=== PATIENT | female | born 1985 | race Caucasian/White ===

== ENCOUNTER 2019-01-08 21:17 | Emergency (ER) | payer MEDICAID, SELFPAY ==
[2019-01-08 21:19] VITALS: BP 143/101; PULSE 86; RESP 20; TEMP 35.8; O2SAT 100; BMI 39.3
--- NOTE | 2019-01-08 21:24 | EKG12_ITS ---
Test Reason : CP Blood Pressure : / mmHG Vent. Rate : 074 BPM Atrial Rate : 074 BPM P-R Int : 148 ms QRS Dur : 086 ms QT Int : 384 ms P-R-T Axes : 029 045 038 degrees QTc Int : 426 ms Normal sinus rhythm Normal ECG Confirmed by DEAN BAUMANN, SELVIN ([id number]), editor magazine DOMINGA CRAIG ([id number]) on 01/11/2019 10:49:44 AM Referred By: Confirmed By:SELVIN MORAN MD
--- NOTE | 2019-01-08 21:41 | RAD_ITS ---
STUDY: X-RAY CHEST REASON FOR EXAM: Female, 33 years old. Chest pain, shortness of breath TECHNIQUE: Single PA view of the chest. COMPARISON: Previous study of 08/20/2016 FINDINGS: The lungs are clear and expanded. There is no demonstrated pleural abnormality. Normal size heart. Normal mediastinum and pedro. Normal visualized pulmonary arteries. Normal visualized aortic arch and descending thoracic aorta. Normal visualized thoracic spine. Normal visualized ribs, clavicles, and shoulders. There is no demonstrated abnormality of the visualized soft tissue structures of the upper abdomen. RAD/Chest 1 View (Portable) IMPRESSION: Normal x-ray examination of the chest. Electronically Signed: Dariel Barrios MD at 22:22 EDT , Service support ,
[2019-01-08 21:50] LABS: Hematocrit 42.1 % (37-47); Hemoglobin 13.9 g/dl (12.0-15.0); Red Blood Count 4.72 M/mm3 (4.2-5.4); White Blood Count 7.1 K/mm3 (4.4-11.0)
[2019-01-08 21:51] LABS: Absolute Lymphocyte Count 2.97 X10^3/ul (0.83-4.51); Absolute Neutrophil Count 3.7 X10^3/uL (2.0-7.7); Basophil# 0.02 X10^3/uL; Basophil% 0.3 % (0-1); Eosinophil# 0.06 X10^3/uL; Eosinophils% 0.8 % (0-5); Lymphocyte # 2.97 X10^3/ul (4.0); Lymphocyte % 41.9 % (19-41); Mean Corpuscular Hgb 29.4 pg (27.0-32.0); Mean Corpuscular Volume 89.2 fL (81-99); Mean Platelet Vol. 9.4 fl (6.2-12.0); Monocyte# 0.36 X10^3/uL; Monocyte% 5.1 % (0-10); Neutrophil # 3.67 X10^3/uL (2.7-7.7); Neutrophil % 51.8 % (47-70); Platelet Count 251 K/mm3 (150-450); RBC Distribution Width CV 12.6 % (11.6-14.6); RBC Distribution Width SD 40.7 fl (35.1-43.9)
[2019-01-08 21:52] LABS: POSITIVE COUNT NO; POSITIVE DIFFERENTIAL NO; POSITIVE MORPHOLOGY NO
[2019-01-08 22:09] LABS: Anion Gap 9 (5-15); BUN 15 mg/dL (7-18); BUN/Creat Ratio 18.8 RATIO (10-20); Calcium,Total 8.7 mg/dL (8.5-10.1); Chloride 109 mmol/L (98-107); EST Glomerular Filtration Rate 88 mL/min (>60); Est Glom Filt Rate - Afr Amer 107 mL/min (>60); Estimated Creatinine Clearance 79.11 ml/min; Glucose 105 mg/dL (74-106); Potassium 3.7 mmol/L (3.5-5.1); Sodium Level 143 mmol/L (136-145)
[2019-01-08 22:33] VITALS: BP 124/71; PULSE 68; RESP 14; O2SAT 100
--- NOTE | 2019-01-08 22:59 | CT_ITS ---
STUDY: CTA CHEST REASON FOR EXAM: Female, 33 years old. Sudden onset chest pain. Left arm pain. Nausea and vomiting. History of factor V thrombophilia. Takes Xarelto.. RADIATION DOSAGE (If Supplied By Facility): CTDIvol = ( 12.28 ) mGy, DLP = ( 473.17 ) mGycm TECHNIQUE: The examination was performed with the intravenous administration of Isovue 370 100ml IV. Post-processing of the angiographic images was performed, with multiplanar reformation, but without 3D reconstruction. Individualized dose optimization techniques were used for this CT. COMPARISON: CTA chest 08/20/2016. Chest x-ray 01/08/2019. FINDINGS: Normal enhancement of the main pulmonary artery and right and left pulmonary arteries. Normal enhancement of the bilateral peripheral pulmonary arteries. There is no demonstrated pulmonary embolism. Normal thoracic aorta and visualized great vessels. There is no demonstrated aortic dissection. Normal heart and pericardium. Normal mediastinum. Normal hilar regions. Normal visualized trachea and bronchi. The lungs are well expanded. Normal pulmonary parenchyma. Normal pleura. Normal chest wall structures. There are mild degenerative changes of thoracic spine. Normal visualized upper abdomen. CT/CTA Chest W/WO Contrast IMPRESSION: Normal CTA chest examination, without a demonstrated pulmonary embolism or arterial dissection. No evidence for acute cardiopulmonary pathology. Electronically Signed: Norm Quevedo MD at 1:01 EDT , Service support ,
--- NOTE | 2019-01-08 22:59 | CT_ITS ---
STUDY: CT BRAIN WITHOUT CONTRAST REASON FOR EXAM: Female, 33 years old. Sudden onset of chest pain. Shortness of breath. Left arm pain, nausea and vomiting. Factor V thrombophilia. Patient takes his Xarelto. RADIATION DOSAGE (If Supplied By Facility): CTDIvol = ( 44.99 ) mGy, DLP = ( 745.49 ) mGycm TECHNIQUE: Transaxial CT imaging of the brain was performed without administration of intravenous contrast material. Individualized dose optimization techniques were used for this CT. COMPARISON: 09/12/2016. FINDINGS: Normal soft tissue structures. Normal calvarium. Normal size ventricles and extra-axial spaces for the patient's age. Normal white matter tracts of the cerebral hemispheres. Normal basal ganglia and thalami. Normal brainstem. There is cerebellar tonsillar ectopia with downward extension of the cerebellar tonsils through the foramen magnum, however, CSF spaces around the brainstem are not completely effaced and this is probably not a clinically significant Chiari 1 malformation. There is no intracranial hemorrhage. There are no findings of an acute ischemic infarction. Normal visualized paranasal sinuses. CT/Brain/Head without Contrast IMPRESSION: Normal unenhanced CT scan of the brain. Electronically Signed: Norm Quevedo MD at 0:44 EDT , Service support ,
[2019-01-08 23:00] VITALS: BP 96/70; PULSE 71; RESP 18; O2SAT 99
[2019-01-09] VITALS: BP 119/76; PULSE 75; RESP 19; O2SAT 100
--- NOTE | 2019-01-09 01:12 | ED.DCSUM_ITS ---
- ER Visit Summary Date of Service: 01/09/19 Chief Complaint: Chest pain History of Present Illness: The patient is a 33 F with anterior chest pain that started this evening around 8:30 PM. She also reports numbness in her left arm and left leg. She reports a headache that started yesterday and has persisted today. She has a history of factor V Leiden and takes Xarelto. She is a smoker. Prior hysterectomy. Physical Examination: Afebrile and vital signs unremarkable. 100% on room air. Patient in no acute distress. Heart regular. Extremities nontender with no edema. Skin appears normal. Moves all extremities. Cranial nerves grossly intact. Test Results: EKG showed sinus rhythm rate of 74. CBC, BMP, troponin normal. Chest x-ray normal. CT brain normal. CT chest normal. Emergency Department Course and Treatment: Patient was seen for headache, chest pain, and history of anticoagulation. Nursing had ordered her workup prior to my evaluation per protocol. Her workup was unremarkable. I did add on a CT brain and chest which were also unremarkable. Patient will be discharged to follow-up as an outpatient. There is no indication for further diagnostic testing, hospitalization. Treatment Plan: As above Disposition: Discharge Impression: 1. Chest pain 2. Headache This note was generated with [employer] dictation software. It may contain incorrect words, spelling, and punctuation that were not noted in review of the chart prior to signing ED Disposition - Plan for ED Patient: Referrals: Niranjan Gaytan MD [Primary Care Provider] -
--- NOTE | 2019-01-09 01:12 | ED.DEP ---
ED Disposition - Plan for ED Patient: Instructions: ED Chest Pain Atypical Unkn Cause Referrals: Niranjan Gaytan MD [Primary Care Provider] -
[2019-01-09 01:31] VITALS: BP 110/68; PULSE 72; RESP 18; O2SAT 100
== END 2019-01-09 01:32 | disposition home or self-care (01) ==
PROVIDERS: Emergency Provider Emergency Medicine; Family Provider Family Medicine; PCP Family Medicine
DX: R07.9 Chest pain, unspecified (principal); R51 Headache; D68.51 Activated protein C resistance; R20.0 Anesthesia of skin; F17.200 Nicotine dependence, unspecified, uncomplicated; Z79.01 Long term (current) use of anticoagulants; Z90.710 Acquired absence of both cervix and uterus
CPT/HCPCS: 70450; 71045; 71275; 80048; 84484; 85025; 93005; 99285; Q9967; A4216

== ENCOUNTER 2019-05-24 11:22 | Emergency (ER) | payer MEDICAID, SELFPAY ==
[2019-05-24 11:23] VITALS: BP 138/89; PULSE 78; RESP 16; TEMP 36.6; O2SAT 97; BMI 41.1
--- NOTE | 2019-05-24 11:49 | RAD_ITS ---
STUDY: X-RAY CHEST REASON FOR EXAM: Female, 33 years old. Chest pain and cough TECHNIQUE: PA and lateral views of the chest. COMPARISON: 01/08/2019 FINDINGS: EKG leads overlie the chest The lungs are clear and expanded. There is no demonstrated pleural abnormality. Normal size heart. Normal mediastinum and pedro. Normal visualized pulmonary arteries. Normal visualized aortic arch and descending thoracic aorta. Normal visualized thoracic spine. Normal visualized ribs, clavicles, and shoulders. There is no demonstrated abnormality of the visualized soft tissue structures of the upper abdomen. RAD/Chest PA and Lateral IMPRESSION: Normal x-ray examination of the chest. Electronically Signed: Chris Lozano MD at 12:51 EDT , Service support ,
[2019-05-24 12:01] VITALS: O2SAT 97
[2019-05-24 12:16] LABS: Bacteria 0 SEEN /hpf (None Seen); Mucous, Urine 0 SEEN /hpf (<or=2+); Red Blood Cells-Urine 0 SEEN /hpf (0-5); Squamous Epithelial Cells - UA 0 SEEN /hpf (5-10); White Blood Cells 0 SEEN /hpf (0-5)
[2019-05-24 12:21] LABS: Color, Urine Yellow (Yellow); Glucose, Dipstick Normal (Normal); Ketone-Dipstick Negative (Negative); Leukocyte Esterase-Dipstick Negative /ul (Negative); Nitrite-Dipstick Negative (Negative); Occult Blood-Urine 10 /ul (Negative); Protein-Dipstick Negative (Negative); Urine Bilirubin Dipstick Negative (Negative); Urine Clarity Clear (Clear); Urine Urobilinogen Normal (Normal)
[2019-05-24 12:32] LABS: Anion Gap 7 (5-15); BUN 11 mg/dL (7-18); BUN/Creat Ratio 14.9 RATIO (10-20); Calcium,Total 8.8 mg/dL (8.5-10.1); Chloride 109 mmol/L (98-107); Creatinine, Serum 0.74 mg/dL (0.55-1.02); EST Glomerular Filtration Rate 96 mL/min (>60); Est Glom Filt Rate - Afr Amer 116 mL/min (>60); Estimated Creatinine Clearance 85.52 ml/min; Glucose 95 mg/dL (74-106); Potassium 3.8 mmol/L (3.5-5.1); Sodium Level 142 mmol/L (136-145)
[2019-05-24 12:38] VITALS: O2SAT 98
--- NOTE | 2019-05-24 12:38 | ED.RN ---
pt with slight feelings of SOB but in no respiratory distress with ambulation
--- NOTE | 2019-05-24 12:43 | ED.VIS.GEN ---
History of Present Illness Chief Complaint: Shortness of Breath Detail of Chief Complaint: Complains of dysuria, urinating gravel and hematuria Informant: Patient Onset: Weeks - Shortness of breath for weeks Context: Gradual Onset Timing: Continuous Quality: Pain Location: Central chest Current Severity: Mild Maximum Severity: Moderate Worsened by: Shortness of breath worsened by exertion Relieved by: Nothing Associated Symptoms: No associated symptoms and no radiation Narrative: Patient is a 33-year-old woman with history of multiple pulmonary embolus and factor V Leiden deficiency who presents with shortness of breath for 1 month. She denies of dyspnea on exertion. Denies orthopnea PND. She denies hemoptysis. Denies pleuritic chest pain. Denies URI symptoms. She also claims of dysuria, hematuria and urinating gravel for the past 2 weeks. She has no history of renal ureterolithiasis. She is presently on no anticoagulant. She has not been on anticoagulant for 4 months. She states she was on Xarelto. Prior similar symptoms: Yes Recent Illness/Hospitalization: No - Past Medical History (1) Factor V Leiden Status: Acute (2) Hx pulmonary embolism Status: Acute Past Medical History - Allergies and Home Meds Allergies/Adverse Reactions: Allergies horseradish Allergy (Verified 05/24/19 11:26) Food Allergy Iodinated Contrast- Oral and IV Dye [CONTRASTS] Allergy (Verified 05/24/19 11:26) Rash sulfamethoxazole [From Bactrim] Allergy (Verified 05/24/19 11:26) Angioedema, RASH trimethoprim [From Bactrim] Allergy (Verified 05/24/19 11:26) Angioedema, RASH Primary Care Physician: Niranjan Gaytan MD [Primary Care Provider] - Surgical History: appendectomy, cholecystectomy, hysterectomy, - - Right oophorectomy, arthroscopic knee surgery in her right knee for meniscus tear, foot surgery Lives: Alone Smoking Status: Current every day smoker Alcohol: Rare Drugs: None - Family History Maternal Family History: Reports: No pertinent history Paternal Family History: Reports: No pertinent history Review of Systems General: Denies: Chills, Fever, Sweats Eyes: Denies: Visual changes - bilaterally, Diplopia ENT: Denies: Rhinorrhea, Sore throat Cardiovascular: Denies: Chest pain, Palpitations Respiratory: Reports: Dyspnea, Dyspnea on exertion. Denies: Cough, Orthopnea, Paroxysmal nocturnal dyspnea Gastrointestinal: Denies: Abdominal pain, Nausea, Vomiting, Diarrhea, Melena, Hematochezia Genitourinary: Reports: Dysuria, Hematuria, Frequency Musculoskeletal: Denies: Myalgias, Arthralgias, Neck pain, Back pain, Swelling, Extremity Pain Skin: Denies: Rash, Wounds Neurological: Denies: Headache, Weakness, Numbness Hematologic: Denies: Easy bruising, Easy bleeding Allergy: Denies: Uticaria, Swelling of the mouth Physical Exam Vital Signs/Narrative: Vital Signs Temp Pulse Resp BP Pulse Ox 05/24/19 11:23 97.9 F 78 16 138/89 H 97 Inital Vital Signs reviewed: Yes General: Well nourished, Well developed, No Acute Distress Head: Normocephalic, Atraumatic Eyes: Perrl, EOMI ENT: Moist mucous membranes, No rhinorrhea Neck: Supple, Nontender Cardiovascular: Regular rate, Regular rhythm, No murmurs, Normal S1, Normal S2 Respiratory: No distress, CTA bilaterally, Chest nontender Abdomen: Soft, Nontender, Nondistended, Normal bowel sounds Back: Nontender, Normal Inspection. Negative for: CVA tenderness Extremities: Nontender, No edema, - - There is no asymmetry, swelling, discoloration, leg vein distention, palpable cords or tenderness along the distribution of the deep venous system. Skin: Normal color, No rash Neurological: Alert, Oriented x3, Cranial nerves II-XII grossly intact, Normal Strength, Normal Sensation Psychological: Normal affect, Normal Mood Diagnostic/Tx/Re-eval Chest X-Ray - ED: 2 View, Read by ED Physician, Normal, Heart, Lungs, Mediastinum, Bony Structures, No Acute Disease, - - X-ray interpreted at 1240 Impressions Chest X-Ray 05/24/19 11:49 IMPRESSION: Normal x-ray examination of the chest. Electronically Signed: Chris Lozano MD at 12:51 EDT , Service support , 05/24/19 11:49 Chest PA and Lateral [RAD] Stat Laboratory Results 05/24/19 05/24/19 05/24/19 12:05 12:05 12:10 WBC 7.6 RBC 4.85 Hgb 14.1 Hct 42.4 MCV 87.4 MCH 29.1 MCHC 33.3 RDW Std Deviation 39.7 RDW Coeff of Joelle 12.4 Plt Count 240 MPV 10.0 Immature Gran % (Auto) 0.400 Neut % (Auto) 64.6 Lymph % (Auto) 27.9 [place] % (Auto) 5.7 Eos % (Auto) 0.9 Baso % (Auto) 0.5 Absolute Neuts (auto) 4.9 Absolute Lymphs (auto) 2.11 Absolute Nucleated RBC 0.00 Nucleated RBC % 0 Sodium 142 Potassium 3.8 Chloride 109 H Carbon Dioxide 26.0 Anion Gap 7 BUN 11 Creatinine 0.74 Estim Creat Clear Calc 85.52 Est GFR (MDRD) Af Amer 116 Est GFR (MDRD) Non-Af 96 BUN/Creatinine Ratio 14.9 Glucose 95 Calcium 8.8 Urine Color Yellow Urine Clarity Clear Urine pH 6.0 Ur Specific [place] 1.010 Urine Protein Negative Urine Glucose (UA) Normal Urine Ketones Negative Urine Occult Blood 10 H Urine Nitrite Negative Urine Bilirubin Negative Urine Urobilinogen Normal Ur Leukocyte Esterase Negative Urine RBC 0 SEEN Urine WBC 0 SEEN Ur Squamous Epith Cells 0 SEEN Urine Bacteria 0 SEEN Urine Mucus 0 SEEN - Rhythm Strip Rhythm Strip: Sinus Rhythm Rate: 77 Ectopy: None - Medical Decision Making Since patient has respiratory symptoms will obtain chest x-ray. Also will obtain amatory pulse ox. Patient may have a small pulmonary embolus. If she is hypoxic plan is CTA of the chest to evaluate for pulmonary embolus. If she has normal vital signs and is not hypoxic with ambulation will resume/restart anticoagulant. To assess her urinary symptoms probably blood work was ordered as well as UA.. Since patient was not tachycardic, tachypneic or hypoxic with ambulation will resume Xarelto. ED Disposition - Plan for ED Patient: Disposition: Home or Assisted Living Diagnosis: Dyspnea on exertion, Factor V Leiden, Hx pulmonary embolism Instructions: ED Dyspnea Prescriptions: Rivaroxaban [Xarelto] 15 mg PO BID #42 tab Transmission Status: Pending to [facility] [facility] Referrals: Niranjan Gaytan MD [Primary Care Provider] - 3-5 Days if not improving
[2019-05-24 12:53] LABS: Absolute Lymphocyte Count 2.11 X10^3/uL (0.83-4.51); Absolute Neutrophil Count 4.9 X10^3/uL (2.0-7.7); Basophil# 0.04 X10^3/uL; Basophil% 0.5 % (0-1); Eosinophil# 0.07 X10^3/uL; Eosinophils% 0.9 % (0-5); Hematocrit 42.4 % (37-47); Hemoglobin 14.1 g/dL (12.0-15.0); Lymphocyte # 2.11 X10^3/ul (4.0); Lymphocyte % 27.9 % (19-41); Mean Corp Hgb Conc 33.3 g/dL (32-36); Mean Corpuscular Hgb 29.1 pg (27.0-32.0); Mean Corpuscular Volume 87.4 fL (81-99); Monocyte# 0.43 X10^3/uL; Monocyte% 5.7 % (0-10); NRBC Flagged by Analyzer 0 % (0-5); Neutrophil # 4.87 X10^3/uL (2.7-7.7); Neutrophil % 64.6 % (47-70); Platelet Count 240 K/mm3 (150-450); RBC Distribution Width CV 12.4 % (11.6-14.6); RBC Distribution Width SD 39.7 fl (35.1-43.9); Red Blood Count 4.85 M/mm3 (4.2-5.4); White Blood Count 7.6 K/mm3 (4.4-11.0)
== END 2019-05-24 13:17 | disposition home or self-care (01) ==
PROVIDERS: Emergency Provider Emergency Medicine; Family Provider Family Medicine; PCP Family Medicine
DX: R06.09 Other forms of dyspnea (principal); D68.51 Activated protein C resistance; R31.9 Hematuria, unspecified; R30.0 Dysuria; F17.200 Nicotine dependence, unspecified, uncomplicated; Z79.01 Long term (current) use of anticoagulants; Z88.8 Allergy status to other drugs, medicaments and biological substances; Z88.2 Allergy status to sulfonamides; Z86.711 Personal history of pulmonary embolism; Z90.49 Acquired absence of other specified parts of digestive tract; Z90.710 Acquired absence of both cervix and uterus
CPT/HCPCS: 71046; 80048; 81001; 85025; 99284; A4216

== ENCOUNTER 2020-06-27 11:09 | Emergency (ER) | payer MEDICAID, SELFPAY ==
[2020-06-27] VITALS (8 sets, daily range): BP systolic 112–133; BP diastolic 69–86; PULSE 65–88; RESP 15–20; TEMP 36.3–37.2; O2SAT 94–99; BMI 39.5
--- NOTE | 2020-06-27 11:31 | EKG12_ITS ---
Test Reason : CP Blood Pressure : / mmHG Vent. Rate : 072 BPM Atrial Rate : 072 BPM P-R Int : 144 ms QRS Dur : 080 ms QT Int : 346 ms P-R-T Axes : 032 032 034 degrees QTc Int : 378 ms Normal sinus rhythm with sinus arrhythmia Normal ECG Confirmed by JOSE BAUMANN, BRINA ([id number]), news copy editor DOMINGA CRAIG ([id number]) on 07/01/2020 7:51:54 AM Referred By: KIMBERLEY Confirmed By:BRINA GARCIA MD
--- NOTE | 2020-06-27 11:33 | ED.DCSUM_ITS ---
History of Present Illness Informant: Patient Onset: Days - 3 days Activity at onset: Exertion, Light Activity, Rest Timing: Continuous Quality: Dyspnea on exertion Current Severity: Severe Maximum Severity: Severe Worsened by: Coughing, Exertion Relieved by: Nothing Associated Symptoms: Green sputum, Post-nasal drainage, Rhinorrhea Chest Pain: None Narrative: 34-year-old female history of pulmonary embolism currently on anticoagulation presents with 3 days of worsening dyspnea with productive cough with sputum. No chest pain or fevers. No hemoptysis. No sore throat or myalgias. She is not lightheaded or dizzy. She denies any symptoms of bleeding. No nausea vomiting or diarrhea or back pain. She has not lost taste or smell. No contacts with coronavirus patients. She feels congested in her chest she took a hot bath and she states that from the steam she felt really lightheaded like she was going to pass out and may have passed out but she is not sure and denies injuries. She states that she currently has no lightheadedness or dizziness. PE Risk Factors: Negative for: Cancer, OCP + Smoking + > 35, Prior DVT or PE, Recent immobilization, Recent surgery, Recent travel Prior similar symptoms: No Recent Illness/Hospitalization: No <Jeovanny Nava - Last Filed: 06/27/20 15:31> <Mary Campbell - Last Filed: 06/27/20 15:59> Chief Complaint: Cough Past Medical History Prior records reviewed: Yes Past Medical History: - - Cervical cancer, depression, GERD, factor V d eficiency, migraines, asthma Surgical History: appendectomy, cholecystectomy, hysterectomy, - - Right oophorectomy, arthroscopic knee surgery in her right knee for meniscus tear, foot surgery Lives: With Family Smoking Status: Current every day smoker Alcohol: None Drugs: None - Family History Maternal Family History: Reports: No pertinent history Paternal Family History: Reports: No pertinent history <Jeovanny Nava - Last Filed: 06/27/20 15:31> <Mary Campbell - Last Filed: 06/27/20 15:59> - Allergies and Home Meds Allergies/Adverse Reactions: Allergies horseradish Allergy (Verified 06/27/20 11:15) Food Allergy Iodinated Contrast Media [CONTRASTS] Allergy (Verified 06/27/20 11:15) Rash sulfamethoxazole [From Bactrim] Allergy (Verified 06/27/20 11:15) Angioedema, RASH trimethoprim [From Bactrim] Allergy (Verified 06/27/20 11:15) Angioedema, RASH Primary Care Physician: Niranjan Gaytan MD [Primary Care Provider] - 3-5 Days Review of Systems All systems negative except as indicated General: Denies: Chills, Fever, Sweats Eyes: Denies: Visual changes - bilaterally, Diplopia ENT: Denies: Rhinorrhea, Sore throat Cardiovascular: Denies: Chest pain, Palpitations Respiratory: Reports: Dyspnea, Cough, Sputum, Dyspnea on exertion. Denies: Orthopnea, Paroxysmal nocturnal dyspnea Gastrointestinal: Denies: Abdominal pain, Nausea, Vomiting, Diarrhea, Melena, Hematochezia Genitourinary: Denies: Dysuria, Hematuria, Frequency Musculoskeletal: Denies: Back pain, Extremity Pain Skin: Denies: Rash, Wounds Neurological: Denies: Headache, Weakness, Numbness <Jeovanny Nava - Last Filed: 06/27/20 15:31> Physical Exam Vital Signs/Narrative: Vital Signs Temp Pulse Resp BP Pulse Ox 06/27/20 11:10 97.4 F L 88 18 133/86 H 97 Inital Vital Signs reviewed: Yes General: Well nourished, Well developed, No Acute Distress Head: Normocephalic, Atraumatic Eyes: Perrl, EOMI ENT: Moist mucous membranes, No rhinorrhea Neck: Supple, Nontender Cardiovascular: Regular rate, Regular rhythm, No murmurs Respiratory: No distress, Chest nontender, Wheezing Abdomen: Soft, Nontender, Nondistended, Normal bowel sounds Back: Nontender, Normal Inspection Extremities: Nontender, No edema. Negative for: Tenderness, Edema, Calf Tenderness Skin: Normal color, No rash Neurological: Alert, Oriented x3, Cranial nerves II-XII grossly intact, Normal Strength, Normal Sensation Psychological: Normal affect, Normal Mood <Jeovanny Nava Last Filed: 06/27/20 15:31> Vital Signs/Narrative: Vital Signs Temp Pulse Resp BP Pulse Ox 06/27/20 15:44 67 16 06/27/20 14:01 71 20 H 06/27/20 13:52 65 15 112/69 97 06/27/20 12:34 98 08/28/20 12:15 98.9 F 72 18 125/78 H 98 <Mary Campbell - Last Filed: 06/27/20 15:59> Diagnostic/Tx/Re-eval Chest X-Ray - ED: 2 View, Read by ED Physician, No Acute Disease CTA PE Study: No Evidence of PE, No Evidence of Dissection Impressions Chest X-Ray 06/27/20 12:54 IMPRESSION: Normal x-ray examination of the chest. Electronically Signed: Mal Domi, at 13:16 EDT , Service support , Chest CTA 06/27/20 13:22 IMPRESSION: Patchy infiltrate in the posterior aspect of the left upper lobe abutting the left minor fissure. Electronically Signed: Mal Domi, at 15:19 EDT , Service support , 06/27/20 12:54 Chest 1 View [RAD] Stat 06/27/20 13:22 CTA Chest W/WO Contrast [CT] Stat Laboratory Results 06/27/20 06/27/20 12:27 12:27 WBC 7.4 RBC 4.99 Hgb 14.3 Hct 43.9 MCV 88.0 MCH 28.7 MCHC 32.6 RDW Std Deviation 41.0 RDW Coeff of Joelle 12.7 Plt Count 254 MPV 9.6 Immature Gran % (Auto) 0.300 Neut % (Auto) 71.9 H Lymph % (Auto) 19.0 [place] % (Auto) 7.5 Eos % (Auto) 0.9 Baso % (Auto) 0.4 Absolute Neuts (auto) 5.3 Absolute Lymphs (auto) 1.41 Nucleated RBC % 0 Sodium 139 Potassium 3.9 Chloride 106 Carbon Dioxide 27.0 Anion Gap 6 BUN 7 Creatinine 0.74 Estim Creat Clear Calc 84.72 Est GFR (MDRD) Af Amer 115 Est GFR (MDRD) Non-Af 95 BUN/Creatinine Ratio 9.5 L Glucose 91 Calcium 9.2 Troponin I < 0.015 - Rhythm Strip Rhythm Strip: Sinus Rhythm Rate: 72 Ectopy: None - EKG Initial EKG Interpretation: Sinus Rhythm, No Acute Injury Pattern Prior: Unchanged Treatment - Dyspnea: Oxygen, Albuterol, Atrovent, Steroid Repeat Evaluation: Improved With Ambulation: Asymptomatic - Medical Decision Making Patient presents with normal stable vital signs and a normal pulse ox.. EKG was sinus rhythm rate of 72 bpm no ischemic changes are noted and it is unchanged from previous EKG. Laboratory work-up including CBC BMP and troponin are unremarkable. Chest x-ray unremarkable. She was given Solu-Medrol and aerosols. Patient does have a history of pulmonary embolism even though she has been taking her Xarelto she has become more short of breath we are also concerned for pneumonia that was not seen on the chest x-ray therefore we will do a CTA of the chest. Patient was pretreated with Benadryl CTA chest demonstrates a left upper lobe pneumonia but no pulmonary embolism or dissection. Patient has a normal pulse ox she does feel better after steroids and aerosols and we will discharge her home with prescriptions for both Augmentin and Zithromax prednisone and albuterol inhaler. Return precautions given. She will be discharged <Jeovanny Nava - Last Filed: 06/27/20 15:31> - Medical Decision Making Patient seen and evaluated with physicians undertaker assistant. Patient presents secondary to shortness of breath and cough. This is been ongoing for the past couple of days. She is a smoker. She denies fever or chills. She denies possibility of Covid infection. Patient sitting upright in bed no acute distress. Head neck examination unremarkable. Heart is regular rate and rhythm. Lung sounds are with expiratory wheezes throughout. Abdomen is soft and nontender. Chest x-ray is unremarkable. Blood work is unremarkable. In light of her history of pulmonary emboli a CTA of the chest is obtained and reveals small infiltrate. Patient was given DuoNeb treatment here along with steroids. She will be treated with antibiotics and albuterol inhaler at home. Disposition: Discharge <Mary Campbell - Last Filed: 06/27/20 15:59> ED Disposition <Jeovanny Nava - Last Filed: 06/27/20 15:31> <Mary Campbell - Last Filed: 06/27/20 15:59> - Plan for ED Patient: Disposition: Home or Assisted Living Diagnosis: Community acquired pneumonia, Hx pulmonary embolism, Factor V Leiden, Smoker Instructions: Treating Pneumonia, ED PNEUMONITIS Adult Prescriptions: Amox/Clavulanate Tablet [Augmentin Tablet] 875 mg PO Q12H #20 tab Transmission Status: [facility] by [facility]. Prednisone [Deltasone] 40 mg PO DAILY #10 tab Transmission Status: Received by [place] [id number] [address] [facility]. Albuterol Inhaler [Ventolin Hfa] 2 puff INHALATION Q4H PRN PRN #1 inhaler PRN Reason: Wheezing Transmission Status: Received by [place] [id number] [address] [facility]. Azithromycin [Zithromax Z-Brandin] 250 mg PO UD #1 box Transmission Status: Received by [facility] Referrals: Niranjan Gaytan MD [Primary Care Provider] - 3-5 Days
[2020-06-27] MEDS: 0.9% Normal Saline 1,000 ML 1000 ML IV (12:28)
[2020-06-27 12:50] LABS: Absolute Lymphocyte Count 1.41 X10^3/uL (0.83-4.51); Absolute Neutrophil Count 5.3 X10^3/uL (2.0-7.7); Basophil# 0.03 X10^3/uL; Basophil% 0.4 % (0-1); Eosinophil# 0.07 X10^3/uL; Eosinophils% 0.9 % (0-5); Hematocrit 43.9 % (37-47); Hemoglobin 14.3 g/dL (12.0-15.0); Lymphocyte # 1.41 X10^3/ul (4.0); Mean Corp Hgb Conc 32.6 g/dL (32-36); Mean Corpuscular Hgb 28.7 pg (27.0-32.0); Mean Platelet Vol. 9.6 fl (6.2-12.0); Monocyte# 0.56 X10^3/uL; Monocyte% 7.5 % (0-10); NRBC Flagged by Analyzer 0 % (0-5); Neutrophil # 5.33 X10^3/uL (2.7-7.7); Neutrophil % 71.9 % (47-70); Platelet Count 254 K/mm3 (150-450); RBC Distribution Width CV 12.7 % (11.6-14.6); Red Blood Count 4.99 M/mm3 (4.2-5.4); White Blood Count 7.4 K/mm3 (4.4-11.0)
--- NOTE | 2020-06-27 12:54 | RAD_ITS ---
STUDY: X-RAY CHEST REASON FOR EXAM: Female, 34 years old. SOB x3 DAYS, COUGH -- HX OF PE''S TECHNIQUE: Single AP portable view of the chest. COMPARISON: Comparison is made with prior study dated 05/24/2019. FINDINGS: EKG electrodes are seen. The lungs are clear and expanded. There is no demonstrated pleural abnormality. Normal size heart. Normal mediastinum and pedro. Normal visualized pulmonary arteries. Normal visualized aortic arch and descending thoracic aorta. Normal visualized thoracic spine. Normal visualized ribs, clavicles, and shoulders. There is no demonstrated abnormality of the visualized soft tissue structures of the upper abdomen. RAD/Chest 1 View IMPRESSION: Normal x-ray examination of the chest. Electronically Signed: Mal Duron, at 13:16 EDT , Service support ,
[2020-06-27 13:06] LABS: Anion Gap 6 (5-15); BUN 7 mg/dL (7-18); BUN/Creat Ratio 9.5 RATIO (10-20); Calcium,Total 9.2 mg/dL (8.5-10.1); Chloride 106 mmol/L (98-107); Creatinine, Serum 0.74 mg/dL (0.55-1.02); EST Glomerular Filtration Rate 95 mL/min (>60); Est Glom Filt Rate - Afr Amer 115 mL/min (>60); Estimated Creatinine Clearance 84.72 ml/min; Glucose 91 mg/dL (74-106); Potassium 3.9 mmol/L (3.5-5.1); Sodium Level 139 mmol/L (136-145)
--- NOTE | 2020-06-27 13:22 | CT_ITS ---
STUDY: CTA CHEST REASON FOR EXAM: Female, 34 years old. SOB,SYNCOPE, HX PE RADIATION DOSAGE (If Supplied By Facility): CTDIvol = ( 13.41 ) mGy, DLP = ( 421.56 ) mGycm TECHNIQUE: The examination was performed with the intravenous administration of IV 100mL Isovue-370. Post-processing of the angiographic images was performed, with multiplanar reformation and 3D reconstruction. Individualized dose optimization techniques were used for this CT. COMPARISON: Comparison is made with prior study dated 01/08/2019. FINDINGS: Normal enhancement of the main pulmonary artery and right and left pulmonary arteries. Normal enhancement of the bilateral peripheral pulmonary arteries. There is no demonstrated pulmonary embolism. Normal thoracic aorta and visualized great vessels. There is no demonstrated aortic dissection. Normal heart and pericardium. Increased markings are seen within the anterior mediastinal fat. This similar in appearance to prior study. Normal hilar regions. Normal visualized trachea and bronchi. The lungs are well expanded. Focal infiltrate in the posterior aspect of the left upper lobe abutting the left major fissure. Mild increased markings at the lung bases. Normal pleura. Normal chest wall structures. Normal osseous structures. Normal visualized upper abdomen. CT/CTA Chest W/WO Contrast IMPRESSION: Patchy infiltrate in the posterior aspect of the left upper lobe abutting the left minor fissure. Electronically Signed: Mal Duron, at 15:19 EDT , Service support ,
[2020-06-27] MEDS: HYDROcodone Bitartrate/Apap 5/325 Tablet PO (13:47)
[2020-06-27] MEDS: DiphenhydrAMINE 50 MG/ML Syringe 25 MG IV (13:48)
[2020-06-27] MEDS: MethylPREDNISolone 125 MG/2 ML Vial IV (13:50)
[2020-06-27] MEDS: Ipratropium/Albuterol Sulfate 3 ML AMPUL.NEB INHALATION ×2 (14:00→15:43)
[2020-06-27] MEDS: Azithromycin 250 MG Tablet 500 MG PO (16:23)
[2020-06-27] MEDS: Amox/Clavulanate 875 MG Tablet PO (16:24)
--- NOTE | 2020-06-27 19:46 | ED.RN ---
patient called in asking questions about prescriptions attempted to help patient at this time
== END 2020-06-27 16:40 | disposition home or self-care (01) ==
PROVIDERS: Emergency Provider Physician Assistant Medical; PCP Family Medicine
DX: J18.9 Pneumonia, unspecified organism (principal); D68.51 Activated protein C resistance; D68.2 Hereditary deficiency of other clotting factors; J45.909 Unspecified asthma, uncomplicated; K21.9 Gastro-esophageal reflux disease without esophagitis; F17.200 Nicotine dependence, unspecified, uncomplicated; Z79.01 Long term (current) use of anticoagulants; Z85.41 Personal history of malignant neoplasm of cervix uteri; Z86.711 Personal history of pulmonary embolism
CPT/HCPCS: 71045; 71275; 80048; 84484; 85025; 93005; 94640; 94799; 96361; 96374; 96375; 99285; J7030; Q9967; A4216

== ENCOUNTER 2021-04-14 13:41 | Emergency (ER) | payer MEDICAID, SELFPAY ==
[2020-06-27 11:10] VITALS: BMI 39.5
[2021-04-14 13:42] VITALS: BP 120/74; PULSE 98; RESP 16; TEMP 36.7; O2SAT 99; BMI 42.4
--- NOTE | 2021-04-14 13:46 | RAD_ITS ---
STUDY: X-RAY - LEFT RADIUS AND ULNA REASON FOR EXAM: Left elbow pain, left forearm injury from a fall. TECHNIQUE: 2 view(s) of the forearm. COMPARISON: None. FINDINGS: There is an elbow joint effusion. There is a possible subtle nondisplaced fracture of the head/neck junction of the radius on the lateral view. Normal visualized ulna. RAD/Forearm 2 Views IMPRESSION: Possible subtle fracture of the head/neck junction of the radius. Elbow joint effusion. Electronically Signed: Montrell Frazier MD at 14:19 EDT Tel , Service support ,
--- NOTE | 2021-04-14 13:46 | RAD_ITS ---
STUDY: X-RAY - LEFT HUMERUS REASON FOR EXAM: Left elbow/distal humeral pain, left upper arm injury from a fall. TECHNIQUE: 2 view(s) of the humerus. COMPARISON: None. FINDINGS: Normal visualized humerus. There is no demonstrated fracture or osseous destructive process. There is no demonstrated soft tissue abnormality. RAD/Humerus min 2 Views IMPRESSION: Unremarkable x-ray examination of the left humerus. Electronically Signed: Montrell Frazier MD at 14:23 EDT Tel , Service support ,
[2021-04-14] MEDS: oxyCODONE 5 MG Tablet PO (15:07)
--- NOTE | 2021-04-14 15:47 | EX.ED.UPPERE ---
HPI History of Present Illness Chief Complaint: Upper Extremity Injury Informant: patient Occured/Mechanism Mechanism/Context: Yes fall and Yes same level fall Onset/Context/Timing Onset: Today Context: Sudden Onset Timing: Continuous Quality of Pain: Sharp Location: Left elbow Worsened by: Movement Relieved by: Rest Narrative Narrative: Patient presents with injury to her left upper arm and elbow area. Patient states she tripped and fell today. Patient states she landed on her left arm. Patient states her pain is sharp. Patient states pain is worse with any movement. Patient denies any radiation of the pain. Patient denies any paresthesias or weakness. Patient denies any head injury or loss of consciousness. Patient also admits to some mild bruising and a small abrasion over the palmar aspect of her right hand. Patient denies any pain in that hand. [facility] Medical History Anxiety DVT (deep venous thrombosis) Home Medications rivaroxaban 15 mg PO BID #42 tab 05/24/19 [Rx Last Taken Unknown] albuterol sulfate 2 puff INHALATION Q4H PRN PRN #1 inhaler 06/27/20 [Rx Last Taken Unknown] amoxicillin-pot clavulanate 875 mg PO Q12H #20 tab 06/27/20 [Rx Last Taken Unknown] azithromycin 250 mg PO UD #1 box 06/27/20 [Rx Last Taken Unknown] lorazepam 0.5 mg PO DAILY PRN PRN 06/27/20 [History Last Taken Unknown] prednisone 40 mg PO DAILY #10 tab 06/27/20 [Rx Last Taken Unknown] oxycodone-acetaminophen 1 tab PO Q6H PRN PRN 3 Days #12 tablet 04/14/21 [Rx Last Taken Unknown] Allergy/AdvReac Type Severity Reaction Status Date / Time horseradish Allergy Food Verified 04/14/21 13:42 Allergy Iodinated Contrast Media Allergy Rash Verified 04/14/21 13:42 [CONTRASTS] sulfamethoxazole Allergy Angioedema, Verified 04/14/21 13:42 [From Bactrim] RASH trimethoprim [From Bactrim] Allergy Angioedema, Verified 04/14/21 13:42 RASH Surgical History (Updated 04/14/21 @ 18:[address] Gunner Adler DO) History of cholecystectomy History of hysterectomy with unilateral oophorectomy History of tonsillectomy and adenoidectomy Hx of tympanostomy tubes Social History Smoking Status: Current every day smoker tobacco type: cigarettes ROS ROS ED Constitutional Constitutional ED: Denies chills or fever(s) Eyes Eyes: Denies blurry vision or change in vision ENT ENT ED: Denies rhinorrhea or sore throat Cardiovascular Cardiovascular: Denies chest pain or palpitations Respiratory/Chest Respiratory/Chest: Denies cough or dyspnea Gastrointestinal Gastrointestinal: Reports nausea; Denies vomiting Genitourinary Genitourinary ED: Denies dysuria or hematuria Musculoskeletal Musculoskeletal: Denies back pain or neck pain Integumentary Denies abscess or rash Neurologic Neurologic: Denies headache(s) or weakness Allergic/Immunologic Allergic/Immunologic ED: Denies mouth swelling or urticaria EXAM Physical Exam Const Vital Signs: 04/14/21 13:42 Temperature 98.0 F Temperature Source Temporal Pulse Rate 98 Respiratory Rate 16 Blood Pressure 120/74 Blood Pressure Mean 89 Pulse Ox 99 Oxygen Delivery Method Room Air Positive well nourished, well developed and obese General Appearance ED: well developed Nutritional Appearance: obese HEENT Reports moist mucous membranes Neck full ROM and supple Extremity Extremity Narrative: There is tenderness over the antecubital area of the left elbow. There is some mild edema. There is no obvious deformity. Range of motion was limited in all motions of the left elbow secondary to pain. There is mild tenderness over the left shoulder. There is no tenderness over the left wrist. Sensation was intact to light touch in the radial, median, and ulnar areas. Capillary refill is less than 2 seconds in all digits. Radial pulses are equal bilaterally. Neuro oriented x3, CN's II-XII intact bilaterally, moves all extremities, no focal motor deficits and no sensory deficits noted Sensorium / Orientation: alert Psych mental status grossly normal MDM MDM MDM Narrative Medical decision making narrative: X-rays of the left humerus were obtained. There are 2 views. On my interpretation, there is no acute fracture or dislocation. There is no soft tissue swelling. Radiologist also interpreted the x-rays and agrees. X-rays of the left forearm were obtained. There are 2 views. On my interpretation, there is a nondisplaced radial head fracture. There is a joint effusion with a positive anterior and posterior fat pad signs. Radiologist also interpreted the x-rays and agrees. Patient was given a dose of oxycodone here. Patient was placed in a well-padded custom made posterior splint using 4 inch Ortho-Glass. Patient was given a sling for comfort as well. Patient was given a prescription for Percocet. Patient was given a referral to Dr. Rashid Rucker from orthopedics who is on-call. Patient was instructed use ice to the left elbow. Patient was instructed to follow-up in 3 to 5 days. Patient understood and was agreeable with the plan. All questions were answered. Radiography Diagnostic Testing: Radiology Impression Forearm X-Ray 04/14/21 13:46 IMPRESSION: Possible subtle fracture of the head/neck junction of the radius. Elbow joint effusion. Electronically Signed: Montrell Frazier MD at 14:19 EDT Tel , Service support , Humerus X-Ray 04/14/21 13:46 IMPRESSION: Unremarkable x-ray examination of the left humerus. Electronically Signed: Montrell Frazier MD at 14:23 EDT Tel , Service support , Discharge Plan Triage Chief Complaint: Upper Extremity Injury ED Provider: Gunner Adler Dx/Rx/DC Orders Clinical Impression: Fracture of head of left radius Instructions: ED Elbow Fracture Prescriptions: New oxycodone-acetaminophen [oxycodone-acetaminophen] 1 TABLET tablet 1 tab PO Q6H PRN PRN (Reason: Pain) 3 Days Qty: 12 RF: 0 No Action rivaroxaban 15 MG tablet 15 mg PO BID Qty: 42 RF: 0 lorazepam 0.5 MG tablet 0.5 mg PO DAILY PRN PRN (Reason: Anxiety) RF: 0 albuterol sulfate 1 INHALER inhaler 2 puff inhalation Q4H PRN PRN (Reason: Wheezing) Qty: 1 RF: 0 azithromycin 250 MG tablet 250 mg PO UD Qty: 1 RF: 0 prednisone 20 MG tablet 40 mg PO DAILY Qty: 10 RF: 0 amoxicillin-pot clavulanate 875 MG tablet 875 mg PO Q12H Qty: 20 RF: 0 Primary Care Provider: Niranjan Gaytan Referrals: Niranjan Gaytan MD [Primary Care Provider] - 1-2 Weeks Rashid Rucker MD [STAFF PHYSICIAN] - 3-5 Days Disposition Disposition: Home, self care Discharge Date/Time: 04/14/21 16:21
[2021-04-14 16:20] VITALS: PULSE 88; RESP 15; O2SAT 97
== END 2021-04-14 16:21 | disposition home or self-care (01) ==
PROVIDERS: Emergency Provider Emergency Medicine; PCP Family Medicine
DX: S52.125A Nondisplaced fracture of head of left radius, initial encounter for closed fracture (principal); Z04.3 Encounter for examination and observation following other accident; W01.0XXA Fall on same level from slipping, tripping and stumbling without subsequent striking against object, initial encounter; Y93.9 Activity, unspecified; Y92.9 Unspecified place or not applicable; Y99.9 Unspecified external cause status; F41.9 Anxiety disorder, unspecified; E66.9 Obesity, unspecified; F17.210 Nicotine dependence, cigarettes, uncomplicated; Z79.01 Long term (current) use of anticoagulants; Z79.52 Long term (current) use of systemic steroids; Z79.899 Other long term (current) drug therapy; Z86.718 Personal history of other venous thrombosis and embolism
CPT/HCPCS: 29405; 73060; 73090; 99283

== ENCOUNTER 2021-07-01 21:22 | Emergency (ER) | payer MEDICAID, SELFPAY ==
[2021-07-01 21:22] VITALS: BP 138/85; PULSE 89; RESP 16; TEMP 36.2; O2SAT 99; BMI 40.2
[2021-07-01 21:24] VITALS: BP 138/85; PULSE 89; RESP 16; TEMP 36.2; O2SAT 99
--- NOTE | 2021-07-01 22:19 | EDS_ITS ---
HPI History of Present Illness Chief Complaint: Wound Detail of Chief Complaint: Lower abdomen. Informant: patient Onset/Context/Timing Onset: Weeks Context: Gradual Onset Timing: Continuous Current Severity: Mild Maximum Severity: Mild Narrative Narrative: 35-year-old female past medical history of DVTs on Xarelto and anxiety. Denies diabetes. States she developed a small wound on her abdomen just from rubbing against her pants and clothing. And now there is redness around it. Denies any fever or chills. Says it is mildly uncomfortable. No discharge. Started approximately 1 week ago. Prior similar symptoms: No Recent Illness/Hospitalization: No PFSH PFSH Medical History Anxiety DVT (deep venous thrombosis) Home Medications lorazepam 0.5 mg PO DAILY PRN PRN 06/27/20 [History Last Taken Unknown] cephalexin 500 mg PO Q6H 7 Days #28 cap 07/01/21 [Rx Last Taken Unknown] rivaroxaban 20 mg PO DAILY 07/01/21 [History Last Taken Unknown] Allergy/AdvReac Type Severity Reaction Status Date / Time horseradish Allergy Food Verified 07/01/21 21:24 Allergy Iodinated Contrast Media Allergy Rash Verified 07/01/21 21:24 [CONTRASTS] sulfamethoxazole Allergy Angioedema, Verified 07/01/21 21:24 [From Bactrim] RASH trimethoprim [From Bactrim] Allergy Angioedema, Verified 07/01/21 21:24 RASH Surgical History History of cholecystectomy History of hysterectomy with unilateral oophorectomy History of tonsillectomy and adenoidectomy Hx of tympanostomy tubes Social History Smoking Status: Current every day smoker tobacco type: cigarettes ROS ROS ED ROS Narrative Denies recent illness. Review of Systems ROS Unobtainable: Denies due to encephalopathy Constitutional Constitutional ED: Denies chills or fever(s) Eyes Eyes: Denies change in vision ENT ENT ED: Denies ear pain or sore throat Cardiovascular Cardiovascular: Denies chest pain Respiratory/Chest Respiratory/Chest: Denies cough or dyspnea Gastrointestinal Gastrointestinal: Denies abdominal pain, diarrhea, nausea or vomiting Genitourinary Genitourinary ED: Denies dysuria Musculoskeletal Musculoskeletal: Denies myalgias Integumentary Denies rash Neurologic Neurologic: Denies headache(s) Psychiatric Psychiatric: Denies depression Endocrine Endocrinology: Denies polyuria Allergic/Immunologic Allergic/Immunologic ED: Denies urticaria EXAM Physical Exam Narrative Exam Narrative: Well-appearing 35-year-old female. Vital signs stable afebrile. Exam unremarkable except lower abdomen periumbilical there is a small abrasion with mild redness around it. This could be early cellulitis. It is minimally tender. There is no discharge. Rest the abdomen is benign. Otherwise exam unremarkable. Const Vital Signs: 07/01/21 21:22 07/01/21 21:24 Temperature 97.1 F L 97.1 F L Temperature Source Temporal Temporal Pulse Rate 89 89 Respiratory Rate 16 16 Blood Pressure 138/85 H 138/85 H Blood Pressure Mean 102 102 Pulse Ox 99 99 Oxygen Delivery Method Room Air Room Air Positive well nourished, well developed and obese; Negative for cachectic, contractures or unkempt General Appearance ED: well developed and NAD; Negative for unkempt, cachectic or contractures Nutritional Appearance: obese; Negative for cachectic HEENT Reports moist mucous membranes Negative for trauma or tenderness Eyes PERRL and EOMs intact bilaterally Neck no lymphadenopathy, supple and no JVD General: Negative for tenderness Chest Wall inspection of chest normal and palpation of chest normal Resp normal respiratory effort and clear to auscultation bilaterally Cardio regular rate, regular rhythm, S1 normal heart sound, S2 normal heart sound and no murmurs GI normal to inspection, nondistended, normoactive bowel sounds, non-tender, non- distended and no masses GI Narrative: Small abrasion periumbilical with mild redness. Could be early cellulitis. Otherwise the abdomen is nontender. Auscultation: normoactive bowel sounds Palpation: soft and tender Back/Spine no CVA tenderness General Back: Negative for CVA tenderness Extremity normal to inspection General Extremety ED: Negative for edema or tenderness General Extremity: Negative for edema Neuro oriented x3 Sensorium / Orientation: alert; Negative for orientation impaired, lethargic or stuporous Motor Exam: strength 5/5 throughout Psych mental status grossly normal Appearance: Negative for unkempt Skin no rashes or lesions noted Rashes: rashes noted MDM MDM MDM Narrative Medical decision making narrative: 35-year-old female abrasion on her abdomen with early cellulitis. We started on Keflex for a week. Follow-up. We will check a BG T prior to discharge. She has no known history of diabetes. Lab Data Attestation: I reviewed the patient's lab results. Discharge Plan Triage Chief Complaint: Wound ED Provider: Ronald Braga Dx/Rx/DC Orders Clinical Impression: Cellulitis Instructions: ED Cellulitis Prescriptions: New cephalexin 500 mg capsule 500 mg PO Q6H 7 Days Qty: 28 RF: 0 No Action lorazepam 0.5 MG tablet 0.5 mg PO DAILY PRN PRN (Reason: Anxiety) RF: 0 rivaroxaban 15 MG tablet 20 mg PO DAILY RF: 0 Primary Care Provider: Niranjan Gaytan Referrals: Niranjan Gaytan MD [Primary Care Provider] - 1 Week if not improving Activity Restrictions/Additional Instructions: Keep wound clean. Clean daily with soap and water and peroxide and water. Apply antibiotic ointment. Keflex 4 times a day for 1 week this should improve. If not follow-up. If significantly worse return. Disposition Disposition: Home, Self Care
[2021-07-01] MEDS: Cephalexin 250 MG Capsule 500 MG PO (22:39)
[2021-07-01 22:41] VITALS: BP 119/75; PULSE 72; RESP 16; TEMP 36.9; O2SAT 72
[2021-07-02 07:36] LABS: Bedside Glucose 113 mg/dL (70-110)
== END 2021-07-01 22:47 | disposition home or self-care (01) ==
LOC: ED 22:41
PROVIDERS: Emergency Provider Emergency Medicine; PCP Family Medicine
DX: L03.311 Cellulitis of abdominal wall (principal); E66.9 Obesity, unspecified; F17.210 Nicotine dependence, cigarettes, uncomplicated; Z86.718 Personal history of other venous thrombosis and embolism; Z79.01 Long term (current) use of anticoagulants; Z79.899 Other long term (current) drug therapy
CPT/HCPCS: 82962; 99283

== ENCOUNTER 2022-07-14 17:06 | Emergency (ER) | payer MEDICAID, SELFPAY ==
[2022-07-14 17:09] VITALS: BMI 38.8
[2022-07-14 17:11] VITALS: BP 136/76; PULSE 84; RESP 16; TEMP 36.4; O2SAT 97; BMI 38.8
--- NOTE | 2022-07-14 17:13 | ED.RN ---
pt states she is suppose to take xarelto daily but has not taken it in months
--- NOTE | 2022-07-14 17:15 | EDS_ITS ---
HPI History of Present Illness Chief Complaint: Neuro S/Sx Informant: patient Onset/Context/Timing Onset: Today Context: Sudden Onset Timing: Continuous Quality: Paresthesias Location: Left arm and left face Worsened by: Nothing Relieved by: Nothing Narrative Narrative: Patient presents with chest pain and left arm paresthesias that began approximately 30 minutes prior to arrival. Patient states this began rather suddenly. Patient denies any weakness of her arms or legs. Patient states she also has some paresthesias and mild weakness in her face. Patient denies any headaches. Patient denies any nausea or vomiting. Patient admits to some heaviness over her left upper chest. Patient denies any shortness of breath. Patient denies any visual changes. [facility] Medical History Anxiety DVT (deep venous thrombosis) Home Medications NK 07/14/22 [History Last Taken Unknown] Allergy/AdvReac Type Severity Reaction Status Date / Time horseradish Allergy Food Verified 07/14/22 17:10 Allergy Iodinated Contrast Media Allergy Rash Verified 07/14/22 17:10 [CONTRASTS] sulfamethoxazole Allergy Angioedema, Verified 07/14/22 17:10 [From Bactrim] RASH trimethoprim [From Bactrim] Allergy Angioedema, Verified 07/14/22 17:10 RASH Surgical History History of cholecystectomy History of hysterectomy with unilateral oophorectomy History of tonsillectomy and adenoidectomy Hx of tympanostomy tubes Social History Smoking Status: Current every day smoker tobacco type: cigarettes ROS ROS ED Constitutional Constitutional ED: Denies chills or fever(s) Eyes Eyes: Denies blurry vision or change in vision ENT ENT ED: Denies rhinorrhea or sore throat Cardiovascular Cardiovascular: Reports chest pain; Denies palpitations Respiratory/Chest Respiratory/Chest: Denies cough or dyspnea Gastrointestinal Gastrointestinal: Denies nausea or vomiting Genitourinary Genitourinary ED: Denies dysuria or hematuria Musculoskeletal Musculoskeletal: Denies back pain or neck pain Integumentary Denies abscess or rash Neurologic Neurologic: Reports paresthesias; Denies headache(s) or weakness Allergic/Immunologic Allergic/Immunologic ED: Denies mouth swelling or urticaria EXAM Physical Exam Const Vital Signs: 07/14/22 17:11 07/14/22 18:11 07/14/22 19:07 Temperature 97.5 F L Temperature Source Temporal Pulse Rate 84 69 83 Respiratory Rate 16 14 19 H Blood Pressure 136/76 H 136/84 H 122/78 H Blood Pressure Mean 96 101 92 Pulse Ox 97 96 97 Oxygen Delivery Method Room Air Room Air Room Air Positive well nourished, well developed and obese General Appearance ED: well developed and NAD Nutritional Appearance: obese HEENT Reports moist mucous membranes Neck supple and no JVD Resp normal respiratory effort and clear to auscultation bilaterally Cardio regular rate, regular rhythm and no murmurs GI normal to inspection, nondistended, normoactive bowel sounds and non-tender Palpation: soft Extremity normal to inspection General Extremety ED: Negative for edema or tenderness General Extremity: Negative for edema Neuro oriented x3 and CN's II-XII intact bilaterally Neuro Narrative: There is some mild decrease sensation to light touch over the left upper arm. Otherwise, there are no focal neurodeficits noted. Sensorium / Orientation: alert Motor Exam: strength 5/5 throughout Psych mental status grossly normal Skin no rashes or lesions noted MDM MDM MDM Narrative Medical decision making narrative: EKG was obtained. On my interpretation, it showed a normal sinus rhythm with a rate of 73. [place] interval, QRS interval, and QTc intervals were all normal. [place] was normal. There are no acute ST or T wave changes. CT scan of the brain was obtained. There is no acute intracranial abnormality. This was interpreted by the radiologist and reviewed by myself. CBC was obtained and was within normal limits. PT with INR and PTT were within normal limits. BGT was 116. Comprehensive metabolic profile was within normal limits. Urinalysis does not show any evidence of urinary tract infection or hematuria. Serum hCG was negative. Initial high-sensitivity troponin was normal. 2-hour repeat high-sensitivity troponin was normal. Patient was advised of her findings. I do not feel this is an acute stroke. I do not feel the patient needs to be admitted to the hospital. Patient is agreeable with following up with her primary care physician in 5 to 7 days. Patient understood and was agreeable with the plan. All questions were answered. Lab Data Attestation: I reviewed the patient's lab results. Labs: Laboratory Results - last 24 hr 07/14/22 07/14/22 07/14/22 17:11 17:15 17:15 WBC 8.7 RBC 4.72 Hgb 14.2 Hct 41.5 MCV 87.9 MCH 30.1 MCHC 34.2 RDW Std Deviation 40.1 RDW Coeff of Joelle 12.5 Plt Count 250 MPV 10.0 Immature Gran % (Auto) 0.300 Neut % (Auto) 70.9 H Lymph % (Auto) 24.3 [place] % (Auto) 4.0 Eos % (Auto) 0.2 Baso % (Auto) 0.3 Absolute Neuts (auto) 6.2 Absolute Lymphs (auto) 2.12 Nucleated RBC % 0 PT 13.0 INR 1.0 APTT 28.0 Sodium Potassium Chloride Carbon Dioxide Anion Gap BUN Creatinine Estim Creat Clear Calc Est GFR (MDRD) Af Amer Est GFR (MDRD) Non-Af BUN/Creatinine Ratio Glucose Calcium Total Bilirubin AST ALT Alkaline Phosphatase Troponin I High Sens Total Protein Albumin Globulin Albumin/Globulin Ratio Serum , Qual Urine Color Urine Clarity Urine pH Ur Specific [place] Urine Protein Urine Glucose (UA) Urine Ketones Urine Occult Blood Urine Nitrite Urine Bilirubin Urine Urobilinogen Ur Leukocyte Esterase Urine RBC Urine WBC Ur Squamous Epith Cells Urine Bacteria Urine Mucus POC Glucose 116 H 07/14/22 07/14/22 07/14/22 17:15 17:15 18:53 WBC RBC Hgb Hct MCV MCH MCHC RDW Std Deviation RDW Coeff of Joelle Plt Count MPV Immature Gran % (Auto) Neut % (Auto) Lymph % (Auto) [place] % (Auto) Eos % (Auto) Baso % (Auto) Absolute Neuts (auto) Absolute Lymphs (auto) Nucleated RBC % PT INR APTT Sodium 140 Potassium 3.6 Chloride 108 H Carbon Dioxide 23.0 Anion Gap 9 BUN 12 Creatinine 0.76 Estim Creat Clear Calc 80.94 Est GFR (MDRD) Af Amer 109 Est GFR (MDRD) Non-Af 90 BUN/Creatinine Ratio 15.7 Glucose 120 H Calcium 9.2 Total Bilirubin 0.60 AST 15 ALT 19 Alkaline Phosphatase 100 Troponin I High Sens 4 Total Protein 8.0 Albumin 4.0 Globulin 4.0 Albumin/Globulin Ratio 1.0 Serum , Qual NEGATIVE Urine Color Straw Urine Clarity Clear Urine pH 6.0 Ur Specific [place] 1.010 Urine Protein Negative Urine Glucose (UA) Normal Urine Ketones 5 H Urine Occult Blood 10 H Urine Nitrite Negative Urine Bilirubin Negative Urine Urobilinogen Normal Ur Leukocyte Esterase Negative Urine RBC 0 SEEN Urine WBC 0 SEEN Ur Squamous Epith Cells 0-5 SEEN Urine Bacteria RARE Urine Mucus 0 SEEN POC Glucose 07/14/22 19:31 WBC RBC Hgb Hct MCV MCH MCHC RDW Std Deviation RDW Coeff of Joelle Plt Count MPV Immature Gran % (Auto) Neut % (Auto) Lymph % (Auto) [place] % (Auto) Eos % (Auto) Baso % (Auto) Absolute Neuts (auto) Absolute Lymphs (auto) Nucleated RBC % PT INR APTT Sodium Potassium Chloride Carbon Dioxide Anion Gap BUN Creatinine Estim Creat Clear Calc Est GFR (MDRD) Af Amer Est GFR (MDRD) Non-Af BUN/Creatinine Ratio Glucose Calcium Total Bilirubin AST ALT Alkaline Phosphatase Troponin I High Sens 4 Total Protein Albumin Globulin Albumin/Globulin Ratio Serum , Qual Urine Color Urine Clarity Urine pH Ur Specific [place] Urine Protein Urine Glucose (UA) Urine Ketones Urine Occult Blood Urine Nitrite Urine Bilirubin Urine Urobilinogen Ur Leukocyte Esterase Urine RBC Urine WBC Ur Squamous Epith Cells Urine Bacteria Urine Mucus POC Glucose Radiography Diagnostic Testing: Clinical Impression(s) from Imaging Studies Brain CT 07/14/22 17:19 IMPRESSION: There are no acute intracranial findings. Electronically Signed: Malcolm Lux MD at 19:23 EDT , Chest CTA 07/14/22 17:21 IMPRESSION: Negative CTA chest. Electronically Signed: Malcolm Lux MD at 19:24 EDT , Discharge Plan Triage Chief Complaint: Neuro S/Sx ED Provider: Gunner Adler Dx/Rx/DC Orders Clinical Impression: Paresthesias, Chest pain of uncertain etiology Instructions: ED Chest Pain, Uncertain Cause, ED Paraesthesias Prescriptions: No Action NK Primary Care Provider: Niranjan Gaytan Referrals: Niranjan Gaytan MD [Primary Care Provider] - 3-5 Days Disposition Disposition: Home, Self Care
--- NOTE | 2022-07-14 17:19 | CT_ITS ---
STUDY: CT BRAIN WITHOUT CONTRAST REASON FOR EXAM: Female, 36 years old. Paresthesias TECHNIQUE: Transaxial CT imaging of the brain was performed without administration of intravenous contrast material. Individualized dose optimization techniques were used for this CT. COMPARISON: None FINDINGS: Normal calvarium. Normal soft tissues. Normal size ventricles and extra-axial spaces for the patient''s age. Normal white matter tracts of the cerebral hemispheres. Normal basal ganglia and thalami. Normal brainstem. Normal cerebellum. There is no intracranial hemorrhage. There are no findings of an acute ischemic infarction. Normal visualized paranasal sinuses. ASPECTS 10 CT/Brain/Head without Contrast IMPRESSION: There are no acute intracranial findings. Electronically Signed: Malcolm Lux MD at 19:23 EDT ,
--- NOTE | 2022-07-14 17:19 | EKG12_ITS ---
Test Reason : NEURO S/SX Blood Pressure : / mmHG Vent. Rate : 073 BPM Atrial Rate : 073 BPM P-R Int : 154 ms QRS Dur : 088 ms QT Int : 374 ms P-R-T Axes : 050 033 028 degrees QTc Int : 412 ms Normal sinus rhythm Normal ECG Confirmed by DEAN BAUMANN, SELVIN ([id number]), online editor DOMINGA CRAIG ([id number]) on 07/16/2022 10:04:20 AM Referred By: Confirmed By:SELVIN MORAN MD
--- NOTE | 2022-07-14 17:21 | CT_ITS ---
EXAM: CT ANGIOGRAPHY CHEST WITHOUT AND WITH INTRAVENOUS CONTRAST CLINICAL INDICATION: Chest pain TECHNIQUE: Helically acquired angiography images were obtained of the chest without and with intravenous contrast. This CT exam was performed using one or more of the following dose reduction techniques: automated exposure control, adjustment of the mA and/or kV according to patient size, and/or use of iterative reconstruction technique. This report was created using [employer] report generation technology. MIP reconstructed images were created and reviewed. CONTRAST: IV 100mL Isovue-370 RADIATION DOSE: CTDIvol = 11.01 mGy, DLP = 1211.77 mGy-cm COMPARISON: None. FINDINGS: PULMONARY ARTERIES: Unremarkable. Normal in caliber. No evidence of pulmonary embolism. AORTA: Unremarkable. Normal in caliber. No evidence of dissection. GREAT VESSELS OF AORTIC ARCH: Unremarkable. Normal in caliber. No evidence of dissection. LUNGS AND PLEURAL SPACES: Unremarkable. No mass. No consolidation or edema. No pleural effusion or thickening. No pneumothorax. HEART: Unremarkable. Heart size is normal. No pericardial effusion. No signs of right heart strain, ratio of right ventricle to left ventricle measures less than 1. MEDIASTINUM: Unremarkable. No mediastinal or hilar adenopathy. Esophagus is unremarkable. No hiatal hernia. THYROID: Unremarkable. No thyroid lesions. BONES/JOINTS: Unremarkable. No suspicious lytic or blastic abnormality. CT/CTA Chest W/WO Contrast IMPRESSION: Negative CTA chest. Electronically Signed: Malcolm Lux MD at 19:24 EDT Reading Location ID and State: [facility] / [place] , Service support ,
[2022-07-14 17:30] LABS: Absolute Lymphocyte Count 2.12 X10^3/uL (0.83-4.51); Absolute Neutrophil Count 6.2 X10^3/uL (2.0-7.7); Basophil# 0.03 X10^3/uL; Basophil% 0.3 % (0-1); Eosinophil# 0.02 X10^3/uL; Eosinophils% 0.2 % (0-5); Hematocrit 41.5 % (37-47); Hemoglobin 14.2 g/dL (12.0-15.0); Lymphocyte # 2.12 X10^3/ul (0.83-4.51); Lymphocyte % 24.3 % (19-41); Mean Corp Hgb Conc 34.2 g/dL (32-36); Mean Corpuscular Hgb 30.1 pg (27.0-32.0); Mean Corpuscular Volume 87.9 fL (81-99); Monocyte# 0.35 X10^3/uL; NRBC Flagged by Analyzer 0 % (0-5); Neutrophil # 6.18 X10^3/uL (2.7-7.7); Neutrophil % 70.9 % (47-70); Platelet Count 250 K/mm3 (150-450); RBC Distribution Width CV 12.5 % (11.6-14.6); RBC Distribution Width SD 40.1 fl (35.1-43.9); Red Blood Count 4.72 M/mm3 (4.2-5.4); White Blood Count 8.7 K/mm3 (4.4-11.0)
[2022-07-14 17:31] LABS: Bedside Glucose 116 mg/dL (74-106)
[2022-07-14] MEDS: predniSONE 20 MG Tablet 40 MG PO (17:33)
[2022-07-14] MEDS: DiphenhydrAMINE 50 MG/ML Syringe 25 MG IV (17:35)
[2022-07-14 17:49] LABS: AST(SGOT) 15 U/L (15-37); Alanine Aminotransfer ALT/SGPT 19 U/L (13-56); Alkaline Phosphatase 100 U/L (45-117); Anion Gap 9 (5-15); BUN 12 mg/dL (7-18); BUN/Creat Ratio 15.7 RATIO (10-20); Calcium,Total 9.2 mg/dL (8.5-10.1); Chloride 108 mmol/L (98-107); Creatinine, Serum 0.76 mg/dL (0.55-1.02); EST Glomerular Filtration Rate 90 mL/min (>60); Est Glom Filt Rate - Afr Amer 109 mL/min (>60); Estimated Creatinine Clearance 80.94 ml/min; Glucose 120 mg/dL (74-106); Potassium 3.6 mmol/L (3.5-5.1); Sodium Level 140 mmol/L (136-145); Troponin-I HS (w/2H Reflex) 4 pg/mL (3.0-54.0)
[2022-07-14 18:08] LABS: Internal QC Validated? YES +Cl - CLEAR BKGD; Pregnancy, Serum, hCG Quali. NEGATIVE Negative
[2022-07-14 18:11] VITALS: BP 136/84; PULSE 69; RESP 14; O2SAT 96
[2022-07-14 19:06] LABS: Mucous, Urine 0 SEEN /hpf (<or=2+); Red Blood Cells-Urine 0 SEEN /hpf (0-5); White Blood Cells 0 SEEN /hpf (0-5)
[2022-07-14 19:07] VITALS: BP 122/78; PULSE 83; RESP 19; O2SAT 97
[2022-07-14 19:18] LABS: Color, Urine Straw (Yellow); Glucose, Dipstick Normal (Normal); Ketone-Dipstick 5 mg/dl (Negative); Leukocyte Esterase-Dipstick Negative /ul (Negative); Nitrite-Dipstick Negative (Negative); Occult Blood-Urine 10 /ul (Negative); Protein-Dipstick Negative (Negative); Urine Bilirubin Dipstick Negative (Negative); Urine Clarity Clear (Clear); Urine Urobilinogen Normal (Normal)
[2022-07-14 19:26] LABS: Reflex Troponin-HS? (from REC) Y
[2022-07-14 19:30] LABS: Bacteria RARE /hpf (None Seen); Squamous Epithelial Cells - UA 0-5 SEEN /hpf (5-10)
[2022-07-14 20:01] LABS: Troponin-I HS 4 pg/mL (3.0-54.0)
[2022-07-14 20:37] VITALS: BP 113/80; PULSE 88; RESP 16; O2SAT 98
== END 2022-07-14 20:42 | disposition home or self-care (01) ==
PROVIDERS: Emergency Provider Emergency Medicine; PCP Family Medicine; Visit Provider Emergency Medicine
DX: R20.2 Paresthesia of skin (principal); R07.9 Chest pain, unspecified; F41.9 Anxiety disorder, unspecified; E66.9 Obesity, unspecified; F17.210 Nicotine dependence, cigarettes, uncomplicated; Z86.718 Personal history of other venous thrombosis and embolism
CPT/HCPCS: 70450; 71275; 80053; 81001; 82962; 84484; 84703; 85025; 85610; 85730; 87428; 93005; 96374; 99285; Q9967; A4216

== ENCOUNTER 2022-08-16 18:09 | Emergency (ER) | payer MEDICAID, SELFPAY ==
[2022-08-16 18:12] VITALS: BP 112/56; PULSE 80; RESP 16; TEMP 36.8; O2SAT 100; BMI 37.3
[2022-08-16 18:32] VITALS: BP 103/62; PULSE 75; RESP 16; O2SAT 96
--- NOTE | 2022-08-16 18:48 | US_ITS ---
STUDY: VENOUS DOPPLER ULTRASOUND - LEFT LOWER EXTREMITY REASON FOR EXAM: Female, 36 years old. -- PAIN, ELEVATED D-DIMER TECHNIQUE: Ultrasound evaluation of the deep vein system to include weir-scale imaging and compression was performed. Weir-scale imaging and Doppler sonographic evaluation, including duplex spectral analysis and qualitative color flow sonography, was performed. COMPARISON: None. FINDINGS: Common Femoral Vein: Normal compression, spontaneity and augmentation. Normal color Doppler. There is linear echogenic structure in the lumen with possible chronic thrombus. Common Femoral Vein/Greater Saphenous Junction: Normal compression, spontaneity and augmentation. Normal color Doppler. Deep Femoral Vein: Normal compression, spontaneity and augmentation. Normal color Doppler. Femoral Proximal: Normal compression, spontaneity and augmentation. Normal color Doppler. There is linear echogenic structure in the lumen with possible chronic thrombus. Femoral Middle: Normal compression, spontaneity and augmentation. Normal color Doppler. There is linear echogenic structure in the lumen with possible chronic thrombus. Femoral Distal: Normal compression, spontaneity and augmentation. Normal color Doppler. There is linear echogenic structure in the lumen with possible chronic thrombus. Popliteal Vein: Normal compression, spontaneity and augmentation. Normal color Doppler. There is linear echogenic structure in the lumen with possible chronic thrombus. Posterior Tibial Vein: Normal compression, spontaneity and augmentation. Normal color Doppler. Peroneal Vein: Normal compression, spontaneity and augmentation. Normal color Doppler. The above findings are consistent with a chronic thrombosis. US/Venous Duplex Imag/Limited/Uni IMPRESSION: No acute thrombus seen. Possible chronic thrombus with linear echogenic structure in the femoral veins. Electronically Signed: Suhail Carlson MD at 20:40 EDT ,
--- NOTE | 2022-08-16 20:42 | EX.ED.DYSGE1 ---
HPI History of Present Illness Chief Complaint: Abn Labs Informant: patient Narrative Narrative: Patient has had the comfort in her left popliteal leg area for the past several weeks. She has had dyspnea at times for the past month or more. She was seen here in the ER several weeks ago for chest discomfort and dyspnea and had a negative CT angiography ruling out pulmonary embolus; she has a history of clotting disorder, she had a DVT in her left leg in the past, she has been taken off of anticoagulants because she had hematuria and they have not been restarted. She followed up yesterday with her doctor and had some blood test, they showed an elevated D-dimer so she was advised to come here today for further evaluation. She states she feels fine right now at rest except she has the pain behind her knee. She states her legs swell when she is on her feet for extended period of time, but agrees that they are not swollen right now. [facility] Medical History Anxiety DVT (deep venous thrombosis) Home Medications NK 07/14/22 [History Last Taken Unknown] Allergy/AdvReac Type Severity Reaction Status Date / Time horseradish Allergy Angioedema Verified 08/16/22 18:35 Iodinated Contrast Media Allergy Rash Verified 08/16/22 18:35 [CONTRASTS] sulfamethoxazole Allergy Angioedema, Verified 08/16/22 18:35 [From Bactrim] RASH trimethoprim [From Bactrim] Allergy Angioedema, Verified 08/16/22 18:35 RASH Surgical History History of cholecystectomy History of hysterectomy with unilateral oophorectomy History of tonsillectomy and adenoidectomy Hx of tympanostomy tubes Social History Smoking Status: Current every day smoker tobacco type: cigarettes ROS ROS ED Constitutional Constitutional ED: Denies chills or fever(s) Eyes Eyes: Denies change in vision or diplopia ENT ENT ED: Denies rhinorrhea or sore throat Cardiovascular Cardiovascular: Reports leg edema; Denies chest pain or palpitations Respiratory/Chest Respiratory/Chest: Reports dyspnea on exertion; Denies cough Gastrointestinal Gastrointestinal: Denies abdominal pain, diarrhea, nausea or vomiting Genitourinary Genitourinary ED: Denies dysuria or hematuria Musculoskeletal Musculoskeletal: Reports as per HPI and extremity pain; Denies back pain or neck pain Integumentary Denies abscess or rash Neurologic Neurologic: Denies headache(s), paresthesias or weakness Psychiatric Psychiatric: Denies anxiety or suicidal thoughts EXAM Physical Exam Const Vital Signs: 08/16/22 18:12 08/16/22 18:32 08/16/22 18:33 Temperature 98.2 F Temperature Source Temporal Pulse Rate 80 75 Respiratory Rate 16 16 Respiratory Effort Normal Non-Labored Respiratory Pattern Normal Blood Pressure 112/56 L 103/62 Blood Pressure Mean 74 75 Pulse Ox 100 96 Oxygen Delivery Method Room Air Room Air Positive well nourished and well developed General Appearance ED: well developed and NAD HEENT Reports moist mucous membranes normocephalic and atraumatic Eyes PERRL and EOMs intact bilaterally Neck full ROM and supple Resp normal respiratory effort and clear to auscultation bilaterally Cardio regular rate, regular rhythm and no murmurs Rate: Negative for tachycardic Back/Spine General Back: other FROM Extremity normal to inspection Extremity Narrative: Mildly tender left popliteal fossa and into the proximal left calf. No palpable cords. No edema. Thigh nontender no inguinal lymphadenopathy. No calf tenderness on the right. Full range of motion throughout all joints of all 4 extremities. General Extremety ED: Yes tenderness; Negative for edema or pulses abnormal General Extremity: Negative for edema or pulses abnormal Neuro oriented x3, CN's II-XII intact bilaterally and no sensory deficits noted Sensorium / Orientation: awake and alert Motor Exam: strength 5/5 throughout Psych mental status grossly normal Skin no rashes or lesions noted and no wounds MDM MDM MDM Narrative Medical decision making narrative: Doppler study of the left lower extremity was obtained, it shows no evidence of an acute thrombus/DVT. There is possibly some chronic thrombus, none of this is an indication for anticoagulating right now. Since the patient was symptomatic when she was last here and had a CT angiography the chest that was normal, I see no reason to repeat that since her vital signs are normal with 100% on room air pulse oximetry. Patient agrees with that. She is discharged to follow-up as an outpatient. Radiography Diagnostic Testing: Clinical Impression(s) from Imaging Studies Venous Duplex 08/16/22 18:48 IMPRESSION: No acute thrombus seen. Possible chronic thrombus with linear echogenic structure in the femoral veins. Electronically Signed: Suhail Carlson MD at 20:40 EDT , Discharge Plan Triage Chief Complaint: Abn Labs ED Provider: Suhail Tamez Dx/Rx/DC Orders Clinical Impression: Acute pain of left lower extremity, Factor V Leiden, D-dimer, elevated Instructions: ED Peripheral Edema, Bilateral Prescriptions: No Action NK Primary Care Provider: Niranjan Gaytan Referrals: Niranjan Gaytan MD [Primary Care Provider] - As soon as possible (regarding your other bloodwork results) Disposition Disposition: Home, Self Care
[2022-08-16 20:54] VITALS: BP 110/64; PULSE 76; RESP 16; O2SAT 98
== END 2022-08-16 20:58 | disposition home or self-care (01) ==
PROVIDERS: Emergency Provider Emergency Medicine; PCP Family Medicine; Visit Provider Emergency Medicine
DX: M79.605 Pain in left leg (principal); D68.2 Hereditary deficiency of other clotting factors; R79.89 Other specified abnormal findings of blood chemistry; F17.210 Nicotine dependence, cigarettes, uncomplicated; F41.9 Anxiety disorder, unspecified; Z86.718 Personal history of other venous thrombosis and embolism
CPT/HCPCS: 93971; 99282

== ENCOUNTER 2022-08-17 12:54 | Emergency (ER) | payer MEDICAID, SELFPAY ==
[2022-08-17 12:57] VITALS: BP 122/83; PULSE 96; RESP 17; TEMP 36.7; O2SAT 100; BMI 38.3
[2022-08-17 14:12] VITALS: BP 115/75; PULSE 81; O2SAT 96
--- NOTE | 2022-08-17 14:14 | RAD_ITS ---
STUDY: X-RAY CHEST REASON FOR EXAM: Female, 36 years old. Chest pain TECHNIQUE: Single AP portable view of the chest. COMPARISON: Comparison is made with prior study dated 06/27/2020. FINDINGS: EKG electrodes are seen. The lungs are clear and expanded. There is no demonstrated pleural abnormality. Normal size heart. Normal mediastinum and pedro. Normal visualized pulmonary arteries. Normal visualized aortic arch and descending thoracic aorta. Normal visualized thoracic spine. Normal visualized ribs, clavicles, and shoulders. There is no demonstrated abnormality of the visualized soft tissue structures of the upper abdomen. RAD/Chest 1 View (Portable) IMPRESSION: Normal x-ray examination of the chest. Electronically Signed: Mal Duron MD at 15:15 EDT ,
--- NOTE | 2022-08-17 14:14 | EKG12_ITS ---
Test Reason : Blood Pressure : / mmHG Vent. Rate : 105 BPM Atrial Rate : 105 BPM P-R Int : 134 ms QRS Dur : 084 ms QT Int : 310 ms P-R-T Axes : 054 043 018 degrees QTc Int : 409 ms Sinus tachycardia Nonspecific T wave abnormality Abnormal ECG Confirmed by JOSE BAUMANN, BRINA ([id number]), offline editor DOMINGA CRAIG ([id number]) on 08/19/2022 12:33:46 PM Referred By: GAVIN/DREW Confirmed By:BRINA GARCIA MD
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
[2022-08-17 14:34] LABS: Absolute Lymphocyte Count 1.83 X10^3/uL (0.83-4.51); Absolute Neutrophil Count 7.4 X10^3/uL (2.0-7.7); Basophil# 0.03 X10^3/uL; Basophil% 0.3 % (0-1); Eosinophil# 0.04 X10^3/uL; Eosinophils% 0.4 % (0-5); Hematocrit 42.1 % (37-47); Hemoglobin 13.7 g/dL (12.0-15.0); Lymphocyte # 1.83 X10^3/ul (0.83-4.51); Lymphocyte % 18.5 % (19-41); Mean Corp Hgb Conc 32.5 g/dL (32-36); Mean Corpuscular Hgb 29.7 pg (27.0-32.0); Mean Corpuscular Volume 91.3 fL (81-99); Mean Platelet Vol. 9.7 fl (6.2-12.0); Monocyte# 0.51 X10^3/uL; Monocyte% 5.2 % (0-10); NRBC Flagged by Analyzer 0 % (0-5); Neutrophil # 7.43 X10^3/uL (2.7-7.7); Neutrophil % 75.3 % (47-70); Platelet Count 260 K/mm3 (150-450); RBC Distribution Width CV 12.9 % (11.6-14.6); Red Blood Count 4.61 M/mm3 (4.2-5.4); White Blood Count 9.9 K/mm3 (4.4-11.0)
[2022-08-17] MEDS: 0.9% Normal Saline 1,000 ML 150 ML IV (14:46)
[2022-08-17] MEDS: LORazepam 2 MG/ML Syringe 1 MG IV (14:46)
[2022-08-17] MEDS: Aspirin 81 MG TAB.CHEW 324 MG PO (14:46)
[2022-08-17 14:51] LABS: Anion Gap 5 (5-15); BUN 13 mg/dL (7-18); BUN/Creat Ratio 20.2 RATIO (10-20); Calcium,Total 9.6 mg/dL (8.5-10.1); Chloride 111 mmol/L (98-107); Creatinine, Serum 0.64 mg/dL (0.55-1.02); EST Glomerular Filtration Rate 110 mL/min (>60); Est Glom Filt Rate - Afr Amer 133 mL/min (>60); Estimated Creatinine Clearance 96.11 ml/min; Glucose 101 mg/dL (74-106); Sodium Level 142 mmol/L (136-145); Troponin-I HS (w/2H Reflex) 8 pg/mL (3.0-54.0)
[2022-08-17 15:56] VITALS: BP 98/69; PULSE 93; RESP 18; TEMP 36.7; O2SAT 99
[2022-08-17 16:32] LABS: Reflex Troponin-HS? (from REC) Y
== END 2022-08-17 16:14 | disposition home or self-care (01) ==
PROVIDERS: Emergency Provider Emergency Medicine; PCP Family Medicine; Visit Provider Emergency Medicine
DX: R07.9 Chest pain, unspecified (principal); D68.2 Hereditary deficiency of other clotting factors; F41.9 Anxiety disorder, unspecified; F17.210 Nicotine dependence, cigarettes, uncomplicated; Z79.01 Long term (current) use of anticoagulants; Z79.899 Other long term (current) drug therapy
CPT/HCPCS: 71045; 80048; 84484; 85025; 93005; 96361; 96374; 99285; J7030; A4216

== ENCOUNTER 2022-08-22 18:15 | Emergency (ER) | payer MEDICAID, SELFPAY ==
[2022-08-22 18:15] VITALS: BP 131/76; PULSE 106; RESP 15; TEMP 36.7; O2SAT 98; BMI 37.5
--- NOTE | 2022-08-22 18:30 | EKG12_ITS ---
Test Reason : [facility] [place] Blood Pressure : / mmHG Vent. Rate : 087 BPM Atrial Rate : 087 BPM P-R Int : 150 ms QRS Dur : 088 ms QT Int : 328 ms P-R-T Axes : 034 021 011 degrees QTc Int : 394 ms Normal sinus rhythm Nonspecific T wave abnormality Abnormal ECG Confirmed by DEAN BAUMANN, SELVIN ([id number]), web editor DOMINGA CRAIG ([id number]) on 08/23/2022 9:53:35 AM Referred By: SHALINI Confirmed By:SELVIN MORAN MD
[2022-08-22 19:04] VITALS: PULSE 86; RESP 18; O2SAT 98
[2022-08-22 19:06] LABS: Absolute Lymphocyte Count 2.05 X10^3/uL (0.83-4.51); Absolute Neutrophil Count 5.9 X10^3/uL (2.0-7.7); Basophil# 0.04 X10^3/uL; Basophil% 0.5 % (0-1); Eosinophil# 0.09 X10^3/uL; Eosinophils% 1.1 % (0-5); Hematocrit 42.6 % (37-47); Hemoglobin 14.1 g/dL (12.0-15.0); Lymphocyte # 2.05 X10^3/ul (0.83-4.51); Mean Corp Hgb Conc 33.1 g/dL (32-36); Mean Corpuscular Hgb 29.7 pg (27.0-32.0); Mean Corpuscular Volume 89.9 fL (81-99); Mean Platelet Vol. 10.1 fl (6.2-12.0); Monocyte% 4.7 % (0-10); NRBC Flagged by Analyzer 0 % (0-5); Neutrophil # 5.94 X10^3/uL (2.7-7.7); Neutrophil % 69.5 % (47-70); POSITIVE COUNT NO; POSITIVE DIFFERENTIAL NO; POSITIVE MORPHOLOGY NO; Platelet Count 267 K/mm3 (150-450); RBC Distribution Width CV 12.8 % (11.6-14.6); RBC Distribution Width SD 42.5 fl (35.1-43.9); Red Blood Count 4.74 M/mm3 (4.2-5.4); White Blood Count 8.5 K/mm3 (4.4-11.0)
[2022-08-22 19:17] LABS: Internal QC Validated? YES +Cl - CLEAR BKGD; Pregnancy, Serum, hCG Quali. NEGATIVE Negative
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
[2022-08-22 19:23] LABS: Anion Gap 8 (5-15); BUN 10 mg/dL (7-18); BUN/Creat Ratio 15.3 RATIO (10-20); Calcium,Total 8.9 mg/dL (8.5-10.1); Chloride 106 mmol/L (98-107); Creatinine, Serum 0.65 mg/dL (0.55-1.02); EST Glomerular Filtration Rate 109 mL/min (>60); Est Glom Filt Rate - Afr Amer 131 mL/min (>60); Estimated Creatinine Clearance 93.72 ml/min; Glucose 106 mg/dL (74-106); Potassium 3.3 mmol/L (3.5-5.1); Sodium Level 140 mmol/L (136-145)
[2022-08-22 19:46] LABS: Alcohol, Blood (Medical)-Serum < 3.0 mg/dL; Salicylate 4.4 mg/dL (2.8-20.0)
[2022-08-22] MEDS: Potassium Chloride Oral Tablet 20 MEQ PO (19:47)
[2022-08-22 19:49] LABS: Amphetamine Urine VISTA NEGATIVE (<1000 ng/mL); Barbiturate Urine VISTA NEGATIVE (< 200 ng/mL); Benzodiazepine Urine VISTA NEGATIVE (< 200 ng/mL); Cocaine Urine VISTA NEGATIVE (< 300 ng/mL); Ecstacy Urine VISTA NEGATIVE (< 500 ng/mL); Methadone Urine VISTA NEGATIVE (< 300 ng/mL); PCP Urine VISTA NEGATIVE (< 25 ng/mL); THC Urine VISTA NEGATIVE (< 50 ng/mL); Vista UDS pH Range 6
[2022-08-22 19:53] LABS: Troponin-I HS 5 pg/mL (3.0-54.0)
[2022-08-22 20:00] VITALS: BP 99/68; PULSE 85; RESP 19; O2SAT 98
--- NOTE | 2022-08-22 20:06 | RAD_ITS ---
STUDY: X-RAY CHEST REASON FOR EXAM: Female, 37 years old. anxiety TECHNIQUE: AP portable. 8:03 PM. COMPARISON: 08/17/2022. FINDINGS: LUNGS: No consolidation. No pneumothorax. MEDIASTINUM: Unremarkable. CARDIAC SILHOUETTE: Not enlarged. BONES AND SOFT TISSUES: No acute abnormalities. RAD/Chest 1 View (Portable) IMPRESSION: No evidence of active intrathoracic disease. Electronically Signed: Belkys Vargas MD at 20:25 EDT ,
[2022-08-22 20:09] LABS: Acetaminophen (Tylenol) Level < 2.0 ug/mL (10.0-30.0)
[2022-08-22 21:00] VITALS: PULSE 68; RESP 18; O2SAT 100
[2022-08-22 22:00] VITALS: PULSE 74; RESP 14; O2SAT 97
[2022-08-22 22:56] VITALS: BP 106/65; PULSE 78; RESP 25; O2SAT 94
--- NOTE | 2022-08-22 23:48 | ED.RN ---
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 Also explaining purpose of pink slip and MD orders. Original Note: Pt attempting to leave room. Instructed by this RN that she cannot leave due to a pink slip. Pt angry and agitated, continues to walk down hallway through department. PD also with Pt, instructing her to stay in her room. Pt states, I will rip this IV out and show you crazy. Pt escorted back to room by PD. Pt in room with family, stating she is going to leave. [id number]-- pt trying to leave room again. PD with pt, instructing her to go back to her room. Pt yelling that she is going to leave. Pt fighting with PD and is instructing to leave. 786-- Pt demanding that she can leave at any point and rights are being violated. Pt instructed that she is pink slipped and has to leave. Pt goes back into room after much persuasion from PD,
[2022-08-23] MEDS: Ziprasidone IM 20 MG/ML VIAL IM (00:02)
--- NOTE | 2022-08-23 00:04 | ED.RN ---
Addendum entered by Zelda Bazzi 08/23/22 00:17: IV taken out by this RN as well at this time. Original Note: Pt yelling and disrupting ER. Pt continued to be instructed the purpose of a pink slip. Pt continuing to try and leave. HRO and additional police at bedside, mother at bedside a this time. Pt forcefully placed back in room and given 20 Geodon IM.
--- NOTE | 2022-08-23 00:24 | ED.RN ---
while trying to escort patient back to room with police and multiple staff members, the took aggressive stance and out his face an inch away from officer xena's face when it was explained to the patient if she continued to resist and act out toward staff, we would need to medicate and restrain her to protect staff safety. continued to yell at police and said if we strapped the down or threatened his , we were threatening him and he would take action. walked to [facility] where he continued to argue with police to return to the room. This nurse explained to the that he was aggressive with an officer and showed he was a threat to staff safety. Explained I understand his stress level but he cannot act like that toward police or the staff. Made patient aware he has shown he will act aggressively if he is provoked and we are at a spot where if we need the patient to be medicated or tied down against her will, he may be provoked again. Reassured him the patient has walked back to her bed on her own and is being medicated at this time. started to argue that he was more aggressive earlier in the evening and nothing happened and that people are more threatening toward police in the clubs. It was then explained to the patient that people who act up like that in clubs are arrested and at this point, he is being asked to leave the property and his choice is to leave OR be arrested. Police walked with to edge of hospital property.
[2022-08-23 01:00] VITALS: BP 96/63; PULSE 80; RESP 14; O2SAT 94
[2022-08-23 02:00] VITALS: BP 105/60; PULSE 75; RESP 15; O2SAT 94
[2022-08-23 03:00] VITALS: BP 92/57; PULSE 72; RESP 16; O2SAT 94
--- NOTE | 2022-08-23 03:39 | ED.RN ---
CRISIS CALLED AT 2030
--- NOTE | 2022-08-23 03:46 | ED.RN ---
ACCEPTED AT [facility], ACCEPTING DR CADENA, REPORT PHONE # [phone]
[2022-08-23 04:00] VITALS: BP 91/53; PULSE 75; RESP 15; O2SAT 95
--- NOTE | 2022-08-23 04:09 | ED.RN ---
Report given to Fani Pan.
[2022-08-23 05:00] VITALS: BP 92/59; PULSE 63; RESP 13; O2SAT 94
[2022-08-23 06:00] VITALS: BP 89/52; PULSE 65; RESP 16; O2SAT 95
== END 2022-08-23 07:39 ==
PROVIDERS: Emergency Provider Student in an Organized Health Care Education/Training Program; PCP Family Medicine; Visit Provider Student in an Organized Health Care Education/Training Program
DX: F32.A Depression, unspecified (principal); R45.851 Suicidal ideations; F41.9 Anxiety disorder, unspecified; R45.1 Restlessness and agitation; R07.89 Other chest pain; F17.210 Nicotine dependence, cigarettes, uncomplicated; Z79.01 Long term (current) use of anticoagulants; Z79.899 Other long term (current) drug therapy
CPT/HCPCS: 71045; 80048; 80307; 80329; 82077; 84484; 84703; 85025; 87811; 93005; 96372; 99285; A4216; G0480; J3486

== ENCOUNTER 2023-08-04 11:25 | Emergency (ER) | payer MEDICAID, SELFPAY ==
[2023-08-04 11:26] VITALS: BP 120/74; PULSE 79; RESP 18; TEMP 36.7; O2SAT 94; BMI 41.2
--- NOTE | 2023-08-04 11:45 | ED.VIS.FALL ---
HPI HPI - Fall History of Present Illness Chief Complaint: Fall PFSH PFS Medical History (Updated 08/25/22 @ 00:01 by Norma Rice) Anxiety DVT (deep venous thrombosis) Home Medications NK 08/04/23 [History Last Taken Unknown] Allergy/AdvReac Type Severity Reaction Status Date / Time horseradish Allergy Angioedema Verified 08/04/23 11:31 Iodinated Contrast Media Allergy Rash Verified 08/04/23 11:31 [CONTRASTS] sulfamethoxazole Allergy Angioedema, Verified 08/04/23 11:31 [From Bactrim] RASH trimethoprim [From Bactrim] Allergy Angioedema, Verified 08/04/23 11:31 RASH Surgical History (Updated 08/04/23 @ 11:33 by Maria Elena Ruiz) History of cholecystectomy History of hysterectomy with unilateral oophorectomy History of surgery on wrist History of tonsillectomy and adenoidectomy Hx of tympanostomy tubes Social History Smoking Status: Current every day smoker tobacco type: cigarettes EXAM Physical Exam Const Vital Signs: 08/04/23 11:26 08/04/23 11:33 Temperature 98.1 F Temperature Source Oral Pulse Rate 79 Respiratory Rate 18 Respiratory Effort Normal Blood Pressure 120/74 Blood Pressure Mean 89 Pulse Ox 94 Oxygen Delivery Method Room Air MDM MDM MDM Narrative Medical decision making narrative: HISTORY OF PRESENT ILLNESS: 37-year-old female here with fall. She complains of wrist and ankle injury. She further states she fell down 5 steps. Denies hitting her head or losing consciousness or have any neck or back pain. States she is got right ankle and wrist pain. She is concerned because she had reconstructive surgery in her right wrist. REVIEW OF SYSTEMS: Pertinent positives: Ankle/wrist pain Pertinent negatives: Head trauma, loss of conscious, vomiting PHYSICAL EXAM: Nursing triage notes reviewed, Vital signs reviewed Constitutional: please see mdm HENT: MMM, atraumatic, normocephalic, no hemotympanum, no nasal septal hematoma Eyes: Pupils equal round and reactive to light, Extraocular muscles intact, no entrapment Neck: No stridor, no JVD, full neck ROM, no step-offs deformities of cervical spine Lungs: Clear to auscultation, No wheezing or rales. No increased work of breathing, no conversational dyspnea, no accessory muscle use, no nasal flaring. No respiratory distress noted Heart: Regular rate and rhythm, No murmurs, No rubs and No gallops, 2+ distal pulses (radial, femoral, posterior tibial) in all extremities Abdomen: Soft, there is no tenderness, rigidity, rebound or guarding, no obvious peritoneal signs, no palpable pulsatile abdominal masses, no auscultated abdominal bruit : No CVAT Extremities: No edema, no obvious deformities, TTP over right wrist and right ankle. Neuro: Intact 5/5 strength with ok sign (median), intact finger abduction (ulnar) intact wrist extension (radial n). Intact sensation in the radial, ulnar, and median nerve distributions. Intact sensation L1-S1 dermatomal distributions. Intact 5/5 strength in hip flexion (T12-L3). Knee extension (L2-L4). Ankle dorsiflexion (L4-L5). Ankle plantar flexion (S1). Great toe extension (L5). 2+ patellar and Achilles DTRs. Skin: No rash or lesions noted MEDICAL DECISION MAKING: Chief Complaint: Ankle/wrist pain MDM Narrative: Patient was hemodynamically stable, afebrile, nontoxic-appearing. Exam with TTP of right wrist, right ankle. I considered the following differential diagnosis: Ankle fracture, dislocation ALL IMAGES (IF OBTAINED) HAVE BEEN PERSONALLY REVIEWED AND INTERPRETED BY MYSELF. X-ray of the right ankle was read and reviewed by myself shows No obvious acute fracture dislocation or bony abnormality. X-ray of the right wrist was read and reviewed by myself shows no bony abnormality. The radiologist agrees with my interpretation. Patient will be provided with a wrist splint, ankle brace and discharged stable condition with rice instructions and follow-up precautions with her primary care physician The patient and/or family, caregivers express understanding. The patient and/or family, caregivers agrees with the plan. Shared decision making: I will have a discussion with the patient and or visitors regarding risk/benefits of further testing or admission. They will be made aware of of the risk/benefits inherent in this decision they will be given the opportunity to voice understanding. Total critical care time today provided was at least 0 minutes. This excludes separately billable procedures. Critical care time (if documented) is secondary to the patient having high probability of clinically significant/life threatening deterioration in the patient's condition which required my urgent intervention. Impression: 1. Right wrist contusion 2. Right ankle contusion Dispo: Discharge Radiography Diagnostic Testing: Clinical Impression(s) from Imaging Studies Ankle X-Ray 08/04/23 12:37 IMPRESSION: Normal x-ray examination of the ankle. Electronically Signed: Mal Duron MD at 13:03 EDT , Wrist X-Ray 08/04/23 12:37 IMPRESSION: Normal x-ray examination of the wrist. Electronically Signed: Mal Duron MD at 12:59 EDT , Discharge Plan Triage Chief Complaint: Fall ED Provider: Romain Griffith Dx/Rx/DC Orders Instructions: Bone Contusion Prescriptions: No Action NK Stand Alone Forms: ED Work / School Excuse Primary Care Provider: Niranjan Gaytan Referrals: Niranjan Gaytan MD [Primary Care Provider] - Activity Restrictions/Additional Instructions: Thank you for trusting us with your care today! Please take Tylenol (2 pills, 650 mg), ibuprofen (2 pills, 400 mg) every 6 hours as needed for pain and fever control. Please practice rest, ice, compression, elevation. This is called RICE therapy. Please return to the emergency department if your symptoms change or worsen. Please follow with your primary care physician for further outpatient evaluation and management. Disposition Disposition: Home, Self Care
--- NOTE | 2023-08-04 12:37 | RAD_ITS ---
STUDY: X-RAY - RIGHT WRIST REASON FOR EXAM: Female, 37 years old. Pain following a fall. TECHNIQUE: 3 view(s) of the wrist were obtained. COMPARISON: None. FINDINGS: Normal visualized distal radius and ulna. Normal radiocarpal articulation. Normal distal radioulnar articulation. Normal carpal bones. Normal carpal articulations. Normal carpometacarpal articulation of the thumb. Normal second through fifth carpometacarpal articulations. Normal visualized metacarpal bones. The soft tissue structures are unremarkable. RAD/Wrist min 3 Views IMPRESSION: Normal x-ray examination of the wrist. Electronically Signed: Mal Duron MD at 12:59 EDT ,
--- NOTE | 2023-08-04 12:37 | RAD_ITS ---
STUDY: X-RAY - RIGHT ANKLE REASON FOR EXAM: Female, 37 years old. Pain after fall TECHNIQUE: 3 view(s) of the ankle. COMPARISON: None. FINDINGS: Normal visualized distal tibia and fibula. Normal medial and lateral malleoli. Normal tibiotalar articulation and ankle mortise. Normal visualized talus and calcaneus. The visualized subtalar, talonavicular, calcaneocuboid and tarsal articulations are normal. The soft tissue structures are unremarkable. RAD/Ankle min 3 Views IMPRESSION: Normal x-ray examination of the ankle. Electronically Signed: Mal Duron MD at 13:03 EDT ,
[2023-08-04] MEDS: Ibuprofen 200 MG Tablet 400 MG PO (12:41)
[2023-08-04] MEDS: Oxycodone/Apap 5/325 Tablet PO (12:42)
[2023-08-04 13:52] VITALS: BP 105/72
== END 2023-08-04 13:56 | disposition home or self-care (01) ==
PROVIDERS: Emergency Provider Emergency Medicine; PCP Family Medicine; Visit Provider Emergency Medicine
DX: S60.211A Contusion of right wrist, initial encounter (principal); S90.01XA Contusion of right ankle, initial encounter; W10.9XXA Fall (on) (from) unspecified stairs and steps, initial encounter; F17.210 Nicotine dependence, cigarettes, uncomplicated
CPT/HCPCS: 73110; 73610; 99284

== ENCOUNTER 2024-01-04 20:06 | Emergency (ER) | payer MEDICAID, SELFPAY ==
[2024-01-04 20:07] VITALS: BP 142/88; PULSE 83; RESP 16; TEMP 36.6; O2SAT 95; BMI 38.2
--- NOTE | 2024-01-04 20:18 | EKG12_ITS ---
Test Reason : DYSRHYTHMIA Blood Pressure : / mmHG Vent. Rate : 080 BPM Atrial Rate : 080 BPM P-R Int : 146 ms QRS Dur : 084 ms QT Int : 336 ms P-R-T Axes : 039 050 032 degrees QTc Int : 387 ms Normal sinus rhythm Normal ECG Confirmed by Edgar Mcgrath ([id number]), senior editor WILMAR LAU ([id number]) on 01/05/2024 2:52:43 PM Referred By: CATRACHO Confirmed By:Edgar Mcgrath
--- NOTE | 2024-01-04 20:22 | ED.VIS.DYS ---
HPI History of Present Illness Chief Complaint: Shortness of Breath Narrative Narrative: 38-year-old female past medical history of factor V Leiden, supposed to be taking Xarelto but has not for a month because she gets bruising under her skin and skin sensitivity presents with pleuritic chest pain that she has had off and on all day . She denies any fevers or chills but has an occasional cough. She states she feels short of breath and has if she is going to pass out. She denies any leg swelling. No true exacerbating or alleviating factors. She states she been crying all day because her chest hurts. She presents via EMS. Her and daughter at the bedside. [facility] Medical History Anxiety DVT (deep venous thrombosis) Home Medications NK 08/04/23 [History Last Taken Unknown] Allergy/AdvReac Type Severity Reaction Status Date / Time horseradish Allergy Angioedema Verified 08/04/23 11:31 Iodinated Contrast Media Allergy Rash Verified 08/04/23 11:31 [CONTRASTS] sulfamethoxazole Allergy Angioedema, Verified 08/04/23 11:31 [From Bactrim] RASH trimethoprim [From Bactrim] Allergy Angioedema, Verified 08/04/23 11:31 RASH Surgical History History of cholecystectomy History of hysterectomy with unilateral oophorectomy History of surgery on wrist History of tonsillectomy and adenoidectomy Hx of tympanostomy tubes Social History Smoking Status: Current every day smoker tobacco type: cigarettes ROS ROS ED ROS Narrative Constitutional: No fever, no chills. HEENT: No sore throat. No neck pain. No loss of vision. No rhinorrhea. Cardiovascular: Positive pleuritic chest pain. No palpitations. No pedal edema. Respiratory: Occasional cough, positive shortness of breath. Abdominal: No abdominal pain. No nausea. No vomiting. Genitourinary: No dysuria. No hematuria. Musculoskeletal: No myalgias. No arthralgias. Neurologic: No headaches. No dizziness. Positive near syncope and lightheadedness. Skin: No rash. No change in color. Psychiatric: No depression. No anxiety. EXAM Physical Exam Narrative Exam Narrative: Afebrile. Vital signs noted. HEENT: Normocephalic. Atraumatic. PERRL, EOMI. Neck soft and supple. No point tenderness or step off. Cardiovascular: Regular rate and rhythm. No murmurs, rubs, or gallops appreciated. Respiratory: No tachypnea. Lungs clear to auscultation bilaterally. Gastrointestinal: Abdomen soft, nontender, with normoactive bowel sounds. No rebound or guarding. Neurological: Awake. Alert. Nonfocal, nonlateralizing. Skin: No rash. Normal color. No pallor. Musculoskeletal: No pedal edema. Full range of motion extremities. Const Vital Signs: 01/04/24 20:07 01/04/24 20:39 01/04/24 20:39 Temperature 97.9 F Temperature Source Oral Pulse Rate 83 Respiratory Rate 16 Respiratory Effort Short of Breath Respiratory Depth Shallow Respiratory Pattern Tachypnea Blood Pressure 142/88 H Blood Pressure Mean 106 Pulse Ox 95 Oxygen Delivery Method Room Air Room Air Room Air Oxygen Flow Rate (L/min) 98 01/04/24 22:07 01/04/24 23:08 Temperature Temperature Source Pulse Rate 68 80 Respiratory Rate 16 23 H Respiratory Effort Respiratory Depth Respiratory Pattern Blood Pressure 95/58 L 112/76 Blood Pressure Mean 70 88 Pulse Ox 95 94 Oxygen Delivery Method Room Air Room Air Oxygen Flow Rate (L/min) MDM MDM MDM Narrative Medical decision making narrative: In the differential diagnosis is acute coronary syndrome versus pulmonary embolism versus pneumonia versus viral syndrome versus anemia. Initially, I reviewed her problem list and she has history of pulmonary embolism. With her factor V Leiden and the fact that she has not taken it in 1 month, concern would be for recurrence of pulmonary embolism. I was going to go directly to the CTA, however she lists iodine as a allergy. I will get a D-dimer instead. I will also get basic laboratories and COVID swab with a single chest view. Patient did refuse her COVID swab as I was informed by the nurse. I reviewed her laboratory work from today and she has a normal white count of 7.4, hemoglobin normal at 13.7, hematocrit 40.5, platelet count normal at 239. Her initial D-dimer was canceled, but repeat is slightly elevated at 0.54. Initial high-sensitivity troponin 4. BMP remarkable for chloride of 112 which I think is nonspecific and glucose 118 with a normal anion gap of 6. Serum is negative. Her repeat troponin is 10 so I feel she has been ruled out by biomarkers. EKG obtained and interpreted by myself independently demonstrates normal sinus rhythm at 80 bpm without ectopy or acute ST changes. No STEMI. As she has an elevated D-dimer, I do feel CTA is indicated because she also states that she has not been taking her Xarelto for a month. However, upon repeat examination before the CTA, she states that her chest pain has improved. Additionally, she has iodine/intravenous dye listed as an allergy. She states they do not pretreat her with steroids but she receives Benadryl because she only had a small reddish rash around the injection site. She complained of a migraine headache as well so she was given Compazine and 50 mg of Benadryl intravenously. As long as her CTA does not show evidence of a pulmonary embolism, I feel that she can be discharged safely home with follow-up. Even if it does show pulmonary embolism, she can be started on her Xarelto again. I did stress the importance of taking her anticoagulant given her history of factor V Leiden. I reviewed the CTA report and there is no evidence of pulmonary emboli. At this point in time, upon repeat examination at around 12 AM, she states her headache is markedly improved. I feel she can be discharged to follow-up with her primary care provider. Return instructions to the emergency department were reviewed. Disposition is discharged home in stable condition. History & Record Review Discussion w/independent historian: Patient Additional record(s) reviewed:: Prior ED visit Lab Data Attestation: I reviewed the patient's lab results. Labs: Laboratory Results - last 24 hr 01/04/24 01/04/24 01/04/24 20:30 20:50 21:03 WBC 7.4 RBC 4.64 Hgb 13.7 Hct 40.5 MCV 87.3 MCH 29.5 MCHC 33.8 RDW Std Deviation 40.4 RDW Coeff of Joelle 12.8 Plt Count 239 MPV 9.5 Immature Gran % (Auto) 0.100 Neut % (Auto) 48.4 Lymph % (Auto) 39.2 Treasure % (Auto) 7.1 Eos % (Auto) 4.4 Baso % (Auto) 0.8 Absolute Neuts (auto) 3.6 Absolute Lymphs (auto) 2.88 Nucleated RBC % 0 D-Dimer Quant (PE/DVT) Cancelled Sodium 141 Potassium 3.5 Chloride 112 H Carbon Dioxide 23.0 Anion Gap 6 BUN 15 Creatinine 0.78 Estim Creat Clear Calc 117.08 Est GFR (MDRD) Af Amer 105 Est GFR (MDRD) Non-Af 87 BUN/Creatinine Ratio 19.1 Glucose 118 H Calcium 9.2 Troponin I High Sens 4 Serum , Qual NEGATIVE 01/04/24 01/04/24 21:23 23:02 WBC RBC Hgb Hct MCV MCH MCHC RDW Std Deviation RDW Coeff of Joelle Plt Count MPV Immature Gran % (Auto) Neut % (Auto) Lymph % (Auto) Treasure % (Auto) Eos % (Auto) Baso % (Auto) Absolute Neuts (auto) Absolute Lymphs (auto) Nucleated RBC % D-Dimer Quant (PE/DVT) 0.54 H* Sodium Potassium Chloride Carbon Dioxide Anion Gap BUN Creatinine Estim Creat Clear Calc Est GFR (MDRD) Af Amer Est GFR (MDRD) Non-Af BUN/Creatinine Ratio Glucose Calcium Troponin I High Sens 10 Serum , Qual Radiography Diagnostic Testing: Clinical Impression(s) from Imaging Studies Chest X-Ray 01/04/24 21:14 IMPRESSION: No acute radiographic abnormalities. Electronically Signed: Jose Alberto Leyva MD at 21:37 EST , Chest CTA 01/04/24 22:06 IMPRESSION: No acute abnormalities in the chest. Specifically, no acute pulmonary emboli to the segmental level. Electronically Signed: Jose Alberto Leyva MD at 0:03 EST , Discharge Plan Triage Chief Complaint: Shortness of Breath ED Provider: Thuan Guy Dx/Rx/DC Orders Clinical Impression: Chest pain, Factor V Leiden, Non compliance w medication regimen, Headache, migraine, Elevated d-dimer Instructions: ED Chest Pain, Uncertain Cause, ED, Migraine (Classical) Prescriptions: No Action NK Primary Care Provider: Niranjan Gaytan Referrals: Niranjan Gaytan MD [Primary Care Provider] - 3-5 Days if not improving Activity Restrictions/Additional Instructions: Take your Xarelto as previously directed. Disposition Disposition: Home, Self Care
[2024-01-04 20:41] LABS: Absolute Lymphocyte Count 2.88 X10^3/uL (0.83-4.51); Absolute Neutrophil Count 3.6 X10^3/uL (2.0-7.7); Basophil# 0.06 X10^3/uL; Basophil% 0.8 % (0-1); Eosinophil# 0.32 X10^3/uL; Eosinophils% 4.4 % (0-5); Hematocrit 40.5 % (37-47); Hemoglobin 13.7 g/dL (12.0-15.0); Lymphocyte # 2.88 X10^3/ul (0.83-4.51); Lymphocyte % 39.2 % (19-41); Mean Corp Hgb Conc 33.8 g/dL (32-36); Mean Corpuscular Hgb 29.5 pg (27.0-32.0); Mean Corpuscular Volume 87.3 fL (81-99); Mean Platelet Vol. 9.5 fl (6.2-12.0); Monocyte# 0.52 X10^3/uL; Monocyte% 7.1 % (0-10); NRBC Flagged by Analyzer 0 % (0-5); Neutrophil # 3.56 X10^3/uL (2.7-7.7); Neutrophil % 48.4 % (47-70); Platelet Count 239 K/mm3 (150-450); RBC Distribution Width CV 12.8 % (11.6-14.6); RBC Distribution Width SD 40.4 fl (35.1-43.9); Red Blood Count 4.64 M/mm3 (4.2-5.4); White Blood Count 7.4 K/mm3 (4.4-11.0)
[2024-01-04 20:59] LABS: Anion Gap 6 (5-15); BUN 15 mg/dL (7-18); BUN/Creat Ratio 19.1 RATIO (10-20); Calcium,Total 9.2 mg/dL (8.5-10.1); Chloride 112 mmol/L (98-107); Creatinine, Serum 0.78 mg/dL (0.55-1.02); EST Glomerular Filtration Rate 87 mL/min (>60); Est Glom Filt Rate - Afr Amer 105 mL/min (>60); Estimated Creatinine Clearance 117.08 ml/min; Glucose 118 mg/dL (74-106); Potassium 3.5 mmol/L (3.5-5.1); Sodium Level 141 mmol/L (136-145); Troponin-I HS (w/2H Reflex) 4 pg/mL (3.0-54.0)
[2024-01-04] MEDS: 0.9% Normal Saline (1000mL) 1,000 ML 1000 ML IV (21:08)
[2024-01-04 21:13] LABS: Internal QC Validated? YES +Cl - CLEAR BKGD; Pregnancy, Serum, hCG Quali. NEGATIVE Negative
--- NOTE | 2024-01-04 21:14 | RAD_ITS ---
INDICATION: chest pain EXAMINATION/TECHNIQUE: X-RAY - XR Chest 1 View COMPARISON: 08/22/2022. FINDINGS: The lungs are clear. The heart is borderline enlarged. No pleural effusion or pneumothorax. No acute osseous abnormalities. RAD/Chest 1 View (Portable) IMPRESSION: No acute radiographic abnormalities. Electronically Signed: Jose Alberto Leyva MD at 21:37 EST ,
[2024-01-04 21:51] LABS: D-Dimer Quantitative (DVT/PE) 0.54 FEU/ug/m (0.27-0.49)
--- NOTE | 2024-01-04 22:06 | CT_ITS ---
INDICATION: Elevated D Dimer EXAMINATION: CTA Chest WO/W Contrast Injection TECHNIQUE: Helically acquired images were obtained of the chest following administration of IV contrast. A radiation dose optimization technique was used for this scan. 3D postprocessing images including MIPS were reviewed. IV Contrast dosage and agent: IV 100mL [id number] COMPARISON: 07/14/2022. FINDINGS: Lungs: Bibasilar atelectasis. Mediastinum: The cardiomediastinal silhouette is not enlarged. No mediastinal, hilar or axillary adenopathy. The thoracic aorta is unremarkable. No obvious filling defect seen within the visualized pulmonary arteries. Pleura: Unremarkable Bones/Soft tissues: No suspicious osseous or soft tissue lesions Upper abdomen: No visualized abnormalities in the upper abdomen. CT/CTA Chest W/WO Contrast IMPRESSION: No acute abnormalities in the chest. Specifically, no acute pulmonary emboli to the segmental level. Electronically Signed: Jose Alberto Leyva MD at 0:03 [facility] ,
[2024-01-04 22:07] VITALS: BP 95/58; PULSE 68; RESP 16; O2SAT 95
[2024-01-04] MEDS: DiphenhydrAMINE 50 MG/ML Syringe IV (22:25)
[2024-01-04] MEDS: proCHLORPERazine 10 MG/2 ML Vial IV (22:25)
[2024-01-04 22:36] LABS: Reflex Troponin-HS? (from REC) Y
[2024-01-04 23:08] VITALS: BP 112/76; PULSE 80; RESP 23; O2SAT 94
[2024-01-04 23:26] LABS: Troponin-I HS 10 pg/mL (3.0-54.0)
[2024-01-05 00:22] VITALS: BP 104/60; PULSE 82; RESP 16; TEMP 36.3; O2SAT 99
== END 2024-01-05 00:23 | disposition home or self-care (01) ==
PROVIDERS: Emergency Provider Emergency Medicine; PCP Family Medicine; Visit Provider Emergency Medicine
DX: R07.9 Chest pain, unspecified (principal); D68.51 Activated protein C resistance; Z91.148 Patient's other noncompliance with medication regimen for other reason; T45.516A Underdosing of anticoagulants, initial encounter; G43.909 Migraine, unspecified, not intractable, without status migrainosus; R06.02 Shortness of breath; R55 Syncope and collapse; R79.89 Other specified abnormal findings of blood chemistry; F17.210 Nicotine dependence, cigarettes, uncomplicated; Z91.041 Radiographic dye allergy status
CPT/HCPCS: 71045; 71275; 80048; 84484; 84703; 85025; 85379; 93005; 96361; 96374; 96375; 99284; J7030; Q9967; A4216

== ENCOUNTER 2024-02-28 21:46 | Emergency (ER) | payer MEDICAID, SELFPAY ==
[2024-02-28 21:47] VITALS: BP 125/62; PULSE 80; RESP 16; TEMP 36.1; O2SAT 99; BMI 41.3
--- NOTE | 2024-02-28 22:00 | RAD_ITS ---
INDICATION: PAIN IN 5TH DIGIT EXAMINATION/TECHNIQUE: X-RAY - LEFT XR Foot Min 3 Views COMPARISON: None. FINDINGS: No acute fracture or malalignment. No blastic or lytic lesions. No degenerative changes are seen. Plantar and dorsal calcaneal enthesophytes. The soft tissues are unremarkable. RAD/Foot min 3 Views IMPRESSION: No acute radiographic abnormalities. Electronically Signed: Jose Alberto Leyva MD at 22:41 EDT ,
--- NOTE | 2024-02-28 22:06 | ED.VIS.LOWEX ---
HPI History of Present Illness Chief Complaint: Lower Extremity Injury Detail of Chief Complaint: Injury left foot yesterday Informant: patient Occured/Mechanism Mechanism/Context: Yes injury and Yes blunt trauma Comment: Patient went to sit on the seat of a swing. Missed and her foot became entangled in a toy for her son. Onset/Context/Timing Onset: Yesterday Context: Sudden Onset Timing: Continuous Quality of Pain: Throbbing Location: Lateral left foot Current Severity: Mild Maximum Severity: Moderate Worsened by: Weightbearing Relieved by: Nothing Associated Symptoms Associated Symptoms: Negative for Parasthesia, Weakness or Loss of Funtion Narrative Narrative: Patient is a 38-year-old female. She has history of factor V Leiden and pulmonary embolus. She is noncompliant with her medication. She denies paresthesia, anesthesia or motor weakness. She is on anticoagulant, Xarelto. Prior similar symptoms: No Recent Illness/Hospitalization: No PFSH PFSH Medical History Anxiety Asthma Cellulitis Cervical cancer Chest pain Depression DVT (deep venous thrombosis) Esophageal reflux Factor V Leiden Family history of skin cancer Fracture of head of left radius Headache, migraine Hidradenitis Memory changes Non compliance w medication regimen Non-healing right groin open wound Obesity Right-sided chest pain Smoker SOB (shortness of breath) Home Medications rivaroxaban 20 mg tablet (Xarelto) 20 mg PO DAILY 02/24/24 [History Last Taken Unknown] Allergy/AdvReac Type Severity Reaction Status Date / Time shellfish derived Allergy Intermediate Rash Verified 02/28/24 21:47 horseradish Allergy Angioedema Verified 02/28/24 21:47 Iodinated Contrast Media Allergy Rash Verified 02/28/24 21:47 [CONTRASTS] sulfamethoxazole Allergy Angioedema, Verified 02/28/24 21:47 [From Bactrim] RASH trimethoprim [From Bactrim] Allergy Angioedema, Verified 02/28/24 21:47 RASH cephalexin [From Keflex] AdvReac Intermediate Other Verified 02/28/24 21:47 duloxetine [From Cymbalta] AdvReac Intermediate Other Verified 02/28/24 21:47 trazodone AdvReac Intermediate Other Verified 02/28/24 21:47 Family History Mother Thyroid disorder Arthritis Depression Substance abuse Fibromyalgia Father , 34 Heart disease CAD (coronary artery disease) Myocardial infarction, Onset Age: 34 Drug overdose Sister Depression Thyroid disorder Grandmother Arthritis Hypertension Cancer melanoma Colon cancer Diabetes Grandfather Myocardial infarction CAD (coronary artery disease) Aunt Diabetes Uncle Cancer skin Diabetes Aunt Cancer leukemia Surgical History History of cholecystectomy History of hysterectomy with unilateral oophorectomy History of surgery on wrist History of tonsillectomy and adenoidectomy Hx of Achilles tendon repair Hx of appendectomy Hx of arthroscopy of right knee Hx of tympanostomy tubes Social History Smoking Status: Current every day smoker tobacco type: cigarettes alcohol intake: never substance use type: does not use ROS ROS ED Musculoskeletal Musculoskeletal: Denies arthralgias, back pain or myalgias Neurologic Neurologic: Denies paresthesias or weakness Hematologic/Lymphatic Hematologic/Lymphatic: Denies easy bleeding or easy bruising EXAM Physical Exam Const Vital Signs: 02/28/24 21:47 Temperature 97 F L Temperature Source Temporal Pulse Rate 80 Respiratory Rate 16 Blood Pressure 125/62 H Blood Pressure Mean 83 Pulse Ox 99 Positive well nourished and well developed General Appearance ED: well developed and NAD HEENT normocephalic and atraumatic Resp normal respiratory effort Cardio regular rate and regular rhythm Back/Spine no CVA tenderness Thoracic Spine / Upper Back: Negative for thoracic spinal tenderness Lumbar Spine / Lower Back: Negative for lumbar spinal tenderness Extremity full ROM; Negative for normal to inspection Extremity Narrative: There is swelling with pain the patient the base of the fourth and fifth metatarsal. There is pain outpatient over the little toe. There is no pain to palpation over the lateral or medial malleolus. DP pulses palpable. Neuro oriented x3, CN's II-XII intact bilaterally, moves all extremities and no sensory deficits noted Sensorium / Orientation: alert Psych mental status grossly normal Skin Skin Narrative: Bruising left little toe MDM MDM MDM Narrative Medical decision making narrative: X-ray of the foot was obtained to evaluate for strain/sprain versus fracture. History & Record Review Additional record(s) reviewed:: Prior outpatient record (History of PE. Patient is on Xarelto.), Prior ED visit and Prior labs Radiography Chest X-Ray - ED: Read by ED Physician (Three-view x-ray of the left foot is negative for fracture, dislocation etc.) Discharge Plan Triage Chief Complaint: Lower Extremity Injury ED Provider: Lewis Schaeffer Dx/Rx/DC Orders Clinical Impression: Factor V Leiden, Hx pulmonary embolism, Strain of left foot Instructions: ED Foot Sprain Prescriptions: No Action Xarelto 20 mg tablet 20 mg PO DAILY Patient Comments: Take 1 tablet by mouth daily with dinner. Primary Care Provider: Niranjan Gaytan Referrals: Niranjan Gaytan MD [Primary Care Provider] - 1 Week if not improving Activity Restrictions/Additional Instructions: 1. Apply ice 6-10 times a day for the next 3 to 5 days 2. Based on your past medical history recommend Tylenol for pain. Disposition Disposition: Home, Self Care
[2024-02-28 22:25] VITALS: BP 120/70; PULSE 65; RESP 16; TEMP 36.7; O2SAT 100
== END 2024-02-28 22:27 | disposition home or self-care (01) ==
PROVIDERS: Emergency Provider Emergency Medicine; PCP Family Medicine; Visit Provider Emergency Medicine
DX: S96.912A Strain of unspecified muscle and tendon at ankle and foot level, left foot, initial encounter (principal); W23.0XXA Caught, crushed, jammed, or pinched between moving objects, initial encounter; D68.51 Activated protein C resistance; J45.909 Unspecified asthma, uncomplicated; F17.210 Nicotine dependence, cigarettes, uncomplicated; Z79.01 Long term (current) use of anticoagulants; Z86.711 Personal history of pulmonary embolism; Z79.899 Other long term (current) drug therapy
CPT/HCPCS: 73630; 99282

== ENCOUNTER → 2024-03-29 | Outpatient (CLI) | payer MEDICAID, SELFPAY ==
--- NOTE | 2024-03-29 09:01 | ECHOD_ITS ---
Reason For Study: CHEST PAIN Procedure This was a 2D Doppler, Color Flow transthoracic echocardiogram. The study was technically difficult. Contrast deferred due to no IV access. Exam performed in department. Left Ventricle Normal size and thickness. The left ventricular ejection fraction is 65 %. Normal diastololic function. Right Ventricle Normal right ventricle. Atria The left and right atria are normal. Mitral Valve Trivial mitral valve insufficiency. Tricuspid Valve Trivial tricuspid valve insufficiency. Unable to estimate RV systolic pressure due to insufficient tricuspid regurgitant envelope. Aortic Valve Trisinus/trileaflet aortic valve. Pulmonic Valve The pulmonic valve is not well visualized. Great Vessels Normal sized aortic root. Pericardium/Pleural No pericardial effusion. MMode/2D Measurements & Calculations LVIDd: 4.2 cm IVSd: 0.89 cm Ao root diam: 2.7 cm LVIDs: 3.1 cm LVPWd: 1.0 cm FS: 25.6 % LAV(MOD-bp): 39.5 ml LA A4 area: 15.1 cm2 LA dimension(2D): 3.6 cm LAV(MOD-bp) Indexed: 20.1 ml/m2 LAV(MOD-sp2): 35.1 ml LAV(MOD-sp4): 34.2 ml Time Measurements MV dec time: 0.24 sec Doppler Measurements & Calculations MV E max higinio: 76.8 cm/sec Lat Peak E' Higinio: 15.6 cm/sec Med Peak E' Higinio: 12.9 cm/sec MV A max higinio: 40.7 cm/sec E/E' lat: 4.9 E/E' med: 6.0 MV E/A: 1.9 MV V2 max: 83.5 cm/sec MV dec slope: 326.5 cm/sec2 Ao V2 max: 125.0 cm/sec MV max P.8 mmHg Ao max P.2 mmHg MV V2 mean: 43.8 cm/sec Ao V2 mean: 83.7 cm/sec MV mean P.94 mmHg Ao mean P.3 mmHg MV V2 VTI: 28.4 cm Ao V2 VTI: 28.6 cm AV (velocity ratio): 0.89 LV V1 max: 116.2 cm/sec PA V2 max: 123.8 cm/sec LV V1 max P.4 mmHg PA V2 mean: 82.6 cm/sec LV V1 mean P.9 mmHg LV V1 mean: 79.7 cm/sec LV V1 VTI: 25.6 cm ECHO/Echo Complete Interpretation Summary The left ventricular ejection fraction is 65 %. The study was technically difficult. Ordering Physician: Wai Hernandez Referring Physician: Wai Hernandez Performed By: Yeni Zamudio RCS
--- NOTE | 2024-03-29 09:01 | CDU_ITS ---
Version 2 Reason For Study: Syncope Rt. Velocities/BP Lt. Velocities/BP Prox CCA 93.8/30.0 cm/sec. Dist CCA 111.0/38.2 cm/sec. Mid CCA 96.0/23.4 cm/sec. Mid CCA 98.4/34.5 cm/sec. Dist CCA 96.0/33.3 cm/sec. Prox CCA 111.2/34.5 cm/sec. Prox ICA 72.1/29.2 cm/sec. Dist ICA 76.0/39.2 cm/sec. Mid ICA 76.5/38.0 cm/sec. Mid ICA 106.0/43.8 cm/sec. Dist ICA 65.5/28.1 cm/sec. Prox ICA 80.2/34.5 cm/sec. Rt. ICA/CCA = 0.8. Lt. ICA/CCA = 1.1. Prox ECA 84.2/16.0 cm/sec. Prox ECA 64.5/10.4 cm/sec. Rt. Vert. 47.0/12.1 cm/sec. Lt. Vert. 50.0/22.6 cm/sec. Right Extracranial There is intimal thickening but no significant atherosclerotic plaque noted in the right common carotid artery. There is intimal thickening but no significant atherosclerotic plaque noted in the right internal carotid artery. There is intimal thickening but no significant atherosclerotic plaque noted in the right external carotid artery. Antegrade flow is noted in the right vertebral artery. Left Extracranial There is intimal thickening but no significant atherosclerotic plaque noted in the left common carotid artery. There is intimal thickening but no significant atherosclerotic plaque noted in the left internal carotid artery. There is intimal thickening but no significant atherosclerotic plaque noted in the left external carotid artery. Antegrade flow is noted in the left vertebral artery. VL/Carotid Duplex Ultrasound Interpretation Summary Normal right extracranial internal carotid. Normal left extracranial internal carotid. Patent and antegrade vertebrals bilaterally. Ordering Physician: Wai Hernandez Referring Physician: Niranjan Gaytan Performed By: Mao Dao RVT and Student
== END | disposition home or self-care (01) ==
LOC: CVS 08:57
PROVIDERS: PCP Family Medicine; Referring Provider Internal Medicine Cardiovascular Disease; Visit Provider Internal Medicine Cardiovascular Disease
DX: R55 Syncope and collapse (principal); F17.200 Nicotine dependence, unspecified, uncomplicated; R41.3 Other amnesia; R07.9 Chest pain, unspecified; R00.2 Palpitations; D68.51 Activated protein C resistance; R06.02 Shortness of breath
CPT/HCPCS: 93225; 93226; 93306; 93880

== ENCOUNTER → 2024-06-12 | Outpatient (CLI) | payer MEDICAID, SELFPAY ==
[2024-06-12 10:24] LABS: Absolute Lymphocyte Count 2.09 X10^3/uL (0.83-4.51); Absolute Neutrophil Count 4.7 X10^3/uL (2.0-7.7); Basophil# 0.05 X10^3/uL; Basophil% 0.7 % (0-1); Eosinophil# 0.16 X10^3/uL; Eosinophils% 2.2 % (0-5); Hematocrit 41.6 % (37-47); Hemoglobin 13.7 g/dL (12.0-15.0); Lymphocyte # 2.09 X10^3/ul (0.83-4.51); Lymphocyte % 28.1 % (19-41); Mean Corp Hgb Conc 32.9 g/dL (32-36); Mean Corpuscular Hgb 29.3 pg (27.0-32.0); Mean Corpuscular Volume 88.9 fL (81-99); Mean Platelet Vol. 9.2 fl (6.2-12.0); Monocyte# 0.45 X10^3/uL; Monocyte% 6.1 % (0-10); NRBC Flagged by Analyzer 0 % (0-5); Neutrophil # 4.66 X10^3/uL (2.7-7.7); Neutrophil % 62.6 % (47-70); Platelet Count 266 K/mm3 (150-450); RBC Distribution Width CV 12.8 % (11.6-14.6); RBC Distribution Width SD 42.4 fl (35.1-43.9); Red Blood Count 4.68 M/mm3 (4.2-5.4); White Blood Count 7.4 K/mm3 (4.4-11.0)
[2024-06-12 12:09] LABS: Anion Gap 5 (5-15); BUN 12 mg/dL (7-18); BUN/Creat Ratio 18.7 RATIO (10-20); Calcium,Total 9.3 mg/dL (8.5-10.1); Chloride 107 mmol/L (98-107); Creatinine, Serum 0.64 mg/dL (0.55-1.02); EST Glomerular Filtration Rate 109 mL/min (>60); Est Glom Filt Rate - Afr Amer 132 mL/min (>60); Glucose 107 mg/dL (74-106); Potassium 4.5 mmol/L (3.5-5.1); Sodium Level 139 mmol/L (136-145)
--- NOTE | 2024-06-12 19:06 | PCM.TILTTABL ---
Staff Staff: Gloria Estrada and Izabel Ragland Summary Pre Test Resting HR: 71 Pre Test Resting BP: 108/74 Minimum Test HR: 72 Maximum Test HR: 103 Minimum Test BP: 100/74 Maximum Test BP: 131/80 Reason for Test Termination: Reached Maximum Test Time Physician Tilt Table Report Patient's Physicians Primary Care Physician: Niranjan Gaytan Indications/Diagnosis: Presyncope Procedure Comments: Patient was brought to the noninvasive lab in the postabsorptive nonsedated state. Informed consent was obtained. Initial EKG was obtained demonstrating sinus rhythm with a rate of 71 bpm. Initial blood pressure is 109/79 mmHg. The patient was then placed in the 70 degree head upright tilt position for total duration of 20 minutes. Continuous EKG monitoring was performed. Blood pressures were also sequentially obtained. The patient maintained adequate heart rate and blood pressure throughout the test with no significant symptomatology noted. The patient was then placed in the recumbent position and given sublingual nitroglycerin 0.4 mg as per protocol. The patient was then put back in the 70 degree head upright tilt position. Patient complained of mild lightheadedness and nausea with adequate heart rate and blood pressure control. There was also nonspecific symptoms of feeling panicky, arms tingling, chest pain, and lightheadedness without any significant hemodynamic changes. The test was then ended after the appropriate time interval. Please see the records for the hemodynamics. Summary: Negative head upright tilt table with no significant symptomatology suggestive of presyncope noted
[2024-06-12 19:10] VITALS: BP 100/74; BP 108/74; BP 131/80
== END | disposition home or self-care (01) ==
PROVIDERS: PCP Family Medicine; Referring Provider Internal Medicine Cardiovascular Disease; Visit Provider Internal Medicine Cardiovascular Disease
DX: R55 Syncope and collapse (principal); R41.3 Other amnesia; R07.9 Chest pain, unspecified; R06.02 Shortness of breath
CPT/HCPCS: A4216; 36415; 80048; 85025; 93660; J7040

== ENCOUNTER → 2024-06-14 | Outpatient (CLI) | payer MEDICAID, SELFPAY ==
--- NOTE | 2024-06-14 10:21 | STEWCON_ITS ---
Reason For Study: Dyspnea/Syncope Stress Results Protocol: Stress Echocardiogram Gilberto Protocol Maximum Predicted HR: 182 bpm Target HR: 155 bpm % Maximum Predicted HR: 82 % Heart Stage Duration Rate BP Comment (mm:ss) (bpm) Baseline 69 112/80Patient denies chest pain or shortness of breath. Stage 1 3:00 114 122/80Patient denies chest pain or shortness of breath Stage 2 3:00 127 128/82Patient denies chest pain or shortness of breath. Patient states that she cannot walk any further. She complains of Stage 3 0:40 150 / mild chest tightness, shortness of breath, and fatigue. Recovery 72 108/70Patient denies chest pain or shortness of breath. Stress Duration: 6:40 mm:ss Maximum Stress HR: 150 bpm Baseline Echocardiogram Findings Stress Echo Wall motion Data Resting WM Intermediate WM Stress WM Resting Wall Motion Wall Motion Stress No regional wall motion All segments Hyperkinetic. abnormalities noted. EKG Data The baseline ECG displays normal sinus rhythm. No ischemic changes on stress ECG. No arrhythmias noted. Doppler Measurements & Calculations TR max comfort: 261.3 cm/sec TR max P.3 mmHg ECHO/Stress Test Echo W/Contrast Interpretation Summary No ischemic changes on stress ECG at 82% maximum predicted heart rate. Mild chest pain reported at peak exercise Normal augmentation of all LV wall segments post exercise. No echo evidence of ischemia. Ordering Physician: Annette Fagan Referring Physician: Annette Fagan Performed By:
== END | disposition home or self-care (01) ==
LOC: CVS 10:19
PROVIDERS: PCP Family Medicine; Referring Provider Nurse Practitioner Gerontology; Visit Provider Nurse Practitioner Gerontology
DX: R06.02 Shortness of breath (principal); R06.00 Dyspnea, unspecified; F17.200 Nicotine dependence, unspecified, uncomplicated; E78.5 Hyperlipidemia, unspecified; R55 Syncope and collapse; R41.3 Other amnesia; R07.9 Chest pain, unspecified
CPT/HCPCS: 93350; Q9957; 93017; A4216; C8928

== ENCOUNTER 2024-07-02 18:57 | Emergency (ER) | payer MEDICAID, SELFPAY ==
[2024-07-02 18:58] VITALS: BP 105/90; PULSE 88; RESP 20; TEMP 36.1; O2SAT 96; BMI 41.0
== END 2024-07-02 22:22 | disposition left against medical advice (07) ==
LOC: ED 22:25
PROVIDERS: PCP Family Medicine
DX: J00 Acute nasopharyngitis [common cold] (principal); M79.661 Pain in right lower leg; Z53.21 Procedure and treatment not carried out due to patient leaving prior to being seen by health care provider

== ENCOUNTER 2024-11-11 14:37 | Emergency (ER) | payer MEDICAID, SELFPAY ==
[2024-11-11 14:40] VITALS: BP 117/78; PULSE 79; RESP 20; TEMP 36.7; O2SAT 98; BMI 41.4
[2024-11-11 14:41] VITALS: BP 117/78; PULSE 79; RESP 20; TEMP 36.7; O2SAT 98
--- NOTE | 2024-11-11 14:51 | EX.ED.DYSGE1 ---
HPI <CLAU Regan - Last Filed: 11/11/24 16:30> History of Present Illness Chief Complaint: Nausea/Vomiting/Diarrhea Narrative Narrative: 39-year-old female with PMH of DVT, factor V Leiden on Xarelto presents with productive cough and nausea vomiting and diarrhea that started last night around 6 PM. She states she cannot keep down any fluids or her blood thinners. She has no abdominal pain. No blood in her vomit or stool. PFSH <CLAU Regan - Last Filed: 11/11/24 16:30> PFSH Medical History Anxiety Asthma Cellulitis Cervical cancer Chest pain Depression DVT (deep venous thrombosis) Dyslipidemia Esophageal reflux Factor V Leiden Family history of skin cancer Fracture of head of left radius Headache, migraine Hidradenitis Hx pulmonary embolism Memory changes Nicotine dependence Non compliance w medication regimen Non-healing right groin open wound Obesity Right-sided chest pain Smoker SOB (shortness of breath) Syncope Home Medications ?Medication ?Instructions ?Recorded ?Last Taken ?Type rivaroxaban 20 mg tablet (Xarelto) 20 mg PO DAILY 02/24/24 04/18/24 09:07 History ondansetron 4 mg disintegrating 4 mg PO Q8H PRN PRN Nausea #12 tabs 11/11/24 Unknown Rx tablet Allergy/AdvReac Type Severity Reaction Status Date / Time shellfish derived Allergy Intermediate Rash Verified 11/11/24 14:39 horseradish Allergy Angioedema Verified 11/11/24 14:39 Iodinated Contrast Media Allergy Rash Verified 11/11/24 14:39 (CONTRASTS) sulfamethoxazole (From Allergy Angioedema, Verified 11/11/24 14:39 Bactrim) RASH trimethoprim (From Bactrim) Allergy Angioedema, Verified 11/11/24 14:39 RASH cephalexin (From Keflex) AdvReac Intermediate Other Verified 11/11/24 14:39 duloxetine (From Cymbalta) AdvReac Intermediate Other Verified 11/11/24 14:39 trazodone AdvReac Intermediate Other Verified 11/11/24 14:39 Family History Mother Thyroid disorder Arthritis Depression Substance abuse Fibromyalgia Father , 34 Heart disease CAD (coronary artery disease) Myocardial infarction, Onset Age: 34 Drug overdose Sister Depression Thyroid disorder Grandmother Arthritis Hypertension Cancer melanoma Colon cancer Diabetes Grandfather Myocardial infarction CAD (coronary artery disease) Aunt Diabetes Uncle Cancer skin Diabetes Aunt Cancer leukemia Surgical History History of cholecystectomy History of hysterectomy with unilateral oophorectomy History of surgery on wrist History of tonsillectomy and adenoidectomy Hx of Achilles tendon repair Hx of appendectomy Hx of arthroscopy of right knee Hx of tympanostomy tubes Social History Smoking Status: Current every day smoker tobacco type: cigarettes alcohol intake: never substance use type: does not use caffeine: Yes Type: carbonated beverages Number of servings: 5 ROS <CLAU Regan - Last Filed: 11/11/24 16:30> ROS ED ROS Narrative Constitutional: Positive for malaise. No fever. CVS: Negative for chest pain. Respiratory: Positive for cough. Negative for shortness of breath. GI: Negative for abdominal pain. Positive for nausea, vomiting, diarrhea. : Negative for dysuria. EXAM <CLAU Regan - Last Filed: 11/11/24 16:30> Physical Exam Narrative Exam Narrative: CONST: Patient sitting in no acute distress. EYES: Normal inspection. ENT: Normal inspection, moist mucous membranes. NECK: Normal inspection. RESP: No respiratory distress, CTAB. CVS: Regular rate and rhythm, no murmur, no gallop. ABD: Soft and nontender, no guarding or rebound, nondistended, normal bowel sounds x 4. SKIN: Color normal, no rash, warm, dry, intact. EXTREMITIES: Normal appearance, no pedal edema. NEURO: Alert and answering questions appropriately. PSYCH: Normal affect. Const Vital Signs: 11/11/24 14:40 11/11/24 14:41 11/11/24 15:17 Temperature 98.1 F 98.1 F Temperature Source Oral Oral Pulse Rate 79 79 Respiratory Rate 20 H 20 H Respiratory Effort Normal Respiratory Depth Normal Respiratory Pattern Tachypnea Blood Pressure 117/78 117/78 Blood Pressure Mean 91 91 Pulse Ox 98 98 Oxygen Delivery Method Room Air Room Air Room Air <Dr. Bryan Christine DO - Last Filed: 11/11/24 14:55> Physical Exam Const Vital Signs: 11/11/24 14:40 11/11/24 14:41 11/11/24 15:17 Temperature 98.1 F 98.1 F Temperature Source Oral Oral Pulse Rate 79 79 Respiratory Rate 20 H 20 H Respiratory Effort Normal Respiratory Depth Normal Respiratory Pattern Tachypnea Blood Pressure 117/78 117/78 Blood Pressure Mean 91 91 Pulse Ox 98 98 Oxygen Delivery Method Room Air Room Air Room Air [facility] <CLAU Regan - Last Filed: 11/11/24 16:30> [facility] Narrative Medical decision making narrative: Differential includes but not limited to viral syndrome, electrolyte abnormality, JOANN. I do not suspect intra-abdominal process as she does not have abdominal pain or tenderness. Patient has acute cough and N/V/D since last evening. She appears well and nontoxic. She is afebrile and hemodynamically stable. She has no clinical signs of dehydration and a benign exam with a soft, nontender abdomen. She was given IV fluids and Zofran. CBC and BMP are overall unremarkable. She was able to keep down fluids but states she would like another dose of Zofran before she leaves. I also provided prescription. I suspect a viral syndrome but she declined testing for COVID/flu/RSV which is fine as it would not manager of change. Patient counseled on return precautions and discharged in stable condition. I have personally performed a face to face assessment of the patient and have reviewed the ELIAZAR Note. I performed a substantive portion of the visit including all aspects of the following. My murillo findings include: History is [patient presents to the emergency department with complaint of cough as well as vomiting and diarrhea that started last evening. Patient states initially she started with a cough that is relatively nonproductive. She did start having frequent vomiting and diarrhea. She denies any abdominal pain. She tells me she has not urinated since 3 AM. Patient has had prior appendectomy as well as cholecystectomy and hysterectomy. She denies any sick contacts. She denies urinary symptoms.] Exam is [HEENT-PERRLA, EOMI. Cranial nerves II through XII grossly intact. TMs clear. Mucous membranes slightly dry.. No adenopathy. Cardiovascular-regular rate and rhythm without murmur or ectopy Lungs-clear to auscultation, chest wall stable without crepitus or subcu emphysema Abdomen-normoactive bowel sounds, soft, nontender, no rebound or rigidity, no peritoneal signs. Extremities-intact ?4, normal range of motion, normal pulses, atraumatic] Medical Decison Making [ ] Other additions or changes: [None] Lab Data Labs: Laboratory Results - last 24 hr 11/11/24 15:00 WBC 6.0 RBC 4.96 Hgb 14.5 Hct 42.9 MCV 86.5 MCH 29.2 MCHC 33.8 RDW Std Deviation 39.8 RDW Coeff of Joelle 12.5 Plt Count 225 MPV 9.6 Immature Gran % (Auto) 0.300 Neut % (Auto) 69.0 Lymph % (Auto) 19.7 [place] % (Auto) 8.1 Eos % (Auto) 2.2 Baso % (Auto) 0.7 Absolute Neuts (auto) 4.2 Absolute Lymphs (auto) 1.19 Nucleated RBC % 0 Sodium 138 Potassium 3.7 Chloride 109 H Carbon Dioxide 23.0 Anion Gap 6 BUN 14 Creatinine 0.74 Estim Creat Clear Calc 114.65 Est GFR (MDRD) Af Amer 112 Est GFR (MDRD) Non-Af 93 BUN/Creatinine Ratio 18.9 Glucose 103 Calcium 9.0 <Dr. Bryan Christine, DO - Last Filed: 11/11/24 14:55> [facility] MDM Narrative Medical decision making narrative: I have personally performed a face to face assessment of the patient and have reviewed the ELIAZAR Note. I performed a substantive portion of the visit including all aspects of the following. My murillo findings include: History is [patient presents to the emergency department with complaint of cough as well as vomiting and diarrhea that started last evening. Patient states initially she started with a cough that is relatively nonproductive. She did start having frequent vomiting and diarrhea. She denies any abdominal pain. She tells me she has not urinated since 3 AM. Patient has had prior appendectomy as well as cholecystectomy and hysterectomy. She denies any sick contacts. She denies urinary symptoms.] Exam is [HEENT-PERRLA, EOMI. Cranial nerves II through XII grossly intact. TMs clear. Mucous membranes slightly dry.. No adenopathy. Cardiovascular-regular rate and rhythm without murmur or ectopy Lungs-clear to auscultation, chest wall stable without crepitus or subcu emphysema Abdomen-normoactive bowel sounds, soft, nontender, no rebound or rigidity, no peritoneal signs. Extremities-intact ?4, normal range of motion, normal pulses, atraumatic] Medical Decison Making [ ] Other additions or changes: [None] Lab Data Labs: Laboratory Results - last 24 hr 11/11/24 15:00 WBC 6.0 RBC 4.96 Hgb 14.5 Hct 42.9 MCV 86.5 MCH 29.2 MCHC 33.8 RDW Std Deviation 39.8 RDW Coeff of Joelle 12.5 Plt Count 225 MPV 9.6 Immature Gran % (Auto) 0.300 Neut % (Auto) 69.0 Lymph % (Auto) 19.7 [place] % (Auto) 8.1 Eos % (Auto) 2.2 Baso % (Auto) 0.7 Absolute Neuts (auto) 4.2 Absolute Lymphs (auto) 1.19 Nucleated RBC % 0 Sodium 138 Potassium 3.7 Chloride 109 H Carbon Dioxide 23.0 Anion Gap 6 BUN 14 Creatinine 0.74 Estim Creat Clear Calc 114.65 Est GFR (MDRD) Af Amer 112 Est GFR (MDRD) Non-Af 93 BUN/Creatinine Ratio 18.9 Glucose 103 Calcium 9.0 Discharge Plan Triage Chief Complaint: Nausea/Vomiting/Diarrhea Other Complaint: Shortness of Breath ED Midlevel Provider: Lissett Goodwin ED Provider: Bryan Christine Dx/Rx/DC Orders Clinical Impression: Acute viral syndrome, Nausea and vomiting Instructions: ED Diet Vomiting Diarrhea Prescriptions: New ondansetron 4 mg tablet,disintegrating 4 mg PO Q8H PRN PRN (Reason: Nausea) Qty: 12 0RF No Action Xarelto 20 mg tablet 20 mg PO DAILY Patient Comments: Take 1 tablet by mouth daily with dinner. Primary Care Provider: Niranjan Gaytan Referrals: Niranjan Gaytan MD [Primary Care Provider] - Activity Restrictions/Additional Instructions: Take Zofran as needed for nausea and vomiting. Sip clear fluids throughout the day. Slowly reintroduce a bland diet as you feel better. Return if symptoms worsen. Print Language: Urdu Disposition Disposition: Home, Self Care
[2024-11-11] MEDS: 0.9% Normal Saline (1000mL) 1,000 ML 999 ML IV (15:06)
[2024-11-11] MEDS: Ondansetron 4 MG/2 ML Vial IV ×2 (15:06→16:33)
[2024-11-11 15:11] LABS: Absolute Lymphocyte Count 1.19 X10^3/uL (0.83-4.51); Absolute Neutrophil Count 4.2 X10^3/uL (2.0-7.7); Basophil# 0.04 X10^3/uL; Basophil% 0.7 % (0-1); Eosinophil# 0.13 X10^3/uL; Eosinophils% 2.2 % (0-5); Hematocrit 42.9 % (37-47); Hemoglobin 14.5 g/dL (12.0-15.0); Lymphocyte # 1.19 X10^3/ul (0.83-4.51); Lymphocyte % 19.7 % (19-41); Mean Corp Hgb Conc 33.8 g/dL (32-36); Mean Corpuscular Hgb 29.2 pg (27.0-32.0); Mean Corpuscular Volume 86.5 fL (81-99); Mean Platelet Vol. 9.6 fl (6.2-12.0); Monocyte# 0.49 X10^3/uL; Monocyte% 8.1 % (0-10); NRBC Flagged by Analyzer 0 % (0-5); Neutrophil # 4.16 X10^3/uL (2.7-7.7); Platelet Count 225 K/mm3 (150-450); RBC Distribution Width CV 12.5 % (11.6-14.6); RBC Distribution Width SD 39.8 fl (35.1-43.9); Red Blood Count 4.96 M/mm3 (4.2-5.4)
[2024-11-11 15:17] VITALS: O2SAT 97
[2024-11-11 15:25] LABS: Anion Gap 6 (5-15); BUN 14 mg/dL (7-18); BUN/Creat Ratio 18.9 RATIO (10-20); Chloride 109 mmol/L (98-107); Creatinine, Serum 0.74 mg/dL (0.55-1.02); EST Glomerular Filtration Rate 93 mL/min (>60); Est Glom Filt Rate - Afr Amer 112 mL/min (>60); Estimated Creatinine Clearance 114.65 ml/min; Glucose 103 mg/dL (74-106); Potassium 3.7 mmol/L (3.5-5.1); Sodium Level 138 mmol/L (136-145)
[2024-11-11 16:40] VITALS: BP 115/70; PULSE 83; RESP 18; TEMP 36.1; O2SAT 99
== END 2024-11-11 16:41 | disposition home or self-care (01) ==
PROVIDERS: Physician Assistant; Emergency Provider Emergency Medicine; PCP Family Medicine; Visit Provider Emergency Medicine
DX: B34.9 Viral infection, unspecified (principal); D68.51 Activated protein C resistance; F17.210 Nicotine dependence, cigarettes, uncomplicated; Z79.01 Long term (current) use of anticoagulants
CPT/HCPCS: 80048; 85025; 96361; 96374; 96376; 99284; A4216; J2405

== ENCOUNTER 2025-08-15 20:32 | Emergency (ER) | payer MEDICAID, SELFPAY ==
[2025-08-15 20:33] VITALS: BP 147/83; PULSE 94; RESP 16; TEMP 37; O2SAT 100; BMI 41.5
--- NOTE | 2025-08-15 20:59 | ED.VIS.FALL ---
HPI HPI - Fall History of Present Illness Chief Complaint: Fall Informant: patient Occured/Mechanism Occurred: Days (7 days ago last .) Mechanism/Context: Yes same level fall and Yes slip Usually ambulates: Without assistance Pain/Injury Pain Location: chest (Left lateral lower rib cage and left flank.) and abdomen Quality of Pain: Sharp Current Severity: Moderate Maximum Severity: Moderate Associated Symptoms Associated Symptoms: Negative for Parasthesias, Weakness, Loss of function, Inability to ambulate, Loss of consciousness or Amnesia Narrative Narrative: 39-year-old female history of PE and DVT secondary to factor V Leiden on Xarelto. Was moving an aboveground pool about a week ago last she was ported she slipped and went down hit her left rib cage and left flank and since that time is developed increasing pain. Denies hitting her head at all. No headache. No neck pain. Prior similar symptoms: No Recent Illness/Hospitalization: No PFSH PFSH Medical History Hx pulmonary embolism Syncope Dyslipidemia Nicotine dependence Memory changes Cervical cancer Depression Esophageal reflux Obesity Asthma SOB (shortness of breath) Headache, migraine Non compliance w medication regimen Chest pain Cellulitis Fracture of head of left radius DVT (deep venous thrombosis) Anxiety Factor V Leiden Right-sided chest pain Non-healing right groin open wound Smoker Family history of skin cancer Hidradenitis Home Medications ?Medication ?Instructions ?Recorded ?Last Taken ?Type rivaroxaban 20 mg tablet (Xarelto) 20 mg PO DAILY 02/24/24 04/18/24 09:07 History Allergy/AdvReac Type Severity Reaction Status Date / Time shellfish derived Allergy Intermediate Rash Verified 08/15/25 20:32 horseradish Allergy Angioedema Verified 08/15/25 20:32 Iodinated Contrast Media Allergy Rash Verified 08/15/25 20:32 (CONTRASTS) sulfamethoxazole (From Allergy Angioedema, Verified 08/15/25 20:32 Bactrim) RASH trimethoprim (From Bactrim) Allergy Angioedema, Verified 08/15/25 20:32 RASH cephalexin (From Keflex) AdvReac Intermediate Other Verified 08/15/25 20:32 duloxetine (From Cymbalta) AdvReac Intermediate Other Verified 08/15/25 20:32 trazodone AdvReac Intermediate Other Verified 08/15/25 20:32 Family History Mother Thyroid disorder Arthritis Depression Substance abuse Fibromyalgia Father , 34 Heart disease CAD (coronary artery disease) Myocardial infarction, Onset Age: 34 Drug overdose Sister Depression Thyroid disorder Grandmother Arthritis Hypertension Cancer melanoma Colon cancer Diabetes Grandfather Myocardial infarction CAD (coronary artery disease) Aunt Diabetes Uncle Cancer skin Diabetes Aunt Cancer leukemia Surgical History Hx of Achilles tendon repair Hx of appendectomy Hx of arthroscopy of right knee History of surgery on wrist Hx of tympanostomy tubes History of tonsillectomy and adenoidectomy History of hysterectomy with unilateral oophorectomy History of cholecystectomy Social History Smoking Status: Current every day smoker tobacco type: cigarettes alcohol intake: never substance use type: does not use caffeine: Yes Type: carbonated beverages Number of servings: 5 ROS ROS ED ROS Narrative Denies recent illness post fall left lower rib cage and left flank pain. No dysuria. No hematuria. No vomiting diarrhea or fever. No head injury or headache. Constitutional Constitutional ED: Denies chills or fever(s) Eyes Eyes: Denies blurry vision ENT ENT ED: Denies ear pain Cardiovascular Cardiovascular: Denies chest pain Respiratory/Chest Respiratory/Chest: Denies cough Gastrointestinal Gastrointestinal: Reports abdominal pain and other Details: Left flank pain post fall ; Denies constipation, diarrhea, melena, nausea or vomiting Genitourinary Genitourinary ED: Denies hematuria Musculoskeletal Musculoskeletal: Denies arthralgias or back pain Integumentary Denies abscess Neurologic Neurologic: Denies headache(s) Psychiatric Psychiatric: Denies anxiety Endocrine Endocrinology: Denies polydipsia Hematologic/Lymphatic Hematologic/Lymphatic: Denies easy bleeding, easy bruising or lymphadenopathy Allergic/Immunologic Allergic/Immunologic ED: Denies mouth swelling, tongue swelling or urticaria EXAM Physical Exam Narrative Exam Narrative: 39-year-old female sitting upright in bed. Lying on her side. Vital signs are stable and afebrile. H EENT exam pupils round react light. No signs of trauma to her face or scalp. Nontender no hematoma or bruising. C-spine and neck nontender. Back nontender. No spine tenderness. Left lateral rib cage tenderness. Lungs clear to auscultation bilaterally. Heart regular rhythm rate about 95 no murmur. Chest wall tenderness left lower lateral ribs. No ecchymosis or bruising. No crepitus. Abdomen is soft nondistended normal bowel sounds without peritoneal signs. Left lateral flank tenderness. There is no ecchymosis or bruising. No crepitance. The lower ribs to her hip. Moving all 4 extremities. Normal strength. Normal range of motion there is no shortening or rotation of the left hip. It is tender laterally but there is no deformity. Dorsi plantarflexion intact. Net Technical Architect strength intact. Neurologically she is awake alert. Answering questions following commands. GCS of 15. Const Vital Signs: 08/15/25 20:33 08/15/25 21:07 Temperature 98.6 F Temperature Source Oral Pulse Rate 94 Respiratory Rate 16 Respiratory Effort Normal Non-Labored Respiratory Depth Normal Respiratory Pattern Normal Blood Pressure 147/83 H Blood Pressure Mean 104 Pulse Ox 100 Oxygen Delivery Method Room Air Room Air MDM MDM MDM Narrative Medical decision making narrative: 39-year-old female fell 1 week ago last hitting her left lower lateral rib cage and left flank. Denies any head injury. She has had pain is not gotten better and worsened. She is on a blood thinner Xarelto. Will obtain a CAT scan of her chest looking for rib fractures or other injuries. CAT scan her abdomen pelvis with screening labs. She will be given morphine for pain and Zofran. Repeat exam at 11:34 PM. Patient is doing well. We have already discussed all lab work. The CAT scan of the chest is unremarkable. No rib fractures nor pneumothorax. Awaiting the CT of the abdomen and pelvis. History & Record Review Discussion w/independent historian: Patient Additional record(s) reviewed:: Prior inpatient record, Prior outpatient record, Prior ED visit and Prior labs Lab Data Attestation: I reviewed the patient's lab results. Lab results narrative: CBC unremarkable. White count 8.3. H&H 13 and 39. Platelets 263. Chemistry shows sodium 141. Gap 10. BUN and creatinine 16 and 0.6. Glucose 106. Liver enzymes unremarkable. Lipase normal at 27. CT chest no abnormality per the radiologist. CT abdomen no acute abnormalities read by the radiologist. Labs: Laboratory Results - last 24 hr 08/15/25 21:05 WBC 8.3 RBC 4.49 Hgb 13.2 Hct 39.6 MCV 88.2 MCH 29.4 MCHC 33.3 RDW Std Deviation 41.4 RDW Coeff of Joelle 12.7 Plt Count 263 MPV 9.9 Immature Gran % (Auto) 0.100 Neut % (Auto) 60.6 Lymph % (Auto) 30.5 [place] % (Auto) 6.8 Eos % (Auto) 1.4 Baso % (Auto) 0.6 Absolute Neuts (auto) 5.0 Absolute Lymphs (auto) 2.54 Nucleated RBC % 0 Sodium 141 Potassium 3.7 Chloride 107 Carbon Dioxide 24.8 Anion Gap 10 BUN 16 Creatinine 0.67 L Estim Creat Clear Calc 126.73 Est GFR (MDRD) Non-Af 114 BUN/Creatinine Ratio 23.4 H Glucose 106 H Calcium 9.0 Total Bilirubin 0.29 AST 17 ALT 12 Alkaline Phosphatase 100 Total Protein 6.7 Albumin 3.9 Globulin 2.8 Albumin/Globulin Ratio 1.4 Lipase 27 Radiography Diagnostic Testing: Clinical Impression(s) from Imaging Studies Chest CT 08/15/25 22:18 IMPRESSION: No acute intrathoracic abnormality. Reading Location: [facility] Discharge Plan Triage Chief Complaint: Fall ED Provider: Ronald Braga Dx/Rx/DC Orders Clinical Impression: Fall, Chest wall contusion, Contusion of flank, History of blood clots Instructions: ED Chest Wall Contusion Prescriptions: No Action Xarelto 20 mg tablet 20 mg PO DAILY Patient Comments: REPORTS NOT TAKING FOR THE PAST TWO WEEKS ON 08/15/2025 D/T EASY BRUISING. Primary Care Provider: Niranjan Gaytan Referrals: Niranjan Gaytan MD [Primary Care Provider, Family Practice] - 1 Week if not improving Activity Restrictions/Additional Instructions: Ice all sore areas specifically the left lower rib cage and left flank. Use a pillow to support your rib cage. Tylenol for pain. Remember to restart your blood thinner if not you have the risk of developing blood clots again. You will probably be sore for several more days up to a week. Or even longer. Follow-up with your doctor if you are not improving. Print Language: Bangladeshi Disposition Disposition: Home, Self Care
--- OUTSIDE RECORDS SUMMARY | 2025-08-15 21:09 | XMS RPT_ITS | CCD ---
Author Organization [facility] Inform ion Partnership [facility] Care Team Providers Care Outside Repairer Special Name Role Phone Randall Henson MD Unavailable JOANA SAMPSON Unavailable Ty Jimenez Unavailable Unavailable Ty Gaytan Unavailable Ty Jimenez MD Primary Care Provider Ty Gaytan MD Primary Care Provider Ty Gaytan MD Primary Care Provider Ty Gaytan MD Primary Care Provider TY GAYTAN Primary Care Unavailable TY GAYTAN Primary Care Unavailable ATHY, FARHAT R Referring Unavailable TY GAYTAN Primary Care Unavailable TY GAYTAN Primary Care Unavailable TY GAYTAN Primary Care Unavailable TY GAYTAN Attending Unavailable TY GAYTAN Primary Care Unavailable MI DIETZ Attending Unavailable TY GAYTAN Primary Care Unavailable HENNY COOK Attending Unavailable HENNY COOK Referring Unavailable TY GAYTAN Primary Care Unavailable DR TY GAYTAN MD Primary Care Unavailab MERCY Regan MD Attending Unavail DR TY Kirby MD Primary Care Physician DR TY GAYTAN MD Primary Care Unavailab MERCY Regan MD Attending Unavail able Henny Cook APRN.CNP Unavailable AdolfoLobo antony APRN.CNPsse Unavailable David, Wai Referring Unavailable David Wai Attending Unavailable Ty Gaytan Primary Care Unavailable David, Wai Referring Unavailable David, Wai Attending Unavailable Elderbrock, Ty Primary Care Unavailable Elderbrock, Ty Primary Care Unavailable Ungur, Remus Attending Unavailable Schaeffer, Lewis Attending Unavailable Elderbrock, Ty Primary Care Unavailable David, Wai Attending Unavailable Elderbrock, Ty Primary Care Unavailable PulaskiGunner ibanez Attending Unavailable Elderbrock, Ty Primary Care Unavailable David, Wai Referring Unavailable Robyn, Hamlet Attending Unavailable David, Wai Referring Unavailable David, Wai Consulting Unavailable Elderbrock, Ty Primary Care Unavailable Rylan TOOL CRIB CLERK, Annette Attending Unavailable Elderbrock, Ty Primary Care Unavailable David, Awi Attending Unavailable Elderbrock, Ty Primary Care Unavailable Elderbrock, Ty Primary Care Unavailable David, Wai Referring Unavailable David, Wai Attending Unavailable Elderbrock, Ty Primary Care Unavailable David, Wai Attending Unavailable Elderbrock, Ty Referring Unavailable David, Wai Attending Unavailable Elderbrock, Ty Primary Care Unavailable Elderbrock, Ty Referring Unavailable David, Wai Attending Unavailable Elderbrock, Ty Referring Unavailable Elderbrock, Ty Primary Care Unavailable Rylan TOOL CRIB CLERK, Annette Referring Unavailable Rylan TOOL CRIB CLERK, Annette Attending Unavailable Elderbrock, Ty Primary Care Unavailable David, Wai Attending Unavailable David, Wai Referring Unavailable Elderbrock, Ty Primary Care Unavailable Provider, Ed Physician Attending Unavailab le Elderbrock, Ty Primary Care Unavailable David, Wai Attending Unavailable Elderbrock, Ty Primary Care Unavailable David, Wai Referring Unavailable David, Wai Attending Unavailable David, Wai Referring Unavailable Elderbrock, Ty Primary Care Unavailable David, Wai Referring Unavailable David, Wai Attending Unavailable Elderbrock, Ty Primary Care Unavailable Elderbrock, Ty Primary Care Unavailable ReThuan jansen Attending Unavailable Allergies Allergy Classification Reported Allergen(s) Allergy Type Date of Onset Reaction(s) Facility (3 sources) sulfamethoxazole / trimethoprim; Translations: [Sulfamethoxazole / Trimethoprim] drug allergy 11-26-19 16 Congestion of throat (finding) [facility] Work Phone: (20 sources) DULoxetine; Translations: [DULOXETINE] Drug Allergy 01-21-20 15 Rash, Shortness of Breath [facility] Rep[facility] (20 sources) horseradish allergenic extract; Translations: [HORSERADISH] Drug Allergy 07-07-20 05 Swelling [facility] (20 sources) Shellfish; Translations: [SHELLFISH] Propensity to adverse reactions (disorder) 06-17-20 14 Other: See Comments [facility] (20 sources) sulfamethoxazole / trimethoprim; Translations: [SULFAMETHOXAZOLE-T RIMETHOPRIM] Drug Allergy 07-07-20 05 Swelling [facility] (20 sources) traZODone; Translations: [TRAZODONE HCL] Drug Allergy 03-29-20 17 Intolerance [facility] (20 sources) Cephalexin; Translations: [CEPHALEXIN] Drug Allergy 07-17-20 21 [facility] (6 sources) Sulfamethoxazole Drug Allergy 07-14-20 22 Angioedema, [facility] (6 sources) Triiodobenzoic Acids Allergy to substance 07-14-20 22 [facility] (6 sources) Trimethoprim Drug Allergy 07-14-20 Angioedema, [facility] (2 sources) Shellfish; Translations: [shellfish derived] Allergy to substance 02-28-20 24 [facility] (1 source) traZODone Drug Allergy 02-28-20 24 Other [facility] (1 source) Cephalexin Drug Allergy 11-11-19 25 [facility] (1 source) Sulfamethoxazole Drug Allergy 11-11-19 25 [facility] (1 source) traZODone Drug Allergy 11-11-19 25 [facility] (1 source) Trimethoprim Drug Allergy 11-11-19 25 [facility] (1 source) Iodinated Contrast Media Drug allergy (disorder) 11-11-19 25 [facility] Rep[facility] Medications Current Medications Medication Drug Class(es) Dates Sig (Normalized) Sig (Original) azithromycin 250 mg oral tablet (1 source) Macrolide Antimicrobial Start: 07-02-2024 End: 07-06-2024 azithromycin 250 mg oral tablet Dose : 250 mg = 1 tab(s), Oral, qDay, X 4 day(s), # 4 tab(s), 0 Refill(s), 07/06/24 8:49:00 PM EDT, 100 Start Date: 07/02/24 Stop Date: 07/06/24 Status: Ordered cholecalciferol 1.25 mg oral capsule (10 sources) Vitamin D Start: 01-18-2024 End: 08-17-2025 take 1 capsule by mouth every week cholecalciferol, Vitamin D3, (VITAMIN D3) 1,250 mcg (50,000 unit) cap capsule Indications: Vitamin D deficiency Take 1 capsule by mouth one time a week. 4 capsule 3 08/17/2024 08/17/2025 Active Comment on above: Take 1 capsule by mo [facility] one time a week. doxycycline hyclate 100 mg oral tablet (3 sources) Tetracycline-class Drug Start: 03-24-2024 End: 03-31-2024 take 1 tablet by mouth twice daily doxycycline (VIBRA-TABS) 100 mg tablet Take 1 tablet by mouth two times a day for 7 days. Patient should start on March 24, 2024. 14 tablet 0 03/24/2024 03/31/2024 Active Start: 02-14-2017 take 1 tablet by [facility] twice daily DOXYCYCLINE HYCLATE 100 MG TABS One tablet by mouth twice daily DOXYCYCLINE HYCLATE [id number] Randall Henson MD hydrocortisone 25 mg/ml topical cream (6 sources) Corticosteroid Start: 03-22-2024 hydrocortisone 2.5 % cream Apply 1 application to affected area three times a day. Location: right hand 28 g 03/22/2024 Active loratadine 10 mg oral tablet (6 sources) Start: 03-22-2024 take 1 tablet by mouth once daily loratadine (CLARITIN) 10 mg tablet Take 1 tablet by mouth once daily. 30 tablet 03/22/2024 Active [place] (Nk) (4 sources) Start: 08-04-2023 [place] (Nk) A ctive August 03, 2023 11:00pm Start: 07-14-2022 [place] (Nk) A ctive July 14, 2022 12:00am predniSONE 10 mg oral tablet [id number] Normal [facility] XR Foot - left AP and Latera l and obliqueon 07-05-2023 * * *Final Report* * * DATE OF EXAM: Jul 05 2023 7:01PM WOX [id number] - XR FOOT 3V AP/LAT/OBL LT / PROCEDURE REASON: Foot injury, left, initial encounter * * * * Physician Interpretation * * * * LEFT ANKLE, 3 VIEWS, 07/05/2023 LEFT FOOT, 07/05/2023 HISTORY: Injury. Left lateral ankle and lateral to dorsal midfoot pain. COMPARISON: None TECHNIQUE: Left ankle: AP, lateral, and internal oblique views. Left foot: AP, lateral, and oblique views. RESULTS: LEFT ANKLE: The bones appear intact and normally aligned. There is no widening of the ankle mortise. There are no underlying bone lesions. The joint spaces appear normal. There are no soft tissue calcifications. LEFT FOOT: The bones are intact and normally aligned. There are no underlying bone or joint abnormalities. There are posterior and plantar calcaneal enthesophytes. There are no soft tissue calcifications or radiopaque foreign bodies. DIVISION OF RADIOLOGY Provider, [facility] - 07/05/2023 * * *Final Report* * * DATE OF EXAM: Jul 05 2023 7:01PM WOX [id number] - XR FOOT 3V AP/LAT/OBL LT / PROCEDURE REASON: Foot injury, left, initial encounter * * * * Physician Interpretation * * * * LEFT ANKLE, 3 VIEWS, 07/05/2023 LEFT FOOT, 07/05/2023 HISTORY: Injury. Left lateral ankle and lateral to dorsal midfoot pain. COMPARISON: None TECHNIQUE: Left ankle: AP, lateral, and internal oblique views. Left foot: AP, lateral, and oblique views. RESULTS: LEFT ANKLE: The bones appear intact and normally aligned. There is no widening of the ankle mortise. There are no underlying bone lesions. The joint spaces appear normal. There are no soft tissue calcifications. LEFT FOOT: The bones are intact and normally aligned. There are no underlying bone or joint abnormalities. There are posterior and plantar calcaneal enthesophytes. There are no soft tissue calcifications or radiopaque foreign bodies. IMPRESSION IMPRESSION: LEFT ANKLE: Within normal limits. No fracture or other bone or joint abnormalities. LEFT FOOT: 1. No fracture or other acute changes. 2. Posterior and plantar calcaneal enthesophytes. Kiln Transfer Operator: ALEX Transcribe Date/Time: Jul 05 2023 7:04P Dictated by : HERBER AHUJA MD This examination was interpreted and the report reviewed and electronically signed by: HERBER AHUJA MD on Jul 05 2023 7:08PM [facility] Absolute lymphocyte counton 08-22-2022 Lymphocytes Auto (Unsp spec) [#/Vol] 2.05 10*3/uL 0.83-4.51 [facility] Work Phone: Acetaminophen level (mass/vo lume)on 08-22-2022 Acetaminophen (Unsp spec) [Mass/Vol] < 2.0 ug/mL 10.0-30.0 [facility] Work Phone: Basophil percentageon 2021 Chloride [Moles/Vol] 106 mmol/L 98-107 [facility] Work Phone: Glucose [Mass/Vol] 106 mg/dL 74-106 [facility] Work Phone: Comment on above: Fasting Glucose resu lt from 100 to 125 mg/dL suggests IMPAIRED HOMEOSTASIS per A.D.A. criteria. Potassium [Moles/Vol] 3.3 mmol/L 3.5-5.1 [facility] Work Phone: Sodium [Moles/Vol] 140 mmol/L 136-145 [facility] Work Phone: Basophils/100 WBC (Bld) 0.5 % 0-1 [facility] Work Phone: Eosinophils/100 WBC (Bld) 1.1 % 0-5 [facility] Work Phone: Neutrophils (Bld) [#/Vol] 5.9 10*3/uL 2.0-7.7 [facility] Work Phone: Neutrophils/100 WBC (Bld) 69.5 % 47-70 [facility] Work Phone: WBC (Bld) [#/Vol] 8.5 10*3/uL 4.4-11.0 [facility] Work Phone: Beta hCG serum qualon 2021 Beta HCG ( test) Ql Negative [facility] Work Phone: Blood erythrocytes count (nu mber/volume)on 08-22-2022 RBC (Bld) [#/Vol] 4.74 10*6/uL 4.2-5.4 [facility] Work Phone: Blood hemoglobin measurement (mass/volume)on 08-22-2022 Hemoglobin (Bld) [Mass/Vol] 14.1 g/dL 12.0-15.0 [facility] Work Phone: Blood lymphocytes/100 leukoc yteson 08-22-2022 Lymphocytes/100 WBC (Bld) 24.0 % 19-41 [facility] Work Phone: Blood monocytes/100 leukocyt eson 08-22-2022 Monocytes/100 WBC (Bld) 4.7 % 0-10 [facility] Work Phone: Blood platelet mean volumeon 08-22-2022 Platelet mean volume (Bld) [Entitic vol] 10.1 fL 6.2-12.0 [facility] Work Phone: Determination of erythrocyte mean corpuscular volume (MCV)on 08-22-2022 MCV (RBC) [Entitic vol] 89.9 fL 81-99 [facility] Work Phone: Hematocrit Auto (Bld) [Volum e fraction]on 08-22-2022 Hematocrit (Bld) [Volume fraction] 42.6 % 37-47 [facility] Work Phone: Laboratory - Chemistry and C hemistry - challengeon 08-22-2022 CO2 [Moles/Vol] 26.0 mmol/L 21.0-32.0 [facility] Work Phone: Urea nitrogen/Creatinine [Mass ratio] 15.3 mg/mg 10-20 [facility] Work Phone: Laboratory - Drug toxicology on 08-22-2022 Amphetamines Ql (U) Negative <1000 ng/mL [facility] Work Phone: Benzodiazepines Ql (U) Negative < 200 ng/mL [facility] Work Phone: Cannabinoids Screen Ql (U) Negative < 50 ng/mL [facility] Work Phone: Cocaine Ql (U) Negative < 300 ng/mL [facility] Work Phone: Opiates Ql (U) Negative < 300 ng/mL [facility] Work Phone: Laboratory - Hematology and Cell countson 08-22-2022 Erythrocyte distribution width (RBC) [Entitic vol] 42.5 fL 35.1-43.9 [facility] Work Phone: Erythrocyte distribution width (RBC) [Ratio] 12.8 % 11.6-14.6 [facility] Work Phone: Immature granulocytes/100 WBC (Bld) 0.200 % 0.0-0.9 [facility] Work Phone: Comment on above: IG% - Immature Granu locytes (promyelocytes, myelocytes and metamyelocytes) > 1% indicates that a LEFT SHIFT is Present. MCH (RBC) [Entitic mass] 29.7 pg 27.0-32.0 [facility] Work Phone: Nucleated RBC/100 WBC (Bld) [Ratio] 0 % 0-5 [facility] Work Phone: MCHC Auto (RBC) [Mass/Vol]on 08-22-2022 MCHC (RBC) [Mass/Vol] 33.1 g/dL 32-36 [facility] Work Phone: No Panel Informationon 08-22 MDMA (Ecstasy) Screen Negative < 500 ng/mL [facility] Work Phone: Urine Barbiturates Screen Negative < 200 ng/mL [facility] Work Phone: Urine Drug Screen Comment [facility] Work Phone: Comment on above: CONFIRMATORY TESTING FOR ALL POSITIVE URINE DRUG SCREENRESULTS WILL ONLY BE SENT OUT UPON PHYSICIAN ORDER. VISTA Urine Drug Screen methods provide only preliminaryanalytical test results. A more specific alternate chemicalmethod must be used in order to obtain a confirmedanalytical result. Gas chromatography/mass spectrometery(GC/MS) is the preferred confirmatory method. Clinicalconsideration and professional judgement should be appliedto any drug of abuse test result, particularly whenpreliminary positive results are used. URINE TCA TESTING MUST BE ORDERED SEPARATELY. USE TESTMNEMONIC: [facility] Urine Methadone Screen Negative < 300 ng/mL [facility] Work Phone: Estimated Creatinine Clearance Calc 93.72 ml/min [facility] Work Phone: Estimated GFR (MDRD) Amer 131 mL/min >60 [facility] Work Phone: Comment on above: GFR Calc Estimated GFR (MDRD) Non-Af Amer 109 mL/min >60 [facility] Work Phone: Comment on above: Non- GFR Calc Ethyl Alcohol Level < 3.0 mg/dL [facility] Work Phone: Comment on above: The serum:whole bloo d ethanol ratio is approximately 1.14and varies slightly with hematocrit. Medical Alcohol reference interval and critical value innon-tolerant individuals; 50 - 100 Impairment 100 Intoxication 100 - 250 Severe Poisoning 250 - 400 Deep/possible fatal coma Troponin I High Sensitivity 5 pg/mL 3.0-54.0 [facility] Work Phone: Comment on above: Please Note: New Naye t Units and Gender Specific Reference Ranges. For more information see Policy Stat Procedure [place] High Sensitivity Troponin (TNIH) and attachments. Platelets bldon 08-22-2022 Platelets (Bld) [#/Vol] 267 10*3/uL 150-450 [facility] Work Phone: Serum or plasma calcium carmen urement (mass/volume)on 08-22-2022 Calcium [Mass/Vol] 8.9 mg/dL 8.5-10.1 [facility] Work Phone: Serum or plasma creatinine m easurement (mass/volume)on 08-22-2022 Creatinine [Mass/Vol] 0.65 mg/dL 0.55-1.02 [facility] Work Phone: Comment on above: The validity of the calculated GFR & GFRAA in patients over 70 years has not been determined. Clinical correlation is essential. Serum or plasma salicylates measurement (mass/volume)on 08-22-2022 Salicylates [Mass/Vol] 4.4 mg/dL 2.8-20.0 [facility] Work Phone: [phone] Serum or plasma urea nitroge n measurement (mass/volume)on 08-22-2022 Urea nitrogen [Mass/Vol] 10 mg/dL 7-18 [facility] Work Phone: Thin prep Papanicolaou smear with manual screeningon 08-22-2022 Thin prep Papanicolaou smear with manual screening 8 5-15 [facility] Work Phone: Urine phencyclidine (PCP) de tectionon 08-22-2022 Phencyclidine Ql (U) Negative < 25 ng/mL [facility] Work Phone: [phone] Absolute lymphocyte counton 08-17-2022 Lymphocytes Auto (Unsp spec) [#/Vol] 1.83 10*3/uL 0.83-4.51 [facility] Work Phone: Basophil percentageon 2021 Basophils/100 WBC (Bld) 0.3 % 0-1 [facility] Work Phone: Chloride [Moles/Vol] 111 mmol/L 98-107 [facility] Work Phone: Eosinophils/100 WBC (Bld) 0.4 % 0-5 [facility] Work Phone: [phone] Glucose [Mass/Vol] 101 mg/dL 74-106 [facility] Work Phone: Comment on above: Fasting Glucose resu lt from 100 to 125 mg/dL suggests IMPAIRED HOMEOSTASIS per A.D.A. criteria. Neutrophils (Bld) [#/Vol] 7.4 10*3/uL 2.0-7.7 [facility] Work Phone: Neutrophils/100 WBC (Bld) 75.3 % 47-70 [facility] Work Phone: [phone] Potassium [Moles/Vol] 4.0 mmol/L 3.5-5.1 [facility] Work Phone: Sodium [Moles/Vol] 142 mmol/L 136-145 [facility] Work Phone: WBC (Bld) [#/Vol] 9.9 10*3/uL 4.4-11.0 [facility] Work Phone: Blood erythrocytes count (nu mber/volume)on 08-17-2022 RBC (Bld) [#/Vol] 4.61 10*6/uL 4.2-5.4 [facility] Work Phone: [phone] Blood hemoglobin measurement (mass/volume)on 08-17-2022 Hemoglobin (Bld) [Mass/Vol] 13.7 g/dL 12.0-15.0 [facility] Work Phone: Blood lymphocytes/100 leukoc yteson 08-17-2022 Lymphocytes/100 WBC (Bld) 18.5 % 19-41 [facility] Work Phone: Blood monocytes/100 leukocyt eson 08-17-2022 Monocytes/100 WBC (Bld) 5.2 % 0-10 [facility] Work Phone: Blood platelet mean volumeon 08-17-2022 Platelet mean volume (Bld) [Entitic vol] 9.7 fL 6.2-12.0 [facility] Work Phone: [phone] Determination of erythrocyte mean corpuscular volume (MCV)on 08-17-2022 MCV (RBC) [Entitic vol] 91.3 fL 81-99 [facility] Work Phone: [phone] Hematocrit Auto (Bld) [Volum e fraction]on 08-17-2022 Hematocrit (Bld) [Volume fraction] 42.1 % 37-47 [facility] Work Phone: [phone] Laboratory - Chemistry and C hemistry - challengeon 08-17-2022 CO2 [Moles/Vol] 26.0 mmol/L 21.0-32.0 [facility] Work Phone: [phone] Urea nitrogen/Creatinine [Mass ratio] 20.2 mg/mg 10-20 [facility] Work Phone: Laboratory - Hematology and Cell countson 08-17-2022 Erythrocyte distribution width (RBC) [Entitic vol] 43.0 fL 35.1-43.9 [facility] Work Phone: Erythrocyte distribution width (RBC) [Ratio] 12.9 % 11.6-14.6 [facility] Work Phone: Immature granulocytes/100 WBC (Bld) 0.300 % 0.0-0.9 [facility] Work Phone: Comment on above: IG% - Immature Granu locytes (promyelocytes, myelocytes and metamyelocytes) > 1% indicates that a LEFT SHIFT is Present. MCH (RBC) [Entitic mass] 29.7 pg 27.0-32.0 [facility] Work Phone: Nucleated RBC/100 WBC (Bld) [Ratio] 0 % 0-5 [facility] Work Phone: MCHC Auto (RBC) [Mass/Vol]on 08-17-2022 MCHC (RBC) [Mass/Vol] 32.5 g/dL 32-36 [facility] Work Phone: No Panel Informationon 08-17 Estimated Creatinine Clearance Calc 96.11 ml/min [facility] Work Phone: Estimated GFR (MDRD) Amer 133 mL/min >60 [facility] Work Phone: Comment on above: GFR Calc Estimated GFR (MDRD) Non-Af Amer 110 mL/min >60 [facility] Work Phone: Comment on above: Non- GFR Calc Troponin I High Sensitivity 8 pg/mL 3.0-54.0 [facility] Work Phone: Comment on above: Please Note: New Naye t Units and Gender Specific Reference Ranges. For more information see Policy Stat Procedure [place] High Sensitivity Troponin (TNIH) and attachments. Platelets bldon 08-17-2022 Platelets (Bld) [#/Vol] 260 10*3/uL 150-450 [facility] Work Phone: Serum or plasma calcium carmen urement (mass/volume)on 08-17-2022 Calcium [Mass/Vol] 9.6 mg/dL 8.5-10.1 [facility] Work Phone: Serum or plasma creatinine m easurement (mass/volume)on 08-17-2022 Creatinine [Mass/Vol] 0.64 mg/dL 0.55-1.02 [facility] Work Phone: Comment on above: The validity of the calculated GFR & GFRAA in patients over 70 years has not been determined. Clinical correlation is essential. Serum or plasma urea nitroge n measurement (mass/volume)on 08-17-2022 Urea nitrogen [Mass/Vol] 13 mg/dL 05-17 [facility] Work Phone: Thin prep Papanicolaou smear with manual screeningon 08-17-2022 Thin prep Papanicolaou smear with manual screening 5 5-15 [facility] Work Phone: Absolute lymphocyte counton 07-14-2022 Lymphocytes Auto (Unsp spec) [#/Vol] 2.12 10*3/uL 0.83-4.51 [facility] Work Phone: Basophil percentageon 2021 Basophil percentage 0 SEEN /hpf 0-5 [facility] Work Phone: Basophils/100 WBC (Bld) 0.3 % 0-1 [facility] Work Phone: Bilirubin [Mass/Vol] 0.60 mg/dL 0.20-1.00 [facility] Work Phone: Comment on above: For patients on eltr ombopag therapy, use of Dimension [place] TBIL is not recommended. Chloride [Moles/Vol] 108 mmol/L 98-107 [facility] Work Phone: Eosinophils/100 WBC (Bld) 0.2 % 0-5 [facility] Work Phone: Glucose [Mass/Vol] 120 mg/dL 74-106 [facility] Work Phone: Comment on above: Fasting Glucose resu lt from 100 to 125 mg/dL suggests IMPAIRED HOMEOSTASIS per A.D.A. criteria. Neutrophils (Bld) [#/Vol] 6.2 10*3/uL 2.0-7.7 [facility] Work Phone: Neutrophils/100 WBC (Bld) 70.9 % 47-70 [facility] Work Phone: Potassium [Moles/Vol] 3.6 mmol/L 3.5-5.1 [facility] Work Phone: Protein [Mass/Vol] 8.0 g/dL 6.4-8.2 [facility] Work Phone: Sodium [Moles/Vol] 140 mmol/L 136-145 [facility] Work Phone: WBC (Bld) [#/Vol] 8.7 10*3/uL 4.4-11.0 [facility] Work Phone: Beta hCG serum qualon 2021 Beta HCG ( test) Ql Negative [facility] Work Phone: Bilirubin Test strip Ql (U)o n 07-14-2022 Bilirubin Ql (U) Negative Negative [facility] Work Phone: Blood erythrocytes count (nu mber/volume)on 07-14-2022 RBC (Bld) [#/Vol] 4.72 10*6/uL 4.2-5.4 [facility] Work Phone: Blood hemoglobin measurement (mass/volume)on 07-14-2022 Hemoglobin (Bld) [Mass/Vol] 14.2 g/dL 12.0-15.0 [facility] Work Phone: Blood lymphocytes/100 leukoc yteson 07-14-2022 Lymphocytes/100 WBC (Bld) 24.3 % 19-41 [facility] Work Phone: Blood monocytes/100 leukocyt eson 07-14-2022 Monocytes/100 WBC (Bld) 4.0 % 0-10 [facility] Work Phone: Blood platelet mean volumeon 07-14-2022 Platelet mean volume (Bld) [Entitic vol] 10.0 fL 6.2-12.0 [facility] Work Phone: Determination of erythrocyte mean corpuscular volume (MCV)on 07-14-2022 MCV (RBC) [Entitic vol] 87.9 fL 81-99 [facility] Work Phone: Glucose Glucometer (BldC) [M ass/Vol]on 07-14-2022 Glucose [Mass/Vol] 116 mg/dL 74-106 [facility] Work Phone: Comment on above: MANAGEMENT OF PATIEN T CARE PER NURSING PROTOCOL Hematocrit Auto (Bld) [Volum e fraction]on 07-14-2022 Hematocrit (Bld) [Volume fraction] 41.5 % 37-47 [facility] Work Phone: [phone] INR in Blood by Coagulation assayon 07-14-2022 INR Coag (Bld) [Relative time] 1.0 {INR} [facility] Work Phone: Ketones Test strip Ql (U)on 07-14-2022 Ketones Ql (U) 5 mg/dl Negative [facility] Work Phone: [phone] Laboratory - Chemistry and C hemistry - challengeon 07-14-2022 ALP [Catalytic activity/Vol] 100 U/L 45-117 [facility] Work Phone: [phone] ALT [Catalytic activity/Vol] 19 U/L 13-56 [facility] Work Phone: [phone] CO2 [Moles/Vol] 23.0 mmol/L 21.0-32.0 [facility] Work Phone: [phone] Globulin (S) [Mass/Vol] 4.0 g/dL 2.2-4.2 [facility] Work Phone: [phone] Urea nitrogen/Creatinine [Mass ratio] 15.7 mg/mg 10-20 [facility] Work Phone: [phone] Laboratory - Coagulationon 0 9-14-2022 aPTT Coag (Bld) [Time] 28.0 s 24.1-36.2 [facility] Work Phone: PT Coag (PPP) [Time] 13.0 s 11.7-14.9 [facility] Work Phone: Laboratory - Hematology and Cell countson 07-14-2022 Erythrocyte distribution width (RBC) [Entitic vol] 40.1 fL 35.1-43.9 [facility] Work Phone: Erythrocyte distribution width (RBC) [Ratio] 12.5 % 11.6-14.6 [facility] Work Phone: Immature granulocytes/100 WBC (Bld) 0.300 % 0.0-0.9 [facility] Work Phone: Comment on above: IG% - Immature Granu locytes (promyelocytes, myelocytes and metamyelocytes) > 1% indicates that a LEFT SHIFT is Present. MCH (RBC) [Entitic mass] 30.1 pg 27.0-32.0 [facility] Work Phone: Nucleated RBC/100 WBC (Bld) [Ratio] 0 % 0-5 [facility] Work Phone: MCHC Auto (RBC) [Mass/Vol]on 07-14-2022 MCHC (RBC) [Mass/Vol] 34.2 g/dL 32-36 [facility] Work Phone: Mucus LM Ql (Urine sed)on Mucus Ql (Urine sed) 0 SEEN /hpf [facility] Work Phone: Nitrite Test strip Ql (U)on 07-14-2022 Nitrite Ql (U) Negative Negative [facility] Work Phone: No Panel Informationon 07-14 Troponin I High Sensitivity 4 pg/mL 3.0-54.0 [facility] Work Phone: Comment on above: Please Note: New Naye t Units and Gender Specific Reference Ranges. For more information see Policy Stat Procedure [place] High Sensitivity Troponin (TNIH) and attachments. Estimated Creatinine Clearance Calc 80.94 ml/min [facility] Work Phone: Estimated GFR (MDRD) Amer 109 mL/min >60 [facility] Work Phone: Comment on above: GFR Calc Estimated GFR (MDRD) Non-Af Amer 90 mL/min >60 [facility] Work Phone: Comment on above: Non- GFR Calc Platelets bldon 07-14-2022 Platelets (Bld) [#/Vol] 250 10*3/uL 150-450 [facility] Work Phone: Protein Test strip Ql (U)on 07-14-2022 Protein Ql (U) Negative Negative [facility] Work Phone: Serum or plasma albumin carmen urement (mass/volume)on 07-14-2022 Albumin [Mass/Vol] 4.0 g/dL 3.2-5.0 [facility] Work Phone: Serum or plasma albumin/glob ulin mass ratioon 07-14-2022 Albumin/Globulin [Mass ratio] 1.0 {ratio} 0.9-2.4 [facility] Work Phone: Serum or plasma calcium carmen urement (mass/volume)on 07-14-2022 Calcium [Mass/Vol] 9.2 mg/dL 8.5-10.1 [facility] Work Phone: Serum or plasma creatinine m easurement (mass/volume)on 07-14-2022 Creatinine [Mass/Vol] 0.76 mg/dL 0.55-1.02 [facility] Work Phone: Comment on above: The validity of the calculated GFR & GFRAA in patients over 70 years has not been determined. Clinical correlation is essential. Serum or plasma urea nitroge n measurement (mass/volume)on 07-14-2022 Urea nitrogen [Mass/Vol] 12 mg/dL 7-18 [facility] Work Phone: Squamous epithelial cells de tection in urine sediment by light microscopyon 07-14-2022 Epithelial cells.squamous LM Ql (Urine sed) 0-5 SEEN /hpf 5-10 [facility] Work Phone: [phone] Thin prep Papanicolaou smear with manual screeningon 07-14-2022 Thin prep Papanicolaou smear with manual screening 15 U/L 15-37 [facility] Work Phone: [phone] Thin prep Papanicolaou smear with manual screening 9 5-15 [facility] Work Phone: [phone] Urine blood detectionon 07-01 RBC Ql (U) 10 /ul Negative [facility] Work Phone: [phone] RBC Ql (U) 0 SEEN /hpf 0-5 [facility] Work Phone: [phone] Urine clarityon 07-14-2022 Clarity (U) Clear Clear [facility] Work Phone: Urine color determinationon 07-14-2022 Color (U) Straw Yellow [facility] Work Phone: Urine glucose detectionon Glucose Ql (U) Normal mg/dl Normal [facility] Work Phone: [phone] Urine leukocyte esterase det ection by dipstickon 07-14-2022 Leukocyte esterase Test strip Ql (U) Negative Negative [facility] Work Phone: [phone] Urine pHon 07-14-2022 pH (U) 6.0 [pH] 5.0 - 8.0 [facility] Work Phone: Urine sediment bacteria coun t by microscopy (number/high power field)on 07-14-2022 Bacteria LM.HPF (Urine sed) [#/Area] RARE /hpf None Seen [facility] Work Phone: [phone] Urine specific gravity measu rementon 07-14-2022 Specific gravity (U) [Rel density] 1.010 1.002-1.03 0 [facility] Work Phone: [phone] Urobilinogen Auto test strip Ql (U)on 07-14-2022 Urobilinogen Ql (U) Normal mg/dl Normal [facility] Work Phone: [phone] CNOVon 01-21-2022 CNOV Office Visit (AKURFL ) JUSTIN LEO ([id number]) 1985 F Date Time Provider Department 01/21/22 12:30 PM LEIDY RYAN JR During your visit today, we recorded the following information about you: Respiration Weight Height 14/minute 97.5 kg 1.588 m Leidy Ryan Jr, MD 01/21/2022 12:26 PM Signed CYSTOSCOPY PROCEDURE NOTE: Justin Leo is a 36 year old female who presents with hematuria gross for a cystoscopy. Pt ID verified with patient: Yes Fire risk assessment done Procedure verified with patient: Yes Procedure confirmed with physician and operations support manager: Yes Sign In: History and Physical Exam reviewed and is unchanged. Primary Diagnosis: Hematuria Informed Consent Discussed: Yes. Risks, benefits, alternatives and personnel discussed with patient who consents to proceed. Sign in Communication: Completed Time Out: Team Confirms the Correct Patient, Correct Procedure; Cystoscopy, Correct Site and Site Marking, Correct Position (if applicable). Fire Safety Check List Reviewed: Yes Affirmation of Time Out: Yes Sign Out: Sign Out Discussion: Completed Physician: Leidy Ryan Jr, MD Pre procedure dx: gross hematuria Post procedure dx: same A urinalysis was performed revealing no evidence of infection. The benefits, risks, alternatives of the cystoscopy procedure and personnel were discussed with the patient. The verbal consent was obtained and the patient agrees to proceed. Female staff present for entire exam/procedure. Procedure: The patient was placed on the procedure table in the supine position and prepped and draped in the usual sterile fashion. 2% Lidocaine Jelly was placed per urethra as an anesthetic in the standard fashion. Once adequate local anesthesia was achieved, the tip of the flexible cystoscope was carefully placed into the urethra under direct visual guidance. The scope was negotiated per urethra with no evidence of stricture into the bladder. Careful kennedy endoscopy was carried out. The posterior, superior and lateral perez and dome of the bladder were all well visualized and the scope was retroflexed upon itself. The findings were consistent with no mucosal pathology. At the conclusion of the procedure, the flexible cystoscope was removed atraumatically. The patient tolerated the procedure without complications. Patient was given standard post-procedure instructions, and was directed to complete the course of oral antibiotics and increase oral fluid intake as directed. ASSESSMENT/PLAN: MD Robin Hall Jr, Ma 01/21/2022 12:26 PM Signed UNIVERSAL PROTOCOL / SAFETY CHECKLIST Procedure to be Performed: Cystoscopy Sign In: A Moment of CARE was completed. Personnel directly involved with the procedure wore the appropriate PPE (Personal Protective Equipment). Special equipment: Cogentix scope Patient/Surrogate Stated/Verified: PATIENT VERIFIED(optional for EMERGENT procedures): Patient name, Date of , Relevant allergies and The intended procedure Time Out Communication: Intended patient and procedure match the source documents. Consent documented and matches the intended procedure. No relevant labs, photos, and/or imaging studies were applicable for review. No correct side/site applicable for marking and visibility. Medications required for procedure verified. Fire risk assessed and interventions discussed. No implant(s) inserted. Sign Out: SIGN OUT (optional for EMERGENT procedures): No specimen collected. All instruments, equipment, possible retained foreign bodies accounted for. Post-procedure follow-up management communicated and Plan of Care Visit completed when applicable. Robin Krueger Ma Referring Provider: TY GAYTAN [[id number]] Allergies As of Date: 01/21/2022 Noted Allergy Reaction BACTRIM (SULFAMETHOXAZOLE-TRIMETH*07/07 7 - Swelling Comments: CHILDHOOD REACTION CYMBALTA (DULOXETINE) 01/20/2015 2 - Rash 12 - Shortness of Breath DESYREL (TRAZODONE HCL) 03/29/2017 5 - Intolerance Comments: Headache HORSERADISH 07/07/2005 7 - Swelling KEFLEX (CEPHALEXIN) 07/17/2021 4 - Hives Comments: Was ok as long as she took Benadryl SHELLFISH 06/17/2014 14 - Other: See Comments Comments: Lightheadedness after test and warmth at injection site Has had CT dye since with no problem Date Reviewed: 01/21/2022 Reviewed by: Leidy Ryan Jr., MD - Fully Assessed Reason for Visit: Cystoscopy-1 [303] Primary Visit Diagnosis:Gross hematuria [R31.0] Other Visit Diagnosis:Urinary urgency [R39.15] Order(s):[] ciprofloxacin HCl 500 mg tab(s) (CIPRO)Disp: Rfl: UA DIP, URINE (POC) [[id number]] Order #: [id number] #:[id number] Prescriptions as of 01/21/2022 - oxybutynin (DITROPAN) 5 mg tablet Take 1 tablet by mouth three times daily. (more content not included)... Normal [facility] CNPNon 01-08-2022 CNPN Telephone ([employer]) JUSTIN LEO ([id number]) 1985 F Date Time Provider Department 01/08/22 JACQUELIN RAPHAEL During your visit today, we recorded the following information about you: Emilia Goldstein 01/08/2022 11:49 AM Signed Pt confirmed cysto in [facility] with Dr. Ryan 01/21/22 @ 2:30. Tammi Allergies As of Date: 01/08/2022 Noted Allergy Reaction BACTRIM (SULFAMETHOXAZOLE-TRIMETH*07/07 7 - Swelling Comments: CHILDHOOD REACTION CYMBALTA (DULOXETINE) 01/20/2015 2 - Rash 12 - Shortness of Breath DESYREL (TRAZODONE HCL) 03/29/2017 5 - Intolerance Comments: Headache HORSERADISH 07/07/2005 7 - Swelling KEFLEX (CEPHALEXIN) 07/17/2021 4 - Hives Comments: Was ok as long as she took Benadryl SHELLFISH 06/17/2014 14 - Other: See Comments Comments: Lightheadedness after test and warmth at injection site Has had CT dye since with no problem Date Reviewed: 01/08/2022 Reviewed by: Mary Hussein LPN - Fully Assessed Reason for Visit: Appointment [186] Prescriptions as of 01/08/2022 - oxybutynin (DITROPAN) 5 mg tablet Take 1 tablet by mouth three times daily. - estradiol (ESTRACE) 0.01 % (0.1 mg/gram) vaginal cream Use 1 g vaginally once daily. - LORazepam (ATIVAN) 0.5 mg Take 0.5 mg by mouth as needed. - rivaroxaban (XARELTO) 20 mg tablet Take 1 tablet by mouth daily with dinner. - albuterol HFA (VENTOLIN HFA) 90 mcg/actuation inhaler Inhale 2 Puffs as instructed every 4 hours as needed for Wheezing/Shortness of Breath. Problem List As Of Date 01/08/2022 Noted Resolved SUPERVIS NORMAL 1ST PREG [Z34.00] 12/31/2005 01/20/2006 Unspecified high-risk [O09.90] 01/20/2006 04/08/2015 Suspected damage to fetus from viral disease in*01/20/2006 04/08/2015 Accident due to exposure (to weather conditions*01/20/2006 04/08/2015 Sprain of wrist, unspecified site [S63.509A] 10/25/2007 04/08/2015 Abdominal pain, right lower quadrant [R10.31] 08/27/2010 04/08/2015 Unspecified disorder of skin and subcutaneous t*08/27/2010 04/08/2015 Abdominal pain, right upper quadrant [R10.11] 11/04/2010 04/08/2015 Sebaceous cyst [L72.3] 03/29/2013 04/08/2015 Post concussion syndrome [F07.81] 01/28/2014 Tobacco dependence [F17.200] 02/26/2014 Plantar fasciitis of left foot [M72.2] 04/08/2015 Low back pain radiating to both legs [M54.50, M*04/08/2015 Panic attacks [F41.0] 04/08/2015 Vitamin D deficiency [E55.9] 04/08/2015 Hematuria [R31.9] 07/03/2015 Right lower quadrant pain [R10.31] 07/03/2015 Fibromyalgia [M79.7] 12/04/2015 Migraines [G43.909] 03/08/2016 Mild intermittent asthma without complication [*03/08/2016 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] 03/08/2016 Cervical cancer (HCC) [C53.9] 03/08/2016 Acute pain of right knee [M25.561] 06/15/2016 07/08/2016 Chronic pain of right knee [M25.561, G89.29] 07/08/2016 Effusion of right knee joint [M25.461] 07/08/2016 Obesity, Class III, BMI 40-49.9 (morbid obesity*02/20/2018 Heterozygous factor V Leiden mutation (HCC) [D6* Renal calculus [N20.0] 05/25/2019 Chronic deep vein thrombosis (DVT) of iliac vei*05/25/2019 Cutaneous abscess of groin [L02.214] 05/25/2019 Ganglion cyst [M67.40] 08/13/2021 Encounter Status:Closed by EMILIA PRASAD on 01/08/22 [facility] ANES POSTPROC EVALon -15-2 021 ANES POSTPROC EVAL HNO ID: [id number] Author: Marie Ravi MD Service: Anesthesiology Author Type: Anesthesiologist Type: Anesthesia Postprocedure Evaluation Filed: 08/14/2021 5:48 PM Note Text: POST ANESTHESIA EVALUATION NOTE : 1985 Procedure Summary Date: 08/14/21 Room / Location: [place] [address] / [place] Anesthesia Start: 1414 Anesthesia Stop: 1506 Procedure: EXCISION GANGLION WRIST (Right Wrist) Diagnosis: Ganglion and cyst of synovium, tendon, and bursa Surgeons: Suhail Clemente MD Responsible Provider: Marie Ravi MD Anesthesia Type: MAC ASA Status: 2 Anesthesia Type: MAC Last vitals Vitals Value Taken Time BP 93/62 08/14/21 1535 Temp 36.1 ?C (97 ?F) 08/14/21 1502 Pulse 50 08/14/21 1535 Resp 20 08/14/21 1535 SpO2 97 % 08/14/21 1535 Post Anesthesia Patient Status Patient Evaluation: PACU. PACU/ICU Patient Condition: stable. Anticipated Disposition: phase 2 then home. Neurological Status: aware and responsive. Pulmonary Status: breathing comfortably on room air Airway Control: returned to baseline unsupported. Cardiovascular Status: stable. Pain Management: clinically adequate - multimodal analgesia pain management approach Postoperative Hydration: acceptable. Intraoperative Events: no significant anesthesia events Post Operative Nausea/Vomiting Status: no significant post operative nausea or vomiting Anesthetic Observations: Recommendation: continue current plan of care. Anesthesia Observations No Documentation SIGNATURE: Marie Ravi MD PATIENT NAME: Justin Leo DATE: August 14, 2021 TIME: 5:48 PM CSN: [id number] [facility] ANES PRE-OPon 08-14-2021 ANES PRE-OP HNO ID: [id number] Author: Marie Ravi MD Service: Anesthesiology Author Type: Anesthesiologist Type: Anesthesia Preprocedure Evaluation Filed: 08/14/2021 12:30 PM Note Text: ANESTHESIOLOGY DAY OF SURGERY NOTE : 1985 Procedure(s) (LRB): EXCISION GANGLION WRIST (Right) Surgeon(s): Suhail Clemente MD Estimated body mass index is 39.69 kg/m? as calculated from the following: Height as of this encounter: 157.5 cm (5' 2). Weight as of this encounter: 98.4 kg (217 lb). Most recent hematocrit and potassium results: Hematocrit 40.8 12/27/2017 Potassium 4.2 09/24/2014 Relevant Problems CARDIO (+) Chronic deep vein thrombosis (DVT) of iliac vein of left lower extremity (HCC) (+) Migraines -RENAL (+) Renal calculus NEURO-PSYCH (+) Migraines PULMONARY (+) Mild intermittent asthma without complication I - PHYSICAL EVALUATION AIRWAY Patient intubated: No. Tracheostomy tube not present Mallampati: II. TM distance: >3 FB. Neck ROM: full ROM without neurological symptoms. Mouth opening: adequate. Short neck: yes. Thick neck: no DENTAL Dental findings: teeth intact. Additional exam findings: yes. CARDIOVASCULAR Normal cardiovascular observations. Rhythm: regular Rate: normal PULMONARY Normal pulmonary observations. Breath sounds clear to auscultation. II - ANESTHESIA PLAN ASA Score: 2 The patient is a current smoker. NPO Status: adequate Monitoring plan: standard ASA. Postoperative analgesic plan: parenteral or oral opioids. Anesthetic Risks, Benefits, Alternatives, Personnel Discussed. Consent obtained from: patient.Patient / Surrogate agrees to blood products: blood products not planned Significant changes in the patient condition since the History and Physical, not otherwise documented in primary service progress note: no. Potential Anesthesia issues that may suggest increased risk of complications or contraindication to planned procedure: none. Vitals Value Taken Time BP 126/60 08/14/21 1115 Pulse Resp 16 08/14/21 1115 Temp 36.1 ?C (97 ?F) 08/14/21 1115 SpO2 98 % 08/14/21 1115 Facility-Administered Medications as of 08/14/2021 Medication Dose Route Frequency - lidocaine 10 mg/mL (1 %) 1-2 mg injection (XYLOCAINE) 0.1-0.2 mL INTRADERMAL PRN - lactated ringers iv infusion 5-30 mL/hr INTRAVENOUS CONTINUOUS - clindamycin iv piggyback 600 mg in D5W 50 mL (CLEOCIN) 600 mg INTRAVENOUS Pre-Op Once Outpatient Medications as of 08/14/2021 Medication Sig - LORazepam (ATIVAN) 0.5 mg Take 0.5 mg by mouth as needed. - albuterol HFA (VENTOLIN HFA) 90 mcg/actuation inhaler Inhale 2 Puffs as instructed every 4 hours as needed for Wheezing/Shortness of Breath. - rivaroxaban (XARELTO) 20 mg tablet Take 1 tablet by mouth daily with dinner. I have interviewed and examined the patient. I have reviewed the medical record and/or the pre-anesthesia evaluation, pertinent labs, and test results. This contains updated information obtained within 48 hours of Surgery/Procedure. SIGNATURE: Marie Ravi MD PATIENT NAME: Justin Leo DATE: August 14, 2021 TIME: 12:29 PM CSN: [id number] [facility] OPERATIVE NOon 08-14-2021 OPERATIVE NO HNO ID: [id number] Author: Suhail Clemente MD Service: Orthopaedic Surgery Author Type: Physician Type: Operative Report Filed: 08/14/2021 3:11 PM Note Text: OPERATIVE/PROCEDURE REPORT LOG ID: [id number] SURGERY/PROCEDURE DATE: 08/14/2021 INCISION/PROCEDURE START TIME: 2:30 PM INCISION CLOSE/PROCEDURE END TIME: 2:50 PM SURGEON(S)/PROCEDURALIST(S) AND WAFER BATTER MIXER(S): Surgeon(s) and Role: * Suhail Clemente MD - Primary Physician Datapower Developer: Ava Smith PA-C SURGERY/PROCEDURE(S): Right wrist, volar ganglion cyst excision. ANESTHESIA: Monitored Anesthesia Care SURGERY/PROCEDURE DETAILS: This is a pleasant, 35-year-old female who had a volar ganglion cyst on the right wrist causing her pain and intermittent swelling. We discussed the risks, benefits, alternatives and potential complications involving both operative and nonoperative treatment for this. She wished to pursue surgery. On 08/14/2021, the patient was clearly identified in the preoperative area and marked accordingly on the right wrist by myself. She was taken the operative suite placed in a supine position with an armboard on the right. Anesthesia assumed care of the head and neck for the remainder of the case. Well-padded upper brachium tourniquet was applied with stockinette padding and set at 250 mmHg but not yet inflated. She received 600mg of clindamycin in the IV within 1 hour of incision or tourniquet. All bony landmarks were properly padded in standard fashion. The right upper extremity was sterilely prepped and draped in standard fashion. An appropriate timeout was conducted and all in the room were in agreement, signed consent form was on the chart. The tourniquet was initially not used due to the close proximity of the radial artery. A longitudinal incision was made after 1% lidocaine with 1 100,000 epinephrine was provided for total of 4 cc at the local site. 15 blade was used to make a longitudinal incision through the dermis. Blunt dissection was made through the fatty layer with Littler scissors down to what appeared to be the ganglion cyst with the radial artery radial to it and it was quite large, considering. A good 2cm long, by 1cm wide. I used a Littler scissors to bluntly dissect out the ganglion from the artery overlying and safely arrived at the base which was distal. A portion of the cyst was intimately associated with a few venae comitantes over the top and surrounding. These were cauterized with bipolar electrocautery. Once I was able to get the stalk and decompress the cyst, it was much easier to identify the separation between the cyst and the artery. The base of the cyst was cauterized and it was removed en bloc. There was no need to send specimen. The wound was copiously irrigated. The skin edges were closely approximated with 3-0 Monocryl suture. Final skin closure was completed with a 3-0 nylon in a running, horizontal mattress fashion with an escape stitch. Xeroform gauze, sterile 4 x 4's and a bandage and well padded splint with cotton padding and an Benja bandage. There were no complications during the procedure. Patient was safely awoken and transferred to the postanesthetic care unit in stable condition. PRE-OP/PRE-PROCEDURE DIAGNOSIS: Right wrist, volar ganglion POST-OP/POST-PROCEDURE DIAGNOSIS: Same as Preop ESTIMATED BLOOD LOSS: 10 mls SPECIMENS: None sent IMPLANTABLE DEVICES: None DRAINS: None COMPLICATIONS: None PARTICIPATION IN SURGERY/PROCEDURE: I/primary surgeon/proceduralist performed the entire procedure. SIGNATURE: Suhail Clemente MD PATIENT NAME: Justin Leo DATE: August 14, 2021 TIME: 3:04 PM Normal [facility] SURGICAL PATHOLOGYon 10-15-2 021 SURGICAL PATHOLOGY Specimen originated from [facility] Specimen #: [id number] Submitting Physician: SUHAIL CLEMENTE MD FINAL DIAGNOSIS Soft tissue, right wrist mass, excision - Ganglion cyst. AMIE/LAUREN/celestine 08/18/2021 Nj Mejia M.D. (Electronic Signature) SPECIMEN SUBMITTED A: RIGHT WRIST GANGLION CYST CLINICAL DATA GANGLION AND CYST OF SYNOVIUM, TENDON, AND BURSA, LMP: HYST GROSS DESCRIPTION A. Received in formalin labeled right wrist ganglion cyst is a 1.4 x 0.9 x 0.6 cm santana intact cauterized cyst. Sectioning the cyst reveals it to be filled with clear gelatinous material. The specimen is sectioned and entirely submitted in one cassette. Gross examination performed at [facility], [address] [place] [address] 9:43 AM 08/17/2021 Date of Report: 08/19/2021 Date of Procedure: 08/14/2021 Date of Receipt: 08/14/2021 Submitted by: SUHAIL CLEMENTE MD Location: [facility] Diagnostic interpretation performed at [facility], [address] [place] [address]. IA Number: [id number] [facility] Office Visit: postop surgery 11/23/16on 02-14-2017 Dietary management education, guidance, and counseling (procedure) yes Invalid Interpretation Code [facility] Work Phone: [phone] Documentation of current medications (procedure) Done Invalid Interpretation Code [facility] Work Phone: [phone] Fall risk assessment No Invalid Interpretation Code [facility] Work Phone: [phone] Smoking cessation education (procedure) yes Invalid Interpretation Code [facility] Work Phone: [phone] Tobacco smoking status NHIS Never Invalid Interpretation Code [facility] Work Phone: [phone] Tobacco use [facility] Current every day smoker Invali d Interpretation Code [facility] Work Phone: [phone] Microbiology: Culture, Fungu s w/ [id number] 12-23-2016 GE use only - for [employer] import when terms are not otherwise specified . Invalid Interpretation Code [facility] Work Phone: [phone] Microbiology: Fungus Stainon 09-14-2016 fungus stain . Invalid Interpretation Code [facility] Work Phone: [phone] Lab Report: CBC-Complete Blo od Cnt No Diffon 09-13-2016 Erythrocytes (RBC) 4.17 10*6/uL Low 4.2-5.4 [facility] Work Phone: [phone] Hematocrit (HCT) 36.8 % Low 37-47 [facility] Work Phone: [phone] Hemoglobin (HGB) 12.7 g/dL Invalid Interpretation Code 12.0-15.0 [facility] Work Phone: [phone] MCH 30.5 pg Invalid Interpretation Code 27.0-32.0 [facility] Work Phone: [phone] MCHC 34.5 G/GL Invalid Interpretation Code 32-36 [facility] Work Phone: [phone] MCV 88.2 fL Invalid Interpretation Code 81-99 [facility] Work Phone: [phone] Platelets 203 10*3/mm3 Invalid Interpretation Code 150-450 [facility] Plastic Surgery Work Phone: [phone] PMV by Emil 9.6 fL Invalid Interpretation Code 6.2-12.0 [facility] Work Phone: [phone] RDW-CA 12.4 % Invalid Interpretation Code 11.6-14.6 [facility] Work Phone: [phone] red blood cell distribution width, size density 39.4 fL Invalid Interpretation Code 35.1-43.9 [facility] Work Phone: [phone] WBC (Leukocytes) 7.3 10*3/uL Invalid Interpretation Code 4.4-11.0 [facility] Surgery Work Phone: [phone] Lab Report: Prealbuminon Prealbumin 21.6 mg/dL Invalid Interpretation Code 20.0-40.0 [facility] Work Phone: [phone] No Panel Information SARS-CoV-2 & FLU Antigen (Rapid) [facility] Work Phone: Vital Signs Date Time Vital Sign Value Performing Clinician Facility 07-02-2024 20:43-0400 Body temperature 98.06 [degF] MERCY ARIAS MD [facility] 07-02-2024 20:43-0400 Diastolic Blood Pressure Non-Invasive 83 mm[Hg] MERCY ARIAS MD [facility] 07-02-2024 20:43-0400 Heart rate 87 /min MERCY ARIAS MD [facility] 07-02-2024 20:43-0400 Respiratory rate 16 /min MERCY ARIAS MD [facility] 07-02-2024 20:43-0400 Systolic Blood Pressure Non-Invasive 130 mm[Hg] MERCY ARIAS MD [facility] 03-22-2024 11:19-0400 Body mass index (BMI) [Ratio] 41.13 kg/m2 Pat Cifuentes [employer] Work Phone: [facility] 03-22-2024 11:19-0400 Body temperature 98.01 [degF] Pat Cifuentes [employer] Work Phone: [facility] 03-22-2024 11:19-0400 Body weight 102 kg Pat Cifuentes [employer]ER Work Phone: [facility] 03-22-2024 11:19-0400 Diastolic blood pressure 70 mm[Hg] Pat Cifuentes [employer] T[employer]ER Work Phone: [facility] 03-22-2024 11:19-0400 Heart rate 89 /min Pat Cifuentes [employer]ER Work Phone: [facility] 03-22-2024 11:19-0400 Respiratory rate 20 /min Pat Cifuentes [employer] T[employer]ER Work Phone: [facility] 03-22-2024 11:19-0400 SaO2% (BldA) [Mass fraction] 96 % Pat Cifuentes [employer] T[employer]ER Work Phone: [facility] 03-22-2024 11:19-0400 Systolic blood pressure 100 mm[Hg] Pat Cifuentes [employer] T[employer]ER Work Phone: [facility] 02-28-2024 22:25-0400 Body temperature 98 [degF] [facility] 02-28-2024 22:25-0400 Diastolic blood pressure 70 mm[Hg] [facility] 02-28-2024 22:25-0400 Heart rate 65 /min [facility] 02-28-2024 22:25-0400 Respiratory rate 16 /min [facility] 02-28-2024 22:25-0400 SaO2% (BldA) [Mass fraction] 100 % [facility] 02-28-2024 22:25-0400 Systolic blood pressure 120 mm[Hg] [facility] 02-28-2024 21:47-0400 Body height 157.48 cm [facility] 02-28-2024 21:47-0400 Body mass index (BMI) [Ratio] 41.3 kg/m2 [facility] 02-28-2024 21:47-0400 Body weight 102.42 kg [facility] 01-16-2024 10:40-0400 Body weight 102.97 kg Henny Dela Cruzhof [employer] Work Phone: [facility] 01-16-2024 10:40-0400 Diastolic blood pressure 60 mm[Hg] Henny Dela Cruzhof [employer]ER Work Phone: [facility] 01-16-2024 10:40-0400 Heart rate 74 /min Henny Dela Cruzhof [employer]ER Work Phone: [facility] 01-16-2024 10:40-0400 Respiratory rate 16 /min Henny Dela Cruzhof [employer] T[employer]ER Work Phone: [facility] 01-16-2024 10:40-0400 SaO2% (BldA) [Mass fraction] 100 % Henny Mendietaf [employer]ER.[employer] TENDER Work Phone: [facility] 01-16-2024 10:40-0400 Systolic blood pressure 126 mm[Hg] Henny Dela Cruzhof [employer] T[employer]ER Work Phone: [facility] 01-05-2024 00:22-0500 Body temperature 97.4 [degF] [facility] 01-05-2024 00:22-0500 Diastolic blood pressure 60 mm[Hg] [facility] 01-05-2024 00:22-0500 Heart rate 82 /min [facility] 01-05-2024 00:22-0500 Respiratory rate 16 /min [facility] 01-05-2024 00:22-0500 SaO2% (BldA) [Mass fraction] 99 % [facility] 01-05-2024 00:22-0500 Systolic blood pressure 104 mm[Hg] [facility] 01-04-2024 20:39-0500 Inhaled oxygen flow rate 98 L/min [facility] 01-04-2024 20:07-0500 Body height 165.1 cm [facility] 01-04-2024 20:07-0500 Body mass index (BMI) [Ratio] 38.2 kg/m2 [facility] 01-04-2024 20:07-0500 Body weight 104.1 kg [facility] 12-13-2023 15:41-0500 Body height 157.5 cm Mi Dietz MD Work Phone: [facility] 12-13-2023 15:41-0500 Body temperature 97.5 [degF] Mi Dietz MD Work Phone: [facility] 12-13-2023 15:41-0500 Body weight 101.61 kg Mi Dietz MD Work Phone: [facility] 12-13-2023 15:41-0500 Diastolic blood pressure 64 mm[Hg] Mi Dietz MD Work Phone: [facility] 12-13-2023 15:41-0500 Heart rate 93 /min Mi Dietz MD Work Phone: [facility] 12-13-2023 15:41-0500 SaO2% (BldA) [Mass fraction] 97 % Mi Dietz MD Work Phone: [facility] 12-13-2023 15:41-0500 Systolic blood pressure 92 mm[Hg] Mi Dietz MD Work Phone: [facility] 09-15-2023 16:04-0500 Body weight 99.02 kg Ty Gaytan MD Work Phone: [facility] 09-15-2023 16:04-0500 Diastolic blood pressure 74 mm[Hg] Ty Gaytan MD Work Phone: [facility] 09-15-2023 16:04-0500 Heart rate 80 /min Ty Gaytan MD Work Phone: [facility] 09-15-2023 16:04-0500 Respiratory rate 16 /min Ty Gaytan MD Work Phone: [facility] 09-15-2023 16:04-0500 Systolic blood pressure 120 mm[Hg] Ty Gaytan MD Work Phone: [facility] 07-05-2023 18:15-0400 Body temperature 99.3 [degF] Farhat Athy PA-C Work Phone: [facility] 07-05-2023 18:15-0400 Body weight 99.25 kg Farhat Athy PA-C Work Phone: [facility] 07-05-2023 18:15-0400 Diastolic blood pressure 64 mm[Hg] Farhat Athy PA-C Work Phone: [facility] 07-05-2023 18:15-0400 Heart rate 86 /min Farhat Athy PA-C Work Phone: [facility] 07-05-2023 18:15-0400 Respiratory rate 16 /min Farhat Athy PA-C Work Phone: [facility] 07-05-2023 18:15-0400 SaO2% (BldA) [Mass fraction] 98 % Farhat Athy PA-C Work Phone: [facility] 07-05-2023 18:15-0400 Systolic blood pressure 104 mm[Hg] Farhat Athy PA-C Work Phone: [facility] 04-27-2023 10:52-0400 Body height 158.8 cm Rachelle Sánchez MD Work Phone: [facility] 04-27-2023 10:52-0400 Body weight 94.53 kg Rachelle Sánchez MD Work Phone: [facility] 04-27-2023 10:52-0400 Diastolic blood pressure 60 mm[Hg] Rachelle Sánchez MD Work Phone: [facility] 04-27-2023 10:52-0400 Systolic blood pressure 100 mm[Hg] Rachelle Sánchez MD Work Phone: [facility] 03-15-2023 17:38-0400 Body temperature 98.91 [degF] Minal Praisler-Wood [employer]ER Work Phone: [facility] 03-15-2023 17:38-0400 Body weight 94.8 kg Minal Praisler-Wood [employer]ER Work Phone: [facility] 03-15-2023 17:38-0400 Diastolic blood pressure 72 mm[Hg] Minal Praisler-Wood [employer]ER Work Phone: [facility] 03-15-2023 17:38-0400 Heart rate 72 /min Minal Praisler-Wood [employer]ER Work Phone: [facility] 03-15-2023 17:38-0400 Respiratory rate 16 /min Minal Praisler-Wood [employer] T[employer]ER Work Phone: [facility] 03-15-2023 17:38-0400 SaO2% (BldA) [Mass fraction] 99 % Minal Praisler-Wood [employer] T[employer]ER Work Phone: [facility] 03-15-2023 17:38-0400 Systolic blood pressure 122 mm[Hg] Minal Praisler-Wood [employer] T[employer]ER Work Phone: [facility] 01-13-2023 10:53-0400 Body weight 92.67 kg Ty Gaytan MD Work Phone: [facility] 01-13-2023 10:53-0400 Diastolic blood pressure 68 mm[Hg] Ty Gaytan MD Work Phone: [facility] 01-13-2023 10:53-0400 Heart rate 60 /min Ty Gaytan MD Work Phone: [facility] 01-13-2023 10:53-0400 Respiratory rate 16 /min Ty Gaytan MD Work Phone: [facility] 01-13-2023 10:53-0400 Systolic blood pressure 100 mm[Hg] Ty Gaytan MD Work Phone: [facility] 12-16-2022 11:14-0500 Body weight 91.63 kg Ty Gaytan MD Work Phone: [facility] 12-16-2022 11:14-0500 Diastolic blood pressure 78 mm[Hg] Ty Gaytan MD Work Phone: [facility] 12-16-2022 11:14-0500 Heart rate 74 /min Ty Gaytan MD Work Phone: [facility] 12-16-2022 11:14-0500 Respiratory rate 16 /min Ty Gaytan MD Work Phone: [facility] 12-16-2022 11:14-0500 Systolic blood pressure 112 mm[Hg] Ty Gaytan MD Work Phone: [facility] 11-12-2022 13:16-0500 Body weight 89.54 kg Ty Gaytan MD Work Phone: [facility] 11-12-2022 13:16-0500 Diastolic blood pressure 78 mm[Hg] Ty Gaytan MD Work Phone: [facility] 11-12-2022 13:16-0500 Heart rate 60 /min Ty Gaytan MD Work Phone: [facility] 11-12-2022 13:16-0500 Respiratory rate 16 /min Ty Gaytan MD Work Phone: [facility] 11-12-2022 13:16-0500 Systolic blood pressure 116 mm[Hg] Ty Gaytan MD Work Phone: [facility] 10-13-2022 13:53-0500 Body weight 89.54 kg Ty Gaytan MD Work Phone: [facility] 10-13-2022 13:53-0500 Diastolic blood pressure 76 mm[Hg] Ty Gaytan MD Work Phone: [facility] 10-13-2022 13:53-0500 Heart rate 72 /min Ty Gaytan MD Work Phone: [facility] 10-13-2022 13:53-0500 Respiratory rate 16 /min Ty Gaytan MD Work Phone: [facility] 10-13-2022 13:53-0500 Systolic blood pressure 118 mm[Hg] Ty Gaytan MD Work Phone: [facility] 09-29-2022 13:39-0500 Body weight 88.91 kg Henny Tannhof [employer] T[employer]ER Work Phone: [facility] 09-29-2022 13:39-0500 Diastolic blood pressure 58 mm[Hg] Henny Tannhof [employer] T[employer]ER Work Phone: [facility] 09-29-2022 13:39-0500 Heart rate 64 /min Henny Tannhof [employer] T[employer]ER Work Phone: [facility] 09-29-2022 13:39-0500 Respiratory rate 16 /min Henny Tannhof [employer] TENDER Work Phone: [facility] 09-29-2022 13:39-0500 SaO2% (BldA) [Mass fraction] 98 % Henny Tannhof [employer] T[employer]ER Work Phone: [facility] 09-29-2022 13:39-0500 Systolic blood pressure 104 mm[Hg] Henny Tannhof [employer] T[employer]ER Work Phone: [facility] 09-08-2022 11:20-0500 Body weight 91.17 kg Henny Tannhof [employer] T[employer]ER Work Phone: [facility] 09-08-2022 11:20-0500 Diastolic blood pressure 70 mm[Hg] Henny Tannhof [employer] T[employer]ER Work Phone: [facility] 09-08-2022 11:20-0500 Heart rate 66 /min Henny Tannhof [employer] T[employer]ER Work Phone: [facility] 09-08-2022 11:20-0500 Respiratory rate 16 /min Henny Tannhof [employer] T[employer]ER Work Phone: [facility] 09-08-2022 11:20-0500 SaO2% (BldA) [Mass fraction] 96 % Henny Cook [employer] T[employer]ER Work Phone: [facility] 09-08-2022 11:20-0500 Systolic blood pressure 104 mm[Hg] Henny Cook [employer] T[employer]ER Work Phone: [facility] 08-23-2022 06:00-0400 Diastolic blood pressure 52 mm[Hg] [facility] Work Phone: 08-23-2022 06:00-0400 Heart rate 65 /min [facility] Work Phone: 08-23-2022 06:00-0400 Respiratory rate 16 /min [facility] Work Phone: 08-23-2022 06:00-0400 SaO2% (BldA) [Mass fraction] 95 % [facility] Work Phone: 08-23-2022 06:00-0400 Systolic blood pressure 89 mm[Hg] [facility] Work Phone: 08-22-2022 18:15-0400 Body height 157.48 cm [facility] Work Phone: 08-22-2022 18:15-0400 Body mass index (BMI) [Ratio] 37.5 kg/m2 [facility] Work Phone: 08-22-2022 18:15-0400 Body temperature 98.1 [degF] [facility] Work Phone: 08-22-2022 18:15-0400 Body weight 92.98 kg [facility] Work Phone: 08-17-2022 16:14-0400 Body weight 91.63 kg Ty Gaytan MD Work Phone: [facility] 08-17-2022 16:14-0400 Diastolic blood pressure 70 mm[Hg] yT Gaytan MD Work Phone: [facility] 08-17-2022 16:14-0400 Heart rate 78 /min Ty Gaytan MD Work Phone: [facility] 08-17-2022 16:14-0400 Respiratory rate 16 /min Ty Gaytan MD Work Phone: [facility] 08-17-2022 16:14-0400 Systolic blood pressure 112 mm[Hg] Ty Gaytan MD Work Phone: [facility] 08-17-2022 15:56-0400 Body temperature 98 [degF] [facility] Work Phone: 08-17-2022 15:56-0400 Diastolic blood pressure 69 mm[Hg] [facility] Work Phone: 08-17-2022 15:56-0400 Heart rate 93 /min [facility] Work Phone: 08-17-2022 15:56-0400 Respiratory rate 18 /min [facility] Work Phone: 08-17-2022 15:56-0400 SaO2% (BldA) [Mass fraction] 99 % [facility] Work Phone: 08-17-2022 15:56-0400 Systolic blood pressure 98 mm[Hg] [facility] Work Phone: 08-17-2022 12:57-0400 Body height 157.48 cm [facility] Work Phone: 08-17-2022 12:57-0400 Body mass index (BMI) [Ratio] 38.3 kg/m2 [facility] Work Phone: 08-17-2022 12:57-0400 Body weight 95.1 kg [facility] Work Phone: 08-16-2022 20:54-0400 Diastolic blood pressure 64 mm[Hg] [facility] Work Phone: 08-16-2022 20:54-0400 Heart rate 76 /min [facility] Work Phone: 08-16-2022 20:54-0400 Respiratory rate 16 /min [facility] Work Phone: 08-16-2022 20:54-0400 SaO2% (BldA) [Mass fraction] 98 % [facility] Work Phone: 08-16-2022 20:54-0400 Systolic blood pressure 110 mm[Hg] [facility] Work Phone: 08-16-2022 18:12-0400 Body height 157.48 cm [facility] Work Phone: 08-16-2022 18:12-0400 Body mass index (BMI) [Ratio] 37.3 kg/m2 [facility] Work Phone: 08-16-2022 18:12-0400 Body temperature 98.2 [degF] [facility] Work Phone: 08-16-2022 18:12-0400 Body weight 92.5 kg [facility] Work Phone: 08-09-2022 11:47-0400 Body temperature 97.7 [degF] Elysia Noah [employer] T[employer]ER Work Phone: [facility] 08-09-2022 11:47-0400 Body weight 92.17 kg Elysia Noah [employer] T[employer]ER Work Phone: [facility] 08-09-2022 11:47-0400 Diastolic blood pressure 64 mm[Hg] Elysia Noah [employer] T[employer]ER Work Phone: [facility] 08-09-2022 11:47-0400 Heart rate 76 /min Elysia Noah [employer] T[employer]ER Work Phone: [facility] 08-09-2022 11:47-0400 Respiratory rate 16 /min Elysia Noah [employer] TENDER Work Phone: [facility] 08-09-2022 11:47-0400 SaO2% (BldA) [Mass fraction] 97 % Elysia Zamora [employer] TENDER Work Phone: [facility] 08-09-2022 11:47-0400 Systolic blood pressure 104 mm[Hg] Elysia Zamora [employer] T[employer]ER Work Phone: [facility] 07-14-2022 20:37-0400 Diastolic blood pressure 80 mm[Hg] [facility] Work Phone: 07-14-2022 20:37-0400 Heart rate 88 /min [facility] Work Phone: 07-14-2022 20:37-0400 Respiratory rate 16 /min [facility] Work Phone: 07-14-2022 20:37-0400 SaO2% (BldA) [Mass fraction] 98 % [facility] Work Phone: 07-14-2022 20:37-0400 Systolic blood pressure 113 mm[Hg] [facility] Work Phone: 07-14-2022 17:11-0400 Body height 157.48 cm [facility] Work Phone: 07-14-2022 17:11-0400 Body mass index (BMI) [Ratio] 38.8 kg/m2 [facility] Work Phone: 07-14-2022 17:11-0400 Body temperature 97.5 [degF] [facility] Work Phone: 07-14-2022 17:11-0400 Body weight 96.3 kg [facility] Work Phone: 06-08-2022 15:52-0400 Body height 160 cm Mi Dietz MD Work Phone: [facility] 06-08-2022 15:52-0400 Body temperature 97.2 [degF] Mi Dietz MD Work Phone: [facility] 06-08-2022 15:52-0400 Body weight 96.34 kg Mi Dietz MD Work Phone: [facility] 06-08-2022 15:52-0400 Diastolic blood pressure 70 mm[Hg] Mi Dietz MD Work Phone: [facility] 06-08-2022 15:52-0400 Heart rate 86 /min Mi Dietz MD Work Phone: [facility] 06-08-2022 15:52-0400 SaO2% (BldA) [Mass fraction] 98 % Mi Dietz MD Work Phone: [facility] 06-08-2022 15:52-0400 Systolic blood pressure 114 mm[Hg] Mi Dietz MD Work Phone: [facility] 02-14-2017 13:56-0400 BMI (Body Mass Index) 37.83 kg/m2 Randall Henson MD [facility] Work Phone: 02-14-2017 13:56-0400 Body Temperature 98.4 [degF] Randall Henson MD [facility] Work Phone: 02-14-2017 13:56-0400 BP Diastolic 72 mm[Hg] Randall Henson MD [facility] Work Phone: 02-14-2017 13:56-0400 BP Systolic 109 mm[Hg] Randall Henson MD [facility] Work Phone: 02-14-2017 13:56-0400 BSA (Body Surface Area) 2.04 m2 Randall Henson MD [facility] Work Phone: 02-14-2017 13:56-0400 Height 162.56 cm Randall Henson MD [facility] Work Phone: 02-14-2017 13:56-0400 Pulse (Heart Rate) 66 /min Randall Henson MD [facility] Work Phone: 02-14-2017 13:56-0400 Pulse Oximetry 96 % Randall Henson MD [facility] Work Phone: 02-14-2017 13:56-0400 Respiratory Rate 16 /min Randall Henson MD [facility] Work Phone: 02-14-2017 [id number] Weight 99.97 kg Randall Henson MD [facility] Work Phone: Encounters Encounter Date Encounter Type Care Provider Facility Start: 05-10-2025 End: 06-15-2025 Refill Ty Gaytan MD Work Phone: [facility] Comment on above: Refill Request Start: 12-10-2024 End: 12-10-2024 Refill Tejas Mata FRONT TENDER Work Phone: [facility] Comment on above: Refill Request Start: 11-12-2024 End: 11-12-2024 Refill Ty Gaytan MD Work Phone: [facility] Comment on above: Refill Request Start: 11-11-2024 End: 11-11-2024 Emergency department patient visit [facility] Facility:[facility] Start: 08-17-2024 End: 08-17-2024 Refill Ty Gaytan MD Work Phone: [facility] Comment on above: Refill Request Start: 07-10-2024 End: 07-10-2024 ambulatory [facility] Facility:[facility] Start: 07-02-2024 End: 07-02-2024 Emergency department patient visit DR TY GAYTAN MD Facility:[facility] Start: 07-02-2024 End: 07-02-2024 Emergency department patient visit Ed Physician Provider Facility:[facility] Start: 06-21-2024 End: 06-21-2024 Telephone encounter Nurse Karyn [facility] Work Phone: General Surgery Comment on above: Patient Question Start: 06-14-2024 ambulatory Annette Fagan TOOL CRIB CLERK Facili ty:[facility] Start: 06-14-2024 ambulatory Wai David [facility] Start: 06-14-2024 End: 06-14-2024 ambulatory Annette Fagan NP Facility:[facility] Start: 06-12-2024 ambulatory Koko Carlson [facility] Start: 06-12-2024 End: 06-12-2024 ambulatory Wai David Facility:[facility] Start: 05-30-2024 ambulatory Wai David Facility:[facility] Start: 05-10-2024 ambulatory Wai David Facility:[facility] Start: 04-18-2024 End: 04-18-2024 ambulatory Wai David Facility:[facility] Start: 04-06-2024 ambulatory Wai David Facility:[facility] Start: 03-29-2024 ambulatory Wai David [facility] Start: 03-29-2024 End: 03-29-2024 ambulatory Wai David Facility:[facility] Start: 03-22-2024 End: 03-22-2024 ambulatory [facility] Facility:[facility] Start: 03-22-2024 End: 03-22-2024 Patient encounter procedure Pat Cifuentes APRN.CNP Work Phone: [facility] Comment on above: Bee sting, accidenta l or unintentional, initial encounter (Primary Dx) Start: 03-13-2024 Refill Henny Cook APRN.CNP Work Phone: [facility] Comment on above: Refill Request Start: 02-29-2024 End: 02-29-2024 ambulatory Wai David Facility:[facility] Start: 02-28-2024 End: 02-28-2024 Emergency department patient visit [facility] Work Phone: Start: 01-31-2024 Telephone encounter Nurse Card Admin [facility] Work Phone: Cardiology Comment on above: Stress Test Instruct ions for 02/06/24 Start: 01-18-2024 Telephone encounter Henny santillan APRN.CNP Work Phone: [facility] Comment on above: Results; Orders (Lab s ) Start: 01-16-2024 End: 01-16-2024 Patient encounter procedure Henny Cook APRN.CNP Work Phone: [facility] Comment on above: Hospital discharge f ollow-up (Primary Dx); Non compliance w medication regimen; Heterozygous factor V Leiden mutation (HCC); Other chest pain; Memory changes; Screening cholesterol level Start: 01-16-2024 End: 01-16-2024 ambulatory [facility] Facility:[facility] Start: 01-13-2024 Telephone encounter Ty mckenzie MD Work Phone: [facility] Comment on above: Patient Update; Mildred ent Request Start: 01-04-2024 End: 01-05-2024 Emergency department patient visit [facility] Work Phone: Start: 12-13-2023 End: 12-13-2023 ambulatory [facility] Facility:[facility] Start: 12-13-2023 End: 12-13-2023 Patient encounter procedure Mi Dietz MD Work Phone: General Surgery Comment on above: Lipoma of torso (Charlene josé miguel Dx) Start: 09-15-2023 End: 09-15-2023 ambulatory [facility] [facility] Start: 09-15-2023 End: 09-15-2023 Patient encounter procedure Ty Gaytan MD Work Phone: [facility] Comment on above: Left ear pain (Prima ry Dx); Pain in upper jaw; Sprain of ligament of right ankle, initial encounter Start: 07-28-2023 End: 07-28-2023 [facility] Facility:[facility] Start: 07-07-2023 Telephone encounter Minal Galindo APRN.CNP Work Phone: [facility] Comment on above: Results Start: 07-05-2023 End: 07-05-2023 Subsequent hospital visit by physician [facility] Work Phone: Radiology Comment on above: Foot injury, left, i nitial encounter [G10.270V] Start: 07-05-2023 End: 07-05-2023 ambulatory [facility] Facility:[facility] Start: 07-05-2023 End: 07-05-2023 Patient encounter procedure Farhat Bello PA-C Work Phone: [facility] Comment on above: Urinary frequency (P rimary Dx); Foot injury, left, initial encounter Start: 04-29-2023 Telephone encounter Key Herrera MD Work Phone: OB/Gynecology Comment on above: Question Start: 04-27-2023 End: 04-27-2023 Patient encounter procedure Rachelle Sánchez MD Work Phone: OB/Gynecology Comment on above: Encounter for gyneco logical examination (general) (routine) without abnormal findings (Primary Dx); Abnormal uterine bleeding (AUB); Screening for human papillomavirus (HPV); Screening for cervical cancer Start: 04-27-2023 End: 04-27-2023 Patient encounter status Rachelle Sánchez MD Work Phone: OB/Gynecology Start: 03-15-2023 End: 03-15-2023 Patient encounter procedure Minal Martin APRN.CNP Work Phone: [facility] Comment on above: Avulsion of toenail of left foot (Primary Dx) Start: 01-13-2023 End: 01-13-2023 Patient encounter procedure Ty Gaytan MD Work Phone: [facility] Comment on above: Anxiety with depress ion (Primary Dx); Fibromyalgia Start: 12-16-2022 End: 12-16-2022 Patient encounter procedure Ty aGytan MD Work Phone: [facility] Comment on above: Anxiety with depress ion (Primary Dx); Chronic deep vein thrombosis (DVT) of iliac vein of left lower extremity (HCC); Leg pain, bilateral; Varicose veins of both lower extremities, unspecified whether complicated Start: 11-12-2022 End: 11-12-2022 Patient encounter procedure Ty Gaytan MD Work Phone: [facility] Comment on above: Anxiety with depress ion (Primary Dx) Start: 10-13-2022 End: 10-13-2022 Patient encounter procedure Ty Gaytan MD Work Phone: [facility] Comment on above: Anxiety with depress ion (Primary Dx); Snoring; RLS (restless legs syndrome); Witnessed episode of apnea; Burn Start: 09-29-2022 End: 09-29-2022 Patient encounter procedure Henny Cook APRN.FRONT TENDER Work Phone: [facility] Comment on above: Other migraine with status migrainosus, intractable (Primary Dx); Vision changes Start: 09-08-2022 End: 09-08-2022 Patient encounter procedure Henny Cook APRN.FRONT TENDER Work Phone: [facility] Comment on above: Medication side effe ct (Primary Dx); Anxiety with depression Start: 08-25-2022 Telephone encounter Ty mckenzie MD Work Phone: [facility] Comment on above: Patient Update Start: 08-23-2022 Telephone encounter Elysia Barroso APRN.FRONT TENDER Work Phone: [facility] Comment on above: Opened In Error Start: 08-22-2022 End: 08-23-2022 [facility] Start: 08-17-2022 End: 08-17-2022 Patient encounter procedure Ty Gaytan MD Work Phone: [facility] Comment on above: Chronic deep vein th rombosis (DVT) of iliac vein of left lower extremity (HCC) (Primary Dx); Heterozygous factor V Leiden mutation (HCC); Fatigue, unspecified type; Anxiety with depression Start: 08-17-2022 End: 08-17-2022 [facility] Start: 08-16-2022 End: 08-16-2022 [facility] Start: 08-16-2022 Telephone encounter Ty mckenzie MD Work Phone: [facility] Comment on above: question regarding b lood clot Start: 08-13-2022 Telephone encounter Elysia Barroso APRN.FRONT TENDER Work Phone: [facility] Comment on above: Results Start: 08-11-2022 Telephone encounter Ty mckenzie MD Work Phone: [facility] Comment on above: Patient Question Start: 08-09-2022 Telephone encounter [facility] Comment on above: Future Appointment Start: 08-09-2022 End: 08-09-2022 Patient encounter procedure Elysia Zamora APRNAurbieFRONT TENDER Work Phone: [facility] Comment on above: Weight loss (Primary Dx); Bloody stool; Proteinuria, unspecified type; Vitamin D deficiency; Hair loss; Diarrhea, unspecified type; Bruising; Fatigue, unspecified type; Decreased energy; Heterozygous factor V Leiden mutation (HCC) Start: 07-14-2022 End: 07-14-2022 [facility] Start: 06-08-2022 End: 06-08-2022 Patient encounter procedure Mi Dietz MD Work Phone: General Surgery Comment on above: Hidradenitis suppura tiva (Primary Dx) Start: 05-17-2018 End: 05-17-2018 Patient encounter JOANA OLIVERISHNAN Facility:[facility] Procedures Date Procedure Procedure Detail Performing Clinician Start: 01-04-2024 CT angiography of ch est with contrast Start: 01-04-2024 Plain chest X-ray Start: 07-05-2023 Radex ankle complete minimum 3 views Farhat OLGUIN-C Work Phone: Start: 07-05-2023 Urnls dip stick/tabl et rgnt auto w/o microscopy Farhat Bello PA-C Work Phone: Start: 08-22-2022 Plain chest X-ray Start: 08-17-2022 Plain chest X-ray Start: 07-14-2022 CT angiography of ch est with contrast Start: 07-14-2022 CT of head without contrast Start: 09-22-2016 End: 10-01-2016 Follow up Appt 1 week Randall Henson MD Start: 11-26-2015 End: 03-25-2016 Follow Up Appt Other Randall Henson MD Appendectomy MERCY OVALLE MD Cholecystectomy MERCY HERNANDEZ MD Hysterectomy MERCY OVALLE MD SARS-CoV-2 & FLU Ant igen (Rapid) Structure of ligamen t of hand (body structure) MERCY ARIAS MD Comment on above: Right Tendinitis of foot (disorder) MERCY ARIAS MD Tonsillectomy MERCY GUIDRY MD Viral antigen assay Plan of Treatment Date Care Activity Detail Author Start: 04-27-2028 HPV TESTING HPV TESTING [facility] Start: 04-27-2028 PAP TESTING PAP TESTING [facility] Start: 04-27-2028 Screening for malign ant neoplasm of cervix [facility] Start: 07-01-2025 Influenza vaccination Influenza Vacc ine (#1) [facility] Start: 01-15-2025 Annual PCP Team Topstitcher Lockstitch parker Disease Visit Annual PCP Team Chronic Disease Visit [facility] Start: 09-15-2024 Annual PCP Team Topstitcher Lockstitch parker Disease Visit Annual PCP Team Chronic Disease Visit [facility] Start: 07-20-2024 End: 10-19-2024 Lipid 1996 panel - Serum or Plasma LIPID PANEL BASIC Lab Routine Hyperlipidemia, mixed Expected: 07/20/2024, Expires: 10/19/2024 [facility] Work Phone: Comment on above: Expected: 07/20/2024 , Expires: 10/19/2024 Start: 07-01-2024 Covid-19 Vaccine ( season) Covid-19 Vaccine ( season) [facility] Start: 07-01-2024 Covid-19 Vaccine ( season) Covid-19 Vaccine ( season) [facility] Start: 07-01-2024 Influenza vaccination [facility] Start: 05-10-2024 End: 05-10-2024 Patient encounter procedure 05/10/2024 1:40 PM EDT Office Visit OB/Gynecology [address] [place] [address] Rachelle Sánchez MD [address] [facility] [place] [address] ANNUAL OB/Gynecology Comment on above: ANNUAL Start: 04-29-2024 Influenza vaccination Influenza Vacc ine (#1) [facility] Comment on above: Postponed from 07/01 (Declined at this time) Start: 04-19-2024 End: 07-19-2024 25-hydroxyvitamin D3 [Mass/volume] in Serum or Plasma VITAMIN D 25 HYDROXY Lab Routine Vitamin D deficiency Expected: 04/19/2024, Expires: 07/19/2024 [facility] Work Phone: Comment on above: Expected: 04/19/2024 , Expires: 07/19/2024 Start: 04-19-2024 End: 07-19-2024 Comprehensive metabolic 2000 panel - Serum or Plasma COMP METABOLIC PANEL Lab Routine Hyperlipidemia, mixed Expected: 04/19/2024, Expires: 07/19/2024 [facility] Work Phone: Comment on above: Expected: 04/19/2024 , Expires: 07/19/2024 Start: 04-06-2024 End: 04-06-2024 Patient encounter procedure 04/06/2024 8:00 AM EDT Office Visit Neurology [address] [place] [address] Torres Heath Jr., MD [address] [address] Memory changes [R41.3] Neurology Comment on above: Memory changes [R41. 3] Start: 02-28-2024 [facility] Start: 02-28-2024 X-ray of both feet Foot min 3 Views [facility] Start: 01-16-2024 End: 04-16-2024 Cobalamin (Vitamin B12) [Mass/volume] in Serum or Plasma [facility] Work Phone: Comment on above: Expected: 01/16/2024 , Expires: 04/16/2024 Start: 01-16-2024 End: 04-16-2024 Comprehensive metabolic 2000 panel - Serum or Plasma [facility] Work Phone: Comment on above: Expected: 01/16/2024 , Expires: 04/16/2024 Start: 01-16-2024 End: 04-16-2024 Folate [Mass/volume] in Serum or Plasma [facility] Work Phone: Comment on above: Expected: 01/16/2024 , Expires: 04/16/2024 Start: 01-16-2024 End: 04-16-2024 LIPID PANEL, NONFASTING [facility] Work Phone: Comment on above: Expected: 01/16/2024 , Expires: 04/16/2024 Start: 01-16-2024 End: 04-16-2024 Magnesium [Mass/volume] in Serum or Plasma [facility] Work Phone: Comment on above: Expected: 01/16/2024 , Expires: 04/16/2024 Start: 01-16-2024 End: 04-16-2024 Thyrotropin [Units/volume] in Serum or Plasma [facility] Work Phone: Comment on above: Expected: 01/16/2024 , Expires: 04/16/2024 Start: 01-16-2024 End: 04-16-2024 Thyroxine (T4) free [Mass/volume] in Serum or Plasma [facility] Work Phone: Comment on above: Expected: 01/16/2024 , Expires: 04/16/2024 Start: 01-14-2024 ANNUAL PCP TEAM TRIMMING INSPECTOR PARKER DISEASE VISIT ANNUAL PCP TEAM CHRONIC DISEASE VISIT [facility] Start: 01-05-2024 [facility] Start: 01-04-2024 [facility] Start: 12-16-2023 ANNUAL PCP TEAM TRIMMING INSPECTOR PARKER DISEASE VISIT ANNUAL PCP TEAM CHRONIC DISEASE VISIT [facility] Start: 12-16-2023 COVID-19 VACCINE (#1) COVID-19 VACCI NE (#1) [facility] Comment on above: Postponed from 02/19 (Declined at this time) Start: 11-12-2023 ANNUAL PCP TEAM TRIMMING INSPECTOR PARKER DISEASE VISIT ANNUAL PCP TEAM CHRONIC DISEASE VISIT [facility] Start: 10-31-2023 Behavioral Health Screening Behavioral Health Screening [facility] Start: 10-31-2023 Depression Assessment Depression Ass [facility] Start: 10-13-2023 ANNUAL PCP TEAM TRIMMING INSPECTOR PARKER DISEASE VISIT ANNUAL PCP TEAM CHRONIC DISEASE VISIT [facility] Start: 09-29-2023 ANNUAL PCP TEAM TRIMMING INSPECTOR PARKER DISEASE VISIT ANNUAL PCP TEAM CHRONIC DISEASE VISIT [facility] Start: 09-08-2023 ANNUAL PCP TEAM TRIMMING INSPECTOR PARKER DISEASE VISIT ANNUAL PCP TEAM CHRONIC DISEASE VISIT [facility] Start: 08-17-2023 ANNUAL PCP TEAM TRIMMING INSPECTOR PARKER DISEASE VISIT ANNUAL PCP TEAM CHRONIC DISEASE VISIT [facility] Start: 08-09-2023 ANNUAL PCP TEAM TRIMMING INSPECTOR PARKER DISEASE VISIT ANNUAL PCP TEAM CHRONIC DISEASE VISIT [facility] Start: 07-01-2023 Covid-19 Vaccine () Covid-19 Vaccine () [facility] Start: 07-01-2023 Influenza vaccination C [facility] Start: 04-29-2023 Influenza vaccination INFLUENZA (#1) [facility] Comment on above: Postponed from 07/01 (Declined at this time) Start: 10-31-2022 DEPRESSION ASSESSMENT DEPRESSION ASS [facility] Start: 08-22-2022 Referral to service [facility] Work Phone: Start: 08-22-2022 End: 08-22-2022 Suicide precautions [facility] Work Phone: Start: 08-17-2022 Blood chemistry [facility] Work Phone: Start: 08-17-2022 End: 08-17-2022 [facility] Work Phone: Start: 08-09-2022 End: 10-09-2022 25-hydroxyvitamin D3 [Mass/volume] in Serum or Plasma VITAMIN D 25 HYDROXY Lab Routine Bloody stool Proteinuria, unspecified type Weight loss Vitamin D deficiency Hair loss Diarrhea, unspecified type Bruising Fatigue, unspecified type Decreased energy Expected: 08/09/2022, Expires: 10/09/2022 [facility] Work Phone: Comment on above: Expected: 08/09/2022 , Expires: 10/09/2022 Start: 08-09-2022 End: 10-09-2022 CBC panel - Blood by Automated count CBC Lab Routine Bloody stool Proteinuria, unspecified type Weight loss Vitamin D deficiency Diarrhea, unspecified type Bruising Fatigue, unspecified type Decreased energy Expected: 08/09/2022, Expires: 10/09/2022 [facility] Work Phone: Comment on above: Expected: 08/09/2022 , Expires: 10/09/2022 Start: 08-09-2022 End: 10-09-2022 Comprehensive metabolic 2000 panel - Serum or Plasma COMP METABOLIC PANEL Lab Routine Bloody stool Proteinuria, unspecified type Weight loss Vitamin D deficiency Diarrhea, unspecified type Bruising Fatigue, unspecified type Decreased energy Expected: 08/09/2022, Expires: 10/09/2022 [facility] Work Phone: Comment on above: Expected: 08/09/2022 , Expires: 10/09/2022 Start: 08-09-2022 End: 10-09-2022 ESTROGEN FRACTION BL ESTROGEN FRACTION BL Lab Routine Bloody stool Proteinuria, unspecified type Weight loss Diarrhea, unspecified type Bruising Fatigue, unspecified type Decreased energy Expected: 08/09/2022, Expires: 10/09/2022 [facility] Work Phone: Comment on above: Expected: 08/09/2022 , Expires: 10/09/2022 Start: 08-09-2022 End: 10-09-2022 Ferritin [Mass/volume] in Serum or Plasma FERRITIN BLD Lab Routine Bloody stool Proteinuria, unspecified type Weight loss Vitamin D deficiency Hair loss Diarrhea, unspecified type Bruising Fatigue, unspecified type Decreased energy Expected: 08/09/2022, Expires: 10/09/2022 [facility] Work Phone: Comment on above: Expected: 08/09/2022 , Expires: 10/09/2022 Start: 08-09-2022 End: 10-09-2022 Fibrin D-dimer FEU [Mass/volume] in Platelet poor plasma D-DIMER Lab Routine Bruising Heterozygous factor V Leiden mutation (HCC) Expected: 08/09/2022, Expires: 10/09/2022 [facility] Work Phone: Comment on above: Expected: 08/09/2022 , Expires: 10/09/2022 Start: 08-09-2022 End: 10-09-2022 Iron and Iron binding capacity panel - Serum or Plasma IRON + TIBC Lab Routine Bloody stool Proteinuria, unspecified type Weight loss Vitamin D deficiency Hair loss Diarrhea, unspecified type Bruising Fatigue, unspecified type Decreased energy Expected: 08/09/2022, Expires: 10/09/2022 [facility] Work Phone: Comment on above: Expected: 08/09/2022 , Expires: 10/09/2022 Start: 08-09-2022 End: 10-09-2022 Progesterone [Mass/volume] in Serum or Plasma PROGESTERONE BLD Lab Routine Bloody stool Proteinuria, unspecified type Weight loss Diarrhea, unspecified type Bruising Fatigue, unspecified type Decreased energy Expected: 08/09/2022, Expires: 10/09/2022 [facility] Work Phone: Comment on above: Expected: 08/09/2022 , Expires: 10/09/2022 Start: 08-09-2022 End: 10-09-2022 PT panel - Platelet poor plasma by Coagulation assay PROTHROMBIN TIME/PT Lab Routine Bloody stool Proteinuria, unspecified type Weight loss Diarrhea, unspecified type Bruising Fatigue, unspecified type Decreased energy Heterozygous factor V Leiden mutation (HCC) Expected: 08/09/2022, Expires: 10/09/2022 [facility] Work Phone: Comment on above: Expected: 08/09/2022 , Expires: 10/09/2022 Start: 08-09-2022 End: 10-09-2022 TESTOSTERONE, FREE AND TOTAL TESTOSTERONE, FREE AND TOTAL Lab Routine Bloody stool Proteinuria, unspecified type Weight loss Diarrhea, unspecified type Bruising Fatigue, unspecified type Decreased energy Expected: 08/09/2022, Expires: 10/09/2022 [facility] Work Phone: Comment on above: Expected: 08/09/2022 , Expires: 10/09/2022 Start: 08-09-2022 End: 10-09-2022 Thyrotropin [Units/volume] in Serum or Plasma TSH BLD Lab Routine Bloody stool Proteinuria, unspecified type Weight loss Diarrhea, unspecified type Bruising Fatigue, unspecified type Decreased energy Expected: 08/09/2022, Expires: 10/09/2022 [facility] Work Phone: Comment on above: Expected: 08/09/2022 , Expires: 10/09/2022 Start: 08-09-2022 End: 10-09-2022 Thyroxine (T4) free [Mass/volume] in Serum or Plasma T4 FREE/FREE THYROX Lab Routine Bloody stool Proteinuria, unspecified type Weight loss Diarrhea, unspecified type Bruising Fatigue, unspecified type Decreased energy Expected: 08/09/2022, Expires: 10/09/2022 [facility] Work Phone: Comment on above: Expected: 08/09/2022 , Expires: 10/09/2022 Start: 08-09-2022 End: 10-09-2022 Triiodothyronine (T3) [Mass/volume] in Serum or Plasma T3 BLD Lab Routine Bloody stool Proteinuria, unspecified type Weight loss Diarrhea, unspecified type Bruising Fatigue, unspecified type Decreased energy Expected: 08/09/2022, Expires: 10/09/2022 [facility] Work Phone: Comment on above: Expected: 08/09/2022 , Expires: 10/09/2022 Start: 08-09-2022 End: 10-09-2022 Urinalysis complete panel - Urine URINALYSIS WITH MICROSCOPIC, REFLEX CULTURE Lab Routine Bloody stool Proteinuria, unspecified type Weight loss Diarrhea, unspecified type Bruising Fatigue, unspecified type Decreased energy Expected: 08/09/2022, Expires: 10/09/2022 [facility] Work Phone: Comment on above: Expected: 08/09/2022 , Expires: 10/09/2022 Start: 07-01-2022 Influenza vaccination INFLUENZA (#1) [facility] Start: 03-31-2022 ANNUAL PCP TEAM TRIMMING INSPECTOR PARKER DISEASE VISIT ANNUAL PCP TEAM CHRONIC DISEASE VISIT [facility] Start: 10-31-2021 DEPRESSION ASSESSMENT DEPRESSION ASS ESSMENT [facility] Start: 04-12-2018 PAP TESTING PAP TESTING [facility] Start: 02-14-2017 End: 03-06-2017 Follow Up Appt Other Follow Up Appt Other [facility] Work Phone: Start: 09-22-2016 End: 10-01-2016 Follow up Appt 1 week Follow up Appt 1 week [facility] Work Phone: Start: 11-26-2015 End: 03-25-2016 Follow Up Appt Other Follow Up Appt Other [facility] Work Phone: Start: 2015 HPV TESTING HPV TESTING [facility] Start: 2012 HPV Vaccine (1 - 3-d ose SCDM series) HPV Vaccine (1 - 3-dose SCDM series) [facility] Start: 2009 Urine microalbumin profile [facility] Start: 2004 Hepatitis B Vaccine (1 of 3 - 19+ 3-dose series) Hepatitis B Vaccine (1 of 3 - 19+ 3-dose series) [facility] Start: 2004 Pneumococcal vaccination Pneum ococcal Vaccine (1 of 2 - PCV) [facility] Start: 2003 Depression Screening Depression Scre ening [facility] Start: 2003 HEPATITIS C SCREENING HEPATITIS C [facility] Start: 2003 Hepatitis C screening Hepatitis C [facility] Start: 1991 PNEUMOCOCCAL (1 - PCV) PNEUMOCOCCAL (1 - PCV) [facility] Start: 1991 Pneumococcal vaccination [facility] Start: 02-19-1986 COVID-19 VACCINE (#1) COVID-19 VACCI NE (#1) [facility] Start: 1985 HEPATITIS B (1 of 3 - 3-dose series) HEPATITIS B (1 of 3 - 3-dose series) [facility] Start: 1985 Hepatitis B Vaccine (1 of 3 - 3-dose series) Hepatitis B Vaccine (1 of 3 - 3-dose series) [facility] Bacteria identified in Urine by Culture URINE CULTURE Microbiology Routine Urinary frequency 07/05/2023 6:46 PM EDT [facility] Work Phone: End: 09-12-2023 Dup-scan xtr veins complete bilateral study US DVT LOWER BILAT Radiology Routine Elevated d-dimer 1 Occurrences starting 08/13/2022 until 09/12/2023 [facility] Work Phone: Comment on above: 1 Occurrences starti ng 08/13/2022 until 09/12/2023 End: 01-15-2025 Echocardiography ECHO Cardiology Routine Other chest pain 1 Occurrences starting 01/16/2024 until 01/15/2025 [facility] Work Phone: Comment on above: 1 Occurrences starti ng 01/16/2024 until 01/15/2025 ENTERIC BACTERIAL PA CATHIE BY PCR ENTERIC BACTERIAL PANEL BY PCR Lab Routine Bloody stool Proteinuria, unspecified type Weight loss Diarrhea, unspecified type Bruising Fatigue, unspecified type Decreased energy Ordered: 08/09/2022 [facility] Work Phone: Comment on above: Ordered: 08/09/2022 End: 01-15-2025 EXERCISE STRESS ECG (WITHOUT IMAGING) EXERCISE STRESS ECG (WITHOUT IMAGING) Cardiology Routine Other chest pain 1 Occurrences starting 01/16/2024 until 01/15/2025 [facility] Work Phone: Comment on above: 1 Occurrences starti ng 01/16/2024 until 01/15/2025 OCCULT BLD EXAM-DIAG OCCULT BLD EXAM-DIAG Microbiology Routine Bloody stool Proteinuria, unspecified type Weight loss Diarrhea, unspecified type Bruising Fatigue, unspecified type Decreased energy Ordered: 08/09/2022 [facility] Work Phone: Comment on above: Ordered: 08/09/2022 Ova and parasites identified in Unspecified specimen by Light microscopy OVA + PARA MICROSCOPIC Microbiology Routine Bloody stool Proteinuria, unspecified type Weight loss Diarrhea, unspecified type Bruising Fatigue, unspecified type Decreased energy Ordered: 08/09/2022 [facility] Work Phone: Comment on above: Ordered: 08/09/2022 PAP TEST PAP TEST Lab Nedra [facility]ute Encounter for gynecological examination (general) (routine) without abnormal findings Abnormal uterine bleeding (AUB) Screening for human papillomavirus (HPV) Screening for cervical cancer 04/27/2023 11:59 AM EDT [facility] Work Phone: Patient Education [facility] Work Phone: Patient referral [facility] Work Phone: End: 10-13-2023 Polysomnogram POLYSOMNOGRAM (PSG) Procedures Routine Snoring RLS (restless legs syndrome) Witnessed episode of apnea 1 Occurrences starting 10/13/2022 until 10/13/2023 [facility] Work Phone: Comment on above: 1 Occurrences starti ng 10/13/2022 until 10/13/2023 End: 08-13-2023 US LEG VEIN DVT [facility] US LEG VEIN DVT [facility] Vascular Lab Routine Elevated d-dimer 1 Occurrences starting 08/13/2022 until 08/13/2023 [facility] Work Phone: Comment on above: 1 Occurrences starti ng 08/13/2022 until 08/13/2023 [facility] Immunizations Immunization Date Immunization Notes Care Provider Fa [facility] 12-27-2017 influenza virus vaccine, unspecified formulation Ty Gaytan MD Work Phone: [facility] 08-20-2009 tetanus and diphther ia toxoids, adsorbed, preservative free, for adult use (2 Lf of tetanus toxoid and 2 Lf of diphtheria toxoid) Mi Dietz MD Work Phone: [facility] Work Phone: Payers Date Payer Category Payer Self-pay [id number] 2013 Medicaid [id number] 2013 Unknown [id number] 2007 Medicaid [id number] 1985 Unknown [id number] .16.8 40.1.654236.3.579.2.627 1985 Unknown [id number] 40.1.630593.3.579.2.627 Unknown [id number] .16.8 40.1.997832.3.579.2.462 Unknown [id number] 12.16.8 40.1.447530.3.579.2.462 Unknown [id number] 40.1.364668.3.579.2.462 Unknown [id number] 12.16.8 40.1.385932.3.579.2.462 Unknown [id number] 2..8 40.1.576620.3.579.2.462 Unknown [id number] 2.16.8 40.1.236861.3.579.2.462 Unknown [id number] 2.16.8 40.1.297313.3.579.2.462 Unknown [id number] 2.16.8 40.1.320232.3.579.2.462 Unknown [id number] 2.16.8 40.1.646969.3.579.2.462 Unknown [id number] 2.16.8 40.1.390952.3.579.2.462 Unknown [id number] 2.16.8 40.1.136056.3.579.2.462 Unknown [id number] 2.16.8 40.1.949461.3.579.2.462 Unknown [id number] 2.16.8 40.1.900466.3.579.2.462 Unknown [id number] 2.16.8 40.1.469954.3.579.2.462 Unknown [id number] 2.16.8 40.1.845460.3.579.2.462 Unknown [id number] 2.16.8 40.1.569951.3.579.2.462 Unknown [id number] 2.16.8 40.1.960084.3.579.2.462 Unknown [id number] 2.16.8 40.1.334909.3.579.2.462 Unknown [id number] 2.16.8 40.1.895692.3.579.2.462 Unknown [id number] 2.16.8 40.1.706677.3.579.2.462 Unknown [id number] 2.16.8 40.1.538800.3.579.2.462 Social History Date Type Detail Facility Start: 09-15-2021 End: 08-09-2022 Tobacco smoking status NHIS Smokes tobacco daily [facility] History of tobacco use Cigarette Smoker [facility] Start: 09-15-2021 End: 04-15-2023 Cigarettes smoked current (pack per day) - Reported 0.3 [facility] Work Phone: Start: 09-15-2021 End: 08-09-2022 Tobacco use and exposure Smokeless tobacco non-user [facility] Start: 06-10-2022 End: 03-22-2024 Alcohol intake Current non-drinker of alcohol (finding) [facility] Start: 1985 Sex Assigned At Not on file [facility] Start: 05-29-2022 End: 09-29-2022 Exposure to SARS-CoV-2 (event) Not sure [facility] Start: 07-14-2022 End: 02-28-2024 Tobacco smoking status NHIS Unknown if ever smoked [facility] Start: 06-27-[address] [facility] Start: 06-27-[address] [facility] Start: 09-12-[address] [facility] Start: 1985 Sex Assigned At Female [facility] Start: 04-15-2023 End: 07-05-2023 Tobacco use panel [facility] Work Phone: Start: 10-01-2012 Adult Depression Screening Assessment 2 [facility] Work Phone: Sex Assigned At Sex [facility] Functional Status Date Assessment Result Facility 07-02-2024 Functional Status ID band on, Call device within reach, Bed in low position [facility] 06-05-2015 Are you deaf, or do you have serious difficulty hearing No 06/05/2015 2:19 PM EDT Brittney Morales LPN No [facility] 06-05-2015 Are you blind, or do you have serious difficulty seeing, even when wearing glasses No 06/05/2015 2:19 PM EDT Brittney Morales LPN No [facility] 06-05-2015 Do you have serious difficulty walking or climbing stairs Yes 06/05/2015 2:19 PM EDT Brittney Morales LPN Yes [facility] 06-05-2015 Do you have difficul ty dressing or bathing No 06/05/2015 2:19 PM EDT Brittney Morales LPN No [facility] 06-05-2015 Because of a physica l, mental, or emotional condition, do you have difficulty doing errands alone such as visiting a physician's office or shopping No 06/05/2015 2:19 PM EDT Brittney Morales LPN No [facility] Mental Status Date Assessment Result Facility 07-02-2024 Mental Status Oriented x 4 [facility] 01-04-2024 Cognitive function Voice/Name [facility] Work Phone: 08-16-2022 Cognitive function Level Of Cons ciousness Awake;Alert;Appropriate;Fol lows Commands [facility] Work Phone: 07-14-2022 Cognitive function Voice/Name [facility] Work Phone: 06-05-2015 Because of a physica l, mental, or emotional condition, do you have serious difficulty concentrating, remembering, or making decisions No 06/05/2015 2:19 PM EDT Brittney Morales LPN No [facility] Clinical Notes 06-15-2016 to 05-10-2025 Telephone Encounter - Ty Gaytan MD - 05/10/2025 11:00 AM EDTTelephone Encounter - Ty Gaytan MD - 05/10/2025 11:00 AM Pat Oswald APRN.FRONT TENDER - 03/22/2024 11:25 AM EDT Note Date & Type Note Facility 05-10-2025 Telephone encounter Note OK to refill as ordered Ty aGytan MD [facility] 05-10-2025 Miscellaneous Notes OK to refill as ordered Ty Gaytan MD Prescription Refill Information The patient has been identified by name and date of : Yes Caregiver verified no other encounters exist for this prescription request: Yes Caregiver confirmed with patient/requestor that no other refills are due, in the near future, with this provider at this time: Yes The last office visit in the department: 01/16/24 Does the patient have a future office visit with this provider/department: No Requested Prescriptions Pending Prescriptions Disp Refills rivaroxaban (XARELTO) 20 mg tablet 90 tablet 3 Sig: Take 1 tablet by mouth daily with dinner. Per Pharmacy, patient does need soon. Suri Welch May 10, 2025 9:36 AM documented in this encounter [facility] 05-10-2025 Telephone encounter Note Prescription Refill Information The patient has been identified by name and date of : Yes Caregiver verified no other encounters exist for this prescription request: Yes Caregiver confirmed with patient/requestor that no other refills are due, in the near future, with this provider at this time: Yes The last office visit in the department: 01/16/24 Does the patient have a future office visit with this provider/department: No Requested Prescriptions Pending Prescriptions Disp Refills rivaroxaban (XARELTO) 20 mg tablet 90 tablet 3 Sig: Take 1 tablet by mouth daily with dinner. Per Pharmacy, patient does need soon. Suri Welch May 10, 2025 9:36 AM [facility] 12-10-2024 Telephone encounter Note Margie pharmacy operations manager from [facility] pharmacy calling in. She states that she just talked to someone about needing a refill on pt's Rosuvastatin 10 mg tablets and was told that the prescription had been sent to [facility] on 11/12/24. (pt has both pharmacies listed and most recent script for another med went to [facility] pharmacy). Sabre states [facility] told her they do not have the prescription. Since prescription entered into system already by Tejas Mata, verbal prescription refill give to Vanessa pharmacist. [facility] 12-10-2024 Miscellaneous Notes Margie pharmacy operations manager from [facility] pharmacy calling in. She states that she just talked to someone about needing a refill on pt's Rosuvastatin 10 mg tablets and was told that the prescription had been sent to [facility] on 11/12/24. (pt has both pharmacies listed and most recent script for another med went to [facility] pharmacy). Ericare states [facility] told her they do not have the prescription. Since prescription entered into system already by Tejas Mata, verbal prescription refill give to [facility]essa pharmacist. documented in this encounter [facility] 11-12-2024 Telephone encounter Note The following approved medication requests have been transmitted electronically. Requested Prescriptions Pending Prescriptions Disp Refills rosuvastatin (CRESTOR) 10 mg tablet 30 tablet 5 Sig: Take 1 tablet by mouth daily at bedtime. Tejas Mata APRN.CNP [facility] 11-12-2024 Miscellaneous Notes The following approved medication requests have been transmitted electronically. Requested Prescriptions Pending Prescriptions Disp Refills rosuvastatin (CRESTOR) 10 mg tablet 30 tablet 5 Sig: Take 1 tablet by mouth daily at bedtime. Tejas Mata APRN.CNP Pharmacy requesting med. The patient has been identified by name and date of : Yes Caregiver verified no other encounters exist for this prescription request: Yes Caregiver confirmed with patient/requestor that no other refills are due, in the near future, with this provider at this time: Yes The last office visit in the department: 01/16/2024 Does the patient have a future office visit with this provider/department: No Visit date not found Requested Prescriptions Pending Prescriptions Disp Refills rosuvastatin (CRESTOR) 10 mg tablet 30 tablet 5 Sig: Take 1 tablet by mouth daily at bedtime. Mikaela Wallace RN November 12, 2024 10:10 AM documented in this encounter [facility] 11-12-2024 Telephone encounter Note Pharmacy requesting med. The patient has been identified by name and date of : Yes Caregiver verified no other encounters exist for this prescription request: Yes Caregiver confirmed with patient/requestor that no other refills are due, in the near future, with this provider at this time: Yes The last office visit in the department: 01/16/2024 Does the patient have a future office visit with this provider/department: No Visit date not found Requested Prescriptions Pending Prescriptions Disp Refills rosuvastatin (CRESTOR) 10 mg tablet 30 tablet 5 Sig: Take 1 tablet by mouth daily at bedtime. Mikaela Wallace RN November 12, 2024 10:10 AM [facility] 08-17-2024 Telephone encounter Note The following approved medication requests have been transmitted electronically. Requested Prescriptions Pending Prescriptions Disp Refills cholecalciferol, Vitamin D3, (VITAMIN D3) 1,250 mcg (50,000 unit) cap capsule 4 capsule 3 Sig: Take 1 capsule by mouth one time a week. Tejas Mata APRN.ADY [facility] 08-17-2024 Miscellaneous Notes The following approved medication requests have been transmitted electronically. Requested Prescriptions Pending Prescriptions Disp Refills cholecalciferol, Vitamin D3, (VITAMIN D3) 1,250 mcg (50,000 unit) cap capsule 4 capsule 3 Sig: Take 1 capsule by mouth one time a week. Tejas Mata APRN.CNP Prescription Refill Information The patient has been identified by name and date of : Yes Caregiver verified no other encounters exist for this prescription request: Yes Caregiver confirmed with patient/requestor that no other refills are due, in the near future, with this provider at this time: Yes The last office visit in the department: 01/16/24 Does the patient have a future office visit with this provider/department: Yes Requested Prescriptions Pending Prescriptions Disp Refills cholecalciferol, Vitamin D3, (VITAMIN D3) 1,250 mcg (50,000 unit) cap capsule 4 capsule 3 Sig: Take 1 capsule by mouth one time a week. Ania Mustafa LPN August 17, 2024 10:56 AM documented in this encounter [facility] 08-17-2024 Telephone encounter Note Prescription Refill Information The patient has been identified by name and date of : Yes Caregiver verified no other encounters exist for this prescription request: Yes Caregiver confirmed with patient/requestor that no other refills are due, in the near future, with this provider at this time: Yes The last office visit in the department: 01/16/24 Does the patient have a future office visit with this provider/department: Yes Requested Prescriptions Pending Prescriptions Disp Refills cholecalciferol, Vitamin D3, (VITAMIN D3) 1,250 mcg (50,000 unit) cap capsule 4 capsule 3 Sig: Take 1 capsule by mouth one time a week. Ania Mustafa LPN August 17, 2024 10:56 AM [facility] 07-02-2024 Hospital Discharg e instructions Patient Education 07/02/2024 20:49:57 Bronchitis, Antibiotic Treatment (Adult) Bronchitis, Antibiotic Treatment (Adult) Bronchitis is an infection of the air passages (bronchial tubes) in your lungs. It often occurs when you have a cold. This illness is contagious during the first few days and is spread through the air by coughing and sneezing, or by direct contact (touching the sick person and then touching your own eyes, nose, or mouth). Symptoms of bronchitis include cough with mucus (phlegm) and low-grade fever. Bronchitis usually lasts 7 to 14 days. Mild cases can be treated with simple home remedies. More severe infection is treated with an antibiotic. Home care Follow these guidelines when caring for yourself at home: If your symptoms are severe, rest at home for the first 2 to 3 days. When you go back to your usual activities, don't let yourself get too tired. Don't smoke. Also stay away from secondhand smoke. You may use dzew-uwl-woqcgdd medicines to control fever or pain, unless another medicine was prescribed. If you have chronic liver or kidney disease or have ever had a stomach ulcer or gastrointestinal bleeding, talk with your healthcare provider before using these medicines. Also talk to your provider if you are taking medicine to prevent blood clots. Aspirin should never be given to anyone younger than 18 who is ill with a viral infection or fever. It may cause severe liver or brain damage. Your appetite may be low, so a light diet is fine. Stay well hydrated by drinking 6 to 8 glasses of fluids per day. This includes water, soft drinks, sports drinks, juices, tea, or soup. Extra fluids will help loosen mucus in your nose and lungs. Desh-pgw-aglgwae cough, cold, and sore-throat medicines will not shorten the length of the illness, but they may be helpful to reduce your symptoms. Don't use decongestants if you have high blood pressure. Finish all antibiotic medicine. Do this even if you are feeling better after only a few days. Follow-up care Follow up with your healthcare provider, or as advised. If you had an X-ray or ECG (electrocardiogram), a specialist will review it. You will be told of any new test results that may affect your care. If you are age 65 or older, if you smoke, or if you have a chronic lung disease or condition that affects your immune system, ask your healthcare provider about getting a pneumococcal vaccine and a yearly flu shot (influenza vaccine). When to seek medical advice Call your healthcare provider right away if any of these occur: Fever of 100.4 F (38 C) or higher, or as directed by your healthcare provider Coughing up more sputum Weakness, drowsiness, headache, facial pain, ear pain, or a stiff neck Call 911 Call 911 if any of these occur. Coughing up blood Weakness, drowsiness, headache, or stiff neck that get worse Trouble breathing, wheezing, or pain with breathing [phone] [employer] [place] [address]. All rights reserved. This information is not intended as a substitute for professional medical care. Always follow your healthcare professional's instructions. Follow Up Care 07/02/2024 20:37:57 With:TY GAYTAN MD Address: [address] [place] [address]- When:2-4 days [facility] 07-02-2024 Note Discharge Instructions Thank you for allowing [facility] to assist you with your healthcare needs. The following is important discharge information regarding your hospital visit. Diagnosis from Today's Visit Bronchitis Pain in right leg What to Do Next Instructions from Your Care Team Discharge ED Outpatient Vascular Lab - Ordered -- Test Requested: right lower extremity venous study, Lower extremity, Right, Test Reason: Swelling, Mon-Fri 8am-4:30pm: Call [phone] at 7:30am to schedule a same day appointment for testing. Please be aware there may be a short wait time., Weeken... Post Acute Orders No qualifying data available. You Need to Schedule the Following Appointments Follow Up with TY GAYTAN MD When:Within 2-4 days Where:[address] [facility] [place] [address]- Allergies Bactrim Swelling of throat Cymbalta Medications Please ask your primary doctor or pharmacist before taking any other medication not listed, including over the counter drugs, herbal medications, vitamins and or supplements as they may interact with your home medications. What How Much When Instructions Last Dose New azithromycin (azithromycin 250 mg oral tablet) 1 tab(s) by mouth Once a day Duration: 4 Days Printed Prescription Unchanged LORazepam (Ativan 0.5 mg oral tablet) 1 tab(s) by mouth Three (3) times a day as needed for for anxiety Unchanged LORazepam (Ativan) Unchanged rivaroxaban (Xarelto 15 mg oral tablet) 1 tab(s) by mouth Twice daily with meals Duration: 21 Days Unchanged traMADol by mouth Please take this list to your next doctor s visit. Bring all medications you take, including over the counter medications, herbals and other supplements with you to your doctor s visit. Patients and families are reminded to discard old lists and to update any records with all medication providers or retail pharmacies. Medication Leaflets azithromycin (oral/injection) (a TASHIA hatch MYE sin) Azithromycin 3 Day Dose Pack, Azithromycin 5 Day Dose Pack, Zithromax, Zithromax IV, Zithromax TRI-EMIGDIO, Zithromax Z-Emigdio What is the most important information I should know about azithromycin? You should not use azithromycin if you have ever had an allergic reaction, jaundice, or liver problems while taking this medicine. You should not use azithromycin if you have ever had a severe allergic reaction to similar drugs such as clarithromycin, erythromycin, or telithromycin. What is azithromycin? Azithromycin is used to treat many different types of infections caused by bacteria, including infections of the lungs, sinus, throat, tonsils, skin, urinary tract, cervix, or genitals. Azithromycin may also be used for purposes not listed in this medication guide. What should I discuss with my healthcare provider before using azithromycin? You should not use azithromycin if you are allergic to it, or if you have ever had: jaundice or liver problems caused by taking azithromycin; or a severe allergic reaction to similar drugs such as clarithromycin, erythromycin, or telithromycin. Azithromycin oral should not be used to treat pneumonia in people who have: cystic fibrosis; an infection after being in a hospital; an infection in the blood; a weak immune system (caused by diseases such as HIV/AIDS or cancer); or in older adults and those who are ill or debilitated. Tell your doctor if you have ever had: pneumonia; liver or kidney disease; myasthenia gravis; low levels of potassium in your blood; a heart rhythm disorder; or long QT syndrome (in you or a family member). It is not known whether this medicine is effective in treating genital ulcers in women. Tell your doctor if you are or . Taking azithromycin while may cause diarrhea, vomiting, or rash in the nursing baby. Azithromycin is not approved for use by anyone younger than 6 months old. Azithromycin should not be used to treat a throat or tonsil infection in a child younger than 2 years old. How should I take azithromycin? Follow all directions on your prescription label and read all medication guides or instruction sheets. Use the medicine exactly as directed. Azithromycin oral is taken by mouth. Azithromycin injection is given as an infusion into a vein, usually for 2 days before you switch to azithromycin oral. A healthcare provider will give you this injection. You may take azithromycin oral with or without food. Shake the oral suspension (liquid) before you measure a dose. Use the dosing syringe provided, or use a medicine dose-measuring device (not a kitchen spoon). Use this medicine for the full prescribed length of time, even if your symptoms quickly improve. Skipping doses can increase your risk of infection that is resistant to medication. Azithromycin will not treat a viral infection such as the flu or a common cold. Store at room temperature away from moisture and heat. Throw away any unused liquid medicine after 10 days. What happens if I miss a dose? Take the medicine as soon as you can, but skip the missed dose if it is almost time for your next dose. Do not take two doses at one time. What happens if I overdose? Seek emergency medical attention or call the Poison Help line at . What should I avoid while taking azithromycin? Antibiotic medicines can cause diarrhea, which may be a sign of a new infection. If you have diarrhea that is watery or bloody, call your doctor before using anti-diarrhea medicine. Azithromycin could make you sunburn more easily. Avoid sunlight or tanning beds. Wear protective clothing and use sunscreen (SPF 30 or higher) when you are outdoors. What are the possible side effects of azithromycin? Get emergency medical help if you have signs of an allergic reaction (hives, difficult breathing, swelling in your face or throat) or a severe skin reaction (fever, sore throat, burning in your eyes, skin pain, red or purple skin rash that spreads and causes blistering and peeling). Seek medical treatment if you have a serious drug reaction that can affect many parts of your body. Symptoms may include: skin rash, fever, swollen glands, muscle aches, severe weakness, unusual bruising, or yellowing of your skin or eyes. Call your doctor at once if you have: severe stomach pain, diarrhea that is watery or bloody; fast or pounding heartbeats, fluttering in your chest, shortness of breath, and sudden dizziness (like you might pass out); or liver problems--nausea, vomiting, loss of appetite, stomach pain (upper right side), tiredness, itching, dark urine, presley-colored stools, jaundice (yellowing of the skin or eyes); Call your doctor right away if a baby taking azithromycin becomes irritable or vomits while eating or nursing. Older adults may be more likely to have side effects on heart rhythm, including a life-threatening fast heart rate. Common side effects may include: nausea, vomiting; or stomach pain. This is not a complete list of side effects and others may occur. Call your doctor for medical advice about side effects. You may report side effects to FDA at 4-141-EBS-8139. What other drugs will affect azithromycin? Tell your doctor about all your other medicines, especially: colchicine; digoxin; nelfinavir; phenytoin; an antacid that contains aluminum or magnesium--Acid Gone, Gaviscon, Gelusil, Maalox, Milk of Magnesia, Mylanta, Pepcid Complete, Rolaids, Rulox, and others; or a blood thinner--warfarin, Coumadin, Jantoven. This list is not complete. Other drugs may affect azithromycin, including prescription and jhtw-xka-uxvbwln medicines, vitamins, and herbal products. Not all possible drug interactions are listed here. Where can I get more information? Your pharmacist can provide more information about azithromycin. Remember, keep this and all other medicines out of the reach of children, never share your medicines with others, and use this medication only for the indication prescribed. Every effort has been made to ensure that the information provided by [employer] is accurate, up-to-date, and complete, but no guarantee is made to that effect. Drug information contained herein may be time sensitive. [employer] information has been compiled for use by healthcare practitioners and consumers in the [place] and therefore [employer] does not warrant that uses outside of the [place] are appropriate, unless specifically indicated otherwise. [employer] information does not endorse drugs, diagnose patients or recommend therapy. [employer] drug information is an informational resource designed to assist licensed healthcare practitioners in caring for their patients and/or to serve consumers viewing this service as a supplement to, and not a substitute for, the expertise, skill, knowledge and judgment of healthcare practitioners. The absence of a warning for a given drug or drug combination in no way should be construed to indicate that the drug or drug combination is safe, effective or appropriate for any given patient. [employer] does not assume any responsibility for any aspect of healthcare administered with the aid of information [employer] provides. The information contained herein is not intended to cover all possible uses, directions, precautions, warnings, drug interactions, allergic reactions, or adverse effects. If you have questions about the drugs you are taking, check with your doctor, nurse or pharmacist. Copyright 1433-5326 [employer]. Version: 18.01. Revision Date: 03/01/2019. Education Materials Bronchitis, Antibiotic Treatment (Adult) Bronchitis is an infection of the air passages (bronchial tubes) in your lungs. It often occurs when you have a cold. This illness is contagious during the first few days and is spread through the air by coughing and sneezing, or by direct contact (touching the sick person and then touching your own eyes, nose, or mouth). Symptoms of bronchitis include cough with mucus (phlegm) and low-grade fever. Bronchitis usually lasts 7 to 14 days. Mild cases can be treated with simple home remedies. More severe infection is treated with an antibiotic. Home care Follow these guidelines when caring for yourself at home: If your symptoms are severe, rest at home for the first 2 to 3 days. When you go back to your usual activities, don't let yourself get too tired. Don't smoke. Also stay away from secondhand smoke. You may use cqyb-kjb-tlfzemn medicines to control fever or pain, unless another medicine was prescribed. If you have chronic liver or kidney disease or have ever had a stomach ulcer or gastrointestinal bleeding, talk with your healthcare provider before using these medicines. Also talk to your provider if you are taking medicine to prevent blood clots. Aspirin should never be given to anyone younger than 18 who is ill with a viral infection or fever. It may cause severe liver or brain damage. Your appetite may be low, so a light diet is fine. Stay well hydrated by drinking 6 to 8 glasses of fluids per day. This includes water, soft drinks, sports drinks, juices, tea, or soup. Extra fluids will help loosen mucus in your nose and lungs. Bpng-vox-mrfvmpc cough, cold, and sore-throat medicines will not shorten the length of the illness, but they may be helpful to reduce your symptoms. Don't use decongestants if you have high blood pressure. Finish all antibiotic medicine. Do this even if you are feeling better after only a few days. Follow-up care Follow up with your healthcare provider, or as advised. If you had an X-ray or ECG (electrocardiogram), a specialist will review it. You will be told of any new test results that may affect your care. If you are age 65 or older, if you smoke, or if you have a chronic lung disease or condition that affects your immune system, ask your healthcare provider about getting a pneumococcal vaccine and a yearly flu shot (influenza vaccine). When to seek medical advice Call your healthcare provider right away if any of these occur: Fever of 100.4 F (38 C) or higher, or as directed by your healthcare provider Coughing up more sputum Weakness, drowsiness, headache, facial pain, ear pain, or a stiff neck Call 911 Call 911 if any of these occur. Coughing up blood Weakness, drowsiness, headache, or stiff neck that get worse Trouble breathing, wheezing, or pain with breathing [id number] [employer]. [address] [place] [address], [place] [address]. All rights reserved. This information is not intended as a substitute for professional medical care. Always follow your healthcare professional's instructions. Additional Information VACCINATE! IT SAVES LIVES! Members of the community who have not yet received the COVID-19 vaccine and would like to receive it can visit one of [facility] vaccine clinics. There are many vaccine clinic locations within the [facility]. For locations and available times, please visit www.[email or web address].[place]. gov/. It is important to note that some COVID mobile vaccine clinics are held outdoors and may be canceled in rainy or stormy conditions. To learn more about pediatric vaccinations (ages 5-11), we invite you to visit the [facility] webpage. https://www.[employer].org/p ages/3452-Wpfnt-Sfovjpjucaq-Freq yoylns-Njuwu-Jqeqgmsdh.html To learn more about the COVID-19 vaccine, we invite you to visit the CDC website for a list of frequently asked questions. https://www.cdc.gov/coronavirus/ 2019-ncov/vaccines/faq.html [facility] Patient Portal Access Instructions: Stay connected with your healthcare team and access your personal medical information anytime with the [facility] Patient Portal. If you would like a full copy of your medical records please contact the [facility] Medical Records Department Tuesday through Tuesday between 8a.m. and 4:30p.m. Please follow the directions below to access the portal: 1.Access the email account you provided upon registration to the hospital.2.Look for an invitation email from [facility].3.Open the email and access the invitation link: Accept Invitation to [facility]4.Fill in the required pappas to create your account. Sign into [email or web address] with your username and password that you created in the above steps to stay up to date. You can then view a summary of results, a summary of your visits, and the ability to download your summaries to your computer or send the information securely to a physician. Remember that your healthcare information is confidential, so carefully consider who you will allow to register on the [facility] Patient Portal for access to your information. You can also access the [facility] Patient Portal on the [employer]. Simply click on Health Records under Health Data and then click on the [address] logo. HOW TO SAFELY DISPOSE OF PRESCRIPTION MEDICATIONS Please use one of the following methods to safely dispose of your unused medications. 1.Use a drug disposal kit: the drug disposal pouch allows you to safely discard your old and unused drugs. Ask your nurse to give you one when you are discharged.2.Visit a local take-back location: Many local pharmacies and police departments have programs that collect old and unwanted prescription drugs. Call your local pharmacy or go to http://[employer].TheTakes/4I2Jy8o to find one close to you.3.Make use of household items: Use cat litter or old coffee grounds to dispose medications if other options are not available. Mix your drugs with these household products, seal them in an airtight container and throw it into the garbage. Call [facility]: [phone] to be sure your drugs can be disposed of in this way. Some medicines may require a different approach.4.Never flush your medications down the toilet. IF YOU HAVE BEEN PRESCRIBED AN OPIOIDS FOR PAIN If you have been prescribed an opioid (such as hydrocodone, oxycodone or morphine), it is critical to understand the possible side effects and risks of opioid pain medications. Even when taken as directed, opioids can have several side effects including: Tolerance, meaning you might need to take more of a medication for the same pain relief. Nausea, vomiting and/or constipation. Sleepiness, dizziness, dry mouth, confusion, depression or itching. Physical dependence, meaning you have withdrawal symptoms when a medication is stopped ? this can develop within a few days. KNOW YOUR RESPONSIBILITIES It is important to know exactly how much and how often to take the opioid pain medications you are prescribed. Never take opioids in higher amounts or more often than prescribed. Do not combine opioids with alcohol or other drugs that cause drowsiness, such as benzodiazepines, also known as benzos, including diazepam and alprazolam, muscle relaxants or sleep aids. Never sell or share prescription opioids. This is illegal. Store opioids in a secure place and out of reach of others (including children, family, friends and visitors). The last page(s) of this document has been signed and retained as a CHART COPY Signatures Patient Education Materials Bronchitis, Antibiotic Treatment (Adult) Medication Leaflets azithromycin (oral/injection) My discharge plan and instructions have been reviewed and explained to me and IFELIPA JASSIE M understand my current condition and have read and understand these discharge instructions. I have received a written copy of the plan/instructions. If I have questions, I am aware that I should contact my doctor. 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 She had an area under her breast that is hard, painful and warm to the touch. She was requesting an appointment with Dr. Dietz, as he has previously removed lipomas for her, but she knows that this is different. I apologized and advised that Dr. Dietz is out of the office until the for the next 3 weeks and our ELIA[facility]AR is not performing procedures yet. Advised that she should either call her PCP for an appointment or be seen at urgent care. She voiced understanding. Michelle Sam RN June 21, 2024 9:15 AM [facility] 06-21-2024 Miscellaneous Notes Patient called. She had an area under her breast that is hard, painful and warm to the touch. She was requesting an appointment with Dr. Dietz, as he has previously removed lipomas for her, but she knows that this is different. I apologized and advised that Dr. Dietz is out of the office until the for the next 3 weeks and our ELIAZAR is not performing procedures yet. Advised that she should either call her PCP for an appointment or be seen at urgent care. She voiced understanding. Michelle Sam RN June 21, 2024 9:15 AM documented in this encounter [facility] 03-22-2024 Note HNO ID: [id number] Author: PAT CIFUENTES APRN.ADY Service: ? Author Type: Nurse Practitioner Type: Progress Notes Filed: 03/22/2024 12:14 Note Text: This note was created using NoteWriter. Subjective Justin Leo is a 38 year old female. 38 year old female with PMH fibromyalgia, migraines, asthma, DVT, Factor V presents for hand complaints. Acute onset 3 days ago In hand, below 3rd and 4th States she was sitting in grass, and she was ultimately stung by a wasp/hornet She removed the stinger at that time She presents today with continued itching +pain +swelling +clear drainage from hand Denies fever or chills Denies malaise or fatigue Has been using Benadryl The history is provided by the patient. No foreign language interpreter was used. Trauma This is a new problem. The current episode started in the past 7 days. The problem occurs constantly. The problem has been unchanged. Pertinent negatives include no abdominal pain, anorexia, arthralgias, change in bowel habit, chest pain, chills, congestion, coughing, diaphoresis, fatigue, fever, headaches, joint swelling, myalgias, nausea, neck pain, numbness, rash, sore throat, swollen glands, urinary symptoms, vertigo, visual change, vomiting or weakness. Exacerbated by: touching and using hand. Treatments tried: Benadryl. The treatment provided no relief. PAST MEDICAL HISTORY Diagnosis Date Abnormal glandular Papanicolaou smear of cervix 07/2004 Abn. Pap smear (cervix) Cervical cancer (HCC) Dysthymic disorder Depression (non-psychotic) Esophageal reflux Heterozygous factor V Leiden mutation (HCC) Migraines Obesity Unspecified asthma(493.90) PAST SURGICAL HISTORY Procedure Laterality Date ARTHRS KNE SURG W/MENISCECTOMY MED/LAT W/SHVG Right COLONOSCOPY EGD EXC LESION TDN SHTH/JT CAPSL HAND/FNGR Right 08/14/2021 Excision volar ganglion cyst right wrist HYSTERECTOMY HX 03/01/2013 for cervical ca. LAPAROSCOPIC APPENDECTOMY 09/02/2010 for RLQ pain LAPS SURG CHOLECYSTECTOMY W/CHOLANGIOGRAPHY 11/05/2010 Normal IOC OOPHORECTOMY, PART/TOTAL UNILAT/BILAT 2012 Right PAST SURGICAL HISTORY OF 2003, 2002 BACK skin PAST SURGICAL HISTORY OF 2009 arm and hand surgery on right side PAST SURGICAL HISTORY OF Left 2015 left achillies tendon repair. PAST SURGICAL HISTORY OF Right 09/09/2016 tumor cyst removed off right leg. Skin graft 11/29/16. Dr. Henson TONSILLECTOMY PRIMARY/SECONDARY Tonsillectomy ALLERGIES Bactrim [Sulfamethoxazole-Trimethoprim], Cymbalta [Duloxetine], Desyrel [Trazodone Hcl], Horseradish, Keflex [Cephalexin], and Shellfish MEDICATIONS cholecalciferol, Vitamin D3, (VITAMIN D3) 1,250 mcg (50,000 unit) cap capsule Take 1 capsule by mouth one time a week. rosuvastatin (CRESTOR) 10 mg tablet Take 1 tablet by mouth daily at bedtime. rivaroxaban (XARELTO) 20 mg tablet Take 1 tablet by mouth daily with dinner. predniSONE (DELTASONE) 10 mg tablet Take 4 tabs daily for 3 days, then 2 tabs daily for 3 days, then 1 tab daily for 3 days with food. [START ON 03/24/2024] doxycycline (VIBRA-TABS) 100 mg tablet Take 1 tablet by mouth two times a day for 7 days. Patient should start on March 24, 2024. hydrocortisone 2.5 % cream Apply 1 application to affected area three times a day. Location: right hand loratadine (CLARITIN) 10 mg tablet Take 1 tablet by mouth once daily. FAMILY HISTORY Problem Relation Age of Onset Thyroid Mother Arthritis Mother other (depression) Mother other (substance abuse) Mother other (fibromyalgia) Mother Heart Father Coronary Artery Disease Father Fatal [place] age 34 other (drug overdose) Father Depression Sister Thyroid Sister Diabetes Maternal Grandmother Colon Cancer Maternal Grandmother Cancer Maternal Grandmother melanoma Hypertension Maternal Grandmother Arthritis Maternal Grandmother Heart Maternal Grandfather [place] Coronary Artery Disease Maternal Grandfather Fatal [place] Diabetes Maternal Aunt Cancer Maternal Uncle SKIN CANCER Diabetes Maternal Uncle Cancer Maternal Uncle great uncle. Cancer Paternal Aunt LEUKEMIA, AGE 2 Social History Tobacco Use Smoking status: Every Day Packs/day: 0.25 Years: 17.00 Additional pack years: 0.00 Total pack years: 4.25 Types: Cigarettes Smokeless tobacco: Never Vaping Use Vaping Use: Never used Substance Use Topics Alcohol use: No Drug use: No Review of Systems Constitutional: Negative for chills, diaphoresis, fatigue and fever. HENT: Negative for congestion and sore throat. Respiratory: Negative for cough. Cardiovascular: Negative for chest pain. Gastrointestinal: Negative for abdominal pain, anorexia, change in bowel habit, nausea and vomiting. Musculoskeletal: Negative for arthralgias, joint swelling, myalgias and neck pain. Skin: Positive for wound. Negative for rash. Neurological: Negative for vertigo, weakness, numbness and headaches. Hematolog (more content not included)... [facility] 03-22-2024 History of Presen t illness Narrative This note was created using Anagnosticsriter. Subjective Justin Leo is a 38 year old female. 38 year old female with PMH fibromyalgia, migraines, asthma, DVT, Factor V presents for hand complaints. Acute onset 3 days ago In hand, below 3rd and 4th States she was sitting in grass, and she was ultimately stung by a wasp/hornet She removed the stinger at that time She presents today with continued itching +pain +swelling +clear drainage from hand Denies fever or chills Denies malaise or fatigue Has been using Benadryl The history is provided by the patient. No foreign language interpreter was used. Trauma This is a new problem. The current episode started in the past 7 days. The problem occurs constantly. The problem has been unchanged. Pertinent negatives include no abdominal pain, anorexia, arthralgias, change in bowel habit, chest pain, chills, congestion, coughing, diaphoresis, fatigue, fever, headaches, joint swelling, myalgias, nausea, neck pain, numbness, rash, sore throat, swollen glands, urinary symptoms, vertigo, visual change, vomiting or weakness. Exacerbated by: touching and using hand. Treatments tried: Benadryl. The treatment provided no relief. PAST MEDICAL HISTORY Diagnosis Date Abnormal glandular Papanicolaou smear of cervix 07/2004 Abn. Pap smear (cervix) Cervical cancer (HCC) Dysthymic disorder Depression (non-psychotic) Esophageal reflux Heterozygous factor V Leiden mutation (HCC) Migraines Obesity Unspecified asthma(493.90) PAST SURGICAL HISTORY Procedure Laterality Date ARTHRS KNE SURG W/MENISCECTOMY MED/LAT W/SHVG Right COLONOSCOPY EGD EXC LESION TDN SHTH/JT CAPSL HAND/FNGR Right 08/14/2021 Excision volar ganglion cyst right wrist HYSTERECTOMY HX 03/01/2013 for cervical ca. LAPAROSCOPIC APPENDECTOMY 09/02/2010 for RLQ pain LAPS SURG CHOLECYSTECTOMY W/CHOLANGIOGRAPHY 11/05/2010 Normal IOC OOPHORECTOMY, PART/TOTAL UNILAT/BILAT 2012 Right PAST SURGICAL HISTORY OF 2003, 2002 BACK skin PAST SURGICAL HISTORY OF 2009 arm and hand surgery on right side PAST SURGICAL HISTORY OF Left 2015 left achillies tendon repair. PAST SURGICAL HISTORY OF Right 09/09/2016 tumor cyst removed off right leg. Skin graft 11/29/16. Dr. Henson TONSILLECTOMY PRIMARY/SECONDARY <AGE 12 Tonsillectomy ALLERGIES Bactrim [Sulfamethoxazole-Trimethoprim], Cymbalta [Duloxetine], Desyrel [Trazodone Hcl], Horseradish, Keflex [Cephalexin], and Shellfish MEDICATIONS cholecalciferol, Vitamin D3, (VITAMIN D3) 1,250 mcg (50,000 unit) cap capsule Take 1 capsule by mouth one time a week. rosuvastatin (CRESTOR) 10 mg tablet Take 1 tablet by mouth daily at bedtime. rivaroxaban (XARELTO) 20 mg tablet Take 1 tablet by mouth daily with dinner. predniSONE (DELTASONE) 10 mg tablet Take 4 tabs daily for 3 days, then 2 tabs daily for 3 days, then 1 tab daily for 3 days with food. [START ON 03/24/2024] doxycycline (VIBRA-TABS) 100 mg tablet Take 1 tablet by mouth two times a day for 7 days. Patient should start on March 24, 2024. hydrocortisone 2.5 % cream Apply 1 application to affected area three times a day. Location: right hand loratadine (CLARITIN) 10 mg tablet Take 1 tablet by mouth once daily. FAMILY HISTORY Problem Relation Age of Onset Thyroid Mother Arthritis Mother other (depression) Mother other (substance abuse) Mother other (fibromyalgia) Mother Heart Father Coronary Artery Disease Father Fatal [place] age 34 other (drug overdose) Father Depression Sister Thyroid Sister Diabetes Maternal Grandmother Colon Cancer Maternal Grandmother Cancer Maternal Grandmother melanoma Hypertension Maternal Grandmother Arthritis Maternal Grandmother Heart Maternal Grandfather [place] Coronary Artery Disease Maternal Grandfather Fatal [place] Diabetes Maternal Aunt Cancer Maternal Uncle SKIN CANCER Diabetes Maternal Uncle Cancer Maternal Uncle great uncle. Cancer Paternal Aunt LEUKEMIA, AGE 2 Social History Tobacco Use Smoking status: Every Day Packs/day: 0.25 Years: 17.00 Additional pack years: 0.00 Total pack years: 4.25 Types: Cigarettes Smokeless tobacco: Never Vaping Use Vaping Use: Never used Substance Use Topics Alcohol use: No Drug use: No Review of Systems Constitutional: Negative for chills, diaphoresis, fatigue and fever. HENT: Negative for congestion and sore throat. Respiratory: Negative for cough. Cardiovascular: Negative for chest pain. Gastrointestinal: Negative for abdominal pain, anorexia, change in bowel habit, nausea and vomiting. Musculoskeletal: Negative for arthralgias, joint swelling, myalgias and neck pain. Skin: Positive for wound. Negative for rash. Neurological: Negative for vertigo, weakness, numbness and headaches. Hematological: Negative for adenopathy. Does not bruise/bleed easily. Psychiatric/Behavioral: Negative for agitation and behavioral problems. Objective BP 100/70 Pulse 89 Temp 36.7 C (98 F) Resp 20 Wt 102 kg (224 lb 13.9 oz) LMP 01/22/2013 SpO2 96% BMI 41.13 kg/m Physical Exam Vitals and nursing note reviewed. Constitutional: General: She is not in acute distress. Appearance: Normal appearance. She is normal weight. She is not ill-appearing, toxic-appearing or diaphoretic. HENT: Head: Normocephalic and atraumatic. Right Ear: Ear canal and external ear normal. Left Ear: Ear canal and external ear normal. Nose: Nose normal. No congestion or rhinorrhea. Mouth/Throat: Mouth: Mucous membranes are moist. Pharynx: No oropharyngeal exudate or posterior oropharyngeal erythema. Eyes: General: Right eye: No discharge. Left eye: No discharge. Extraocular Movements: Extraocular movements intact. Conjunctiva/sclera: Conjunctivae normal. Pupils: Pupils are equal, round, and reactive to light. Cardiovascular: Rate and Rhythm: Normal rate and regular rhythm. Pulses: Normal pulses. Heart sounds: Normal heart sounds. No murmur heard. No friction rub. Pulmonary: Effort: Pulmonary effort is normal. No respiratory distress. Breath sounds: Normal breath sounds. No stridor. No wheezing, rhonchi or rales. Chest: Chest wall: No tenderness. Abdominal: General: Abdomen is flat. There is no distension. Palpations: Abdomen is soft. There is no mass. Tenderness: There is no abdominal tenderness. There is no right CVA tenderness, left CVA tenderness, guarding or rebound. Hernia: No hernia is present. Musculoskeletal: General: No swelling, tenderness, deformity or signs of injury. Normal range of motion. Cervical back: Normal range of motion and neck supple. No rigidity. Right lower leg: No edema. Left lower leg: No edema. Lymphadenopathy: Cervical: No cervical adenopathy. Skin: General: Skin is warm and dry. Capillary Refill: Capillary refill takes less than 2 seconds. Coloration: Skin is not jaundiced or pale. Findings: No bruising, erythema, lesion or rash. Comments: Right hand with small raised erythematic nodular like with center inoculation. No red streaking. No drainage. No crepitus. Full active and passive ROM +neuro +sensation Neurological: General: No focal deficit present. Mental Status: She is alert and oriented to person, place, and time. Cranial Nerves: No cranial nerve deficit. Sensory: No sensory deficit. Motor: No weakness. Coordination: Coordination normal. Gait: Gait normal. Psychiatric: Mood and Affect: Mood normal. Behavior: Behavior normal. Thought Content: Thought content normal. Judgment: Judgment normal. Assessment and Plan ASSESSMENT/PLAN: 1. Bee sting, accidental or unintentional, initial encounter - ICD9: 989.5, E905.3, ICD10: T63.441A X 3 days ago Endorses she removed the stinger Inflammatory vs. Infection More inflammatory given less than 3 days of sx RX Prednisone taper RX Claritin RX Hydrocortisone cream Provided safety net ATB for patient concerns of infection. Discussed at 72 hours sx are likely irritant inflammatory in process. Pat Cifuentes APRN.FRONT TENDER documented in this encounter [facility] 02-28-2024 Discharge summary Note Date/Time February 28, 2024 10:10pm [facility] Medical Records Department [address] [place] [id number] Emergency Department Summary 02/28/24 MR#: [id number] Acct: [id number] Name: JUSTIN LEO Rep #:[id number] : 1985 38 From: Lewis Schaeffer MD PCP: Dr. Ty Gaytan MD Status:RE G ER Location: ED HPI History of Present Illness Chief Complaint: Lower Extremity Injury Detail of Chief Complaint: Injury left foot yesterday Informant: patient Occured/Mechanism Mechanism/Context: Yes injury and Yes blunt trauma Comment: Patient went to sit on the seat of a swing. Missed and her foot becameentangled in a toy for her son. Onset/Context/Timing Onset: Yesterday Context: Sudden Onset Timing: Continuous Quality of Pain: Throbbing Location: Lateral left foot Current Severity: Mild Maximum Severity: Moderate Worsened by: Weightbearing Relieved by: Nothing Associated Symptoms Associated Symptoms: Negative for Parasthesia, Weakness or Loss of Funtion Narrative Narrative: Patient is a 38-year-old female. She has history of factor V Leiden and pulmonary embolus. She is noncompliant with her medication. She denies paresthesia, anesthesia or motor weakness. She is on anticoagulant, Xarelto. Prior similar symptoms: No Recent Illness/Hospitalization: No PFSH PFSH Medical History Anxiety Asthma Cellulitis Cervical cancer Chest pain Depression DVT (deep venous thrombosis) Esophageal reflux Factor V Leiden Family history of skin cancer Fracture of head of left radius Headache, migraine Hidradenitis Memory changes Non compliance w medication regimen Non-healing right groin open wound Obesity Right-sided chest pain Smoker SOB (shortness of breath) Home Medications rivaroxaban 20 mg tablet (Xarelto) 20 mg PO DAILY 02/24/24 [History Last Taken Unknown] Allergy/AdvReac Type Severity Reaction Status Date / Time shellfish derived Allergy Intermediate Rash Verified 02/28/24 21:47 horseradish Allergy Angioedema Verified 02/28/24 21:47 Iodinated Contrast Media Allergy Rash Verified 02/28/24 21:47 [CONTRASTS] sulfamethoxazole Allergy Angioedema, Verified 02/28/24 21:47 [From Bactrim] RASH trimethoprim [From Bactrim] Allergy Angioedema, Verified 02/28/24 21:47 RASH cephalexin [From Keflex] AdvReac Intermediate Other Verified 02/28/24 21:47 duloxetine [From Cymbalta] AdvReac Intermediate Other Verified 02/28/24 21:47 trazodone AdvReac Intermediate Other Verified 02/28/24 21:47 Family History Mother Thyroid disorder Arthritis Depression Substance abuse Fibromyalgia Father , 34 Heart disease CAD (coronary artery disease) Myocardial infarction, Onset Age: 34 Drug overdose Sister Depression Thyroid disorder Grandmother Arthritis Hypertension Cancer melanoma Colon cancer Diabetes Grandfather Myocardial infarction CAD (coronary artery disease) Aunt Diabetes Uncle Cancer skin Diabetes Aunt Cancer leukemia Surgical History History of cholecystectomy History of hysterectomy with unilateral oophorectomy History of surgery on wrist History of tonsillectomy and adenoidectomy Hx of Achilles tendon repair Hx of appendectomy Hx of arthroscopy of right knee Hx of tympanostomy tubes Social History Smoking Status: Current every day smoker tobacco type: cigarettes alcohol intake: never substance use type: does not use ROS ROS ED Musculoskeletal Musculoskeletal: Denies arthralgias, back pain or myalgias Neurologic Neurologic: Denies paresthesias or weakness Hematologic/Lymphatic Hematologic/Lymphatic: Denies easy bleeding or easy bruising EXAM Physical Exam Const Vital Signs: 02/28/24 21:47 Temperature 97 F L Temperature Source Temporal Pulse Rate 80 Respiratory Rate 16 Blood Pressure 125/62 H Blood Pressure Mean 83 Pulse Ox 99 Positive well nourished and well developed General Appearance ED: well developed and NAD HEENT normocephalic and atraumatic Resp normal respiratory effort Cardio regular rate and regular rhythm Back/Spine no CVA tenderness Thoracic Spine / Upper Back: Negative for thoracic spinal tenderness Lumbar Spine / Lower Back: Negative for lumbar spinal tenderness Extremity full ROM; Negative for normal to inspection Extremity Narrative: There is swelling with pain the patient the base of the fourth and fifth metatarsal. There is pain outpatient over the little toe. There is no pain to palpation over the lateral or medial malleolus. DP pulses palpable. Neuro oriented x3, CN's II-XII intact bilaterally, moves all extremities and no sensory deficits noted Sensorium / Orientation: alert Psych mental status grossly normal Skin Skin Narrative: Bruising left little toe MDM MDM MDM Narrative Medical decision making narrative: X-ray of the foot was obtained to evaluate for strain/sprain versus fracture. History & Record Review Additional record(s) reviewed:: Prior outpatient record (History of PE. Patientis on Xarelto.), Prior ED visit and Prior labs Radiography Chest X-Ray - ED: Read by ED Physician (Three-view x-ray of the left foot is negative for fracture, dislocation etc.) Discharge Plan Triage Chief Complaint: Lower Extremity Injury ED Provider: Lewis Schaeffer Dx/Rx/DC Orders Clinical Impression: Factor V Leiden, Hx pulmonary embolism, Strain of left foot Instructions: ED Foot Sprain Prescriptions: No Action Xarelto 20 mg tablet 20 mg PO DAILY Patient Comments: Take 1 tablet by mouth daily with dinner. Primary Care Provider: Ty Gaytan Referrals: Ty Gaytan MD [Primary Care Provider] - 1 Week if not improving Activity Restrictions/Additional Instructions: 1. Apply ice 6-10 times a day for the next 3 to 5 days 2. Based on your past medical history recommend Tylenol for pain. Disposition Disposition: Home, Self Care What to do if you have Problems For any increased pain, shortness of breath, bleeding, nausea or vomiting, chestpain, or any unexpected problems, contact your Primary Care Provider. Call [facility] ([phone]) or report to the closest Emergency Room. Call 911 if necessary. 02/28/242213 <Electronically signed by Lewis Schaeffer MD> Cosigner Signature (if applicable): CC: Dr. Ty Gaytan MD ~ Signed [facility] Work Phone: 1(137) 392-277504-30-2024 Hospital Discharge instructions Additional Instructions 1. Apply ice 6-10 times a day for the next 3 to 5 days 2. Based on your past medical history recommend Tylenol for pain.[facility] Work Phone: 1(345) 227-793704-02-2024 Miscellaneous Notes* Telephone Encounter - Sofia Muse RN - 01/31/2024 11:35 AM EDT Patient called and the below instructions reviewed with the patient. Sofia Micha, RN You are scheduled for a stress test on 02/06/24 at 2:40pm. Please follow below instructions: *NOTHING BY MOUTH 4 HOURS prior to this test. (you may have sips of water) *NO CAFFEINE FOR 24 HOURS PRIOR TO TESTING (including TEA even decaf, COFFEE- even decaf, CHOCOLATE, BRITTNY- even decaf) *Do NOT take MEDICATIONS CONTAINING CAFFEINE/XANTHINE for 24 HOURS prior to testing: Theophylline, Trental, Excedrin, Anacin, Goody Powders, No Doz, Vivarin, Midol, Diurex, Fiorinal, Fioricet, Esgic (butalbital) *Do NOT take Calcium Channel Blockers 24 HOURS prior to test. *Do NOT take Beta blockers 24 HOURS prior to test UNLESS your doctor tells you otherwise. *Do NOT use the following medications 48 HOURS prior to this test: Viagra(Sildenafil citrate), Cialis(Tadalafil), Vardenafil (Levitra, Stanyx), Avanfil (Stendra). *Do not take any of these meds prior to test unless provider directs you otherwise; Nitroglycerine (ex:Deponit, Nitrostat) Isosorbide (ex:Isordil, Sorbitrate,Imdur,Ismo). Medications on your list you should hold for 24 HOURS: None *All other medications may be taken as you normally would. *Guidelines for Diabetics: If you take insulin to control your blood sugar, ask you physician what amount you should take the day of the test. If you take pills to control blood sugar, on the day of the test, do NOT take them until AFTER the test. *FAILURE TO FOLLOW THESE INSTRUCTIONS WILL RESULT IN HAVING TO RESCHEDULE THE TEST. *Please wear comfortable clothes with a short-sleeved shirt and comfortable walking shoes. You willbe on the treadmill for this test. *If you use an inhaler, bring it along with you just in case. Please check in on the first floor at Radiology: [address]; [place] [address] * If you need to cancel or reschedule this test or have any questions regarding this test, please call [phone]. documented in this encounterSelect Medical [facility]03-20-2024 Miscellaneous Notes* Telephone Encounter - Henny Cook APRN.CNP - 01/18/2024 10:58 AM EDT Adipex would not be a good choice at this time due to cardiac symptoms. Recommend waiting until cardiology evaluation. Crestor has been sent to pharmacy. Get repeat CMP in 3 months and fasting lipid in 6 months. The following approved medication requests have been transmitted electronically. Requested Prescriptions Signed Prescriptions Disp Refills cholecalciferol, Vitamin D3, (VITAMIN D3) 1,250 mcg (50,000 unit) cap capsule 4 capsule 3 Sig: Take 1 capsule by mouth one time a week. Authorizing Provider: HENNY COOK rosuvastatin (CRESTOR) 10 mg tablet 30 tablet 5 Sig: Take 1 tablet by mouth daily at bedtime. Authorizing Provider: HENNY COOK APRN.CNP * Telephone Encounter - Melina Sales LPN - 01/18/2024 10:49 AM EDT Patient notified of results, verbalizes understanding of instructions. Pt decided to have the cholesterol lowering medication and have it sent to [facility]. Pt also has a cardiology appt on February 07 and testing on February 05. Pt also would like a refill on Adipex. Last fill was 03/31/21. Advised Pt with the heart testing, this may not be the time to start the medication. Melina Sales LPN * Telephone Encounter - Henny Cook APRN.CNP - 01/18/2024 9:18 AM EDT Can you please call the patient and let her know I reviewed her lab results. no anemia is noted. Vitamin D was very low, I would recommend taking a once weekly supplement and rechecking labs in 3 months. I sent prescription to [facility]. LDL cholesterol was elevated. I would recommend working on lifestyle changes at home or she may consider taking a cholesterol-lowering medication. Try to decrease processed foods in the diet, increase lean protein, vegetables, and get some form exercise. I would still recommend completing cardiac testing as discussed. Please let me know what she prefers in regards to cholesterol. Thank you. Henny Cook APRN.CNP The following approved medication requests have been transmitted electronically. Requested Prescriptions Signed Prescriptions Disp Refills cholecalciferol, Vitamin D3, (VITAMIN D3) 1,250 mcg (50,000 unit) cap capsule 4 capsule 3 Sig: Take 1 capsule by mouth one time a week. Authorizing Provider: HENNY COOK APRN.CNP documented in this encounterSelect Medical [facility]03-18-2024 Instructions* Patient Instructions* Henny Cook APRN.CNP - 01/16/2024 10:55 AM EDT Get labs completed Complete Echo and stress test Consult placed for neurology and cardiology Office will contact [facility] Cardiology to get appt Red flag symptoms go to ER Follow up pending test results or sooner as needed. documented in this encounterSelect Medical [facility]03-18-2024 History of Present illness Narrative* Henny Cook APRN.CNP - 01/16/2024 10:40 AM EDT This is a 38 year old female who presents today with: Patient presents with: Follow Up: ER follow up HISTORY OF PRESENT ILLNESS: Justin Leo is a 38 year old female. Patient presents with: Follow Up: ER follow up HOSPITAL/ER FOLLOW UP: Reason for visit: Chest pain, history of factor V Leiden, SOB Which facility: [facility] ER Date of visit: 01/04/24 Diagnosis: Chest pain, factor V Leiden, noncompliance with medication regiment, headache, migraine,elevated D-dimer. Testing done: CBC, CMP normal. Initial D-dimer slightly elevated 0.54. Troponin negative. D&C negative. EKG showed normal sinus rhythm. Chest x-ray normal. Treatment given: Developed a headache while in the ER, given Compazine and Benadryl IV. CTA negative for PE. Current symptoms: Was off of Xarelto for 1 month. Refers that she will get muscle pains and will stop medication for a month or so. Still getting sternal chest pain. Episodes will be random. Chest pain will be sharp, lasting minutes to hours. Will have left jaw numbness/pain which will radiate intothe left arm. Mood is well controlled, denies any increased anxiety. Memory: Has been on going for the past year. Difficulty with short term memory and word recall. Hasforgotten where she is driving in the past. Refers that her family has been noticed more memory changes. PAST MEDICAL HISTORY: PAST MEDICAL HISTORY Diagnosis Date Abnormal glandular Papanicolaou smear of cervix 07/2004 Abn. Pap smear (cervix) Cervical cancer (HCC) Dysthymic disorder Depression (non-psychotic) Esophageal reflux Heterozygous factor V Leiden mutation (HCC) Migraines Obesity Unspecified asthma(493.90) PAST SURGICAL HISTORY Procedure Laterality Date ARTHRS KNE SURG W/MENISCECTOMY MED/LAT W/SHVG Right COLONOSCOPY EGD EXC LESION TDN SHTH/JT CAPSL HAND/FNGR Right 08/14/2021 Excision volar ganglion cyst right wrist HYSTERECTOMY HX 03/01/2013 for cervical ca. LAPAROSCOPIC APPENDECTOMY 09/02/2010 for RLQ pain LAPS SURG CHOLECYSTECTOMY W/CHOLANGIOGRAPHY 11/05/2010 Normal IOC OOPHORECTOMY, PART/TOTAL UNILAT/BILAT 2012 Right PAST SURGICAL HISTORY OF 2003, 2002 BACK skin PAST SURGICAL HISTORY OF 2009 arm and hand surgery on right side PAST SURGICAL HISTORY OF Left 2015 left achillies tendon repair. PAST SURGICAL HISTORY OF Right 09/09/2016 tumor cyst removed off right leg. Skin graft 11/29/16. Dr. Henson TONSILLECTOMY PRIMARY/SECONDARY <AGE 12 Tonsillectomy ALLERGIES Bactrim [Sulfamethoxazole-Trimethoprim], Cymbalta [Duloxetine], Desyrel [Trazodone Hcl], Horseradish, Keflex [Cephalexin], and Shellfish MEDICATIONS Current Outpatient Medications Medication Sig rivaroxaban (XARELTO) 20 mg tablet Take 1 tablet by mouth daily with dinner. No current facility-administered medications for this visit. FAMILY HISTORY Problem Relation Age of Onset Thyroid Mother Arthritis Mother other (depression) Mother other (substance abuse) Mother other (fibromyalgia) Mother Heart Father Coronary Artery Disease Father Fatal [place] age 34 other (drug overdose) Father Depression Sister Thyroid Sister Diabetes Maternal Grandmother Colon Cancer Maternal Grandmother Cancer Maternal Grandmother melanoma Hypertension Maternal Grandmother Arthritis Maternal Grandmother Heart Maternal Grandfather [place] Coronary Artery Disease Maternal Grandfather Fatal [place] Diabetes Maternal Aunt Cancer Maternal Uncle SKIN CANCER Diabetes Maternal Uncle Cancer Maternal Uncle great uncle. Cancer Paternal Aunt LEUKEMIA, AGE 2 Social History Tobacco Use Smoking status: Every Day Packs/day: 0.25 Years: 17.00 Additional pack years: 0.00 Total pack years: 4.25 Types: Cigarettes Smokeless tobacco: Never Vaping Use Vaping Use: Never used Substance Use Topics Alcohol use: No Drug use: No REVIEW OF SYSTEMS GENERAL: No weight loss, malaise or fevers/chills HEENT: Negative for frequent or significant headaches, No changes in hearing or vision. NECK: Negative for lumps, goiter, pain and significant neck swelling RESPIRATORY: Negative for cough, hemoptysis, wheezing, dyspnea or shortness of breath CARDIOVASCULAR: + Chest Pain GI: No nausea, vomiting, or diarrhea/constipation. No hematochezia/melena. No heartburn or reflux symptoms. : No history of dysuria, frequency or incontinence MUSCULOSKELETAL: Negative for joint pain or swelling. SKIN: Negative for lesions, rash, and itching ENDOCRINE: Negative for cold or heat intolerance, polyuria, polydipsia and goiter NEURO: + memory changes MOOD: Negative for depression, anxiety, or suicidal ideation. EXAM: BP 126/60 Pulse 74 Resp 16 Wt 103 kg (227 lb) LMP 01/22/2013 SpO2 100% BMI 41.52 kg/m PHYSICAL EXAM: General Appearance: Well appearing, alert, in no acute distress, well-hydrated, well nourished. Skin: Skin color, texture, turgor normal, no suspicious rashes or lesions. Head: Normocephalic, no masses, lesions, tenderness or abnormalities. Eyes: Anicteric sclera. Pupils are equally round and reactive to light. Extraocular movements are intact. Lungs: Lungs clear to auscultation. No wheezing, rhonchi, rales. Heart: RRR without murmur, gallop, or rubs. No ectopy. Extremities: No deformities, edema, skin discoloration, clubbing or cyanosis. Good capillary refill. Peripheral Pulses: Normal, Capillary refill <2secs, strong peripheral pulses, Pulses palpable. Neurologic: Gait normal. Reflexes normal and symmetric. Sensation grossly intact. ASSESSMENT/PLAN: 1. Hospital discharge follow-up - ICD9: V67.59, ICD10: Z09 (primary diagnosis) - Still having on going chest pain since discharge. 2. Non compliance w medication regimen - ICD9: V15.81, ICD10: Z91.148 - Stressed importance of taking Xarelto as prescribed. 3. Heterozygous factor V Leiden mutation (HCC) - ICD9: 289.81, ICD10: D68.51 - Stable. 4. Other chest pain - ICD9: 786.59, ICD10: R07.89 Chest pain of unclear etiology, patient with significant risk factor(s) of smoking - Get labs, echo, and stress test completed. - Recommend consult with cardiology, would like to stay local, will send request to [facility] - Red flag symptoms given to patient, she verbalizes understanding when to seek emergency care. - ECHO - PERFLUTREN LIPID MICROSPHERES 1.1 MG/ML INJECTION IN NS 10 ML - SODIUM CHLORIDE 0.9 % (FLUSH) INJECTION SYRINGE - EXERCISE STRESS ECG (WITHOUT IMAGING) - MAGNESIUM BLD - CONSULT TO CARDIOLOGY 5. Memory changes - ICD9: 780.93, ICD10: R41.3 - Get labs completed. - Recommend consult with Neurology - CONSULT TO NEUROLOGY - COMP METABOLIC PANEL - VITAMIN B12 BLOOD - FOLATE SERUM - TSH BLD - T4 FREE/FREE THYROX - CBC + DIFF - VITAMIN D 25 HYDROXY 6. Screening cholesterol level - ICD9: V77.91, ICD10: Z13.220 - LIPID PANEL, NONFASTING Follow-up pending test results or sooner as needed. Discussed treatment plan and patient voices understanding. Patient's questions answered appropriately. Medications and potential side effects were discussed and patient voices understanding. Henny Cook APRN.ADY This note was partially generated using [employer] recognition system. Note was reviewed for accuracy. There may be minor misspellings or grammar miscues with [employer] voice recognition. documented in this encounterElizabeth Ville [id number] NoteHNO ID: [id number] Author: HENNY COOK APRN.FRONT TENDER Service: ? Author Type: Nurse Practitioner Type: Progress Notes Filed: 01/16/2024 11:54 Note Text: This is a 38 year old female who presents today with: Patient presents with: Follow Up: ER follow up HISTORY OF PRESENT ILLNESS: Justin Leo is a 38 year old female. Patient presents with: Follow Up: ER follow up HOSPITAL/ER FOLLOW UP: Reason for visit: Chest pain, history of factor V Leiden, SOB Which facility: [facility] ER Date of visit: 01/04/24 Diagnosis: Chest pain, factor V Leiden, noncompliance with medication regiment, headache, migraine, elevated D-dimer. Testing done: CBC, CMP normal. Initial D-dimer slightly elevated 0.54. Troponin negative. DANDC negative. EKG showed normal sinus rhythm. Chest x-ray normal. Treatment given: Developed a headache while in the ER, given Compazine and Benadryl IV. CTA negative for PE. Current symptoms: Was off of Xarelto for 1 month. Refers that she will get muscle pains and will stop medication for a month or so. Still getting sternal chest pain. Episodes will be random. Chest pain will be sharp, lasting minutes to hours. Will have left jaw numbness/pain which will radiate into the left arm. Mood is well controlled, denies any increased anxiety. Memory: Has been on going for the past year. Difficulty with short term memory and word recall. Has forgotten where she is driving in the past. Refers that her family has been noticed more memory changes. PAST MEDICAL HISTORY: PAST MEDICAL HISTORY Diagnosis Date Abnormal glandular Papanicolaou smear of cervix 07/2004 Abn. Pap smear (cervix) Cervical cancer (HCC) Dysthymic disorder Depression (non-psychotic) Esophageal reflux Heterozygous factor V Leiden mutation (HCC) Migraines Obesity Unspecified asthma(493.90) PAST SURGICAL HISTORY Procedure Laterality Date ARTHRS KNE SURG W/MENISCECTOMY MED/LAT W/SHVG Right COLONOSCOPY EGD EXC LESION TDN SHTH/JT CAPSL HAND/FNGR Right 08/14/2021 Excision volar ganglion cyst right wrist HYSTERECTOMY HX 03/01/2013 for cervical ca. LAPAROSCOPIC APPENDECTOMY 09/02/2010 for RLQ pain LAPS SURG CHOLECYSTECTOMY W/CHOLANGIOGRAPHY 11/05/2010 Normal IOC OOPHORECTOMY, PART/TOTAL UNILAT/BILAT 2012 Right PAST SURGICAL HISTORY OF 2003, 2002 BACK skin PAST SURGICAL HISTORY OF 2009 arm and hand surgery on right side PAST SURGICAL HISTORY OF Left 2015 left achillies tendon repair. PAST SURGICAL HISTORY OF Right 09/09/2016 tumor cyst removed off right leg. Skin graft 11/29/16. Dr. Henson TONSILLECTOMY PRIMARY/SECONDARY Tonsillectomy ALLERGIES Bactrim [Sulfamethoxazole-Trimethoprim], Cymbalta [Duloxetine], Desyrel [Trazodone Hcl], Horseradish, Keflex [Cephalexin], and Shellfish MEDICATIONS Current Outpatient Medications Medication Sig rivaroxaban (XARELTO) 20 mg tablet Take 1 tablet by mouth daily with dinner. No current facility-administered medications for this visit. FAMILY HISTORY Problem Relation Age of Onset Thyroid Mother Arthritis Mother other (depression) Mother other (substance abuse) Mother other (fibromyalgia) Mother Heart Father Coronary Artery Disease Father Fatal [place] age 34 other (drug overdose) Father Depression Sister Thyroid Sister Diabetes Maternal Grandmother Colon Cancer Maternal Grandmother Cancer Maternal Grandmother melanoma Hypertension Maternal Grandmother Arthritis Maternal Grandmother Heart Maternal Grandfather [place] Coronary Artery Disease Maternal Grandfather Fatal [place] Diabetes Maternal Aunt Cancer Maternal Uncle SKIN CANCER Diabetes Maternal Uncle Cancer Maternal Uncle great uncle. Cancer Paternal Aunt LEUKEMIA, AGE 2 Social History Tobacco Use Smoking status: Every Day Packs/day: 0.25 Years: 17.00 Additional pack years: 0.00 Total pack years: 4.25 Types: Cigarettes Smokeless tobacco: Never Vaping Use Vaping Use: Never used Substance Use Topics Alcohol use: No Drug use: No REVIEW OF SYSTEMS GENERAL: No weight loss, malaise or fevers/chills HEENT: Negative for frequent or significant headaches, No changes in hearing or vision. NECK: Negative for lumps, goiter, pain and significant neck swelling RESPIRATORY: Negative for cough, hemoptysis, wheezing, dyspnea or shortness of breath CARDIOVASCULAR: + Chest Pain GI: No nausea, vomiting, or diarrhea/constipation. No hematochezia/melena. No heartburn or reflux symptoms. : No history of dysuria, frequency or incontinence MUSCULOSKELETAL: Negative for joint pain or swelling. SKIN: Negative for lesions, rash, and itching ENDOCRINE: Negative for cold or heat intolerance, polyuria, polydipsia and goiter NEURO: + memory changes MOOD: Negative for depression, anxiety, or suicidal ideation. EXAM: BP 126/60 Pulse 74 Resp 16 Wt 103 kg (227 lb) LMP 01/22/2013 SpO2 100% BMI 41.52 kg/m? PHYSICAL EXAM: Gene (more content not included)...[facility]03-15-2024 Miscellaneous Notes* Telephone Encounter - Melina Sales LPN - 01/13/2024 1:50 PM EDT Patient notified of Rx, verbalizes understanding of instructions. Melina Sales LPN * Telephone Encounter - Henny Cook APRN.CNP - 01/13/2024 1:13 PM EDT Refill provided. She can keep upcoming appointment for hospital follow-up. Please inform her that she should not be taking any anti-inflammatories along with the blood thinner. The following approved medication requests have been transmitted electronically. Requested Prescriptions Signed Prescriptions Disp Refills rivaroxaban (XARELTO) 20 mg tablet 30 tablet 11 Sig: Take 1 tablet by mouth daily with dinner. Authorizing Provider: HENNY COOK APRN.ADY * Telephone Encounter - Heaven Quick RN - 01/13/2024 9:33 AM EDT Patient calling to request refill of her Xarelto, states her pharmacy states there are no refills. As of note, patient was seen at [facility] ER on 01/03-01/05/24 for SOB and chest pain. Due to elevated D-Dimer as well as pt indicating that she was not taking her Xarelto for a month, a CTA was completed and report showed no evidence of pulmonary emboli. Pt was discharged to follow-up with her primary care provider, and to take Xarelto as previously directed, which she states she has not done yet, but wishes to restart now. During call, ER/ follow up appt was advised to patient . Appointment was made with Henny Cook CNP for Tuesday01/16/24. [facility]. Please call patient with reply/update. [phone] documented in this encounterSelect Medical [facility]03-06-2024 Discharge summary Author Thuan Guy [facility] January 05, 2024 12:07am Note Date/Time January 04, 2024 8:25 pm [facility] Medical Records Department [address] [place] [address] Emergency Department Summary 01/04/24 MR#: [id number] Acct: [id number] Name: JUSTIN LEO Rep #:[id number] : 1985 38 From: Thuan Guy MD PCP: Dr. Ty Gaytan MD Status:RE G ER Location: ED HPI History of Present Illness Chief Complaint: Shortness of Breath Narrative Narrative: 38-year-old female past medical history of factor V Leiden, supposed to be taking Xarelto but has not for a month because she gets bruising under her skin and skin sensitivity presents with pleuritic chest pain that she has had off and on all day. She denies any fevers or chills but has an occasional cough. She states she feels short of breath and has if she is going to pass out. She denies any leg swelling. No true exacerbating or alleviating factors. She states she been crying all day because her chest hurts. She presents via EMS. Her and daughter at the bedside. [facility] Medical History Anxiety DVT (deep venous thrombosis) Home Medications NK 08/04/23 [History Last Taken Unknown] Allergy/AdvReac Type Severity Reaction Status Date / Time horseradish Allergy Angioedema Verified 08/04/23 11:31 Iodinated Contrast Media Allergy Rash Verified 08/04/23 11:31 [CONTRASTS] sulfamethoxazole Allergy Angioedema, Verified 10/05/23 11:31 [From Bactrim] RASH trimethoprim [From Bactrim] Allergy Angioedema, Verified 08/04/23 11:31 RASH Surgical History History of cholecystectomy History of hysterectomy with unilateral oophorectomy History of surgery on wrist History of tonsillectomy and adenoidectomy Hx of tympanostomy tubes Social History Smoking Status: Current every day smoker tobacco type: cigarettes ROS ROS ED ROS Narrative Constitutional: No fever, no chills. HEENT: No sore throat. No neck pain. No loss of vision. No rhinorrhea. Cardiovascular: Positive pleuritic chest pain. No palpitations. No pedal edema. Respiratory: Occasional cough, positive shortness of breath. Abdominal: No abdominal pain. No nausea. No vomiting. Genitourinary: No dysuria. No hematuria. Musculoskeletal: No myalgias. No arthralgias. Neurologic: No headaches. No dizziness. Positive near syncope and lightheadedness. Skin: No rash. No change in color. Psychiatric: No depression. No anxiety. EXAM Physical Exam Narrative Exam Narrative: Afebrile. Vital signs noted. HEENT: Normocephalic. Atraumatic. PERRL, EOMI. Neck soft and supple. No pointtenderness or step off. Cardiovascular: Regular rate and rhythm. No murmurs, rubs, or gallops appreciated. Respiratory: No tachypnea. Lungs clear to auscultation bilaterally. Gastrointestinal: Abdomen soft, nontender, with normoactive bowel sounds. No rebound or guarding. Neurological: Awake. Alert. Nonfocal, nonlateralizing. Skin: No rash. Normal color. No pallor. Musculoskeletal: No pedal edema. Full range of motion extremities. Const Vital Signs: 01/04/24 20:07 01/04/24 20:39 01/04/24 20:39 Temperature 97.9 F Temperature Source Oral Pulse Rate 83 Respiratory Rate 16 Respiratory Effort Short of Breath Respiratory Depth Shallow Respiratory Pattern Tachypnea Blood Pressure 142/88 H Blood Pressure Mean 106 Pulse Ox 95 Oxygen Delivery Method Room Air Room Air Room Air Oxygen Flow Rate (L/min) 98 01/04/24 22:07 01/04/24 23:08 Temperature Temperature Source Pulse Rate 68 80 Respiratory Rate 16 23 H Respiratory Effort Respiratory Depth Respiratory Pattern Blood Pressure 95/58 L 112/76 Blood Pressure Mean 70 88 Pulse Ox 95 94 Oxygen Delivery Method Room Air Room Air Oxygen Flow Rate (L/min) MDM MDM MDM Narrative Medical decision making narrative: In the differential diagnosis is acute coronary syndrome versus pulmonary embolism versus pneumonia versus viral syndrome versus anemia. Initially, I reviewed her problem list and she has history of pulmonary embolism. With her factor V Leiden and the fact that she has not taken it in 1 month, concern wouldbe for recurrence of pulmonary embolism. I was going to go directly to the CTA,however she lists iodine as a allergy. I will get a D-dimer instead. I will also get basic laboratories and COVID swab with a single chest view. Patient did refuse her COVID swab as I was informed by the nurse. I reviewed her laboratory work from today and she has a normal white count of 7.4, hemoglobin normal at 13.7, hematocrit 40.5, platelet count normal at 239. Her initial D-dimer was canceled, but repeat is slightly elevated at 0.54. Initial high-sensitivity troponin 4. BMP remarkable for chloride of 112 which I think is nonspecific and glucose 118 with a normal anion gap of 6. Serum isnegative. Her repeat troponin is 10 so I feel she has been ruled out by biomarkers. EKG obtained and interpreted by myself independently demonstrates normal sinus rhythm at 80 bpm without ectopy or acute ST changes. No STEMI. As she has an elevated D-dimer, I do feel CTA is indicated because she also states that she has not been taking her Xarelto for a month. However, upon repeat examination before the CTA, she states that her chest pain has improved. Additionally, she has iodine/intravenous dye listed as an allergy. She states they do not pretreat her with steroids but she receives Benadryl because she only had a small reddish rash around the injection site. She complained of a migraine headache as well so she was given Compazine and 50 mg of Benadryl intravenously. As long as her CTA does not show evidence of a pulmonary embolism, I feel that she can be discharged safely home with follow-up. Even ifit does show pulmonary embolism, she can be started on her Xarelto again. I didstress the importance of taking her anticoagulant given her history of factor V Leiden. I reviewed the CTA report and there is no evidence of pulmonary emboli. At this point in time, upon repeat examination at around 12 AM, she states her headache is markedly improved. I feel she can be discharged to follow-up with her primary care provider. Return instructions to the emergency department werereviewed. Disposition is discharged home in stable condition. History & Record Review Discussion w/independent historian: Patient Additional record(s) reviewed:: Prior ED visit Lab Data Attestation: I reviewed the patient's lab results. Labs: Laboratory Results - last 24 hr 01/04/24 01/04/24 01/04/24 20:30 20:50 21:03 WBC 7.4 RBC 4.64 Hgb 13.7 Hct 40.5 MCV 87.3 MCH 29.5 MCHC 33.8 RDW Std Deviation 40.4 RDW Coeff of Joelle 12.8 Plt Count 239 MPV 9.5 Immature Gran % (Auto) 0.100 Neut % (Auto) 48.4 Lymph % (Auto) 39.2 Riley % (Auto) 7.1 Eos % (Auto) 4.4 Baso % (Auto) 0.8 Absolute Neuts (auto) 3.6 Absolute Lymphs (auto) 2.88 Nucleated RBC % 0 D-Dimer Quant (PE/DVT) Cancelled Sodium 141 Potassium 3.5 Chloride 112 H Carbon Dioxide 23.0 Anion Gap 6 BUN 15 Creatinine 0.78 Estim Creat Clear Calc 117.08 Est GFR (MDRD) Af Amer 105 Est GFR (MDRD) Non-Af 87 BUN/Creatinine Ratio 19.1 Glucose 118 H Calcium 9.2 Troponin I High Sens 4 Serum , Qual NEGATIVE 01/04/24 01/04/24 21:23 23:02 WBC RBC Hgb Hct MCV MCH MCHC RDW Std Deviation RDW Coeff of Joelle Plt Count MPV Immature Gran % (Auto) Neut % (Auto) Lymph % (Auto) Riley % (Auto) Eos % (Auto) Baso % (Auto) Absolute Neuts (auto) Absolute Lymphs (auto) Nucleated RBC % D-Dimer Quant (PE/DVT) 0.54 H* Sodium Potassium Chloride Carbon Dioxide Anion Gap BUN Creatinine Estim Creat Clear Calc Est GFR (MDRD) Af Amer Est GFR (MDRD) Non-Af BUN/Creatinine Ratio Glucose Calcium Troponin I High Sens 10 Serum , Qual Radiography Diagnostic Testing: Clinical Impression(s) from Imaging Studies Chest X-Ray 01/04/24 21:14 IMPRESSION: No acute radiographic abnormalities. Electronically Signed: Jose Alberto Leyva MD at 21:37 EST , Chest CTA 01/04/24 22:06 IMPRESSION: No acute abnormalities in the chest. Specifically, no acute pulmonary emboli to the segmental level. Electronically Signed: Jose Alberto Leyva MD at 0:03 EST , Discharge Plan Triage Chief Complaint: Shortness of Breath ED Provider: Thuan Guy Dx/Rx/DC Orders Clinical Impression: Chest pain, Factor V Leiden, Non compliance w medication regimen, Headache, migraine, Elevated d-dimer Instructions: ED Chest Pain, Uncertain Cause, ED, Migraine (Classical) Prescriptions: No Action NK Primary Care Provider: Ty Gaytan Referrals: Ty Gaytan MD [Primary Care Provider] - 3-5 Days if not improving Activity Restrictions/Additional Instructions: Take your Xarelto as previously directed. Disposition Disposition: Home, Self Care What to do if you have Problems For any increased pain, shortness of breath, bleeding, nausea or vomiting, chestpain, or any unexpected problems, contact your Primary Care Provider. Call [facility] ([phone]) or report to the closest Emergency Room. Call 911 if necessary. 01/05/246 <Electronically signed by Thuan Guy MD> Cosigner Signature (if applicable): CC: Dr. Ty Gaytan MD ~ Signed [facility] Work Phone: [phone] NoteHNO ID: [id number] Author: MI DIETZ MD Service: ? Author Type: Physician Type: Progress Notes Filed: 12/13/2023 21:36 Note Text: HISTORY AND PHYSICAL Justin Leo 1985 REFERRING PHYSICIAN: No ref. provider found CHIEF COMPLAINT: skin lesion HPI: The patient is a 38 year old female. She notes a likely lipoma on her right lateral thorax region just below her ribs. She states when she moves this seems to get pinched and causes her discomfort and would like to have removed. SIGNIFICANT MEDICAL PROBLEMS: PAST MEDICAL HISTORY Diagnosis Date Abnormal glandular Papanicolaou smear of cervix 07/2004 Abn. Pap smear (cervix) Cervical cancer (HCC) Dysthymic disorder Depression (non-psychotic) Esophageal reflux Heterozygous factor V Leiden mutation (HCC) Migraines Obesity Unspecified asthma(493.90) OPERATIONS: PAST SURGICAL HISTORY Procedure Laterality Date ARTHRS KNE SURG W/MENISCECTOMY MED/LAT W/SHVG Right COLONOSCOPY EGD EXC LESION TDN SHTH/JT CAPSL HAND/FNGR Right 08/14/2021 Excision volar ganglion cyst right wrist HYSTERECTOMY HX 03/01/2013 for cervical ca. LAPAROSCOPIC APPENDECTOMY 09/02/2010 for RLQ pain LAPS SURG CHOLECYSTECTOMY W/CHOLANGIOGRAPHY 11/05/2010 Normal IOC OOPHORECTOMY, PART/TOTAL UNILAT/BILAT 2012 Right PAST SURGICAL HISTORY OF 2003, 2002 BACK skin PAST SURGICAL HISTORY OF 2009 arm and hand surgery on right side PAST SURGICAL HISTORY OF Left 2015 left achillies tendon repair. PAST SURGICAL HISTORY OF Right 09/09/2016 tumor cyst removed off right leg. Skin graft 11/29/16. Dr. Henson TONSILLECTOMY PRIMARY/SECONDARY Tonsillectomy CURRENT MEDICATIONS: Current Outpatient Medications Medication Sig Dispense Refill meloxicam (MOBIC) 15 mg tablet Take 1 tablet by mouth once daily. With food. (Patient not taking: Reported on 12/13/2023) 30 tablet 2 No current facility-administered medications for this visit. ALLERGIES: Bactrim [Sulfamethoxazole-Trimethoprim], Cymbalta [Duloxetine], Desyrel [Trazodone Hcl], Horseradish, Keflex [Cephalexin], and Shellfish PERSONAL HISTORY: Social History Tobacco Use Smoking status: Every Day Packs/day: 0.25 Years: 17.00 Additional pack years: 0.00 Total pack years: 4.25 Types: Cigarettes Smokeless tobacco: Never Vaping Use Vaping Use: Never used Substance Use Topics Alcohol use: No Drug use: No FAMILY HISTORY: FAMILY HISTORY Problem Relation Age of Onset Thyroid Mother Arthritis Mother other (depression) Mother other (substance abuse) Mother other (fibromyalgia) Mother Heart Father Coronary Artery Disease Father Fatal [place] age 34 other (drug overdose) Father Depression Sister Thyroid Sister Diabetes Maternal Grandmother Colon Cancer Maternal Grandmother Cancer Maternal Grandmother melanoma Hypertension Maternal Grandmother Arthritis Maternal Grandmother Heart Maternal Grandfather [place] Coronary Artery Disease Maternal Grandfather Fatal [place] Diabetes Maternal Aunt Cancer Maternal Uncle SKIN CANCER Diabetes Maternal Uncle Cancer Maternal Uncle great uncle. Cancer Paternal Aunt LEUKEMIA, AGE 2 REVIEW OF SYMPTOMS: The review of systems data was entered by the nurse and reviewed by az Nursing Notes: José Miguel WatsonCALIN 12/13/2023 3:44 PM Signed REVIEW OF SYSTEMS: General: The patient denies fatigue, denies weight loss, denies weight gain, denies feeling hot, and denies feelings of cold. Eyes: The patient denies glaucoma, denies eye injury/surgery, wears glasses or contacts. Ear/Nose/Throat: The patient notes allergies, denies hayfever, denies ear infections, and denies bloody noses. Cardiovascular: The patient denies chest pain, denies heart disease, denies high blood pressure,denies cardiac stent, denies prior heart attack, denies irregular heart beat, denies high cholesterol, denies poor circulation, denies heart failure, other cardiac issues, denies claudication, denies cold feet, denies peripheral arterial stent. Respiratory: The patient denies tuberculosis, denies pneumonia, denies frequent cough, denies pulmonary embolism, denies shortness of breath, and denies coughing up blood. Gastrointestinal: The patient denies difficulty swallowing, notes acid reflux, denies ulcers, denies vomiting, denies jaundice/hepatitis, denies gallbladder problems, denies black or tarry stools, denies hemorrhoids, denies bleeding from rectum, denies diverticulitis, denies constipation, denies diarrhea, denies loss of stool control, and denies hernias. Kidney/Bladder: The patient denies kidney stones, denies urine infections, and notes bloody urine. Skin: The patient denies a history of skin cancer, denies bleeding/changing moles, and denies a history of skin rash. Neurologic: The patient denies a history of epilepsy/convulsions, denies headaches, denies head/spinal injuries, and denies stroke/TIA. Psychiatric: The (more content not included)...[facility] 12-13-2023 History of Present illness Narrative* Mi Dietz MD - 12/13/2023 9:34 PM EST HISTORY AND PHYSICAL Justin Leo 1985 REFERRING PHYSICIAN: No ref. provider found CHIEF COMPLAINT: skin lesion HPI: The patient is a 38 year old female. She notes a likely lipoma on her right lateral thorax region just below her ribs. She states when she moves this seems to get pinched and causes her discomfort and would like to have removed. SIGNIFICANT MEDICAL PROBLEMS: PAST MEDICAL HISTORY Diagnosis Date Abnormal glandular Papanicolaou smear of cervix 07/2004 Abn. Pap smear (cervix) Cervical cancer (HCC) Dysthymic disorder Depression (non-psychotic) Esophageal reflux Heterozygous factor V Leiden mutation (HCC) Migraines Obesity Unspecified asthma(493.90) OPERATIONS: PAST SURGICAL HISTORY Procedure Laterality Date ARTHRS KNE SURG W/MENISCECTOMY MED/LAT W/SHVG Right COLONOSCOPY EGD EXC LESION TDN SHTH/JT CAPSL HAND/FNGR Right 08/14/2021 Excision volar ganglion cyst right wrist HYSTERECTOMY HX 03/01/2013 for cervical ca. LAPAROSCOPIC APPENDECTOMY 09/02/2010 for RLQ pain LAPS SURG CHOLECYSTECTOMY W/CHOLANGIOGRAPHY 11/05/2010 Normal IOC OOPHORECTOMY, PART/TOTAL UNILAT/BILAT 2012 Right PAST SURGICAL HISTORY OF 2003, 2002 BACK skin PAST SURGICAL HISTORY OF 2009 arm and hand surgery on right side PAST SURGICAL HISTORY OF Left 2015 left achillies tendon repair. PAST SURGICAL HISTORY OF Right 09/09/2016 tumor cyst removed off right leg. Skin graft 11/29/16. Dr. Henson TONSILLECTOMY PRIMARY/SECONDARY <AGE 12 Tonsillectomy CURRENT MEDICATIONS: Current Outpatient Medications Medication Sig Dispense Refill meloxicam (MOBIC) 15 mg tablet Take 1 tablet by mouth once daily. With food. (Patient not taking: Reported on 12/13/2023) 30 tablet 2 No current facility-administered medications for this visit. ALLERGIES: Bactrim [Sulfamethoxazole-Trimethoprim], Cymbalta [Duloxetine], Desyrel [Trazodone Hcl],Horseradish, Keflex [Cephalexin], and Shellfish PERSONAL HISTORY: Social History Tobacco Use Smoking status: Every Day Packs/day: 0.25 Years: 17.00 Additional pack years: 0.00 Total pack years: 4.25 Types: Cigarettes Smokeless tobacco: Never Vaping Use Vaping Use: Never used Substance Use Topics Alcohol use: No Drug use: No FAMILY HISTORY: FAMILY HISTORY Problem Relation Age of Onset Thyroid Mother Arthritis Mother other (depression) Mother other (substance abuse) Mother other (fibromyalgia) Mother Heart Father Coronary Artery Disease Father Fatal [place] age 34 other (drug overdose) Father Depression Sister Thyroid Sister Diabetes Maternal Grandmother Colon Cancer Maternal Grandmother Cancer Maternal Grandmother melanoma Hypertension Maternal Grandmother Arthritis Maternal Grandmother Heart Maternal Grandfather [place] Coronary Artery Disease Maternal Grandfather Fatal [place] Diabetes Maternal Aunt Cancer Maternal Uncle SKIN CANCER Diabetes Maternal Uncle Cancer Maternal Uncle great uncle. Cancer Paternal Aunt LEUKEMIA, AGE 2 REVIEW OF SYMPTOMS: The review of systems data was entered by the nurse and reviewed by az Nursing Notes: José Miguel Watson LPN 12/13/2023 3:44 PM Signed REVIEW OF SYSTEMS: General: The patient denies fatigue, denies weight loss, denies weight gain, denies feeling hot, and denies feelings of cold. Eyes: The patient denies glaucoma, denies eye injury/surgery, wears glasses or contacts. Ear/Nose/Throat: The patient notes allergies, denies hayfever, denies ear infections, and denies bloody noses. Cardiovascular: The patient denies chest pain, denies heart disease, denies high blood pressure,denies cardiac stent, denies prior heart attack, denies irregular heart beat, denies high cholesterol, denies poor circulation, denies heart failure, other cardiac issues, denies claudication, denies cold feet, denies peripheral arterial stent. Respiratory: The patient denies tuberculosis, denies pneumonia, denies frequent cough, denies pulmonary embolism, denies shortness of breath, and denies coughing up blood. Gastrointestinal: The patient denies difficulty swallowing, notes acid reflux, denies ulcers, denies vomiting, denies jaundice/hepatitis, denies gallbladder problems, denies black or tarry stools, denies hemorrhoids, denies bleeding from rectum, denies diverticulitis, denies constipation, denies diarrhea, denies loss of stool control, and denies hernias. Kidney/Bladder: The patient denies kidney stones, denies urine infections, and notes bloody urine. Skin: The patient denies a history of skin cancer, denies bleeding/changing moles, and denies a history of skin rash. Neurologic: The patient denies a history of epilepsy/convulsions, denies headaches, denies head/spinal injuries, and denies stroke/TIA. Psychiatric: The patient denies psychiatric medications, denies depression, and denies voices, denies substance abuse. Endocrine: The patient denies thyroid disorders, denies diabetes, and denies hormonal problems. Hematologic: The patient denies a history of bruising, denies bleeding, and denies anemia, notes blood clots. Infections: The patient denies a history of measles and mumps, denies rheumatic fever, and denies sexually transmitted diseases. Musculoskeletal: The patient denies back pain/injury, denies back problems, denies sciatica, deniesknee/foot trouble, denies arthritis, or denies gout. When was patient's last Mammogram screening? N/A Last Colonoscopy: none José Miguel Watson LPN PHYSICAL EXAMINATION: General: The patient is 38 year old female, well nourished, well hydrated in no acute distress. Thepatient is oriented to time, place, and person. VITALS: Blood pressure 92/64, pulse 93, temperature 36.4 C (97.5 F), height 157.5 cm (5' 2), weight 101.6 kg (224 lb), last menstrual period 01/22/2013, SpO2 97%. Body mass index is 40.97 kg/m . HEENT: Normal cephalic, ataumatic, pupils are equally round, sclera are anicteric, mucous membranesare moist, oropharynx is clear. Neck has no masses, asymmetry or lymphadenopathy. Thyroid is unremarkable. Respiratory: Clear to auscultation and percussion. Normal respiratory excursion and pattern. Cardiac: Examination is regular rate and rhythm. Abdominal exam: Soft, nontender, with no palpable masses. No hepatosplenomegaly. No palpable hernias. Rectal exam: exam deferred Extremities: no clubbing, cyanosis or edema. No adenopathy. Other: 2 cm subcutaneous mass consistent with lipoma in the right lateral thoracoabdominal region just below the costal margin LABORATORY VALUES: As Noted RADIOLOGIC STUDIES: As Noted Plan to perform excision of this area today but the patient had a family emergency had to leave. She will return for excision later date. Assessment IMPRESSION: SUBCUTANEOUS MASS/PROBABLE LIPOMA - RIGHT LATERAL thoracoabdominal area PLAN: Justin will return for excision of the skin lesion at a later date. The patient is instructednot to take aspirin for 1 week prior to the procedure. Diagnoses: (D17.1) Lipoma of torso (primary encounter diagnosis) Return to Clinic: The patient is instructed to follow-up with me as needed. Mi Dietz MD * José Miguel Watson LPN - 12/13/2023 4:14 PM EST documented [facility] NoteHNO ID: [id number] Author: JOSÉ MIGUEL WATSON LPN Service: ? Author Type: LICENSED NURSE Type: Progress Notes Filed: 12/13/2023 21:36 Note Text:[facility]02-13-2024 Nurse Note* José Miguel Watson LPN - 12/13/2023 3:41 PM EST REVIEW OF SYSTEMS: General: The patient denies fatigue, denies weight loss, denies weight gain, denies feeling hot, and denies feelings of cold. Eyes: The patient denies glaucoma, denies eye injury/surgery, wears glasses or contacts. Ear/Nose/Throat: The patient notes allergies, denies hayfever, denies ear infections, and denies bloody noses. Cardiovascular: The patient denies chest pain, denies heart disease, denies high blood pressure,denies cardiac stent, denies prior heart attack, denies irregular heart beat, denies high cholesterol, denies poor circulation, denies heart failure, other cardiac issues, denies claudication, denies cold feet, denies peripheral arterial stent. Respiratory: The patient denies tuberculosis, denies pneumonia, denies frequent cough, denies pulmonary embolism, denies shortness of breath, and denies coughing up blood. Gastrointestinal: The patient denies difficulty swallowing, notes acid reflux, denies ulcers, denies vomiting, denies jaundice/hepatitis, denies gallbladder problems, denies black or tarry stools, denies hemorrhoids, denies bleeding from rectum, denies diverticulitis, denies constipation, denies diarrhea, denies loss of stool control, and denies hernias. Kidney/Bladder: The patient denies kidney stones, denies urine infections, and notes bloody urine. Skin: The patient denies a history of skin cancer, denies bleeding/changing moles, and denies a history of skin rash. Neurologic: The patient denies a history of epilepsy/convulsions, denies headaches, denies head/spinal injuries, and denies stroke/TIA. Psychiatric: The patient denies psychiatric medications, denies depression, and denies voices, denies substance abuse. Endocrine: The patient denies thyroid disorders, denies diabetes, and denies hormonal problems. Hematologic: The patient denies a history of bruising, denies bleeding, and denies anemia, notes blood clots. Infections: The patient denies a history of measles and mumps, denies rheumatic fever, and denies sexually transmitted diseases. Musculoskeletal: The patient denies back pain/injury, denies back problems, denies sciatica, deniesknee/foot trouble, denies arthritis, or denies gout. When was patient's last Mammogram screening? N/A Last Colonoscopy: none José Miguel Watson LPN documented in this encounterSelect [facility] History of Present illness Narrative* Ty Gaytan MD - 09/15/2023 4:00 PM EST Chief Complaint Patient presents with: Ear Pain: Left ear-was seen in for this a month or so ago CELINA Leo is a 38 year old female who presents here today for a same day visit. Pt here today with c/o left ear pain constant since Jul when she was seen in for sore throat and ear pain. She was told she had viral infection and was not treated. She has been using warm compresses. Her pain today is 7/10, throbbing, ache. She states it is constant pain and she has some swelling to the left side face and jaw. She has not been treating with any cold medications or OTC pain re lievers. No drainage from the ears. Some times difficulty hearing out of it, things sound muffled. Admits to some pain to the left jaw with chewing food on that side. Was seen in [facility] ER 08/04/23 for fall down 17 steps and injured right ankle. Xrays were done, no fracture. Was given air cast which she wore for 2 weeks. It is not using any heat or ice, is no longer using the air cast. She has not been taking any OTC pain relievers for the pain. She has some swelling if she is on her feet for long time. She states that she has pain to point the toes. Feels the pain in the inner right ankle. She called in with these sx 08/04/23 with sx and was advised to go to ER. Pt states she has episodeswhere she passes out, gets confused about where she is, slurs speech, and has facial drooping. She states that she was taken by squad for this and was checked for stroke which was all negative and sent home. Pt mother had seizures. She denies feeling like she is shaking. Denies seeing neurologist. She was going to see Henny Cook for this on 08/04/23 but had to cancel do to being in the ER fromher fall. She has migraines which have worsened, becoming more frequent even with new glasses. Pt states that she weaned herself off the Buspar, Prozac, and Vistaril due to having worsening suicidal thoughts and did cut herself once. She is feeling better off the medications. She is not doing any counseling. Is busy getting her kids to counseling and court. Past medical history, appointments, medications, allergies reviewed. Previous Medical History PAST MEDICAL HISTORY Diagnosis Date Abnormal glandular Papanicolaou smear of cervix 07/2004 Abn. Pap smear (cervix) Cervical cancer (HCC) Dysthymic disorder Depression (non-psychotic) Esophageal reflux Heterozygous factor V Leiden mutation (HCC) Migraines Obesity Unspecified asthma(493.90) Previous Surgical History PAST SURGICAL HISTORY Procedure Laterality Date ARTHRS KNE SURG W/MENISCECTOMY MED/LAT W/SHVG Right COLONOSCOPY EGD EXC LESION TDN SHTH/JT CAPSL HAND/FNGR Right 08/14/2021 Excision volar ganglion cyst right wrist HYSTERECTOMY HX 03/01/2013 for cervical ca. LAPAROSCOPIC APPENDECTOMY 09/02/2010 for RLQ pain LAPS SURG CHOLECYSTECTOMY W/CHOLANGIOGRAPHY 11/05/2010 Normal IOC OOPHORECTOMY, PART/TOTAL UNILAT/BILAT 2012 Right PAST SURGICAL HISTORY OF 2003, 2002 BACK skin PAST SURGICAL HISTORY OF 2009 arm and hand surgery on right side PAST SURGICAL HISTORY OF Left 2015 left achillies tendon repair. PAST SURGICAL HISTORY OF Right 09/09/2016 tumor cyst removed off right leg. Skin graft 11/29/16. Dr. Henson TONSILLECTOMY PRIMARY/SECONDARY <AGE 12 Tonsillectomy Family History FAMILY HISTORY Problem Relation Age of Onset Thyroid Mother Arthritis Mother other (depression) Mother other (substance abuse) Mother other (fibromyalgia) Mother Heart Father Coronary Artery Disease Father Fatal [place] age 34 other (drug overdose) Father Depression Sister Thyroid Sister Diabetes Maternal Grandmother Colon Cancer Maternal Grandmother Cancer Maternal Grandmother melanoma Hypertension Maternal Grandmother Arthritis Maternal Grandmother Heart Maternal Grandfather [place] Coronary Artery Disease Maternal Grandfather Fatal [place] Diabetes Maternal Aunt Cancer Maternal Uncle SKIN CANCER Diabetes Maternal Uncle Cancer Maternal Uncle great uncle. Cancer Paternal Aunt LEUKEMIA, AGE 2 Patient Allergies ALLERGIES Allergen Reactions Bactrim [Sulfametho* Swelling CHILDHOOD REACTION Cymbalta [Duloxetin* Rash, Shortness of Breath Desyrel [Trazodone * Intolerance Headache Horseradish Swelling Keflex [Cephalexin] Hives Was ok as long as she took Benadryl Shellfish Other: See Comments Lightheadedness after test and warmth at injection site Has had CT dye since with no problem Current Medications Current Outpatient Medications on File Prior to Visit Medication Sig mupirocin (BACTROBAN) 2 % ointment Apply 1 application to affected area twice daily. busPIRone (BUSPAR) 10 mg tablet Take 1 tablet by mouth twice daily. FLUoxetine (PROZAC) 40 mg capsule Take 1 capsule by mouth once daily. hydrOXYzine pamoate (VISTARIL) 25 mg capsule Take 1 capsule by mouth twice daily as needed. rivaroxaban (XARELTO) 20 mg tablet Take 1 tablet by mouth daily with dinner. No current facility-administered medications on file prior to visit. Social History Social History Tobacco Use Smoking status: Every Day Packs/day: 0.25 Years: 17.00 Additional pack years: 0.00 Total pack years: 4.25 Types: Cigarettes Smokeless tobacco: Never Vaping Use Vaping Use: Never used Substance Use Topics Alcohol use: No Drug use: No EXAM: BP 120/74 Pulse 80 Resp 16 Wt 99 kg (218 lb 4.8 oz) LMP 01/22/2013 BMI 39.29 kg/m General Appearance: Well appearing, alert, in no acute distress, well-hydrated, well nourished. andOverweight. Head: pain to the left side jaw at TMJ Ears: External ears normal, canals clear, left ear slightly red, no infection. Oropharynx: Lips, mucosa, and tongue normal, teeth and gums normal, oropharynx normal. Neck: Supple, no adenopathy Lungs: Lungs clear to auscultation. No wheezing, rhonchi, rales.. Heart: RRR without murmur, gallop, or rubs. No ectopy. Extremities: right ankle; tendon strain to inner ankle, pain on palpation along posterior medial tibia. Health Maintenance List Hepatitis B Vaccine(1 of 3 - 3-dose series) Never done Pneumococcal Vaccine(1 - PCV) Never done Hepatitis C Screening Never done DTaP,Tdap,Td Vaccine(1 - Tdap) due on 2009 Influenza Vaccine(1) due on 07/01/2023 Covid-19 Vaccine(1) due on 12/16/2023 Annual PCP Team Chronic Disease Visit due on 01/14/2024 Pap Testing due on 04/27/2028 HPV Testing due on 04/27/2028 Spirometry Completed Depression Assessment Completed HIV Screening Completed HPV Vaccine Aged Out Data reviewed None ASSESSMENT/PLAN: 1. Left ear pain - ICD9: 388.70, ICD10: H92.02 (primary diagnosis) No infection, may be related to TMJ 2. Pain in upper jaw - ICD9: 784.92, ICD10: R68.84 Start Mobic 15 mg daily 3. Sprain of ligament of right ankle, initial encounter - ICD9: 845.00, ICD10: S93.401A Start Mobic 15 mg daily for a few weeks Recommend ice Follow up as needed. I agree with the Chief Complaint, ROS, and Past Histories independently gathered by the clinical operations support manager and the remaining scribed note accurately describes my personal service to the patient. Medical Decision Making: Problems: Low: 2+ self-limited or minor problems Risk: Moderate: Drug management Medical Decision Making Level: 3 - Low Ty Gaytan MD The documentation for this note was completed by Jennifer Casiano Ma acting as scribe for Ty Gaytan MD. September 15, 2023 4:04 PM. Jennifer Casiano Ma documented in [facility] NoteHNO ID: [id number] Author: Ty Gaytan MD Service: ? Author Type: Physician Type: Progress Notes Filed: 09/15/2023 4:33 PM Note Text: Chief Complaint Patient presents with: Ear Pain: Left ear-was seen in for this a month or so ago HPI Justin Leo is a 38 year old female who presents here today for a same day visit. Pt here today with c/o left ear pain constant since Jul when she was seen in for sore throat and ear pain. She was told she had viral infection and was not treated. She has been using warm compresses. Her pain today is 7/10, throbbing, ache. She states it is constant pain and she has some swelling to the left side face and jaw. She has not been treating with any cold medications or OTC pain relievers. No drainage from the ears. Some times difficulty hearing out of it, things sound muffled. Admits to some pain to the left jaw with chewing food on that side. Was seen in [facility] ER 08/04/23 for fall down 17 steps and injured right ankle. Xrays were done, no fracture. Was given air cast which she wore for 2 weeks. It is not using any heat or ice, is no longer using the air cast. She has not been taking any OTC pain relievers for the pain. She has some swelling if she is on her feet for long time. She states that she has pain to point the toes. Feels the pain in the inner right ankle. She called in with these sx 08/04/23 with sx and was advised to go to ER. Pt states she has episodes where she passes out, gets confused about where she is, slurs speech, and has facial drooping. She states that she was taken by squad for this and was checked for stroke which was all negative and sent home. Pt mother had seizures. She denies feeling like she is shaking. Denies seeing neurologist. She was going to see Henny Cook for this on 08/04/23 but had to cancel do to being in the ER from her fall. She has migraines which have worsened, becoming more frequent even with new glasses. Pt states that she weaned herself off the Buspar, Prozac, and Vistaril due to having worsening suicidal thoughts and did cut herself once. She is feeling better off the medications. She is not doing any counseling. Is busy getting her kids to counseling and court. Past medical history, appointments, medications, allergies reviewed. Previous Medical History PAST MEDICAL HISTORY Diagnosis Date Abnormal glandular Papanicolaou smear of cervix 07/2004 Abn. Pap smear (cervix) Cervical cancer (HCC) Dysthymic disorder Depression (non-psychotic) Esophageal reflux Heterozygous factor V Leiden mutation (HCC) Migraines Obesity Unspecified asthma(493.90) Previous Surgical History PAST SURGICAL HISTORY Procedure Laterality Date ARTHRS KNE SURG W/MENISCECTOMY MED/LAT W/SHVG Right COLONOSCOPY EGD EXC LESION TDN SHTH/JT CAPSL HAND/FNGR Right 08/14/2021 Excision volar ganglion cyst right wrist HYSTERECTOMY HX 03/01/2013 for cervical ca. LAPAROSCOPIC APPENDECTOMY 09/02/2010 for RLQ pain LAPS SURG CHOLECYSTECTOMY W/CHOLANGIOGRAPHY 11/05/2010 Normal C OOPHORECTOMY, PART/TOTAL UNILAT/BILAT 2012 Right PAST SURGICAL HISTORY OF 2003, 2002 BACK skin PAST SURGICAL HISTORY OF 2009 arm and hand surgery on right side PAST SURGICAL HISTORY OF Left 2015 left achillies tendon repair. PAST SURGICAL HISTORY OF Right 09/09/2016 tumor cyst removed off right leg. Skin graft 11/29/16. Dr. Henson TONSILLECTOMY PRIMARY/SECONDARY Tonsillectomy Family History FAMILY HISTORY Problem Relation Age of Onset Thyroid Mother Arthritis Mother other (depression) Mother other (substance abuse) Mother other (fibromyalgia) Mother Heart Father Coronary Artery Disease Father Fatal [place] age 34 other (drug overdose) Father Depression Sister Thyroid Sister Diabetes Maternal Grandmother Colon Cancer Maternal Grandmother Cancer Maternal Grandmother melanoma Hypertension Maternal Grandmother Arthritis Maternal Grandmother Heart Maternal Grandfather [place] Coronary Artery Disease Maternal Grandfather Fatal [place] Diabetes Maternal Aunt Cancer Maternal Uncle SKIN CANCER Diabetes Maternal Uncle Cancer Maternal Uncle great uncle. Cancer Paternal Aunt LEUKEMIA, AGE 2 Patient Allergies ALLERGIES Allergen Reactions Bactrim [Sulfametho* Swelling CHILDHOOD REACTION Cymbalta [Duloxetin* Rash, Shortness of Breath Desyrel [Trazodone * Intolerance Headache Horseradish Swelling Keflex [Cephalexin] Hives Was ok as long as she took Benadryl Shellfish Other: See Comments Lightheadedness after test and warmth at injection site Has had CT dye since with no problem Current Medications Current Outpatient Medications on File Prior to Visit Medication Sig mupirocin (BACTROBAN) 2 % ointment Apply 1 application to affected area twice daily. busPIRone (BUSPAR) 10 mg tablet Take 1 tablet by mouth twice daily. FLUoxetine (PROZAC) 40 mg capsule Take 1 capsu (more content not included)... [facility]09-28-2023 NoteHNO ID: [id number] Author: Minal Martin APRN.FRONT TENDER Service: ? Author Type: Nurse Practitioner Type: Progress Notes Filed: 07/28/2023 12:07 PM Note Text: This note was created using Anagnosticsriter. Subjective Justin Leo is a 37 year old female. Patient presents with two days of headache, congestion, cough, shortness of breath, sinus pressure, and left ear pain. Denies chest pain, fever, or vomiting. She does not have any known exposure to illness. She has not taken any medication for symptoms. The history is provided by the patient. Review of Systems Constitutional: Positive for fatigue. Negative for fever. HENT: Positive for congestion, ear pain, sinus pressure, sinus pain, sneezing and sore throat. Respiratory: Positive for cough and shortness of breath. Negative for wheezing. Cardiovascular: Negative for chest pain. Gastrointestinal: Positive for nausea. Negative for abdominal pain, diarrhea and vomiting. Neurological: Positive for headaches. All other systems reviewed and are negative. Objective BP 105/71 Pulse 96 Temp 36.9 ?C (98.4 ?F) Resp 18 Wt 98.1 kg (216 lb 3.2 oz) LMP 01/22/2013 SpO2 99% BMI 38.91 kg/m? PAST MEDICAL HISTORY Diagnosis Date Abnormal glandular Papanicolaou smear of cervix 07/2004 Abn. Pap smear (cervix) Cervical cancer (HCC) Dysthymic disorder Depression (non-psychotic) Esophageal reflux Heterozygous factor V Leiden mutation (HCC) Migraines Obesity Unspecified asthma(493.90) PAST SURGICAL HISTORY Procedure Laterality Date ARTHRS KNE SURG W/MENISCECTOMY MED/LAT W/SHVG Right COLONOSCOPY EGD EXC LESION TDN SHTH/JT CAPSL HAND/FNGR Right 08/14/2021 Excision volar ganglion cyst right wrist HYSTERECTOMY HX 03/01/2013 for cervical ca. LAPAROSCOPIC APPENDECTOMY 09/02/2010 for RLQ pain LAPS SURG CHOLECYSTECTOMY W/CHOLANGIOGRAPHY 11/05/2010 Normal IOC OOPHORECTOMY, PART/TOTAL UNILAT/BILAT 2012 Right PAST SURGICAL HISTORY OF 2003, 2002 BACK skin PAST SURGICAL HISTORY OF 2009 arm and hand surgery on right side PAST SURGICAL HISTORY OF Left 2015 left achillies tendon repair. PAST SURGICAL HISTORY OF Right 09/09/2016 tumor cyst removed off right leg. Skin graft 11/29/16. Dr. Henson TONSILLECTOMY PRIMARY/SECONDARY Tonsillectomy ALLERGIES Bactrim [Sulfamethoxazole-Trimethoprim], Cymbalta [Duloxetine], Desyrel [Trazodone Hcl], Horseradish, Keflex [Cephalexin], and Shellfish MEDICATIONS mupirocin (BACTROBAN) 2 % ointment Apply 1 application to affected area twice daily. busPIRone (BUSPAR) 10 mg tablet Take 1 tablet by mouth twice daily. FLUoxetine (PROZAC) 40 mg capsule Take 1 capsule by mouth once daily. hydrOXYzine pamoate (VISTARIL) 25 mg capsule Take 1 capsule by mouth twice daily as needed. rivaroxaban (XARELTO) 20 mg tablet Take 1 tablet by mouth daily with dinner. FAMILY HISTORY Problem Relation Age of Onset Thyroid Mother Arthritis Mother other (depression) Mother other (substance abuse) Mother other (fibromyalgia) Mother Heart Father Coronary Artery Disease Father Fatal [place] age 34 other (drug overdose) Father Depression Sister Thyroid Sister Diabetes Maternal Grandmother Colon Cancer Maternal Grandmother Cancer Maternal Grandmother melanoma Hypertension Maternal Grandmother Arthritis Maternal Grandmother Heart Maternal Grandfather [place] Coronary Artery Disease Maternal Grandfather Fatal [place] Diabetes Maternal Aunt Cancer Maternal Uncle SKIN CANCER Diabetes Maternal Uncle Cancer Maternal Uncle great uncle. Cancer Paternal Aunt LEUKEMIA, AGE 2 Social History Tobacco Use Smoking status: Every Day Packs/day: 0.25 Years: 17.00 Additional pack years: 0.00 Total pack years: 4.25 Types: Cigarettes Smokeless tobacco: Never Vaping Use Vaping Use: Never used Substance Use Topics Alcohol use: No Drug use: No Physical Exam Vitals reviewed. Constitutional: General: She is not in acute distress. Appearance: Normal appearance. She is ill-appearing. She is not toxic-appearing. HENT: Right Ear: Tympanic membrane, ear canal and external ear normal. No swelling or tenderness. There is no impacted cerumen. Tympanic membrane is not perforated, erythematous, retracted or bulging. Left Ear: Ear canal and external ear normal. Tenderness present. No swelling. There is no impacted cerumen. Tympanic membrane is erythematous. Tympanic membrane is not perforated, retracted or bulging. Nose: Congestion present. Right Sinus: Maxillary sinus tenderness and frontal sinus tenderness present. Left Sinus: Maxillary sinus tenderness and frontal sinus tenderness present. Mouth/Throat: Mouth: Mucous membranes are moist. Pharynx: Uvula midline. Pharyngeal swelling (mild) present. No oropharyngeal exudate, posterior oropharyngeal erythema or uvula swelling. Cardiovascular: Rate and Rhythm: Normal rate and regular rhythm. Pulmon (more content not included)...[facility]09-07-2023 Miscellaneous Notes* Telephone Encounter - Mones Pettit LPN - 07/07/2023 9:19 AM EDT Patient given results and verbalized understanding of instructions given. Monse Pettit LPN * Telephone Encounter - Marlena Collins MA - 07/07/2023 8:15 AM EDT ----- Message from Minal Martin APRN.FRONT TENDER sent at 07/07/2023 7:24 AM EDT ----- Urine culture did not show clear evidence of infection, however it appears sample may have been contaminated with skin bacteria during collection. If not improving, recommend follow up with PCP. Minal Martin CNP documented in this encounter[facility]23 NoteHNO ID: [id number] Author: Farhat Bello PA-C Service: ? Author Type: Physician Datapower Developer Type: Progress Notes Filed: 07/05/2023 7:47 PM Note Text: This note was created using [employer]. Subjective Justin Leo is a 37 year old female. HPI Patient presents with left foot pain for 2 days. [place] and got her foot cuaght on the bottom of the river helping her whose kayak was caught in a tree. She has pain with walking on it. No numbness or tingling. She has urinary frequency for 1-2 months as well. She does have some incontinence when she doesn't get to the bathroom in time. No dysuria. She has chronic microscopic hematuria but hasn't seen blood in urine. No fever. She has had low back pain. No abdominal pain. She has had a hysterectomy. Review of Systems Constitutional: Negative. HENT: Negative. Respiratory: Negative. Cardiovascular: Negative. Gastrointestinal: Negative. Genitourinary: Positive for frequency and urgency. Negative for decreased urine volume, dysuria, menstrual problem and pelvic pain. Musculoskeletal: Positive for back pain. Left foot pain All other systems reviewed and are negative. PAST MEDICAL HISTORY Diagnosis Date Abnormal glandular Papanicolaou smear of cervix 07/2004 Abn. Pap smear (cervix) Cervical cancer (HCC) Dysthymic disorder Depression (non-psychotic) Esophageal reflux Heterozygous factor V Leiden mutation (HCC) Migraines Obesity Unspecified asthma(493.90) Current Outpatient Medications Medication Sig Dispense Refill mupirocin (BACTROBAN) 2 % ointment Apply 1 application to affected area twice daily. 22 g 0 busPIRone (BUSPAR) 10 mg tablet Take 1 tablet by mouth twice daily. 60 tablet 3 FLUoxetine (PROZAC) 40 mg capsule Take 1 capsule by mouth once daily. 30 capsule 5 hydrOXYzine pamoate (VISTARIL) 25 mg capsule Take 1 capsule by mouth twice daily as needed. 60 capsule 5 rivaroxaban (XARELTO) 20 mg tablet Take 1 tablet by mouth daily with dinner. 30 tablet 11 No current facility-administered medications for this visit. PAST SURGICAL HISTORY Procedure Laterality Date ARTHRS KNE SURG W/MENISCECTOMY MED/LAT W/SHVG Right COLONOSCOPY EGD EXC LESION TDN SHTH/JT CAPSL HAND/FNGR Right 08/14/2021 Excision volar ganglion cyst right wrist HYSTERECTOMY HX 03/01/2013 for cervical ca. LAPAROSCOPIC APPENDECTOMY 09/02/2010 for RLQ pain LAPS SURG CHOLECYSTECTOMY W/CHOLANGIOGRAPHY 11/05/2010 Normal IOC OOPHORECTOMY, PART/TOTAL UNILAT/BILAT 2012 Right PAST SURGICAL HISTORY OF 2003, 2002 BACK skin PAST SURGICAL HISTORY OF 2009 arm and hand surgery on right side PAST SURGICAL HISTORY OF Left 2015 left achillies tendon repair. PAST SURGICAL HISTORY OF Right 09/09/2016 tumor cyst removed off right leg. Skin graft 11/29/16. Dr. Henson TONSILLECTOMY PRIMARY/SECONDARY Tonsillectomy FAMILY HISTORY Problem Relation Age of Onset Thyroid Mother Arthritis Mother other (depression) Mother other (substance abuse) Mother other (fibromyalgia) Mother Heart Father Coronary Artery Disease Father Fatal [place] age 34 other (drug overdose) Father Depression Sister Thyroid Sister Diabetes Maternal Grandmother Colon Cancer Maternal Grandmother Cancer Maternal Grandmother melanoma Hypertension Maternal Grandmother Arthritis Maternal Grandmother Heart Maternal Grandfather [place] Coronary Artery Disease Maternal Grandfather Fatal [place] Diabetes Maternal Aunt Cancer Maternal Uncle SKIN CANCER Diabetes Maternal Uncle Cancer Maternal Uncle great uncle. Cancer Paternal Aunt LEUKEMIA, AGE 2 Social History Tobacco Use Smoking status: Every Day Packs/day: 0.25 Years: 17.00 Additional pack years: 0.00 Total pack years: 4.25 Types: Cigarettes Smokeless tobacco: Never Vaping Use Vaping Use: Never used Substance Use Topics Alcohol use: No Drug use: No Objective BP 104/64 Pulse 86 Temp 37.4 ?C (99.3 ?F) (Tympanic) Resp 16 Wt 99.2 kg (218 lb 12.8 oz) LMP 01/22/2013 SpO2 98% BMI 39.38 kg/m? Physical Exam Vitals reviewed. Constitutional: Appearance: Normal appearance. HENT: Head: Normocephalic and atraumatic. Cardiovascular: Rate and Rhythm: Normal rate and regular rhythm. Heart sounds: Normal heart sounds. Pulmonary: Effort: Pulmonary effort is normal. Breath sounds: Normal breath sounds. Musculoskeletal: Comments: Him of the left foot reveals tenderness palpation to the base of the fifth metatarsal. Some tenderness over the midfoot. Pain with dorsiflexion and plantarflexion. Pain with weightbearing. Pedal pulses 2+. No tenderness over the Achilles or medial lateral malleolus. Skin: General: Skin is warm and dry. Neurological: Mental Status: She is alert. Assessment and Plan ASSESSMENT/PLAN: 1. Urinary frequency - ICD9: 788.41, ICD10: R35.0 (primary diagnosis) acute Urine dip shows small b (more content not included)...[facility] 07-05-2023 History of Present illness Narrative* Farhat Bello PA-C - 07/05/2023 7:10 PM EDT This note was created using Anagn[employer]riter. Subjective Justin Leo is a 37 year old female. HPI Patient presents with left foot pain for 2 days. [place] and got her foot cuaght on the bottom of the river helping her whose kayak was caught in a tree. She haspain with walking on it. No numbness or tingling. She has urinary frequency for 1-2 months as well.She does have some incontinence when she doesn't get to the bathroom in time. No dysuria. She has chronic microscopic hematuria but hasn't seen blood in urine. No fever. She has had low back pain. Noabdominal pain. She has had a hysterectomy. Review of Systems Constitutional: Negative. HENT: Negative. Respiratory: Negative. Cardiovascular: Negative. Gastrointestinal: Negative. Genitourinary: Positive for frequency and urgency. Negative for decreased urine volume, dysuria, menstrual problem and pelvic pain. Musculoskeletal: Positive for back pain. Left foot pain All other systems reviewed and are negative. PAST MEDICAL HISTORY Diagnosis Date Abnormal glandular Papanicolaou smear of cervix 07/2004 Abn. Pap smear (cervix) Cervical cancer (HCC) Dysthymic disorder Depression (non-psychotic) Esophageal reflux Heterozygous factor V Leiden mutation (HCC) Migraines Obesity Unspecified asthma(493.90) Current Outpatient Medications Medication Sig Dispense Refill mupirocin (BACTROBAN) 2 % ointment Apply 1 application to affected area twice daily. 22 g 0 busPIRone (BUSPAR) 10 mg tablet Take 1 tablet by mouth twice daily. 60 tablet 3 FLUoxetine (PROZAC) 40 mg capsule Take 1 capsule by mouth once daily. 30 capsule 5 hydrOXYzine pamoate (VISTARIL) 25 mg capsule Take 1 capsule by mouth twice daily as needed. 60 capsule 5 rivaroxaban (XARELTO) 20 mg tablet Take 1 tablet by mouth daily with dinner. 30 tablet 11 No current facility-administered medications for this visit. PAST SURGICAL HISTORY Procedure Laterality Date ARTHRS KNE SURG W/MENISCECTOMY MED/LAT W/SHVG Right COLONOSCOPY EGD EXC LESION TDN SHTH/JT CAPSL HAND/FNGR Right 08/14/2021 Excision volar ganglion cyst right wrist HYSTERECTOMY HX 03/01/2013 for cervical ca. LAPAROSCOPIC APPENDECTOMY 09/02/2010 for RLQ pain LAPS SURG CHOLECYSTECTOMY W/CHOLANGIOGRAPHY 11/05/2010 Normal IOC OOPHORECTOMY, PART/TOTAL UNILAT/BILAT 2012 Right PAST SURGICAL HISTORY OF 2003, 2002 BACK skin PAST SURGICAL HISTORY OF 2009 arm and hand surgery on right side PAST SURGICAL HISTORY OF Left 2015 left achillies tendon repair. PAST SURGICAL HISTORY OF Right 09/09/2016 tumor cyst removed off right leg. Skin graft 11/29/16. Dr. Henson TONSILLECTOMY PRIMARY/SECONDARY <AGE 12 Tonsillectomy FAMILY HISTORY Problem Relation Age of Onset Thyroid Mother Arthritis Mother other (depression) Mother other (substance abuse) Mother other (fibromyalgia) Mother Heart Father Coronary Artery Disease Father Fatal [place] age 34 other (drug overdose) Father Depression Sister Thyroid Sister Diabetes Maternal Grandmother Colon Cancer Maternal Grandmother Cancer Maternal Grandmother melanoma Hypertension Maternal Grandmother Arthritis Maternal Grandmother Heart Maternal Grandfather [place] Coronary Artery Disease Maternal Grandfather Fatal [place] Diabetes Maternal Aunt Cancer Maternal Uncle SKIN CANCER Diabetes Maternal Uncle Cancer Maternal Uncle great uncle. Cancer Paternal Aunt LEUKEMIA, AGE 2 Social History Tobacco Use Smoking status: Every Day Packs/day: 0.25 Years: 17.00 Additional pack years: 0.00 Total pack years: 4.25 Types: Cigarettes Smokeless tobacco: Never Vaping Use Vaping Use: Never used Substance Use Topics Alcohol use: No Drug use: No Objective BP 104/64 Pulse 86 Temp 37.4 C (99.3 F) (Tympanic) Resp 16 Wt 99.2 kg (218 lb 12.8 oz) LMP 01/22/2013 SpO2 98% BMI 39.38 kg/m Physical Exam Vitals reviewed. Constitutional: Appearance: Normal appearance. HENT: Head: Normocephalic and atraumatic. Cardiovascular: Rate and Rhythm: Normal rate and regular rhythm. Heart sounds: Normal heart sounds. Pulmonary: Effort: Pulmonary effort is normal. Breath sounds: Normal breath sounds. Musculoskeletal: Comments: Him of the left foot reveals tenderness palpation to the base of the fifth metatarsal. Some tenderness over the midfoot. Pain with dorsiflexion and plantarflexion. Pain with weightbearing. Pedal pulses 2+. No tenderness over the Achilles or medial lateral malleolus. Skin: General: Skin is warm and dry. Neurological: Mental Status: She is alert. Assessment and Plan ASSESSMENT/PLAN: 1. Urinary frequency - ICD9: 788.41, ICD10: R35.0 (primary diagnosis) acute Urine dip shows small blood, patient states she has chronic microscopic hematuria. Discussed follow-up with PCP for urinary frequency. Will send for culture but hold on antibiotics until results are back. Patient agreeable with plan. - UA DIP, URINE (POC) - URINE CULTURE 2. Foot injury, left, initial encounter - ICD9: 959.7, ICD10: S99.922A These are negative the foot and ankle for fracture. Feel she does have a strain. Recommend rest, ice, Tylenol. - XR FOOT GENERAL 3V AP/LAT/OBL LEFT - XR ANKLE GENERAL 3V AP/LAT/OBL LEFT Farhat Bello PA-C documented in this encounterSelect [facility] History of Present illness Narrative* Marlin Glass, RT(R) - 07/05/2023 6:50 PM EDT Radiology Service Progress Note PATIENT NAME: Justni Leo DATE OF SERVICE: July 05, 2023 TIME: 6:52 PM PATIENT IDENTITY VERIFICATION COMPLETED USING TWO (2) IDENTIFIERS: Name and Date of confirmedby patient verbally. FALL SCREENING: Has the patient had 2 falls in the last year or 1 fall with injury or currently using an Ambulatory Assistive Device (Walker, Cane, Wheelchair, Crutches, etc.)? No PATIENT GENDER DATA: Female. status: : No status: NO. PATIENT RELEVANT IMPLANT DATA REVIEWED: Yes RADIOLOGY DEPARTMENT: General X-ray: Exam(s) Completed: Lower Extremity X- Ray(s): Ankle, Left and Foot, Left PERIPHERAL IV DATA: Not applicable SIGNED BY: RT Joseph(Princess) July 05, 2023 6:52 PM documented in this encounterSelect Medical [facility]09-05-2023 NoteHNO ID: [id number] Author: Marlin Glass RT(R) Service: Radiology Author Type: Technologist Type: Progress Notes Filed: 07/05/2023 7:01 PM Note Text: Radiology Service Progress Note PATIENT NAME: Justin Leo DATE OF SERVICE: July 05, 2023 TIME: 6:52 PM PATIENT IDENTITY VERIFICATION COMPLETED USING TWO (2) IDENTIFIERS: Name and Date of confirmed by patient verbally. FALL SCREENING: Has the patient had 2 falls in the last year or 1 fall with injury or currently using an Ambulatory Assistive Device (Walker, Cane, Wheelchair, Crutches, etc.)? No PATIENT GENDER DATA: Female. status: : No status: NO. PATIENT RELEVANT IMPLANT DATA REVIEWED: Yes RADIOLOGY DEPARTMENT: General X-ray: Exam(s) Completed: Lower Extremity X-Ray(s): Ankle, Left and Foot, Left PERIPHERAL IV DATA: Not applicable SIGNED BY: RT Joseph(Princess) July 05, 2023 6:52 [facility]06-30-2023 Miscellaneous Notes* Telephone Encounter - Mary Zepeda LPN - 04/29/2023 2:28 PM EDT [facility] Cytology lab contacted and information supplied. Mary Zepeda LPN * Telephone Encounter - Key Herrera MD - 04/29/2023 2:22 PM EDT vaginal pap. Thanks. Key Herrera MD * Telephone Encounter - Mary Horn RN - 04/29/2023 2:16 PM EDT [facility] Cytology lab called. SW collected a pap on 04/27/23. Lab questioning if the pap was cervical or vaginal with patient's history of a hysterectomy and cervical cancer. Can you please review chart inSW's absence to clarify. Will need to call and ask for Gisselle Castanon at [phone] Mary Horn RN documented in this encounterSelect Medical [facility]06-28-2023 History of Present illness Narrative* Rachelle Sánchez MD - 04/27/2023 10:47 AM EDT Supervisor Drying offered: Patient declines. Justin is a 37 year old who presents for an annual gynecologic exam without complaints. At end of appointment she noted an episode of vaginal bleeding a few weeks ago, and no bleeding since. Menses: none - hysterectomy. - Hysterectomy with Dr. Guevara. She reports it was for cancer but she is not certain. Cervical cancer listed in Epic. She believes both ovaries were removed Contraception: hysterectomy HPV vaccine: No Last Pap: 01/10/2006 normal HPV: 01/07/2006 negative History of abnormal pap: Yes- possibly abnormal paps per patient but no report Last mammogram: never Sexually active: No OB History T0 L2 SAB0 IAB0 Ectopic0 Multiple0 Live Births0 x 2 [employer] History LMP: 01/22/2013, Hysterectomy Age at Menarche: Age at First : Age at Menopause: [employer] History Comments: Sexual Activity: Yes; Male Contraception: Vasectomy PAST MEDICAL HISTORY Diagnosis Date Abnormal glandular Papanicolaou smear of cervix 07/2004 Abn. Pap smear (cervix) Cervical cancer (HCC) Dysthymic disorder Depression (non-psychotic) Esophageal reflux Heterozygous factor V Leiden mutation (HCC) Migraines Obesity Unspecified asthma(493.90) PAST SURGICAL HISTORY Procedure Laterality Date ARTHRS KNE SURG W/MENISCECTOMY MED/LAT W/SHVG Right COLONOSCOPY EGD EXC LESION TDN SHTH/JT CAPSL HAND/FNGR Right 08/14/2021 Excision volar ganglion cyst right wrist HYSTERECTOMY HX 03/01/2013 for cervical ca. LAPAROSCOPIC APPENDECTOMY 09/02/2010 for RLQ pain LAPS SURG CHOLECYSTECTOMY W/CHOLANGIOGRAPHY 11/05/2010 Normal IOC OOPHORECTOMY, PART/TOTAL UNILAT/BILAT 2012 Right PAST SURGICAL HISTORY OF 2003, 2002 BACK skin PAST SURGICAL HISTORY OF 2009 arm and hand surgery on right side PAST SURGICAL HISTORY OF Left 2015 left achillies tendon repair. PAST SURGICAL HISTORY OF Right 09/09/2016 tumor cyst removed off right leg. Skin graft 11/29/16. Dr. Henson TONSILLECTOMY PRIMARY/SECONDARY <AGE 12 Tonsillectomy FAMILY HISTORY Problem Relation Age of Onset Thyroid Mother Arthritis Mother other (depression) Mother other (substance abuse) Mother other (fibromyalgia) Mother Heart Father Coronary Artery Disease Father Fatal [place] age 34 other (drug overdose) Father Depression Sister Thyroid Sister Diabetes Maternal Grandmother Colon Cancer Maternal Grandmother Cancer Maternal Grandmother melanoma Hypertension Maternal Grandmother Arthritis Maternal Grandmother Heart Maternal Grandfather [place] Coronary Artery Disease Maternal Grandfather Fatal [place] Diabetes Maternal Aunt Cancer Maternal Uncle SKIN CANCER Diabetes Maternal Uncle Cancer Maternal Uncle great uncle. Cancer Paternal Aunt LEUKEMIA, AGE 2 SOCIAL HISTORY Social History Tobacco Use Smoking status: Every Day Packs/day: 0.25 Years: 17.00 Pack years: 4.25 Types: Cigarettes Smokeless tobacco: Never Vaping Use Vaping Use: Never used Substance Use Topics Alcohol use: No Drug use: No REVIEW OF SYSTEMS Abdomen: No abdominal pain, nausea, vomiting, diarrhea, or constipation. No bloating, early satiety, indigestion, or increased flatulence. Bladder: No dysuria, gross hematuria, urinary frequency, urinary urgency, or incontinence. Breast: No breast lumps, nipple d/c, overlying skin changes, redness or skin retraction. Allergies and current medication updated:Yes EXAM: BP 100/60 Ht 5' 2.5 (1.59m) Wt 208 lb 6.4 oz (94.5kg) LMP 01/22/2013 BMI 37.49 kg/(m^2). GENERAL: pleasant, female in no apparent distress HEENT: Normocephalic, atraumatic, mucus membranes moist, and no lesions NECK: full range of motion DERMATOLOGY: Normal and without lesions BREAST: soft, non-tender, symmetric, no dominant mass, normal nipple-areolar complex, no lymphadenopathy, and no nipple discharge CHEST: Normal inspiratory effort ABDOMEN: soft, non-tender, and no masses PELVIC: external genitalia normal, normal Bartholin's glands, urethra, Idalia's glands, no vulvar lesions, good vaginal support, physiologic discharge present, normal appearing perineal body and perianal region BIMANUAL: diffuse tenderness RECTOVAGINAL: deferred. NEURO: exam grossly non-focal EXTREMITIES: normal ASSESSMENT/PLAN: 1) Health maintenance: Pap done with HPV. Mammogram starting age 40. Nutrition, exercise and routine health maintenance exams reviewed. Smoking cessation: Benefits of smoking cessation reviewed. Patient encouraged to avoid smoking. H/o cervical cancer: Sign records release today to get operative reports and pathology reports. Papsmear completed. Discussed with pt if pap normal, may still need to consult with stogy maker oncology givenepisode of vaginal bleeding. 2) Contraception: hysterectomy. Contraceptive options reviewed and information provided. 3) STD screening: Declined STD check. 4) Follow up one year or sooner as needed Rachelle Sánchez DO documented in this encounterSelect Medical [facility]05-16-2023 Instructions* Patient Instructions* Minal Martin APRN.[facility] - 03/15/2023 5:57 PM EDT ASSESSMENT/PLAN: 1. Avulsion of toenail of left foot - ICD9: 893.0, ICD10: S91.209A - MUPIROCIN 2 % TOPICAL OINTMENT - may do warm water with epsom salt soaks once daily. - keep covered while in public places or outdoors, otherwise keep open to air to allow for drying. - Follow-up with your PCP or quarter backer in 3-5 days if symptoms have not improved or sooner if symptoms worsen - Discussed red flags and need for immediate medical evaluation if any occur. - Discussed supportive care treatment with fluids, rest and analgesia. - Discussed expected course of illness Minal Martin APRN.ADY documented in this encounterSelect Medical [facility]05-16-2023 History of Present illness Narrative* Minal Martin APRN.CNP - 03/15/2023 5:52 PM EDT Images from the original note were not included. Subjective HPI Justin Leo is a 37 year old female who presents after tearing a toenail off her left great toe last night while moving a bench. She has cleaned the toe and has been keeping a bandaid on it.She has had throbbing pain since this happened. She has not taken anything for pain. She has not had a fever or chills. There was some bleeding overnight after this happened but it has stopped. Review of Systems Constitutional: Negative for chills and fever. Musculoskeletal: Negative for falls and joint pain. See HPI Skin: Negative. BP 122/72 Pulse 72 Temp 37.2 C (98.9 F) Resp 16 Wt 94.8 kg (209 lb) LMP 01/22/2013 IiF135% BMI 37.02 kg/m PAST MEDICAL HISTORY Diagnosis Date Abnormal glandular Papanicolaou smear of cervix 07/2004 Abn. Pap smear (cervix) Cervical cancer (HCC) Dysthymic disorder Depression (non-psychotic) Esophageal reflux Heterozygous factor V Leiden mutation (HCC) Migraines Obesity Unspecified asthma(493.90) PAST SURGICAL HISTORY Procedure Laterality Date ARTHRS KNE SURG W/MENISCECTOMY MED/LAT W/SHVG Right COLONOSCOPY EGD EXC LESION TDN SHTH/JT CAPSL HAND/FNGR Right 08/14/2021 Excision volar ganglion cyst right wrist HYSTERECTOMY HX 03/01/2013 for cervical ca. LAPAROSCOPIC APPENDECTOMY 09/02/2010 for RLQ pain LAPS SURG CHOLECYSTECTOMY W/CHOLANGIOGRAPHY 11/05/2010 Normal IOC OOPHORECTOMY, PART/TOTAL UNILAT/BILAT 2012 Right PAST SURGICAL HISTORY OF 2003, 2002 BACK skin PAST SURGICAL HISTORY OF 2010 arm and hand surgery on right side PAST SURGICAL HISTORY OF Left 2015 left achillies tendon repair. PAST SURGICAL HISTORY OF Right 09/09/2016 tumor cyst removed off right leg. Skin graft 11/29/16. Dr. Henson TONSILLECTOMY PRIMARY/SECONDARY <AGE 12 Tonsillectomy ALLERGIES Bactrim [Sulfamethoxazole-Trimethoprim], Cymbalta [Duloxetine], Desyrel [Trazodone Hcl], Horseradish, Keflex [Cephalexin], and Shellfish MEDICATIONS busPIRone (BUSPAR) 10 mg tablet Take 1 tablet by mouth twice daily. FLUoxetine (PROZAC) 40 mg capsule Take 1 capsule by mouth once daily. hydrOXYzine pamoate (VISTARIL) 25 mg capsule Take 1 capsule by mouth twice daily as needed. rivaroxaban (XARELTO) 20 mg tablet Take 1 tablet by mouth daily with dinner. mupirocin (BACTROBAN) 2 % ointment Apply 1 application to affected area twice daily. FAMILY HISTORY Problem Relation Age of Onset Heart Father Coronary Artery Disease Father Fatal [place] age 34 other (drug overdose) Father Thyroid Mother Arthritis Mother other (depression) Mother other (substance abuse) Mother other (fibromyalgia) Mother Diabetes Maternal Grandmother Colon Cancer Maternal Grandmother Cancer Maternal Grandmother melanoma Hypertension Maternal Grandmother Arthritis Maternal Grandmother Heart Maternal Grandfather [place] Coronary Artery Disease Maternal Grandfather Fatal [place] other (depression) Sister Cancer Maternal Uncle SKIN CANCER Cancer Paternal Aunt LEUKEMIA, AGE 2 Thyroid Sister Diabetes Maternal Aunt Diabetes Maternal Uncle Cancer Maternal Uncle great uncle. Social History Tobacco Use Smoking status: Every Day Packs/day: 0.25 Years: 17.00 Pack years: 4.25 Types: Cigarettes Smokeless tobacco: Never Vaping Use Vaping Use: Never used Substance Use Topics Alcohol use: No Drug use: No Objective Physical Exam Vitals and nursing note reviewed. Constitutional: General: She is not in acute distress. Appearance: Normal appearance. She is not ill-appearing. Musculoskeletal: General: Tenderness and signs of injury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 G25.81 4. Witnessed episode of apnea - ICD9: 786.03, ICD10: R06.81 Sleep study 5. Burn - ICD9: 949.0, ICD10: T30.0 Continue symptomatic treatment; monitor 1 mo f/u; remain off work until then; note given I agree with the Chief Complaint, ROS, and Past Histories independently gathered by the clinical operations support manager and the remaining scribed note accurately describes my personal service to the patient. Medical Decision Making: Problems: Low: Stable chronic illness Moderate: New problem with uncertain prognosis Data: Unique test(s) ordered: 1 Risk: Moderate: Drug management Medical Decision Making Level: 4 - Moderate Ty Gaytan MD The documentation for this note was completed by Ny Camp Ma acting as scribe for Ty Gaytan MD. October 13, 2022 2:11 PM. Ny Camp Ma documented in this encounterSelect [facility]11-30-[facility]22 History of Present illness Narrative* Henny Cook APRN.FRONT TENDER - 09/29/2022 2:00 PM EST This is a 37 year old female who presents today with: Patient presents with: Acute Visit: sharp pain right hoahaoism. HISTORY OF PRESENT ILLNESS: Justin Leo is a 37 year old female. Patient presents with: Acute Visit: sharp pain right hoahaoism. Here in the office for pain on hoahaoism for 1 day. History of migraines in the past. Currently not taking any medication for migraine headaches. Pain starts behind the right eye and wraps around the right hoahaoism. Pain started today. Pain is sharp. Got nauseous initally. On Xarelto cannot take NSAIDS.Took tylenol 650 mg. Right vision has been blurry since start of migraine. Wearing glasses. No difficulty with balance, phonophobia. Mild photophobia. Refers that migraines in the past have never felt like this before. PAST MEDICAL HISTORY: PAST MEDICAL HISTORY Diagnosis Date Abnormal glandular Papanicolaou smear of cervix 07/2004 Abn. Pap smear (cervix) Cervical cancer (HCC) Dysthymic disorder Depression (non-psychotic) Esophageal reflux Heterozygous factor V Leiden mutation (HCC) Migraines Obesity Unspecified asthma(493.90) PAST SURGICAL HISTORY Procedure Laterality Date ARTHRS KNE SURG W/MENISCECTOMY MED/LAT W/SHVG Right COLONOSCOPY EGD EXC LESION TDN SHTH/JT CAPSL HAND/FNGR Right 08/14/2021 Excision volar ganglion cyst right wrist HYSTERECTOMY HX 03/01/2013 for cervical ca. LAPAROSCOPIC APPENDECTOMY 09/02/2010 for RLQ pain LAPS SURG CHOLECYSTECTOMY W/CHOLANGIOGRAPHY 11/05/2010 Normal IOC OOPHORECTOMY, PART/TOTAL UNILAT/BILAT 2012 Right PAST SURGICAL HISTORY OF 2003, 2002 BACK skin PAST SURGICAL HISTORY OF 2009 arm and hand surgery on right side PAST SURGICAL HISTORY OF Left 2015 left achillies tendon repair. PAST SURGICAL HISTORY OF Right 09/09/2016 tumor cyst removed off right leg. Skin graft 11/29/16. Dr. Henson TONSILLECTOMY PRIMARY/SECONDARY <AGE 12 Tonsillectomy ALLERGIES Bactrim [Sulfamethoxazole-Trimethoprim], Cymbalta [Duloxetine], Desyrel [Trazodone Hcl], Horseradish, Keflex [Cephalexin], and Shellfish MEDICATIONS Current Outpatient Medications Medication Sig FLUoxetine (PROZAC) 20 mg capsule Take 1 capsule by mouth once daily. Take along with 10 mg dose hydrOXYzine pamoate (VISTARIL) 25 mg capsule Take 1 capsule by mouth twice daily as needed. FLUoxetine (PROZAC) 10 mg capsule Take 1 capsule by mouth once daily. Take along with 20 mg dose rivaroxaban (XARELTO) 20 mg tablet Take 1 tablet by mouth daily with dinner. No current facility-administered medications for this visit. FAMILY HISTORY Problem Relation Age of Onset Heart Father Coronary Artery Disease Father Fatal [place] age 34 other (drug overdose) Father Thyroid Mother Arthritis Mother other (depression) Mother other (substance abuse) Mother other (fibromyalgia) Mother Diabetes Maternal Grandmother Colon Cancer Maternal Grandmother Cancer Maternal Grandmother melanoma Hypertension Maternal Grandmother Arthritis Maternal Grandmother Heart Maternal Grandfather [place] Coronary Artery Disease Maternal Grandfather Fatal [place] other (depression) Sister Cancer Maternal Uncle SKIN CANCER Cancer Paternal Aunt LEUKEMIA, AGE 2 Thyroid Sister Diabetes Maternal Aunt Diabetes Maternal Uncle Cancer Maternal Uncle great uncle. Social History Tobacco Use Smoking status: Every Day Packs/day: 0.25 Years: 17.00 Pack years: 4.25 Types: Cigarettes Smokeless tobacco: Never Vaping Use Vaping Use: Never used Substance Use Topics Alcohol use: No Drug use: No REVIEW OF SYSTEMS GENERAL: No weight loss, malaise or fevers/chills HEENT: Negative for frequent or significant headaches, No changes in hearing or vision. NECK: Negative for lumps, goiter, pain and significant neck swelling RESPIRATORY: Negative for cough, hemoptysis, wheezing, dyspnea or shortness of breath CARDIOVASCULAR: Negative for chest pain, leg swelling, orthopnea, or palpitations GI: No nausea, vomiting, or diarrhea/constipation. No hematochezia/melena. No heartburn or reflux symptoms. : No history of dysuria, frequency or incontinence MUSCULOSKELETAL: Negative for joint pain or swelling. SKIN: Negative for lesions, rash, and itching ENDOCRINE: Negative for cold or heat intolerance, polyuria, polydipsia and goiter NEURO: + Headache/Vision Blurry MOOD: Negative for depression, anxiety, or suicidal ideation. EXAM: BP 104/58 Pulse 64 Resp 16 Wt 88.9 kg (196 lb) LMP 01/22/2013 SpO2 98% BMI 34.72 kg/m PHYSICAL EXAM: General Appearance: Well appearing, alert, in no acute distress, well-hydrated, well nourished. Skin: Skin color, texture, turgor normal, no suspicious rashes or lesions. Head: Normocephalic, no masses, lesions, tenderness or abnormalities. Eyes: Anicteric sclera. Pupils are equally round and reactive to light. Extraocular movements are intact. Lungs: Lungs clear to auscultation. No wheezing, rhonchi, rales. Heart: RRR without murmur, gallop, or rubs. No ectopy. Extremities: No deformities, edema, skin discoloration, clubbing or cyanosis. Good capillary refill. Peripheral Pulses: Normal, Capillary refill <2secs, strong peripheral pulses, Pulses palpable. Neurologic: Gait normal. Reflexes normal and symmetric. Sensation grossly intact., Negative findings: speech normal, mental status intact, cranial nerves 2-12 intact, muscle tone normal, muscle strength normal, sensation to light touch and pinprick normal, reflexes normal and symmetric. ASSESSMENT/PLAN: 1. Other migraine with status migrainosus, intractable - ICD9: 346.83, ICD10: G43.811 (primary diagnosis) - Recommend going to Er due to change in vision with accompany headache, however patient denies. - Recommend continue with Tylenol 600 to 1000 mg every 6-8 hours as needed for pain. - May try Maxalt 10 mg for migraine headache. - Medication education and instructions provided. - Red flag symptoms given to patient, she verbalizes understanding when to seek emergency care - RIZATRIPTAN 10 MG DISINTEGRATING TABLET 2. Vision changes - ICD9: 368.9, ICD10: H53.9 - Recommend follow up with repair cameraman or to the ER with any worsening symptoms. Keep scheduled appointment with PCP. Discussed treatment plan and patient voices understanding. Patient's questions answered appropriately. Medications and potential side effects were discussed and patient voices understanding. Henny Cook APRN.CNP This note was partially generated using [employer] voice recognition system. Note was reviewed for accuracy. There may be minor misspellings or grammar miscues with [employer] voice recognition. documented in this encounterSelect [facility]11-30-2022 Instructions* Patient Instructions* Henny Cook APRN.CNP - 09/29/2022 2:00 PM EST Recommend using Tylenol 650-1000 mg every 6-8 hours as needed for headache. If headache persist may use rescue medication, Maxalt 10 mg, place under the tongue and allow to dissolve. May repeat dose in 2 hours. Max dose is 30 mg (3 tablets) in 24 hours. Recommend keeping migraine journal with any associated symptoms. Recommend getting eye exam with repair cameraman Red flag symptoms go to ER. Keep scheduled appointment with PCP or sooner as needed. documented in this encounterSelect [facility]11-09-2022 Instructions* Patient Instructions* Henny Cook APRN.CNP - 09/08/2022 11:44 AM EST Recommend switching prozac to bedtime due to fatigue/Sleepiness. Or Hold am Vistaril dose until as needed or bed. Continue to keep appointments with counseling. Keep up coming appointment with PCP. Follow up as needed. documented in this encounterSelect [facility]11-09-2022 History of Present illness Narrative* Henny Cook APRN.CNP - 09/08/2022 11:20 AM EST This is a 37 year old female who presents today with: Patient presents with: Acute Visit: dolly all the time HISTORY OF PRESENT ILLNESS: Justin Leo is a 37 year old female. Patient presents with: Acute Visit: dolly all the time Here in the office for ongoing fatigue. Was just admitted to [facility] in [place] on 08/23/2022 for depression. Started on Prozac, taking 30 mg daily and hydroxyzine 25 BID. Labs completed around August 10 were all normal, thyroid, CMP, CBC, iron, vitamin D, stool occult were all within normal limits. Has appointment with his PCP on 09/15/2022. Increased fatigue about 1-2 hours after taking at Prozac and hydrpxyzine. Taking Xarelto for previous DVT. History of factor V. PAST MEDICAL HISTORY: PAST MEDICAL HISTORY Diagnosis Date Abnormal glandular Papanicolaou smear of cervix 07/2004 Abn. Pap smear (cervix) Cervical cancer (HCC) Dysthymic disorder Depression (non-psychotic) Esophageal reflux Heterozygous factor V Leiden mutation (HCC) Migraines Obesity Unspecified asthma(493.90) PAST SURGICAL HISTORY Procedure Laterality Date ARTHRS KNE SURG W/MENISCECTOMY MED/LAT W/SHVG Right COLONOSCOPY EGD EXC LESION TDN SHTH/JT CAPSL HAND/FNGR Right 08/14/2021 Excision volar ganglion cyst right wrist HYSTERECTOMY HX 03/01/2013 for cervical ca. LAPAROSCOPIC APPENDECTOMY 09/02/2010 for RLQ pain LAPS SURG CHOLECYSTECTOMY W/CHOLANGIOGRAPHY 11/05/2010 Normal IOC OOPHORECTOMY, PART/TOTAL UNILAT/BILAT 2012 Right PAST SURGICAL HISTORY OF 2003, 2002 BACK skin PAST SURGICAL HISTORY OF 2009 arm and hand surgery on right side PAST SURGICAL HISTORY OF Left 2015 left achillies tendon repair. PAST SURGICAL HISTORY OF Right 09/09/2016 tumor cyst removed off right leg. Skin graft 11/29/16. Dr. Henson TONSILLECTOMY PRIMARY/SECONDARY <AGE 12 Tonsillectomy ALLERGIES Bactrim [Sulfamethoxazole-Trimethoprim], Cymbalta [Duloxetine], Desyrel [Trazodone Hcl], Horseradish, Keflex [Cephalexin], and Shellfish MEDICATIONS Current Outpatient Medications Medication Sig rivaroxaban (XARELTO) 20 mg tablet Take 1 tablet by mouth daily with dinner. FLUoxetine (PROZAC) 20 mg capsule Take 1 capsule by mouth once daily. LORazepam (ATIVAN) 0.5 mg Take 0.5 mg by mouth as needed. No current facility-administered medications for this visit. FAMILY HISTORY Problem Relation Age of Onset Heart Father Coronary Artery Disease Father Fatal [place] age 34 other (drug overdose) Father Thyroid Mother Arthritis Mother other (depression) Mother other (substance abuse) Mother other (fibromyalgia) Mother Diabetes Maternal Grandmother Colon Cancer Maternal Grandmother Cancer Maternal Grandmother melanoma Hypertension Maternal Grandmother Arthritis Maternal Grandmother Heart Maternal Grandfather [place] Coronary Artery Disease Maternal Grandfather Fatal [place] other (depression) Sister Cancer Maternal Uncle SKIN CANCER Cancer Paternal Aunt LEUKEMIA, AGE 2 Thyroid Sister Diabetes Maternal Aunt Diabetes Maternal Uncle Cancer Maternal Uncle great uncle. Social History Tobacco Use Smoking status: Every Day Packs/day: 0.25 Years: 17.00 Pack years: 4.25 Types: Cigarettes Smokeless tobacco: Never Vaping Use Vaping Use: Never used Substance Use Topics Alcohol use: No Drug use: No REVIEW OF SYSTEMS GENERAL: + Fatigue HEENT: Negative for frequent or significant headaches, No changes in hearing or vision. NECK: Negative for lumps, goiter, pain and significant neck swelling RESPIRATORY: Negative for cough, hemoptysis, wheezing, dyspnea or shortness of breath CARDIOVASCULAR: Negative for chest pain, leg swelling, orthopnea, or palpitations GI: No nausea, vomiting, or diarrhea/constipation. No hematochezia/melena. No heartburn or reflux symptoms. : No history of dysuria, frequency or incontinence MUSCULOSKELETAL: Negative for joint pain or swelling. SKIN: Negative for lesions, rash, and itching ENDOCRINE: Negative for cold or heat intolerance, polyuria, polydipsia and goiter NEURO: No history of headaches, syncope, paralysis, seizures or tremors MOOD: Negative for depression, anxiety, or suicidal ideation. EXAM: BP 104/70 Pulse 66 Resp 16 Wt 91.2 kg (201 lb) LMP 01/22/2013 SpO2 96% BMI 35.61 kg/m PHYSICAL EXAM: General Appearance: Well appearing, alert, in no acute distress, well-hydrated, well nourished. Skin: Skin color, texture, turgor normal, no suspicious rashes or lesions. Head: Normocephalic, no masses, lesions, tenderness or abnormalities. Eyes: Anicteric sclera. Extraocular movements are intact. Lungs: Lungs clear to auscultation. No wheezing, rhonchi, rales. Heart: RRR without murmur, gallop, or rubs. No ectopy. Extremities: No deformities, edema, skin discoloration, clubbing or cyanosis. Good capillary refill. Peripheral Pulses: Normal, Capillary refill <2secs, strong peripheral pulses, Pulses palpable. Neurologic: Gait normal. Sensation grossly intact. Mood: Pleasant, good eye contact, engaged. ASSESSMENT/PLAN: 1. Medication side effect - ICD9: 995.20, ICD10: T88.7XXA (primary diagnosis) - Based off history and exam symptoms consistent with medication side effect. - May take Prozac at bedtime or use hydroxyzine prn to see if fatigue improves. - Discussed with patient that more than likely the hydroxyzine is causing sleepiness. 2. Anxiety with depression - ICD9: 300.4, ICD10: F41.8 - Continue to take Prozac 30 mg daily and hydroxyzine BID. - Keep scheduled appointments with counselor. Keep scheduled appointment with PCP Discussed treatment plan and patient voices understanding. Patient's questions answered appropriately. Medications and potential side effects were discussed and patient voices understanding. Henny Cook APRN.ADY This note was partially generated using [employer] voice recognition system. Note was reviewed for accuracy. There may be minor misspellings or grammar miscues with [employer] voice recognition. documented in this encounterSelect [facility]10-27-2022 Miscellaneous Notes* Telephone Encounter - Ty Gaytna MD - 08/26/2022 11:42 AM EDT Noted Ty Gaytan MD * Telephone Encounter - April Gonzalez LPN - 08/25/2022 4:12 PM EDT Susie from [facility] patient was admitted to [facility] on 08/23 with symptoms of depression. documented in this encounterSelect Medical [facility]10-18-2022 History of Present illness Narrative* Ty Gaytan MD - 08/17/2022 4:20 PM EDT Chief Complaint Patient presents with: ED Follow-up HPI Justin Leo is a 36 year old female who presents here today for ER follow up. Pt recently seen in office by Elysia Zamora CNP on 08/09/22 for multiple concerns of weight loss, bleeding/bruising, bloody stool and diarrhea. Pt at visit reported that she was seen by Urology by Jacquelin Raphael due to hematuria, they advised she stop her Xarelto. Normal cystoscopy. She still has hematuria, no changes to the amount on or off the Xarelto. Nothing found during work up, pt continued to remain off Xarelto 20 mg over the past 6 months, due to not being able to get a visit with PCP, per pt. Pt had multiple labs ordered and completed. Currently Testosterone is still in process at this time. D-Dimer came back elevated at 530. UA came back with 1+ Hemoglobin, Trace Leuks, rBC, Urine 6-10 HPF and Few Budding Yeast. Pt called into the office to review her results on 08/13/22. Per Elysia, she felt d-dimer being slightly elevated, is likely normal but given her hx of Factor V and stopping Xarelto this puts her atrisk for a clot. Recommended that pt get US of legs to check for DVT and if negative would recommend repeat d- dimer in [address] for PE if remains positive. Pt was not scheduled for an US until next week through [facility]. Pt called into the office on 08/15/22 stating she had an incident on 08/15/22 while at work. She started feeling funny while at work around 1:00 pm. Pt stated that she felt funny, things went blurry and she passed out. Unsure how long she was passed out for. Floor Nurse and Settlement Technician thought it mayof been related to blood sugar, but pt denies having any issues previously. Pt was given OJ and had to sit for 20 minutes before she was able to resume working. After her episode she felt funny, but felt okay all day on 08/16/22. When office called pt to discuss PCP recommendation, pt reported thatshe felt as if she had a blood clot in her left left and she was concerned. Due to pt not being able to have US done until next week, she was referred to ED to have US and work up done in order to know if Xarelto 20 mg needed restarted. She has pain in the leg when walking. She has hx of blood clots in the past following surgery, has known Factor V heterozygosity. Imaging done at [facility] was negativefor any clots, nothing acute or dangerous noted. Her first clot occurred after surgery, was in ICU for 3 weeks and then she had another clot that occurred after she had healed up, was in the hospitalfor 4 days that time. She denied being off any blood thinners at time of 2nd blood clot. She statesthat the blood thinners caused her skin to be very sensitive, she feels like she is being touched with a thousand needles. She states she does stand on her feel 8 hours or more per day. [facility] ER called and PCP spoke with Dr. Christine who was discharging pt at this time as she presented to the [facility] ER again today with chest pains. Dr. Christine felt this was an anxiety attack due to increased stress. She states she is not sleeping well, she can sleep 12 hours feel tired, drained. Her hair isfalling out, she is bruising easier, she has no motivation to do anything. Her recent lab results all were normal. Admits her stress level has been pretty bad. She used Cymbalta in the past but caused rash. She has used Celexa in the past. She does not currently work with a counselor. Below copied from [facility]: Chief Complaint: Abn Labs Informant: patient Narrative Narrative: Patient has had the comfort in her left popliteal leg area for the past several weeks. She has had dyspnea at times for the past month or more. She was seen here in the ER several weeks ago for chestdiscomfort and dyspnea and had a negative CT angiography ruling out pulmonary embolus; she has a history of clotting disorder, she had a DVT in her left leg in the past. US/Venous Duplex Imag/Limited/Uni IMPRESSION: No acute thrombus seen. Possible chronic thrombus with linear echogenic structure in the femoral veins. Past medical history, appointments, medications, allergies reviewed. Previous Medical History PAST MEDICAL HISTORY Diagnosis Date Abnormal glandular Papanicolaou smear of cervix 07/2004 Abn. Pap smear (cervix) Cervical cancer (HCC) Dysthymic disorder Depression (non-psychotic) Esophageal reflux Heterozygous factor V Leiden mutation (HCC) Migraines Obesity Unspecified asthma(493.90) Previous Surgical History PAST SURGICAL HISTORY Procedure Laterality Date ARTHRS KNE SURG W/MENISCECTOMY MED/LAT W/SHVG Right COLONOSCOPY EGD EXC LESION TDN SHTH/JT CAPSL HAND/FNGR Right 08/14/2021 Excision volar ganglion cyst right wrist HYSTERECTOMY HX 03/01/2013 for cervical ca. LAPAROSCOPIC APPENDECTOMY 09/02/2010 for RLQ pain LAPS SURG CHOLECYSTECTOMY W/CHOLANGIOGRAPHY 11/05/2010 Normal [facility] OOPHORECTOMY, PART/TOTAL UNILAT/BILAT 2012 Right PAST SURGICAL HISTORY OF 2004, 2002 BACK skin PAST SURGICAL HISTORY OF 2010 arm and hand surgery on right side PAST SURGICAL HISTORY OF Left 2015 left achillies tendon repair. PAST SURGICAL HISTORY OF Right 09/09/2016 tumor cyst removed off right leg. Skin graft 11/29/16. Dr. Henson TONSILLECTOMY PRIMARY/SECONDARY <AGE 12 Tonsillectomy Family History FAMILY HISTORY Problem Relation Age of Onset Heart Father Coronary Artery Disease Father Fatal [place] age 34 other (drug overdose) Father Thyroid Mother Arthritis Mother other (depression) Mother other (substance abuse) Mother other (fibromyalgia) Mother Diabetes Maternal Grandmother Colon Cancer Maternal Grandmother Cancer Maternal Grandmother melanoma Hypertension Maternal Grandmother Arthritis Maternal Grandmother Heart Maternal Grandfather [place] Coronary Artery Disease Maternal Grandfather Fatal [place] other (depression) Sister Cancer Maternal Uncle SKIN CANCER Cancer Paternal Aunt LEUKEMIA, AGE 2 Thyroid Sister Diabetes Maternal Aunt Diabetes Maternal Uncle Cancer Maternal Uncle great uncle. Patient Allergies ALLERGIES Allergen Reactions Bactrim [Sulfametho* Swelling CHILDHOOD REACTION Cymbalta [Duloxetin* Rash, Shortness of Breath Desyrel [Trazodone * Intolerance Headache Horseradish Swelling Keflex [Cephalexin] Hives Was ok as long as she took Benadryl Shellfish Other: See Comments Lightheadedness after test and warmth at injection site Has had CT dye since with no problem Current Medications Current Outpatient Medications on File Prior to Visit Medication Sig oxybutynin (DITROPAN) 5 mg tablet Take 1 tablet by mouth three times daily. estradiol (ESTRACE) 0.01 % (0.1 mg/gram) vaginal cream Use 1 g vaginally once daily. LORazepam (ATIVAN) 0.5 mg Take 0.5 mg by mouth as needed. rivaroxaban (XARELTO) 20 mg tablet Take 1 tablet by mouth daily with dinner. (Patient not taking: Reported on 08/09/2022) albuterol HFA (VENTOLIN HFA) 90 mcg/actuation inhaler Inhale 2 Puffs as instructed every 4 hours asneeded for Wheezing/Shortness of Breath. No current facility-administered medications on file prior to visit. Social History Social History Tobacco Use Smoking status: Every Day Packs/day: 0.25 Years: 17.00 Pack years: 4.25 Types: Cigarettes Smokeless tobacco: Never Vaping Use Vaping Use: Never used Substance Use Topics Alcohol use: No Drug use: No EXAM: BP 112/70 Pulse 78 Resp 16 Wt 91.6 kg (202 lb) LMP 01/22/2013 BMI 35.78 kg/m General Appearance: Well appearing, alert, in no acute distress, well-hydrated, well nourished. andOverweight. Lungs: Lungs clear to auscultation. No wheezing, rhonchi, rales.. Heart: RRR without murmur, gallop, or rubs. No ectopy. Extremities: left leg; tenderness on palpation to the back of the knee and calf. Health Maintenance List HEPATITIS B(1 of 3 - 3-dose series) Never done COVID-19 VACCINE(1) Never done PNEUMOCOCCAL(1 - PCV) Never done HEPATITIS C SCREENING Never done DTAP,TDAP,TD(1 - Tdap) due on 2009 HPV TESTING due on 2015 PAP TESTING due on 04/12/2018 DEPRESSION ASSESSMENT Never done INFLUENZA(1) due on 07/01/2022 ANNUAL PCP TEAM CHRONIC DISEASE VISIT due on 08/09/2023 SPIROMETRY Completed HIV SCREENING Completed Data reviewed [facility] ER reports ASSESSMENT/PLAN: 1. Fatigue, unspecified type - ICD9: 780.79, ICD10: R53.83 (primary diagnosis) Start Prozac 20 mg daily 2. Chronic deep vein thrombosis (DVT) of iliac vein of left lower extremity (HCC) - ICD9: 453.51, ICD10: I82.522 Start Xarelto Recommend heat, compression stockings 3. Heterozygous factor V Leiden mutation (HCC) - ICD9: 289.81, ICD10: D68.51 Go back on Xarelto Work note given stating that pt can return to work on Tuesday08/23/22 with no restrictions. Follow up in 1 month. I agree with the Chief Complaint, ROS, and Past Histories independently gathered by the clinical operations support manager and the remaining scribed note accurately describes my personal service to the patient. Medical Decision Making: Problems: Moderate: 1+ chronic illnesses with change and New problem with uncertain prognosis Data: Unique test result(s) reviewed: 3+ Risk: Moderate: Drug management Medical Decision Making Level: 4 - Moderate Ty Gaytan MD The documentation for this note was completed by Jennifer Casiano Ma acting as scribe for Ty Gaytan MD. August 17, 2022 4:13 PM. Jennifer Casiano Ma documented in this encounterSelect Medical [facility]10-18-2022 Miscellaneous Notes* Telephone Encounter - Jennifer Casiano Ma - 08/17/2022 10:32 AM EDT Pt scheduled for ER follow up today 08/17/22. Jennifer Casiano Ma * Telephone Encounter - Ny Camp Ma - 08/16/2022 5:04 PM EDT Call to pt. Pt states this started when she was peeing blood. Pt had procedure done, seen Dr. Ryan and had procedure, then was taken off of Xarelto. Has been off medication for 6 months. Has not been able toget a visit with PCP so she seen Elysia on 08/09/22. She was advised to wait for results to come back. Pt states that she thinks she has a blood clot in left leg. Per most recent results pt's D-Dimer was 530. RS recommended we do a repeat D-Dimer in [address] After discussion with PCP, he recommends pt go to ED to be evaluated before restarting Xarelto. Dueto US not being until next week, pt instructed to go to ED. Denies swelling or erythema leg area. Pt understood. Ny Camp Ma * Telephone Encounter - Ty Gaytan MD - 08/16/2022 5:00 PM EDT Those do not necessarily sound like blood clot symptoms, but I see she is being evaluated for this.Is she currently taking the Xarelto? She is scheduled for Doppler next week. Ty Gaytan MD * Telephone Encounter - Vero Tovar LPN - 08/16/2022 11:02 AM EDT Pt called in and states yesterday 1 pm at work had an incident. Pt states she started to feel funny, things went blurry and she passed out. Pt states not sure how long she was out. Floor nurse and kier pleater thought it may of been pt's blood sugar (which pt states she does not have a blood sugar problem) gave pt orange juice and had her sit for 20 minutes before she could resume working. After theepisode she felt funny. Today sh states she feels fine. Pt's question could this have anything to do with a blood clot. Pt states her left leg only feels tight behind the knee cap. No redness , injury or warm to touch . Pt states when she walk the area gets tighter. Please advise pt. Vero Tovar LPN documented in this encounterSelect Medical [facility]10-17-2022 Miscellaneous Notes* Telephone Encounter - Rosita Thomas APRN.CNP - 08/16/2022 12:38 PM EDT How long has patient been without xarelto? Rosita Thomas APRN.ADY * Telephone Encounter - Vero Tovar LPN - 08/16/2022 11:01 AM EDT Test scheduled. Vero Tovar LPN * Telephone Encounter - Nereiad Rust - 08/16/2022 10:50 AM EDT PT has been schedule for Ad Lab, PT is also asking if she should start her Xaralto back up if so she needs a starter kit. Please advise and assist. Nereida PSS * Telephone Encounter - Lucy Nunes Ma - 08/16/2022 10:22 AM EDT Pt informed, verbalized understanding. Please assist with scheduling US Lucy Nunes Ma * Telephone Encounter - Elysia Zamora APRN.CNP - 08/13/2022 5:03 PM EDT Her d-dimer is slightly elevated, which is likely normal. However, given her history of Factor 5 and stopping her Xarelto, which would put her at higher risk for a clot, will evaluate her legs for DVTs. If negative, would advise to repeat d-dimer in [address] for PE if remains positive. Please assist her to schedule the DVT ultrasounds. Elysia Zamora APRN.ADY * Telephone Encounter - Mikaela Wallace RN - 08/13/2022 3:26 PM EDT Patient calls and is asking and is asking the results from the lab work that she had done on 08/10/2022. Please review and advise, Mikaela Wallace RN documented in this encounterSelect Medical [facility]10-12-2022 Miscellaneous Notes* Telephone Encounter - Heaven Quick RN - 08/11/2022 3:58 PM EDT Patient calling and asking questions regarding recent lab results. Questions answered. Patient aware that not all lab results have been completely processed and she will be called with provider's message regarding all lab results. Heaven Quick RN documented in this encounterSelect Medical [facility]10-10-2022 Instructions* Patient Instructions* Elysia Zamora APRN.ADY - 08/09/2022 12:43 PM EDT Have your labs drawn. Obtain containers for stool specimens. documented in this encounterSelect Medical [facility]10-10-2022 History of Present illness Narrative* Elysia Zamora APRN.CNP - 08/09/2022 11:56 AM EDT Chief Complaint Patient presents with: Bleeding/Bruising Fatigue Weight Loss Diarrhea HPI Justin Leo is a 36 year old female who presents here today for Above Complaints. Today: Had a physical on 07/26 at work. Feels that she has lost 50 pounds over the past 2 months. Was told she had high levels of protein in her urine. Stopped her Xarelto because she had blood in her urine. Urologist did not find anything, ok to restart on Xarelto. Has blood in her urine in the mornings-is dark but without clots. Fatigue, no energy, hair is falling out. So she chopped it. Diarrhea-no matter what she eats-pork is the worst. No formed stools for a long time-4 to 6x per day. Is painful and urgent. Sometimes the pain from it makes her pass out. Pain goes away usually following bowel movement. Some bright red blood in her stool. Sometimes feet turn purple. Scattered bruising to extremities. Past medical history, appointments, medications, allergies reviewed. Previous Medical History PAST MEDICAL HISTORY Diagnosis Date Abnormal glandular Papanicolaou smear of cervix 07/2004 Abn. Pap smear (cervix) Cervical cancer (HCC) Dysthymic disorder Depression (non-psychotic) Esophageal reflux Heterozygous factor V Leiden mutation (HCC) Migraines Obesity Unspecified asthma(493.90) Previous Surgical History PAST SURGICAL HISTORY Procedure Laterality Date ARTHRS KNE SURG W/MENISCECTOMY MED/LAT W/SHVG Right COLONOSCOPY EGD EXC LESION TDN SHTH/JT CAPSL HAND/FNGR Right 08/14/2021 Excision volar ganglion cyst right wrist HYSTERECTOMY HX 03/01/2013 for cervical ca. LAPAROSCOPIC APPENDECTOMY 09/02/2010 for RLQ pain LAPS SURG CHOLECYSTECTOMY W/CHOLANGIOGRAPHY 11/05/2010 Normal [facility] OOPHORECTOMY, PART/TOTAL UNILAT/BILAT 2012 Right PAST SURGICAL HISTORY OF 2003, 2002 BACK skin PAST SURGICAL HISTORY OF 2009 arm and hand surgery on right side PAST SURGICAL HISTORY OF Left 2015 left achillies tendon repair. PAST SURGICAL HISTORY OF Right 09/09/2016 tumor cyst removed off right leg. Skin graft 11/29/16. Dr. Henson TONSILLECTOMY PRIMARY/SECONDARY <AGE 12 Tonsillectomy Family History FAMILY HISTORY Problem Relation Age of Onset Heart Father Coronary Artery Disease Father Fatal [place] age 34 other (drug overdose) Father Thyroid Mother Arthritis Mother other (depression) Mother other (substance abuse) Mother other (fibromyalgia) Mother Diabetes Maternal Grandmother Colon Cancer Maternal Grandmother Cancer Maternal Grandmother melanoma Hypertension Maternal Grandmother Arthritis Maternal Grandmother Heart Maternal Grandfather [place] Coronary Artery Disease Maternal Grandfather Fatal [place] other (depression) Sister Cancer Maternal Uncle SKIN CANCER Cancer Paternal Aunt LEUKEMIA, AGE 2 Thyroid Sister Diabetes Maternal Aunt Diabetes Maternal Uncle Cancer Maternal Uncle great uncle. Patient Allergies ALLERGIES Allergen Reactions Bactrim [Sulfametho* Swelling CHILDHOOD REACTION Cymbalta [Duloxetin* Rash, Shortness of Breath Desyrel [Trazodone * Intolerance Headache Horseradish Swelling Keflex [Cephalexin] Hives Was ok as long as she took Benadryl Shellfish Other: See Comments Lightheadedness after test and warmth at injection site Has had CT dye since with no problem Current Medications Current Outpatient Medications on File Prior to Visit Medication Sig oxybutynin (DITROPAN) 5 mg tablet Take 1 tablet by mouth three times daily. estradiol (ESTRACE) 0.01 % (0.1 mg/gram) vaginal cream Use 1 g vaginally once daily. LORazepam (ATIVAN) 0.5 mg Take 0.5 mg by mouth as needed. albuterol HFA (VENTOLIN HFA) 90 mcg/actuation inhaler Inhale 2 Puffs as instructed every 4 hours asneeded for Wheezing/Shortness of Breath. rivaroxaban (XARELTO) 20 mg tablet Take 1 tablet by mouth daily with dinner. (Patient not taking: Reported on 08/09/2022) No current facility-administered medications on file prior to visit. Social History Social History Tobacco Use Smoking status: Every Day Packs/day: 0.25 Years: 17.00 Pack years: 4.25 Types: Cigarettes Smokeless tobacco: Never Vaping Use Vaping Use: Never used Substance Use Topics Alcohol use: No Drug use: No Review of Symptoms REVIEW OF SYSTEMS See HPI, otherwise negative EXAM: BP 104/64 (BP Site: Left Arm, BP Position: Sitting, BP Cuff Size: Regular Adult) Pulse 76 Temp 36.5 C (97.7 F) (Temporal) Resp 16 Wt 92.2 kg (203 lb 3.2 oz) LMP 01/22/2013 SpO2 97% BMI 36.00 kg/m General Appearance: Well appearing, alert, in no acute distress, well-hydrated, well nourished.. Skin: Skin color, texture, turgor normal, no suspicious rashes or lesions. Head: Normocephalic, no masses, lesions, tenderness or abnormalities. Eyes: Anicteric sclera. Pupils are equally round and reactive to light. Extraocular movements are intact. . Ears: External ears normal, canals clear. Nose/Sinuses: Nares normal, septum midline, mucosa normal, no drainage or sinus tenderness. Oropharynx: Lips, mucosa, and tongue normal, teeth and gums normal, oropharynx normal. Neck: Supple, no adenopathy; thyroid symmetric, normal size, no bruits. Lungs: Lungs clear to auscultation. No wheezing, rhonchi, rales.. Heart: RRR without murmur, gallop, or rubs. No ectopy. Abdomen: Normal abdominal exam, Abdomen soft, non-tender. Bowel sounds normal. No masses, organomegaly. Extremities: No deformities, edema, skin discoloration, clubbing or cyanosis. Good capillary refill. . Musculoskeletal: No joint swelling, deformity, or tenderness. Peripheral Pulses: Normal. Neurologic: Gait normal. Reflexes normal and symmetric. Sensation grossly intact.. Lymph Nodes: No cervical lymphadenopathy and No supraclavicular lymphadenopathy. Psychiatric: pleasant, cooperative. Health Maintenance List HEPATITIS B(1 of 3 - 3-dose series) Never done COVID-19 VACCINE(1) Never done PNEUMOCOCCAL(1 - PCV) Never done HEPATITIS C SCREENING Never done DTAP,TDAP,TD(1 - Tdap) due on 2009 HPV TESTING due on 2015 PAP TESTING due on 04/12/2018 DEPRESSION ASSESSMENT Never done INFLUENZA(1) due on 07/01/2022 ANNUAL PCP TEAM CHRONIC DISEASE VISIT due on 08/09/2023 SPIROMETRY Completed HIV SCREENING Completed Data reviewed Previous records, office notes ASSESSMENT/PLAN: 1. Weight loss - ICD9: 783.21, ICD10: R63.4 (primary diagnosis) Suspect misweight with work examination. - CBC - COMP METABOLIC PANEL - TSH BLD - T3 BLD - T4 FREE/FREE THYROX - URINALYSIS WITH MICROSCOPIC, REFLEX CULTURE - OCCULT BLD EXAM-DIAG - ENTERIC BACTERIAL PANEL BY PCR - OVA + PARA MICROSCOPIC - VITAMIN D 25 HYDROXY - IRON + TIBC - FERRITIN BLD - ESTROGEN FRACTION BL - PROGESTERONE BLD - TESTOSTERONE, FREE AND TOTAL - PROTHROMBIN TIME/PT 2. Bloody stool - ICD9: 578.1, ICD10: K92.1 R/o contributing causes of sx. - CBC - COMP METABOLIC PANEL - TSH BLD - T3 BLD - T4 FREE/FREE THYROX - URINALYSIS WITH MICROSCOPIC, REFLEX CULTURE - OCCULT BLD EXAM-DIAG - ENTERIC BACTERIAL PANEL BY PCR - OVA + PARA MICROSCOPIC - VITAMIN D 25 HYDROXY - IRON + TIBC - FERRITIN BLD - ESTROGEN FRACTION BL - PROGESTERONE BLD - TESTOSTERONE, FREE AND TOTAL - PROTHROMBIN TIME/PT 3. Proteinuria, unspecified type - ICD9: 791.0, ICD10: R80.9 R/o contributing causes of sx. - CBC - COMP METABOLIC PANEL - TSH BLD - T3 BLD - T4 FREE/FREE THYROX - URINALYSIS WITH MICROSCOPIC, REFLEX CULTURE - OCCULT BLD EXAM-DIAG - ENTERIC BACTERIAL PANEL BY PCR - OVA + PARA MICROSCOPIC - VITAMIN D 25 HYDROXY - IRON + TIBC - FERRITIN BLD - ESTROGEN FRACTION BL - PROGESTERONE BLD - TESTOSTERONE, FREE AND TOTAL - PROTHROMBIN TIME/PT 4. Vitamin D deficiency - ICD9: 268.9, ICD10: E55.9 R/o contributing causes of sx. - CBC - COMP METABOLIC PANEL - VITAMIN D 25 HYDROXY - IRON + TIBC - FERRITIN BLD 5. Hair loss - ICD9: 704.00, ICD10: L65.9 R/o contributing causes of sx. - VITAMIN D 25 HYDROXY - IRON + TIBC - FERRITIN BLD 6. Diarrhea, unspecified type - ICD9: 787.91, ICD10: R19.7 R/o contributing causes of sx. - CBC - COMP METABOLIC PANEL - TSH BLD - T3 BLD - T4 FREE/FREE THYROX - URINALYSIS WITH MICROSCOPIC, REFLEX CULTURE - OCCULT BLD EXAM-DIAG - ENTERIC BACTERIAL PANEL BY PCR - OVA + PARA MICROSCOPIC - VITAMIN D 25 HYDROXY - IRON + TIBC - FERRITIN BLD - ESTROGEN FRACTION BL - PROGESTERONE BLD - TESTOSTERONE, FREE AND TOTAL - PROTHROMBIN TIME/PT 7. Bruising - ICD9: 924.9, ICD10: T14.8XXA R/o contributing causes of sx. - CBC - COMP METABOLIC PANEL - TSH BLD - T3 BLD - T4 FREE/FREE THYROX - URINALYSIS WITH MICROSCOPIC, REFLEX CULTURE - OCCULT BLD EXAM-DIAG - ENTERIC BACTERIAL PANEL BY PCR - OVA + PARA MICROSCOPIC - VITAMIN D 25 HYDROXY - IRON + TIBC - FERRITIN BLD - ESTROGEN FRACTION BL - PROGESTERONE BLD - TESTOSTERONE, FREE AND TOTAL - PROTHROMBIN TIME/PT - D-DIMER 8. Fatigue, unspecified type - ICD9: 780.79, ICD10: R53.83 R/o contributing causes of sx. - CBC - COMP METABOLIC PANEL - TSH BLD - T3 BLD - T4 FREE/FREE THYROX - URINALYSIS WITH MICROSCOPIC, REFLEX CULTURE - OCCULT BLD EXAM-DIAG - ENTERIC BACTERIAL PANEL BY PCR - OVA + PARA MICROSCOPIC - VITAMIN D 25 HYDROXY - IRON + TIBC - FERRITIN BLD - ESTROGEN FRACTION BL - PROGESTERONE BLD - TESTOSTERONE, FREE AND TOTAL - PROTHROMBIN TIME/PT 9. Decreased energy - ICD9: 780.79, ICD10: R53.83 R/o contributing causes of sx. - CBC - COMP METABOLIC PANEL - TSH BLD - T3 BLD - T4 FREE/FREE THYROX - URINALYSIS WITH MICROSCOPIC, REFLEX CULTURE - OCCULT BLD EXAM-DIAG - ENTERIC BACTERIAL PANEL BY PCR - OVA + PARA MICROSCOPIC - VITAMIN D 25 HYDROXY - IRON + TIBC - FERRITIN BLD - ESTROGEN FRACTION BL - PROGESTERONE BLD - TESTOSTERONE, FREE AND TOTAL - PROTHROMBIN TIME/PT 10. Heterozygous factor V Leiden mutation (HCC) - ICD9: 289.81, ICD10: D68.51 R/o contributing causes of sx. - PROTHROMBIN TIME/PT - D-DIMER Elysia Zamora APRN.FRONT TENDER documented in this encounterSelect [facility] Miscellaneous Notes* Telephone Encounter - Elysia Zamora APRN.CNP - 08/09/2022 9:23 AM EDT Noted, thank you. Elysia Zamora APRN.ADY * Telephone Encounter - Vero Tovar LPN - 08/09/2022 8:17 AM EDT Pt called and states she is having weight loss of 50 # with in 2 months, diarrhea, tired all time. Pt also states she is bruising. Pt requesting apt today. Nothing available with her pcp/team. Pt called off work today and will need a work excuse. Pt booked for apt today 40 min. Vero Tovar LPN documented in this encounterSelect Medical [facility]08-11-2022 History of Present illness Narrative* Mi Dietz MD - 06/10/2022 8:58 AM EDT FOLLOW UP VISIT - SKIN LESION NAME: Justin Ulloa [facility] NO.: [id number] DATE OF SERVICE: 06/08/2022 : 1985 REFERRING PHYSICIAN: Ty Gaytan MD Justin is a patient I am following for adrenalitis in multiple areas. The patient had a wide previous excision with both skin grafting and healing by secondary intention. Just above and medial to this area on her symphysis pubis area she has a 2 x 3 cm area of recurrent hidradenitis. She notes discomfort in the area and wishes to have it drained. She also notes a sebaceous cyst on her lower back.She understands we should not attempt to remove the sebaceous cyst once she has active infection/inflammation of the areas. Justin returns today for the procedure. Justin has not taken aspirin or aspirin products for the past 7 days. VITALS: Blood pressure 114/70, pulse 86, temperature 36.2 C (97.2 F), height 160 cm (5' 3), .3 kg (212 lb 6.4 oz), last menstrual period 01/22/2013, SpO2 98 %. On examination, in her suprapubic area just above the previous excision site there is a 2 x 3 cm area of hidradenitis with raised skin and moderate erythema PROCEDURE: EXCISION OF SEBACEOUS CYST -infected hidradenitis The risks, benefits and anticipated outcomes of the procedure, the risks and benefits of the alternatives to the procedure, and the roles and tasks of the personnel to be involved, were discussed with the patient, and the patient consents to the procedure and agrees to proceed. I verify that I personally obtained the patient's consent. The patient`s skin was prepped and draped in the usual fashion. A combination of Lidocaine and Marcaine was injected into the skin. The area of hidradenitis was unroofed. The underlying granulation tissue gelatinous material was curetted. The specimen measured 2 by 3 cm. This was no sent to pathology. The skin was left open and dressed with gauze. The patient tolerated the procedure well. Assessment IMPRESSION: That is post unroofing of hidradenitis PLAN: If the patient notes any problems or signs of wound infections, the patient should contact me immediately. The patient is to follow up in approximately 7 days for suture removal. Diagnoses: (L73.2) Hidradenitis suppurativa (primary encounter diagnosis) Return to Clinic: The patient is instructed to follow-up with me as needed. Mi Dietz MD * Chioma Argueta RN - 06/08/2022 4:45 PM EDT UNIVERSAL PROTOCOL / SAFETY CHECKLIST Procedure to be Performed: unroofing of pubic area hidradenitis Sign In: A Moment of CARE was completed. Personnel directly involved with the procedure wore the appropriate PPE (Personal Protective Equipment). No special equipment needed. Patient/Surrogate Stated/Verified: PATIENT VERIFIED(optional for EMERGENT procedures): Patient name, Date of , Relevant allergies, and The intended procedure Time Out Communication: Intended patient and procedure match the source documents. Consent documented and matches the intended procedure. No relevant labs, photos, and/or imaging studies were applicable for review. Correct side/site marked and visible. Medications required for procedure verified. No fire risk assessment and interventions applicable. No implant(s) inserted. Sign Out: SIGN OUT (optional for EMERGENT procedures): No specimen collected. No instruments, equipment or retained foreign bodies applicable. Post-procedure follow-up management communicated and Plan of Care Visit completed when applicable. Chioma Argueta RN documented in this encounterSelect Medical [facility]08-09-2022 Instructions* Patient Instructions* Chioma Argueta RN - 06/08/2022 5:00 PM EDT The following instructions are important for you related to your office visit today with the [facility]. Instructions After I & D You are instructed to remove packing tomorrow and cover with peripad. If there is minor bleeding from this skin edge, you should hold pressure on the incision. If there is continued bleeding, you should contact our office immediately. Wash the wound with gentle soap and water. You may shower. The wound should not be immersed in a pool, bathtub, or even hot tub. You can use Tylenol & Ibuprofen for pain. If the wound shows signs of redness, inflammation, or purulent drainage, you should contact our office immediately. If you note any additional difficulties, questions, or concerns, you should contact our office immediately @ [phone] and ask to be transferred to the General Surgery department. documented in this encounterSelect Medical [facility]08-09-2022 Nurse Note* Chioma Argueta RN - 06/08/2022 3:58 PM EDT REVIEW OF SYSTEMS: General: The patient denies fatigue, denies weight loss, denies weight gain, denies feeling hot, and denies feelings of cold. Eyes: The patient denies glaucoma, denies eye injury/surgery, does not wear glasses or contacts. Ear/Nose/Throat: The patient denies allergies, denies hayfever, denies ear infections, and denies bloody noses. Cardiovascular: The patient denies chest pain, denies heart disease, denies high blood pressure,denies cardiac stent, denies prior heart attack, denies irregular heart beat, denies high cholesterol, denies poor circulation, denies heart failure, other cardiac issues, denies claudication, denies cold feet, denies peripheral arterial stent. Respiratory: The patient denies tuberculosis, denies pneumonia, denies frequent cough, denies pulmonary embolism,NOTES shortness of breath, and denies coughing up blood. Gastrointestinal: The patient denies difficulty swallowing, NOTES acid reflux, denies ulcers, denies vomiting, denies jaundice/hepatitis, denies gallbladder problems, denies black or tarry stools, denies hemorrhoids, denies bleeding from rectum, denies diverticulitis, denies constipation, denies diarrhea, denies loss of stool control, and denies hernias. Kidney/Bladder: The patient denies kidney stones, denies urine infections, and denies bloody urine. Skin: The patient denies a history of skin cancer, denies bleeding/changing moles, and denies a history of skin rash. Neurologic: The patient denies a history of epilepsy/convulsions, NOTES headaches, denies head/spinal injuries, and denies stroke/TIA. Psychiatric: The patient denies psychiatric medications, denies depression, and denies voices, denies substance abuse. Endocrine: The patient denies thyroid disorders, denies diabetes, and denies hormonal problems. Hematologic: The patient denies a history of bruising, denies bleeding, and denies anemia, denies blood clots. Infections: The patient denies a history of measles and mumps, denies rheumatic fever, and denies sexually transmitted diseases. Musculoskeletal: The patient denies back pain/injury, denies back problems, denies sciatica, deniesknee/foot trouble, denies arthritis, or denies gout. When was patient's last Mammogram screening? NONE Last Colonoscopy: 2013 Chioma Argueta RN documented in this encounterSelect Medical [facility]03-24-2022 NoteHNO ID: [id number] Author: Robin Krueger Ma Service: ? Author Type: ? Type: Progress Notes Filed: 01/21/2022 12:26 PM Note Text: UNIVERSAL PROTOCOL / SAFETY CHECKLIST Procedure to be Performed: Cystoscopy Sign In: A Moment of CARE was completed. Personnel directly involved with the procedure wore the appropriate PPE (Personal Protective Equipment). Special equipment: [employer]og[employer] scope Patient/Surrogate Stated/Verified: PATIENT VERIFIED(optional for EMERGENT procedures): Patient name, Date of , Relevant allergies and The intended procedure Time Out Communication: Intended patient and procedure match the source documents. Consent documented and matches the intended procedure. No relevant labs, photos, and/or imaging studies were applicable for review. No correct side/site applicable for marking and visibility. Medications required for procedure verified. Fire risk assessed and interventions discussed. No implant(s) inserted. Sign Out: SIGN OUT (optional for EMERGENT procedures): No specimen collected. All instruments, equipment, possible retained foreign bodies accounted for. Post-procedure follow-up management communicated and Plan of Care Visit completed when applicable. Robin Krueger [facility]22 NoteHNO ID: [id number] Author: Leidy Ryan Jr., MD Service: ? Author Type: Physician Type: Procedures Filed: 01/21/2022 12:26 PM Note Text: CYSTOSCOPY PROCEDURE NOTE: Justin Leo is a 36 year old female who presents with hematuria gross for a cystoscopy. Pt ID verified with patient: Yes Fire risk assessment done Procedure verified with patient: Yes Procedure confirmed with physician and operations support manager: Yes Sign In: History and Physical Exam reviewed and is unchanged. Primary Diagnosis: Hematuria Informed Consent Discussed: Yes. Risks, benefits, alternatives and personnel discussed with patient who consents to proceed. Sign in Communication: Completed Time Out: Team Confirms the Correct Patient, Correct Procedure; Cystoscopy, Correct Site and Site Marking, Correct Position (if applicable). Fire Safety Check List Reviewed: Yes Affirmation of Time Out: Yes Sign Out: Sign Out Discussion: Completed Physician: Leidy Ryan Jr, MD Pre procedure dx: gross hematuria Post procedure dx: same A urinalysis was performed revealing no evidence of infection. The benefits, risks, alternatives of the cystoscopy procedure and personnel were discussed with the patient. The verbal consent was obtained and the patient agrees to proceed. Female staff present for entire exam/procedure. Procedure: The patient was placed on the procedure table in the supine position and prepped and draped in the usual sterile fashion. 2% Lidocaine Jelly was placed per urethra as an anesthetic in the standard fashion. Once adequate local anesthesia was achieved, the tip of the flexible cystoscope was carefully placed into the urethra under direct visual guidance. The scope was negotiated per urethra with no evidence of stricture into the bladder. Careful kennedy endoscopy was carried out. The posterior, superior and lateral perez and dome of the bladder were all well visualized and the scope was retroflexed upon itself. The findings were consistent with no mucosal pathology. At the conclusion of the procedure, the flexible cystoscope was removed atraumatically. The patient tolerated the procedure without complications. Patient was given standard post-procedure instructions, and was directed to complete the course of oral antibiotics and increase oral fluid intake as directed. ASSESSMENT/PLAN: Tg Ryan Jr, [facility]08-16-2016 History of Past illness Narrative* Problem Noted Date Resolved Date Acute pain of right knee 06/15/2016 016 Sebaceous cyst 03/29/2013 04/08/2015 Abdominal pain, right upper quadrant 11/04/2010 04/08/2015 Abdominal pain, right lower quadrant 08/27/2010 04/08/2015 Unspecified disorder of skin and subcutaneous ti ssue 08/27/2010 04/08/2015 Sprain of wrist, unspecified site 10/25/2007 04/08/2015 Unspecified high-risk 01/20/2006 04/08/2015 Suspected damage to fetus fr om viral disease in mother, affecting management of mother, antepartum condition or complication 01/20/2006 04/08/2015 Accident due to exposure (to weather conditions), not elsewhere classifiable 01/20/2006 04/08/2015 Supervision of normal first 12/31/2005 01/20/2006 documented as of this encounter (statuses as of 06/10/2022) [facility] History of Past illness Narrative* Problem Noted Date Resolved Date Acute pain of right knee 06/15/2016 016 Sebaceous cyst 03/29/2013 04/08/2015 Abdominal pain, right upper quadrant 11/04/2010 04/08/2015 Abdominal pain, right lower quadrant 08/27/2010 04/08/2015 Unspecified disorder of skin and subcutaneous ti ssue 08/27/2010 04/08/2015 Sprain of wrist, unspecified site 10/25/2007 04/08/2015 Unspecified high-risk 01/20/2006 04/08/2015 Suspected damage to fetus fr om viral disease in mother, affecting management of mother, antepartum condition or complication 01/20/2006 04/08/2015 Accident due to exposure (to weather conditions), not elsewhere classifiable 01/20/2006 04/08/2015 Supervision of normal first 12/31/2005 01/20/2006 documented as of this encounter (statuses as of 08/09/2022) [facility] History of Past illness Narrative* Problem Noted Date Resolved Date Acute pain of right knee 06/15/2016 016 Sebaceous cyst 03/29/2013 04/08/2015 Abdominal pain, right upper quadrant 11/04/2010 04/08/2015 Abdominal pain, right lower quadrant 08/27/2010 04/08/2015 Unspecified disorder of skin and subcutaneous ti ssue 08/27/2010 04/08/2015 Sprain of wrist, unspecified site 10/25/2007 04/08/2015 Unspecified high-risk 01/20/2006 04/08/2015 Suspected damage to fetus fr om viral disease in mother, affecting management of mother, antepartum condition or complication 01/20/2006 04/08/2015 Accident due to exposure (to weather conditions), not elsewhere classifiable 01/20/2006 04/08/2015 Supervision of normal first 12/31/2005 01/20/2006 documented as of this encounter (statuses as of 08/10/2022) [facility] of Past illness Narrative* Problem Noted Date Resolved Date Acute pain of right knee 06/15/2016 016 Sebaceous cyst 03/29/2013 04/08/2015 Abdominal pain, right upper quadrant 11/04/2010 04/08/2015 Abdominal pain, right lower quadrant 08/27/2010 04/08/2015 Unspecified disorder of skin and subcutaneous ti ssue 08/27/2010 04/08/2015 Sprain of wrist, unspecified site 10/25/2007 04/08/2015 Unspecified high-risk 01/20/2006 04/08/2015 Suspected damage to fetus fr om viral disease in mother, affecting management of mother, antepartum condition or complication 01/20/2006 04/08/2015 Accident due to exposure (to weather conditions), not elsewhere classifiable 01/20/2006 04/08/2015 Supervision of normal first 12/31/2005 01/20/2006 documented as of this encounter (statuses as of 08/11/2022) [facility] of Past illness Narrative* Problem Noted Date Resolved Date Acute pain of right knee 06/15/2016 016 Sebaceous cyst 03/29/2013 04/08/2015 Abdominal pain, right upper quadrant 11/04/2010 04/08/2015 Abdominal pain, right lower quadrant 08/27/2010 04/08/2015 Unspecified disorder of skin and subcutaneous ti ssue 08/27/2010 04/08/2015 Sprain of wrist, unspecified site 10/25/2007 04/08/2015 Unspecified high-risk 01/20/2006 04/08/2015 Suspected damage to fetus fr om viral disease in mother, affecting management of mother, antepartum condition or complication 01/20/2006 04/08/2015 Accident due to exposure (to weather conditions), not elsewhere classifiable 01/20/2006 04/08/2015 Supervision of normal first 12/31/2005 01/20/2006 documented as of this encounter (statuses as of 08/16/2022) [facility] of Past illness Narrative* Problem Noted Date Resolved Date Acute pain of right knee 06/15/2016 016 Sebaceous cyst 03/29/2013 04/08/2015 Abdominal pain, right upper quadrant 11/04/2010 04/08/2015 Abdominal pain, right lower quadrant 08/27/2010 04/08/2015 Unspecified disorder of skin and subcutaneous ti ssue 08/27/2010 04/08/2015 Sprain of wrist, unspecified site 10/25/2007 04/08/2015 Unspecified high-risk 01/20/2006 04/08/2015 Suspected damage to fetus fr om viral disease in mother, affecting management of mother, antepartum condition or complication 01/20/2006 04/08/2015 Accident due to exposure (to weather conditions), not elsewhere classifiable 01/20/2006 04/08/2015 Supervision of normal first 12/31/2005 01/20/2006 documented as of this encounter (statuses as of 08/17/2022) [facility] of Past illness Narrative* Problem Noted Date Resolved Date Acute pain of right knee 06/15/2016 016 Sebaceous cyst 03/29/2013 04/08/2015 Abdominal pain, right upper quadrant 11/04/2010 04/08/2015 Abdominal pain, right lower quadrant 08/27/2010 04/08/2015 Unspecified disorder of skin and subcutaneous ti ssue 08/27/2010 04/08/2015 Sprain of wrist, unspecified site 10/25/2007 04/08/2015 Unspecified high-risk 01/20/2006 04/08/2015 Suspected damage to fetus fr om viral disease in mother, affecting management of mother, antepartum condition or complication 01/20/2006 04/08/2015 Accident due to exposure (to weather conditions), not elsewhere classifiable 01/20/2006 04/08/2015 Supervision of normal first 12/31/2005 01/20/2006 documented as of this encounter (statuses as of 08/17/2022) [facility] of Past illness Narrative* Problem Noted Date Resolved Date Acute pain of right knee 06/15/2016 016 Sebaceous cyst 03/29/2013 04/08/2015 Abdominal pain, right upper quadrant 11/04/2010 04/08/2015 Abdominal pain, right lower quadrant 08/27/2010 04/08/2015 Unspecified disorder of skin and subcutaneous ti ssue 08/27/2010 04/08/2015 Sprain of wrist, unspecified site 10/25/2007 04/08/2015 Unspecified high-risk 01/20/2006 04/08/2015 Suspected damage to fetus fr om viral disease in mother, affecting management of mother, antepartum condition or complication 01/20/2006 04/08/2015 Accident due to exposure (to weather conditions), not elsewhere classifiable 01/20/2006 04/08/2015 Supervision of normal first 12/31/2005 01/20/2006 documented as of this encounter (statuses as of 08/23/2022) [facility] of Past illness Narrative* Problem Noted Date Resolved Date Acute pain of right knee 06/15/2016 016 Sebaceous cyst 03/29/2013 04/08/2015 Abdominal pain, right upper quadrant 11/04/2010 04/08/2015 Abdominal pain, right lower quadrant 08/27/2010 04/08/2015 Unspecified disorder of skin and subcutaneous ti ssue 08/27/2010 04/08/2015 Sprain of wrist, unspecified site 10/25/2007 04/08/2015 Unspecified high-risk 01/20/2006 04/08/2015 Suspected damage to fetus fr om viral disease in mother, affecting management of mother, antepartum condition or complication 01/20/2006 04/08/2015 Accident due to exposure (to weather conditions), not elsewhere classifiable 01/20/2006 04/08/2015 Supervision of normal first 12/31/2005 01/20/2006 documented as of this encounter (statuses as of 08/26/2022) [facility] of Past illness Narrative* Problem Noted Date Resolved Date Acute pain of right knee 06/15/2016 016 Sebaceous cyst 03/29/2013 04/08/2015 Abdominal pain, right upper quadrant 11/04/2010 04/08/2015 Abdominal pain, right lower quadrant 08/27/2010 04/08/2015 Unspecified disorder of skin and subcutaneous ti ssue 08/27/2010 04/08/2015 Sprain of wrist, unspecified site 10/25/2007 04/08/2015 Unspecified high-risk 01/20/2006 04/08/2015 Suspected damage to fetus fr om viral disease in mother, affecting management of mother, antepartum condition or complication 01/20/2006 04/08/2015 Accident due to exposure (to weather conditions), not elsewhere classifiable 01/20/2006 04/08/2015 Supervision of normal first 12/31/2005 01/20/2006 documented as of this encounter (statuses as of 09/08/2022) [facility] History of Past illness Narrative* Problem Noted Date Resolved Date Acute pain of right knee 06/15/2016 016 Sebaceous cyst 03/29/2013 04/08/2015 Abdominal pain, right upper quadrant 11/04/2010 04/08/2015 Abdominal pain, right lower quadrant 08/27/2010 04/08/2015 Unspecified disorder of skin and subcutaneous ti ssue 08/27/2010 04/08/2015 Sprain of wrist, unspecified site 10/25/2007 04/08/2015 Unspecified high-risk 01/20/2006 04/08/2015 Suspected damage to fetus fr om viral disease in mother, affecting management of mother, antepartum condition or complication 01/20/2006 04/08/2015 Accident due to exposure (to weather conditions), not elsewhere classifiable 01/20/2006 04/08/2015 Supervision of normal first 12/31/2005 01/20/2006 documented as of this encounter (statuses as of 09/29/2022) [facility] History of Past illness Narrative* Problem Noted Date Resolved Date Acute pain of right knee 06/15/2016 016 Sebaceous cyst 03/29/2013 04/08/2015 Abdominal pain, right upper quadrant 11/04/2010 04/08/2015 Abdominal pain, right lower quadrant 08/27/2010 04/08/2015 Unspecified disorder of skin and subcutaneous ti ssue 08/27/2010 04/08/2015 Sprain of wrist, unspecified site 10/25/2007 04/08/2015 Unspecified high-risk 01/20/2006 04/08/2015 Suspected damage to fetus fr om viral disease in mother, affecting management of mother, antepartum condition or complication 01/20/2006 04/08/2015 Accident due to exposure (to weather conditions), not elsewhere classifiable 01/20/2006 04/08/2015 Supervision of normal first 12/31/2005 01/20/2006 documented as of this encounter (statuses as of 10/13/2022) [facility] History of Past illness Narrative* Problem Noted Date Resolved Date Acute pain of right knee 06/15/2016 016 Sebaceous cyst 03/29/2013 04/08/2015 Abdominal pain, right upper quadrant 11/04/2010 04/08/2015 Abdominal pain, right lower quadrant 08/27/2010 04/08/2015 Unspecified disorder of skin and subcutaneous ti ssue 08/27/2010 04/08/2015 Sprain of wrist, unspecified site 10/25/2007 04/08/2015 Unspecified high-risk 01/20/2006 04/08/2015 Suspected damage to fetus fr om viral disease in mother, affecting management of mother, antepartum condition or complication 01/20/2006 04/08/2015 Accident due to exposure (to weather conditions), not elsewhere classifiable 01/20/2006 04/08/2015 Supervision of normal first 12/31/2005 01/20/2006 documented as of this encounter (statuses as of 11/12/2022) [facility] History of Past illness Narrative* Problem Noted Date Resolved Date Acute pain of right knee 06/15/2016 016 Sebaceous cyst 03/29/2013 04/08/2015 Abdominal pain, right upper quadrant 11/04/2010 04/08/2015 Abdominal pain, right lower quadrant 08/27/2010 04/08/2015 Unspecified disorder of skin and subcutaneous ti ssue 08/27/2010 04/08/2015 Sprain of wrist, unspecified site 10/25/2007 04/08/2015 Unspecified high-risk 01/20/2006 04/08/2015 Suspected damage to fetus fr om viral disease in mother, affecting management of mother, antepartum condition or complication 01/20/2006 04/08/2015 Accident due to exposure (to weather conditions), not elsewhere classifiable 01/20/2006 04/08/2015 Supervision of normal first 12/31/2005 01/20/2006 documented as of this encounter (statuses as of 12/17/2022) [facility] History of Past illness Narrative* Problem Noted Date Resolved Date Acute pain of right knee 06/15/2016 016 Sebaceous cyst 03/29/2013 04/08/2015 Abdominal pain, right upper quadrant 11/04/2010 04/08/2015 Abdominal pain, right lower quadrant 08/27/2010 04/08/2015 Unspecified disorder of skin and subcutaneous ti ssue 08/27/2010 04/08/2015 Sprain of wrist, unspecified site 10/25/2007 04/08/2015 Unspecified high-risk 01/20/2006 04/08/2015 Suspected damage to fetus fr om viral disease in mother, affecting management of mother, antepartum condition or complication 01/20/2006 04/08/2015 Accident due to exposure (to weather conditions), not elsewhere classifiable 01/20/2006 04/08/2015 Supervision of normal first 12/31/2005 01/20/2006 documented as of this encounter (statuses as of 01/13/2023) [facility] History of Past illness Narrative* Problem Noted Date Resolved Date Acute pain of right knee 06/15/2016 016 Sebaceous cyst 03/29/2013 04/08/2015 Abdominal pain, right upper quadrant 11/04/2010 04/08/2015 Abdominal pain, right lower quadrant 08/27/2010 04/08/2015 Unspecified disorder of skin and subcutaneous ti ssue 08/27/2010 04/08/2015 Sprain of wrist, unspecified site 10/25/2007 04/08/2015 Unspecified high-risk 01/20/2006 04/08/2015 Suspected damage to fetus fr om viral disease in mother, affecting management of mother, antepartum condition or complication 01/20/2006 04/08/2015 Accident due to exposure (to weather conditions), not elsewhere classifiable 01/20/2006 04/08/2015 Supervision of normal first 12/31/2005 01/20/2006 documented as of this encounter (statuses as of 03/16/2023) [facility] History of Past illness Narrative* Problem Noted Date Resolved Date Acute pain of right knee 06/15/2016 016 Sebaceous cyst 03/29/2013 04/08/2015 Abdominal pain, right upper quadrant 11/04/2010 04/08/2015 Abdominal pain, right lower quadrant 08/27/2010 04/08/2015 Unspecified disorder of skin and subcutaneous ti ssue 08/27/2010 04/08/2015 Sprain of wrist, unspecified site 10/25/2007 04/08/2015 Unspecified high-risk 01/20/2006 04/08/2015 Suspected damage to fetus fr om viral disease in mother, affecting management of mother, antepartum condition or complication 01/20/2006 04/08/2015 Accident due to exposure (to weather conditions), not elsewhere classifiable 01/20/2006 04/08/2015 Supervision of normal first 12/31/2005 01/20/2006 documented as of this encounter (statuses as of 04/27/2023) [facility] History of Past illness Narrative* Problem Noted Date Resolved Date Acute pain of right knee 06/15/2016 016 Sebaceous cyst 03/29/2013 04/08/2015 Abdominal pain, right upper quadrant 11/04/2010 04/08/2015 Abdominal pain, right lower quadrant 08/27/2010 04/08/2015 Unspecified disorder of skin and subcutaneous ti ssue 08/27/2010 04/08/2015 Sprain of wrist, unspecified site 10/25/2007 04/08/2015 Unspecified high-risk 01/20/2006 04/08/2015 Suspected damage to fetus fr om viral disease in mother, affecting management of mother, antepartum condition or complication 01/20/2006 04/08/2015 Accident due to exposure (to weather conditions), not elsewhere classifiable 01/20/2006 04/08/2015 Supervision of normal first 12/31/2005 01/20/2006 documented as of this encounter (statuses as of 04/29/2023) [facility] History of Past illness Narrative* Problem Noted Date Diagnosed Date Resolved Date Acute pain of right knee 06/15/201605/2016 Sebaceous cyst 03/29/2013 04/08/2015 Abdominal pain, right upper quadrant 11/04/2010 04/08/2015 Abdominal pain, right lower quadrant 08/27/2010 04/08/2015 Unspecified disorder of skin and subcutaneous tissue 08/27/2010 04/08/2015 Sprain of wrist, unspecified site 10/25/2007 04/08/2015 Unspecified high-risk 01/20/2006 04/08/2015 Suspected damage to fetus fr om viral disease in mother, affecting management of mother, antepartum condition or complication 01/20/200607/2015 Accident due to exposure (to weather conditions), not elsewhere classifiable 01/20/2006 04/08/2015 Supervision of normal first 12/31/2005 01/20/2006 documented as of this encounter (statuses as of 07/06/2023) [facility] History of Past illness Narrative* Problem Noted Date Diagnosed Date Resolved Date Acute pain of right knee 06/15/201605/2016 Sebaceous cyst 03/29/2013 04/08/2015 Abdominal pain, right upper quadrant 11/04/2010 04/08/2015 Abdominal pain, right lower quadrant 08/27/2010 04/08/2015 Unspecified disorder of skin and subcutaneous tissue 08/27/2010 04/08/2015 Sprain of wrist, unspecified site 10/25/2007 04/08/2015 Unspecified high-risk 01/20/2006 04/08/2015 Suspected damage to fetus fr om viral disease in mother, affecting management of mother, antepartum condition or complication 01/20/200607/2015 Accident due to exposure (to weather conditions), not elsewhere classifiable 01/20/2006 04/08/2015 Supervision of normal first 12/31/2005 01/20/2006 documented as of this encounter (statuses as of 07/07/2023) [facility] History of Past illness Narrative* Problem Noted Date Diagnosed Date Resolved Date Acute pain of right knee 06/15/201605/2016 Sebaceous cyst 03/29/2013 04/08/2015 Abdominal pain, right upper quadrant 11/04/2010 04/08/2015 Abdominal pain, right lower quadrant 08/27/2010 04/08/2015 Unspecified disorder of skin and subcutaneous tissue 08/27/2010 04/08/2015 Sprain of wrist, unspecified site 10/25/2007 04/08/2015 Unspecified high-risk 01/20/2006 04/08/2015 Suspected damage to fetus fr om viral disease in mother, affecting management of mother, antepartum condition or complication 01/20/200607/2015 Accident due to exposure (to weather conditions), not elsewhere classifiable 01/20/2006 04/08/2015 Supervision of normal first 12/31/2005 01/20/2006 documented as of this encounter (statuses as of 09/16/2023) [facility] History of Past illness Narrative* Problem Noted Date Diagnosed Date Resolved Date Acute pain of right knee 06/15/201605/2016 Sebaceous cyst 03/29/2013 04/08/2015 Abdominal pain, right upper quadrant 11/04/2010 04/08/2015 Abdominal pain, right lower quadrant 08/27/2010 04/08/2015 Unspecified disorder of skin and subcutaneous tissue 08/27/2010 04/08/2015 Sprain of wrist, unspecified site 10/25/2007 04/08/2015 Unspecified high-risk 01/20/2006 04/08/2015 Suspected damage to fetus fr om viral disease in mother, affecting management of mother, antepartum condition or complication 01/20/200607/2015 Accident due to exposure (to weather conditions), not elsewhere classifiable 01/20/2006 04/08/2015 Supervision of normal first 12/31/2005 01/20/2006 documented as of this encounter (statuses as of 12/14/2023) [facility] History of Past illness Narrative* Problem Noted Date Diagnosed Date Resolved Date Acute pain of right knee 06/15/201605/2016 Sebaceous cyst 03/29/2013 04/08/2015 Abdominal pain, right upper quadrant 11/04/2010 04/08/2015 Abdominal pain, right lower quadrant 08/27/2010 04/08/2015 Unspecified disorder of skin and subcutaneous tissue 08/27/2010 04/08/2015 Sprain of wrist, unspecified site 10/25/2007 04/08/2015 Unspecified high-risk 01/20/2006 04/08/2015 Suspected damage to fetus fr om viral disease in mother, affecting management of mother, antepartum condition or complication 01/20/200607/2015 Accident due to exposure (to weather conditions), not elsewhere classifiable 01/20/2006 04/08/2015 Supervision of normal first 12/31/2005 01/20/2006 documented as of this encounter (statuses as of 01/13/2024) [facility] History of Past illness Narrative* Problem Noted Date Diagnosed Date Resolved Date Acute pain of right knee 06/15/201605/2016 Sebaceous cyst 03/29/2013 04/08/2015 Abdominal pain, right upper quadrant 11/04/2010 04/08/2015 Abdominal pain, right lower quadrant 08/27/2010 04/08/2015 Unspecified disorder of skin and subcutaneous tissue 08/27/2010 04/08/2015 Sprain of wrist, unspecified site 10/25/2007 04/08/2015 Unspecified high-risk 01/20/2006 04/08/2015 Suspected damage to fetus fr om viral disease in mother, affecting management of mother, antepartum condition or complication 01/20/200607/2015 Accident due to exposure (to weather conditions), not elsewhere classifiable 01/20/2006 04/08/2015 Supervision of normal first 12/31/2005 01/20/2006 documented as of this encounter (statuses as of 01/16/2024) [facility] History of Past illness Narrative* Problem Noted Date Diagnosed Date Resolved Date Acute pain of right knee 06/15/201605/2016 Sebaceous cyst 03/29/2013 04/08/2015 Abdominal pain, right upper quadrant 11/04/2010 04/08/2015 Abdominal pain, right lower quadrant 08/27/2010 04/08/2015 Unspecified disorder of skin and subcutaneous tissue 08/27/2010 04/08/2015 Sprain of wrist, unspecified site 10/25/2007 04/08/2015 Unspecified high-risk 01/20/2006 04/08/2015 Suspected damage to fetus fr om viral disease in mother, affecting management of mother, antepartum condition or complication 01/20/200607/2015 Accident due to exposure (to weather conditions), not elsewhere classifiable 01/20/2006 04/08/2015 Supervision of normal first 12/31/2005 01/20/2006 documented as of this encounter (statuses as of 01/18/2024) [facility] History of Past illness Narrative* Problem Noted Date Diagnosed Date Resolved Date Acute pain of right knee 06/15/201605/2016 Sebaceous cyst 03/29/2013 04/08/2015 Abdominal pain, right upper quadrant 11/04/2010 04/08/2015 Abdominal pain, right lower quadrant 08/27/2010 04/08/2015 Unspecified disorder of skin and subcutaneous tissue 08/27/2010 04/08/2015 Sprain of wrist, unspecified site 10/25/2007 04/08/2015 Unspecified high-risk 01/20/2006 04/08/2015 Suspected damage to fetus fr om viral disease in mother, affecting management of mother, antepartum condition or complication 01/20/200607/2015 Accident due to exposure (to weather conditions), not elsewhere classifiable 01/20/2006 04/08/2015 Supervision of normal first 12/31/2005 01/20/2006 documented as of this encounter (statuses as of 01/31/2024) [facility] No data available for this section [facility] Evaluation note* Diagnosis Hidradenitis suppurativa- Primary Hidradenitis documented in this encounter [facility] noteNo assessment information availableWOhioHealth [facility] Work Phone: Evaluation note* Diagnosis Weight loss- Primary Loss of weight Bloody stool Blood in stool Proteinuria, unspecified type Vitamin D deficiency Unspecified vitamin D deficiency Hair loss Alopecia, unspecified Diarrhea, unspecified type Bruising Contusion of unspecified site Fatigue, unspecified type Decreased energy Other malaise and fatigue Heterozygous factor V Leiden mutation (HCC) Primary hypercoagulable state documented in this encounter [facility] note* Diagnosis Elevated d-dimer- Primary Abnormal coagulation profile documented in this encounter [facility] note* Diagnosis Chronic deep vein thrombosis (DVT) of iliac vein of left lower extremity (HCC)- Primary Heterozygous factor V Leiden mutation (HCC) Primary hypercoagulable state Fatigue, unspecified type Anxiety with depression documented in this encounter [facility] note* Diagnosis Medication side effect- Primary Unspecified adverse effect of unspecified drug, medicinal and biological substance Anxiety with depression documented in this encounter [facility] note* Diagnosis Other migraine with status migrainosus, intractable- Primary Vision changes Unspecified visual disturbance documented in this encounter [facility] note* Diagnosis Anxiety with depression- Primary Snoring Other dyspnea and respiratory abnormality RLS (restless legs syndrome) Restless legs syndrome (RLS) Witnessed episode of apnea Burn Burn of unspecified site, unspecified degree documented in this encounter [facility] note* Diagnosis Anxiety with depression- Primary documented in this encounter [facility] note* Diagnosis Anxiety with depression- Primary Chronic deep vein thrombosis (DVT) of iliac vein of left lower extremity (HCC) Leg pain, bilateral Pain in limb Varicose veins of both lower extremities, unspecified whether complicated [facility] Diagnosis Anxiety with depression- Primary Fibromyalgia Mylagia and myositis, unspecified documented in this encounter [facility] note* Diagnosis Avulsion of toenail of left foot- Primary documented in this encounter [facility] note* Diagnosis Encounter for gynecological examination (general) (routine) without abnormal findings- Primary Abnormal uterine bleeding (AUB) Screening for human papillomavirus (HPV) Special screening examination for human papillomavirus (HPV) Screening for cervical cancer Screening for malignant neoplasm of the cervix [facility] Diagnosis Urinary frequency- Primary Foot injury, left, initial encounter [facility] Diagnosis Left ear pain- Primary Otalgia, unspecified Pain in upper jaw Jaw pain Sprain of ligament of right ankle, initial encounter [facility] Diagnosis Lipoma of torso- Primary [facility]* Diagnosis Chronic deep vein thrombosis (DVT) of iliac vein of left lower extremity (HCC) Heterozygous factor V Leiden mutation (HCC) Primary hypercoagulable state Hospital discharge follow-up- Primary Other follow-up examination Non compliance w medication regimen Personal history of noncompliance with medical treatment, presenting hazards to health Elevated d-dimer Abnormal coagulation profile Other migraine with status migrainosus, intractable Heterozygous factor V Leiden mutation (HCC) Primary hypercoagulable state [facility] Diagnosis Hospital discharge follow-up- Primary Other follow-up examination Non compliance w medication regimen Personal history of noncompliance with medical treatment, presenting hazards to health Heterozygous factor V Leiden mutation (HCC) Primary hypercoagulable state Other chest pain Memory changes Memory loss Screening cholesterol level Screening for lipoid disorders [facility]* Diagnosis Vitamin D deficiency- Primary Unspecified vitamin D deficiency Hyperlipidemia, mixed Mixed hyperlipidemia [facility]* Diagnosis Other migraine with status migrainosus, intractable [facility]* Diagnosis Bee sting, accidental or unintentional, initial encounter- Primary [facility]* Diagnosis Pre-operative examination- Primary Preoperative examination, unspecified Ganglion cyst Ganglion, unspecified Fibromyalgia Mylagia and myositis, unspecified Other migraine with status migrainosus, intractable Tobacco dependence Tobacco use disorder Chronic deep vein thrombosis (DVT) of iliac vein of left lower extremity (HCC) Heterozygous factor V Leiden mutation (HCC) Primary hypercoagulable state Malignant neoplasm of cervix, unspecified site (HCC) Mild intermittent asthma without complication Unspecified asthma Foot injury, left, initial encounter [facility]* Diagnosis Pre-operative examination- Primary Preoperative examination, unspecified Ganglion cyst Ganglion, unspecified Fibromyalgia Mylagia and myositis, unspecified Other migraine with status migrainosus, intractable Tobacco dependence Tobacco use disorder Chronic deep vein thrombosis (DVT) of iliac vein of left lower extremity (HCC) Heterozygous factor V Leiden mutation (HCC) Primary hypercoagulable state Malignant neoplasm of cervix, unspecified site (HCC) Mild intermittent asthma without complication Unspecified asthma Vitamin D deficiency Unspecified vitamin D deficiency [facility]* Diagnosis Pre-operative examination- Primary Preoperative examination, unspecified Ganglion cyst Ganglion, unspecified Fibromyalgia Mylagia and myositis, unspecified Other migraine with status migrainosus, intractable Tobacco dependence Tobacco use disorder Chronic deep vein thrombosis (DVT) of iliac vein of left lower extremity (HCC) Heterozygous factor V Leiden mutation (HCC) Primary hypercoagulable state Malignant neoplasm of cervix, unspecified site (HCC) Mild intermittent asthma without complication Unspecified asthma Hyperlipidemia, mixed Mixed hyperlipidemia [facility]* Diagnosis Pre-operative examination- Primary Preoperative examination, unspecified Ganglion cyst Ganglion, unspecified Fibromyalgia Mylagia and myositis, unspecified Other migraine with status migrainosus, intractable Tobacco dependence Tobacco use disorder Chronic deep vein thrombosis (DVT) of iliac vein of left lower extremity (HCC) Heterozygous factor V Leiden mutation (HCC) Primary hypercoagulable state Malignant neoplasm of cervix, unspecified site (HCC) Mild intermittent asthma without complication (HCC) Unspecified asthma Chronic deep vein thrombosis (DVT) of iliac vein of left lower extremity (HCC) Heterozygous factor V Leiden mutation (HCC) Primary hypercoagulable state [facility] Additional Instructions Take your Xarelto as previously directed.[facility] Work Phone: Reason for referral (narrative)* Diagnostic Procedure Only (Routine) - Pending Review Specialty Diagnoses / Procedures Referred By Michi t Referred To Contact US IMAGING Diagnoses Elevated d-dimer Procedures US DVT LOWER BILAT DUP-SCAN XTR VEINS COMPLETE BILATERAL STUDY Elysia Zamora APRN.[employer] [address] [place] [address] Us Imaging Referral ID Status Reason Start Date Expiration Date Visits Requested Visits Authorized [id number] Pending Review Auto-Generat ed Referral 2 09/12/2023 1 1 * Outpatient Procedure (Routine) - Authorized Specialty Diagnoses / Procedures Referred By Contac t Referred To Contact [facility] Diagnoses Elevated d-dimer Procedures US LEG VEIN DVT [facility] DUP-SCAN XTR VEINS COMPLETE BILATERAL STUDY Elysia Zamora APRN.CNP [address] [place] [address] [facility] [place] [address] [place] [address] Referral ID Status Reason Start Date Expiration Date Visits Requested Visits Authorized [id number] Authorized Auto-Generat ed Referral 2 08/13/2023 1 1 [facility] for referral (narrative)* Diagnostic Procedure Only (Urgent) - Closed Specialty Diagnoses / Procedures Referred By Contac t Referred To Contact XR IMAGING Diagnoses Foot injury, left, initial encounter Procedures XR ANKLE GENERAL 3V AP/LAT/OBL LEFT RADEX ANKLE COMPLETE MINIMUM 3 VIEWS Farhat Bello PA-C [address] [place] [address] [place] [address] Referral ID Status Reason Start Date Expiration Date V isits Requested Visits Authorized [id number] Closed Auto-Generate d Referral 07/05/2023 08/03/2024 1 1 * Diagnostic Procedure Only (Urgent) - Closed Specialty Diagnoses / Procedures Referred By Contac t Referred To Contact XR IMAGING Diagnoses Foot injury, left, initial encounter Procedures XR FOOT GENERAL 3V AP/LAT/OBL LEFT RADEX FOOT COMPLETE MINIMUM 3 VIEWS Farhat Bello PA-C [address] [place] [address] [place] [address] Referral ID Status Reason Start Date Expiration Date V isits Requested Visits Authorized [id number] Closed Auto-Generate d Referral 07/05/2023 08/03/2024 1 1 [facility] for referral (narrative)* Diagnostic Procedure Only (Urgent) - Closed Specialty Diagnoses / Procedures Referred By Contac t Referred To Contact XR IMAGING Diagnoses Foot injury, left, initial encounter Procedures XR ANKLE GENERAL 3V AP/LAT/OBL LEFT RADEX ANKLE COMPLETE MINIMUM 3 VIEWS Farhat Bello PA-C [address] [place] [address] [place] [address] Referral ID Status Reason Start Date Expiration Date V isits Requested Visits Authorized [id number] Closed Auto-Generate d Referral 07/05/2023 08/03/2024 1 1 * Diagnostic Procedure Only (Urgent) - Closed Specialty Diagnoses / Procedures Referred By Contac t Referred To Contact XR IMAGING Diagnoses Foot injury, left, initial encounter Procedures XR FOOT GENERAL 3V AP/LAT/OBL LEFT RADEX FOOT COMPLETE MINIMUM 3 VIEWS Farhat Bello PA-C [address] [place] [address] [place] [address] Referral ID Status Reason Start Date Expiration Date V isits Requested Visits Authorized [id number] Closed Auto-Generate d Referral 07/05/2023 08/03/2024 1 1 [facility] for visit Narrative* Diagnostic Procedure Only (Urgent) - Closed Specialty Diagnoses / Procedures Referred By Contac t Referred To Contact XR IMAGING Diagnoses Foot injury, left, initial encounter Procedures XR ANKLE GENERAL 3V AP/LAT/OBL LEFT RADEX ANKLE COMPLETE MINIMUM 3 VIEWS Farhat Bello PA-C [address] [place] [address] [place] [address] Referral ID Status Reason Start Date Expiration Date V isits Requested Visits Authorized [id number] Closed Auto-Generate d Referral 07/05/2023 08/03/2024 1 1 [facility] Summary Purpose Family History Relationship Condition Age at Onset Recorded Date/T christa Unknown Family History?No pe rtinent history Unknown September 12, 2016 10:05pm Family History?No pe rtinent history Unknown September 12, 2016 10:05pm Relationship Condition Age at Onset Recorded Date/T christa Unknown Family History?No pe rtinent history Unknown September 12, 2016 9:05pm Family History?No pe rtinent history Unknown September 12, 2016 9:05pm Relationship Condition Age at Onset Recorded Date/T christa mother Disorder of thyroid Unknown Arthritis Unknown Depression Unknown Substance abuse Unknown Fibromyalgia Unknown father Cardiac disease Unknown Coronary artery disease Unknown Myocardial infarction 34 Drug overdose Unknown sister Depression Unknown Disorder of thyroid Unknown grandmother Arthritis Unknown Hypertension Unknown Malignant neoplasm Unknown Malignant neoplasm of colon Unknown Diabetes mellitus Unknown grandfather Myocardial infarction Unknown aunt Diabetes mellitus Unknown uncle Malignant neoplasm Unknown aunt Malignant neoplasm Unknown Advance Directives Advance Directive Response Recorded Date/ Time Advance Directives No November 27, 2016 1:43am Living Will No July 14, 2022 5:10pm Power of Medical Assistant Supervisor No July 5:10pm Advance Directive Response Recorded Date/ Time Advance Directives No November 27, 2016 1:43am Living Will No August 16 6:33pm Power of Medical Assistant Supervisor No August 16, 2022 6:33pm Advance Directive Response Recorded Date/ Time Advance Directives No November 27, 2016 1:43am Living Will No August 17 1:55pm Power of Medical Assistant Supervisor No August 17, 2022 1:55pm Advance Directive Response Recorded Date/ Time Advance Directives No November 27, 2016 1:43am Living Will No August 22 6:19pm Power of Medical Assistant Supervisor No August 22, 2022 6:19pm Advance Directive Response Recorded Date/ Time Advance Directives No November 27, 2016 12:43am Living Will No January 04, 2024 8:39pm Power of Medical Assistant Supervisor No January 03 8:39pm Advance Directive Response Recorded Date/ Time Advance Directives No November 27, 2016 1:43am Living Will No February 28, 2024 10:00pm Power of Medical Assistant Supervisor No February 27 10:00pm Chief Complaint and Reason for Visit Chief Complaint neuro s/s Chief Complaint neuro s/s abnormal labs Chief Complaint neuro s/s abnormal labs ANXIETY Chief Complaint neuro s/s abnormal labs ANXIETY SI Chief Complaint sob Chief Complaint sob left foot injury Reason for Referral Specialty Diagnoses / Procedures Referred By Contac t Referred To Contact Podiatry Diagnoses Avulsion of toenail of left foot Procedures CONSULT TO PODIATRY OFFICE/OUTPATIENT [facility] 60-74 MINUTES Minal Martin, AUTO WRECKER.FRONT TENDER [address] [place] [address] Referral ID Status Reason Start Date Expiration Date Visits Requested Visits Authorized [id number] Authorized PCP Requested Referral 03/15/2023 03/14/2024 1 1 Specialty Diagnoses / Procedures Referred By Contac t Referred To Contact Cardiology Diagnoses Other chest pain Procedures CONSULT TO CARDIOLOGY OFFICE/OUTPATIENT [facility] 60 MINUTES Henny Cook, AUTO WRECKER.FRONT TENDER [address] [place] [address] Referral ID Status Reason Start Date Expiration Date Visits Requested Visits Authorized [id number] Authorized PCP Requested Referral 01/16/2024 01/15/2025 1 1 Specialty Diagnoses / Procedures Referred By Contac t Referred To Contact [facility] [place] Diagnoses Other chest pain Procedures EXERCISE STRESS ECG (WITHOUT IMAGING) Henny Cook, AUTO WRECKER.FRONT TENDER [address] [place] [address] [facility] [place] [address] [place] [address] Referral ID Status Reason Start Date Expiration Date Visits Requested Visits Authorized [id number] Authorized Auto-Generat ed Referral 01/16/2024 01/15/2025 1 1 Specialty Diagnoses / Procedures Referred By Contac t Referred To Contact [facility] [place] Diagnoses Other chest pain Procedures ECHO ECHO TTHRC R-T 2D W/WOM-MODE COMPL SPEC&COLR D Henny Cook, AUTO WRECKER.FRONT TENDER [address] [place] [address] [facility] [place] [address] [place] [address] Referral ID Status Reason Start Date Expiration Date Visits Requested Visits Authorized [id number] Additional Clinical Info Needed Auto-Generat ed Referral 01/16/2024 01/15/2025 1 1 Specialty Diagnoses / Procedures Referred By Michi tirado Referred To Contact Neurology Diagnoses Memory changes Procedures CONSULT TO NEUROLOGY OFFICE/OUTPATIENT [facility] HIGH MDM 60 MINUTES Henny Cook APRN.FRONT TENDER [address] [facility] [place] [address] Referral ID Status Reason Start Date Expiration Date Visits Requested Visits Authorized [id number] Authorized PCP Requested Referral 01/16/2024 01/15/2025 1 1 Additional Source Comments INFORMATION SOURCE (unrecogn ized section and content) DATE CREATED AUTHOR 07/02/2018 [facility] DATE CREATED AUTHOR AUTHOR'S ORGANIZ ATION 08/20/2021 [facility] DATE CREATED AUTHOR AUTHOR'S ORGANIZ ATION 01/23/2022 [facility] DATE CREATED AUTHOR AUTHOR'S ORGANIZ ATION 06/23/2024 [facility] DATE CREATED AUTHOR AUTHOR'S ORGANIZ ATION 07/02/2024 [facility] ([place]) DATE CREATED AUTHOR AUTHOR'S ORGANIZ ATION 07/08/2024 [facility] DATE CREATED AUTHOR AUTHOR'S ORGANIZ ATION 12/06/2024 [facility] Source Comments (unrecognize d section and content) In the event this informatio n is protected by the Federal Confidentiality of Alcohol and Drug Abuse Patient Records regulations: The Federal rules restrict any use of the information to criminally investigate or prosecute any alcohol or drug abuse patient.[facility] the event this information is protected by the Federal Confidentiality of Alcohol and Drug Abuse Patient Records regulations: The Federal rules restrict any use of the information to criminally investigate or prosecute any alcohol or drug abuse patient.[facility] Hospital[facility] the event this information is protected by the Federal Confidentiality of Alcohol and Drug Abuse Patient Records regulations: The Federal rules restrict any use of the information to criminally investigate or prosecute any alcohol or drug abuse patient.[facility] HospitalIn the event this information is protected by the Federal Confidentiality of Alcohol and Drug Abuse Patient Records regulations: The Federal rules restrict any use of the information to criminally investigate or prosecute any alcohol or drug abuse patient.[facility] HospitalIn the event this information is protected by the Federal Confidentiality of Alcohol and Drug Abuse Patient Records regulations: The Federal rules restrict any use of the information to criminally investigate or prosecute any alcohol or drug abuse patient.[facility] HospitalIn the event this information is protected by the Federal Confidentiality of Alcohol and Drug Abuse Patient Records regulations: The Federal rules restrict any use of the information to criminally investigate or prosecute any alcohol or drug abuse patient.[facility] HospitalIn the event this information is protected by the Federal Confidentiality of Alcohol and Drug Abuse Patient Records regulations: The Federal rules restrict any use of the information to criminally investigate or prosecute any alcohol or drug abuse patient.[facility] HospitalIn the event this information is protected by the Federal Confidentiality of Alcohol and Drug Abuse Patient Records regulations: The Federal rules restrict any use of the information to criminally investigate or prosecute any alcohol or drug abuse patient.[facility] HospitalIn the event this information is protected by the Federal Confidentiality of Alcohol and Drug Abuse Patient Records regulations: The Federal rules restrict any use of the information to criminally investigate or prosecute any alcohol or drug abuse patient.[facility] HospitalIn the event this information is protected by the Federal Confidentiality of Alcohol and Drug Abuse Patient Records regulations: The Federal rules restrict any use of the information to criminally investigate or prosecute any alcohol or drug abuse patient.[facility] HospitalIn the event this information is protected by the Federal Confidentiality of Alcohol and Drug Abuse Patient Records regulations: The Federal rules restrict any use of the information to criminally investigate or prosecute any alcohol or drug abuse patient.[facility] HospitalIn the event this information is protected by the Federal Confidentiality of Alcohol and Drug Abuse Patient Records regulations: The Federal rules restrict any use of the information to criminally investigate or prosecute any alcohol or drug abuse patient.[facility] HospitalIn the event this information is protected by the Federal Confidentiality of Alcohol and Drug Abuse Patient Records regulations: The Federal rules restrict any use of the information to criminally investigate or prosecute any alcohol or drug abuse patient.[facility] HospitalIn the event this information is protected by the Federal Confidentiality of Alcohol and Drug Abuse Patient Records regulations: The Federal rules restrict any use of the information to criminally investigate or prosecute any alcohol or drug abuse patient.[facility] HospitalIn the event this information is protected by the Federal Confidentiality of Alcohol and Drug Abuse Patient Records regulations: The Federal rules restrict any use of the information to criminally investigate or prosecute any alcohol or drug abuse patient.[facility] HospitalIn the event this information is protected by the Federal Confidentiality of Alcohol and Drug Abuse Patient Records regulations: The Federal rules restrict any use of the information to criminally investigate or prosecute any alcohol or drug abuse patient.[facility] HospitalIn the event this information is protected by the Federal Confidentiality of Alcohol and Drug Abuse Patient Records regulations: The Federal rules restrict any use of the information to criminally investigate or prosecute any alcohol or drug abuse patient.[facility] HospitalIn the event this information is protected by the Federal Confidentiality of Alcohol and Drug Abuse Patient Records regulations: The Federal rules restrict any use of the information to criminally investigate or prosecute any alcohol or drug abuse patient.[facility] HospitalIn the event this information is protected by the Federal Confidentiality of Alcohol and Drug Abuse Patient Records regulations: The Federal rules restrict any use of the information to criminally investigate or prosecute any alcohol or drug abuse patient.[facility] HospitalIn the event this information is protected by the Federal Confidentiality of Alcohol and Drug Abuse Patient Records regulations: The Federal rules restrict any use of the information to criminally investigate or prosecute any alcohol or drug abuse patient.[facility] HospitalIn the event this information is protected by the Federal Confidentiality of Alcohol and Drug Abuse Patient Records regulations: The Federal rules restrict any use of the information to criminally investigate or prosecute any alcohol or drug abuse patient.[facility] HospitalIn the event this information is protected by the Federal Confidentiality of Alcohol and Drug Abuse Patient Records regulations: The Federal rules restrict any use of the information to criminally investigate or prosecute any alcohol or drug abuse patient.[facility] HospitalIn the event this information is protected by the Federal Confidentiality of Alcohol and Drug Abuse Patient Records regulations: The Federal rules restrict any use of the information to criminally investigate or prosecute any alcohol or drug abuse patient.[facility] HospitalIn the event this information is protected by the Federal Confidentiality of Alcohol and Drug Abuse Patient Records regulations: The Federal rules restrict any use of the information to criminally investigate or prosecute any alcohol or drug abuse patient.[facility] HospitalIn the event this information is protected by the Federal Confidentiality of Alcohol and Drug Abuse Patient Records regulations: The Federal rules restrict any use of the information to criminally investigate or prosecute any alcohol or drug abuse patient.[facility] HospitalIn the event this information is protected by the Federal Confidentiality of Alcohol and Drug Abuse Patient Records regulations: The Federal rules restrict any use of the information to criminally investigate or prosecute any alcohol or drug abuse patient.[facility] HospitalIn the event this information is protected by the Federal Confidentiality of Alcohol and Drug Abuse Patient Records regulations: The Federal rules restrict any use of the information to criminally investigate or prosecute any alcohol or drug abuse patient.[facility] HospitalIn the event this information is protected by the Federal Confidentiality of Alcohol and Drug Abuse Patient Records regulations: The Federal rules restrict any use of the information to criminally investigate or prosecute any alcohol or drug abuse patient.[facility] HospitalIn the event this information is protected by the Federal Confidentiality of Alcohol and Drug Abuse Patient Records regulations: The Federal rules restrict any use of the information to criminally investigate or prosecute any alcohol or drug abuse patient.[facility] HospitalIn the event this information is protected by the Federal Confidentiality of Alcohol and Drug Abuse Patient Records regulations: The Federal rules restrict any use of the information to criminally investigate or prosecute any alcohol or drug abuse patient.[facility] HospitalIn the event this information is protected by the Federal Confidentiality of Alcohol and Drug Abuse Patient Records regulations: The Federal rules restrict any use of the information to criminally investigate or prosecute any alcohol or drug abuse patient.[facility] HospitalIn the event this information is protected by the Federal Confidentiality of Alcohol and Drug Abuse Patient Records regulations: The Federal rules restrict any use of the information to criminally investigate or prosecute any alcohol or drug abuse patient.[facility] HospitalIn the event this information is protected by the Federal Confidentiality of Alcohol and Drug Abuse Patient Records regulations: The Federal rules restrict any use of the information to criminally investigate or prosecute any alcohol or drug abuse patient.[facility] HospitalIn the event this information is protected by the Federal Confidentiality of Alcohol and Drug Abuse Patient Records regulations: The Federal rules restrict any use of the information to criminally investigate or prosecute any alcohol or drug abuse patient.[facility] Reason for Visit (unrecogniz ed section and content) Reason Comments Consult Cyst on back & groin Reason Comments Bleeding/Bruising Fatigue Weight Loss Diarrhea Reason Comments Future Appointment Reason Comments Patient Question Reason Comments Results Reason Comments question regarding blood clot Reason Comments ED Follow-up Reason Comments Opened In Error Reason Comments Patient Update Reason Comments Acute Visit fatiqued all the liudmila e Reason Comments Acute Visit sharp pain right tem ple. Reason Comments F/U 1 month Reason Comments Toe Pain (Big) left great toe pain, tore toenail off x yesterday moving a bench Reason Comments Well Woman Reason Comments Question Reason Comments Urinary Frequency Frequency x 1 month and left foot pain Reason Comments Results Reason Comments Ear Pain Left ear-was seen in for this a month or so ago Reason Comments Consult Cyst on right side o f rib cage Reason Comments Patient Update Patient Request Reason Comments Follow Up ER follow up Reason Comments Results Orders Labs Reason Comments Stress Test Instructions for 02/06/24 Reason Comments Refill Request Reason Comments Trauma Right hand swollen f rom insect sting x 3 days Reason Onset Date Comments Refill Request 08/17/2024 Reason Onset Date Comments Refill Request 11/12/2024 Reason Onset Date Comments Refill Request 12/10/2024 Reason Onset Date Comments Refill Request 05/10/2025 Care Teams (unrecognized sec tion and content) Outside Repairer Special Relationship Specialty Start Date End Date Ty Gaytan MD [address] [place] [address] PCP - General Family Practice 01/06/15 Outside Repairer Special Relationship Specialty Start Date End Date Ty Gaytan MD [address] [place] [address] PCP - General Family Medicine 01/06/15 Outside Repairer Special Relationship Specialty Start Date End Date Ty Gaytan MD [address] [place] [address] PCP - General Family Medicine 01/06/15 Outside Repairer Special Relationship Specialty Start Date End Date Ty Gaytan MD [address] [place] [address] PCP - General Family Medicine 01/06/15 Outside Repairer Special Relationship Specialty Start Date End Date Ty Gaytan MD [address] [place] [address] PCP - General Family Medicine 01/06/15 Outside Repairer Special Relationship Specialty Start Date End Date Ty Gaytan MD [address] [place] [address] PCP - General Family Medicine 01/06/15 Outside Repairer Special Relationship Specialty Start Date End Date Ty Gaytan MD [address] [place] [address] PCP - General Family Medicine 01/06/15 Outside Repairer Special Relationship Specialty Start Date End Date Ty Gaytan MD [address] [place] [address] PCP - General Family Medicine 01/06/15 Outside Repairer Special Relationship Specialty Start Date End Date Ty Gaytan MD [address] [place] [address] PCP - General Family Medicine 01/06/15 Outside Repairer Special Relationship Specialty Start Date End Date Ty Gaytan MD [address] [place] [address] PCP - General Family Medicine 01/06/15 Outside Repairer Special Relationship Specialty Start Date End Date Ty Gaytan MD [address] [place] [address] PCP - General Family Medicine 01/06/15 Outside Repairer Special Relationship Specialty Start Date End Date Ty Gatyan MD [address] [place] [address] PCP - General Family Medicine 01/06/15 Outside Repairer Special Relationship Specialty Start Date End Date Ty Gaytan MD [address] [place] [address] PCP - General Family Medicine 01/06/15 Outside Repairer Special Relationship Specialty Start Date End Date Ty Gaytan MD [address] [place] [address] PCP - General Family Medicine 01/06/15 Outside Repairer Special Relationship Specialty Start Date End Date Ty Gaytan MD [address] [place] [address] PCP - General Family Medicine 01/06/15 Outside Repairer Special Relationship Specialty Start Date End Date Ty Gaytan MD [address] [place] [address] PCP - General Family Medicine 01/06/15 Outside Repairer Special Relationship Specialty Start Date End Date Ty Gaytan MD [address] [place] [address] PCP - General Family Medicine 01/06/15 Outside Repairer Special Relationship Specialty Start Date End Date Ty Gaytan MD [address] [place] [address] PCP - General Family Medicine 01/06/15 Team Status: Active Member Role Status Dates Dr. Ty Gaytan MD Family Provider Active Dr. Ty Gaytan MD Primary Care Provider Active Team Status: Inactive Member Role Status Dates Dr. Ty Gaytan MD Primary Care Provider Active Thuan Guy MD Emergency Provider Active Outside Repairer Special Relationship Specialty Start Date End Date Ty Gaytan MD [address] [place] [address] PCP - General Family Medicine 01/06/15 Outside Repairer Special Relationship Specialty Start Date End Date Ty Gaytan MD [address] [place] [address] PCP - General Family Medicine 01/06/15 Outside Repairer Special Relationship Specialty Start Date End Date Ty Gaytan MD [address] [place] [address] PCP - General Family Medicine 01/06/15 Team Status: Inactive Member Role Status Dates Dr. Ty Gaytan MD Primary Care Provider Active Thuan Guy MD Attending Provider, Emergency Provid er Active Team Status: Inactive Member Role Status Dates Dr. Ty Gaytan MD Primary Care Provider Active Dr. Lewis Schaeffer MD Emergency Provider Active Outside Repairer Special Relationship Specialty Start Date End Date Ty Gaytan MD [address] [place] [address] PCP - General Family Medicine 01/06/15 Outside Repairer Special Relationship Specialty Start Date End Date Ty Gaytan MD [address] [place] [address] PCP - General Family Medicine 01/06/15 Outside Repairer Special Relationship Specialty Start Date End Date Ty Gaytan MD [address] [place] [address] PCP - General Family Medicine 01/06/15 Outside Repairer Special Relationship Specialty Start Date End Date Ty Gaytan MD [address] [place] [address] PCP - General Family Medicine 01/06/15 Outside Repairer Special Relationship Specialty Start Date End Date Ty Gaytan MD [address] [place] [address] PCP - General Family Medicine 01/06/15 Henny Cook APRN.FRONT TENDER [address] [place] [address] Joint Runner Family Medicine 10/07/24 Tejas Mata APRN.FRONT TENDER [address] [place] [address] [facility] 10/16/24 Outside Repairer Special Relationship Specialty Start Date End Date Ty Gaytan MD [address] [place] [address] PCP - General Family Medicine 01/06/15 Henny Cook AUTO WRECKER.FRONT TENDER [address] [place] [address] [facility] 10/07/24 Tejas Mata APRN.FRONT TENDER [address] [place] [address] [facility] 10/16/24 Outside Repairer Special Relationship Specialty Start Date End Date Ty Gaytan MD [address] [place], [place] [id number] PCP - General Family Medicine 01/06/15 Tejas Mata APRN.FRONT TENDER [address] [place], [place] [address] [facility] 10/16/24 Goals (unrecognized section and content) Goals may be documented in a n alternate sectionGoals may be documented in an alternate sectionGoals may be documented in an alternate sectionGoals may be documented in an alternate sectionGoals may be documented in an alternate sectionGoals may be documented in an alternate section No data available for this section FOR RECORDS PERTAINING TO PATIENTS WHO ARE OR HAVE BEEN ENROLLED IN A CHEMICAL DEPENDENCY/SUBSTANCEABUSE PROGRAM, SOME INFORMATION MAY BE OMITTED. This clinical summary was aggregated from multiple sources. Caution should be exercised in using it in the provision of clinical care. This summary normalizes information from multiple sources, and as a consequence, information in this document may materially change the coding, format and clinical context of patient data. In addition, data may be omitted in some cases. CLINICAL DECISIONS SHOULD BE BASED ON THE PRIMARY CLINICAL RECORDS. [employer] provides no warranty or guarantee of the accuracy or completeness of information in this document.
[2025-08-15] MEDS: DiphenhydrAMINE 50 MG/ML Syringe 25 MG IV (21:18)
[2025-08-15 21:33] LABS: Hematocrit 39.6 % (37-47); Hemoglobin 13.2 g/dL (12.0-15.0); Immature Granulocytes Count 0.010 X10^3/uL (0.0-0.0); Mean Corp Hgb Conc 33.3 g/dL (32-36); Mean Corpuscular Volume 88.2 fL (81-99); Mean Platelet Vol. 9.9 fl (6.2-12.0); NRBC Flagged by Analyzer 0 % (0-5); Platelet Count 263 K/mm3 (150-450); RBC Distribution Width CV 12.7 % (11.6-14.6); RBC Distribution Width SD 41.4 fl (35.1-43.9); Red Blood Count 4.49 M/mm3 (4.2-5.4); White Blood Count 8.3 K/mm3 (4.4-11.0)
[2025-08-15 22:13] LABS: AST(SGOT) 17 U/L (<=31); Alanine Aminotransfer ALT/SGPT 12 U/L (<=34); Albumin, Serum 3.9 g/dL (3.5-5.0); Alkaline Phosphatase 100 U/L (35-104); Anion Gap 10 (5-15); BUN 16 mg/dL (4-19); BUN/Creat Ratio 23.4 RATIO (10-20); Calcium,Total 9.0 mg/dL (7.6-11.0); Carbon Dioxide 24.8 mmol/L (21.0-32.0); Chloride 107 mmol/L (98-108); Estimated Creatinine Clearance 126.73 ml/min (50-250); Globulin 2.8 g/dL (2.2-4.2); Glucose 106 mg/dL (70-99); Lipase 27 U/L (13-75); Potassium 3.7 mmol/L (3.3-5.1)
--- NOTE | 2025-08-15 22:18 | CT_ITS ---
PROCEDURE: CT ABDOMEN/PELVIS W IV CONT ONLY 08/15/2025 REASON FOR EXAM: TRAUMATIC LEFT FLANK PAIN AFTER FALL. ON TECHNIQUE: Procedure Code: [id number] Modality: CT Procedure: ABDOMEN/PELVIS W IV CONT ONLY Coronal and Sagittal reconstruction series were provided. CONTRAST: Isovue 370 VOLUME: 81 mL One or more dose reduction techniques were used (e.g., Automated exposure control, adjustment of the mA and/or kV according to patient size, use of iterative reconstruction technique. RADIATION DOSE SUMMARY: DLP: 2013.06 mGycm COMPARISON: None. FINDINGS: Lung bases: Clear. Liver: Unremarkable. Gallbladder: Surgically absent. No biliary ductal dilatation. Spleen: Normal in size. No acute injury. Pancreas: Unremarkable. Adrenals: Unremarkable. Kidneys: Unremarkable. No acute injury or hydronephrosis. Bladder: Unremarkable. Reproductive Organs: Prior hysterectomy. Unremarkable adnexal regions. Bowel: No evidence of obstruction or active inflammatory process. Prior appendectomy. Vasculature: Normal caliber abdominal aorta and IVC. Peritoneum / Retroperitoneum: No free fluid or air. Clear mesenteric fat planes. No enlarged abdominopelvic lymph nodes. Bones: Unremarkable. No acute fracture or dislocation. CT/Abdomen/Pelvis W IV Cont ONLY IMPRESSION: No acute intra-abdominal pathology. Reading Location: [id number]
--- NOTE | 2025-08-15 22:18 | CT_ITS ---
PROCEDURE: CHEST WITHOUT CONTRAST 08/15/2025 REASON FOR EXAM: LEFT LATERAL AND LOWER RIB CAGE INJURY POST FALL A TECHNIQUE: Chest CT without contrast. Coronal and Sagittal reconstruction series were provided. One or more dose reduction techniques were used (e.g., Automated exposure control, adjustment of the mA and/or kV according to patient size, use of iterative reconstruction technique RADIATION DOSE SUMMARY: DLP: 2013.06 mGycm COMPARISON: None. FINDINGS: Lungs/pleura: Clear. Mild dependent atelectasis. No pneumothorax or pleural effusion. Mediastinum: Unremarkable. No lymphadenopathy. Heart and Vasculature: Normal size. No pericardial effusion. No significant coronary artery calcification. Normal course and caliber of the thoracic aorta. Upper Abdomen: Unremarkable, as visualized. Bones: Unremarkable. No acute fracture or dislocation. CT/Chest without Contrast IMPRESSION: No acute intrathoracic abnormality. Reading Location: [id number]
[2025-08-16 00:10] VITALS: BP 122/85; PULSE 65; RESP 18; TEMP 36.8; O2SAT 99
== END 2025-08-16 00:18 | disposition home or self-care (01) ==
PROVIDERS: Emergency Provider Emergency Medicine; PCP Family Medicine; Visit Provider Emergency Medicine
DX: S20.212A Contusion of left front wall of thorax, initial encounter (principal); D68.2 Hereditary deficiency of other clotting factors; W01.10XA Fall on same level from slipping, tripping and stumbling with subsequent striking against unspecified object, initial encounter; S30.13XA Contusion of flank (latus) region, initial encounter; E78.5 Hyperlipidemia, unspecified; Z79.01 Long term (current) use of anticoagulants; Z86.718 Personal history of other venous thrombosis and embolism; Z86.711 Personal history of pulmonary embolism
CPT/HCPCS: 71250; 74177; 80053; 83690; 85025; 96374; 96375; 96376; 99283; Q9967; A4216; J2405